=== PATIENT | female | born 1935 | race Caucasian/White ===

== ENCOUNTER 2016-11-02 23:24 | Emergency (ER) | payer MEDICARE, BC ==
[2016-11-02 23:52] VITALS: RESP 18
[2016-11-03] MEDS ORDERED: HYDROcodone/APAP 5-325MG 1 EACH TAB PO STA (00:16)
--- NOTE | 2016-11-03 00:18 | ED ---
Fall HPI - General Chief Complaint: Fall Stated Complaint: Fall Time Seen by Provider: 11/02/16 23:58 Source: patient, RN notes reviewed Mode of arrival: wheelchair - History of Present Illness Initial Comments: Patient is an 80-year-old female presents emergency room for evaluation of fall injury. Patient states arounf 4 PM she fell down 2 steps off her porch. Patient states she twisted her left ankle/foot and landed on her left knee. Patient is herself with her arms is having pain over her left hand and has an abrasion over her left elbow. Patient also complaining of left knee abrasion. Patient states she is mostly having left ankle and foot pain. Patient states pain is worse whenever she puts weight on her left leg. Patient denies any numbness or tingling in her toes. Patient denies head trauma or loss consciousness. Patient denies any other injuries during incident. Patient denies taking any blood thinners. - Related Data Home Medications Medication Instructions Recorded Confirmed ALPRAZolam [Xanax] 1 mg PO BID PRN 12/26/14 11/02/16 Methylphenidate HCl [Ritalin] 10 mg PO QAM 07/04/16 11/02/16 DULoxetine HCL [Duloxetine HCl] 60 mg PO DAILY 07/07/16 11/02/16 Hydrocodone/Acetaminophen 1 tab PO BID PRN 07/07/16 11/02/16 [Hydrocodon-Acetaminophn 10-325] Acetaminophen Tab [Tylenol] 325 - 650 mg PO Q6H PRN 10/14/16 11/02/16 Budesonide [Pulmicort] 0.5 mg INHALATION RT-BID PRN 10/14/16 11/02/16 Prochlorperazine [Compazine] 5 - 10 mg PO BID PRN 10/14/16 11/02/16 Zolpidem [Ambien] 10 mg PO HS PRN 10/14/16 11/02/16 oxyCODONE HCL 30 mg PO Q6HR PRN 10/14/16 11/02/16 valACYclovir [Valtrex] 500 mg PO DAILY 10/14/16 11/02/16 Previous Rx's Medication Instructions Recorded Folic Acid 1 mg PO DAILY@1200 #30 tab 10/19/16 Ipratropium-Albuterol Nebulize 3 ml INHALATION RT-QID #0 10/19/16 [Duoneb 0.5 mg-3 mg/3 ml Soln] Levofloxacin [Levaquin] 750 mg PO DAILY@1900 #5 tab 10/19/16 Multivitamins, Thera [Multivitamin 1 each PO DAILY@1200 #30 tab 10/19/16 (formulary)] Nicotine 14Mg/24Hr Patch [Habitrol] 1 patch TRANSDERM DAILY #30 patch 10/19/16 Thiamine [Vitamin B-1] 100 mg PO DAILY@1200 #30 tab 10/19/16 predniSONE 10 mg PO DIRECTED #30 tab 10/19/16 Allergies Allergy/AdvReac Type Severity Reaction Status Date / Time amoxicillin trihydrate Allergy Unknown Verified 11/02/16 23:46 [From Augmentin] cephalexin monohydrate Allergy Swelling Verified 11/02/16 23:46 [From Keflex] meperidine HCl [From Demerol] Allergy Unknown Verified 11/02/16 23:46 potassium clavulanate Allergy Unknown Verified 11/02/16 23:46 [From Augmentin] Sulfa (Sulfonamide Allergy Unknown Verified 11/02/16 23:46 Antibiotics) NSAIDS (Non-Steroidal AdvReac Severe Nausea & Verified 11/02/16 23:46 Anti-Inflamma Vomiting Review of Systems ROS Statement: Those systems with pertinent positive or pertinent negative responses have been documented in the HPI. ROS Other: All systems not noted in ROS Statement are negative. Past Medical History Past Medical History: COPD, Hypertension, Pneumonia Additional Past Medical History / Comment(s): arthritis, pancreatitis, chronic back and neck pain History of Any Multi-Drug Resistant Organisms: None Reported Past Surgical History: Hysterectomy Additional Past Surgical History / Comment(s): cataract Past Anesthesia/Blood Transfusion Reactions: No Reported Reaction Past Psychological History: Anxiety, Depression Smoking Status: Current every day smoker Past Alcohol Use History: None Reported Additional Past Alcohol Use History / Comment(s): Pt states "I smoke maybe three cigarettes a day" Past Drug Use History: None Reported - Past Family History Mother Family Medical History: Blood Disorder, Cancer, Thyroid Disorder General Exam - General Exam Comments Initial Comments: Sitting in exam room, no acute distress. Limitations: no limitations General appearance: alert, in no apparent distress Head exam: Present: atraumatic, normocephalic, normal inspection Eye exam: Present: normal appearance ENT exam: Present: normal exam Neck exam: Present: normal inspection Respiratory exam: Present: normal lung sounds bilaterally. Absent: respiratory distress Cardiovascular Exam: Present: regular rate, normal rhythm, normal heart sounds Left Elbow exam: Present: full ROM, abrasion (Abrasion over left elbow). Absent: tenderness Hand Wrist exam: Present: normal inspection, full ROM, tenderness (Dorsal hand) Neuro motor exam: Present: wrist extension intact, thumb opposition intact, thumb IP flexion intact, thumb adduction intact, fingers 2-5 abduction intact Vascular: Present: normal capillary refill (Capillary refill less than 2 seconds ), radial pulse (2+), ulnar pulse (2+) Left Knee exam: Present: full ROM, abrasion (Over anterior patella). Absent: tenderness Ankle exam: Present: full ROM, tenderness (Lateral malleolus), swelling ( Lateral malleolus) Foot/Toe exam: Present: tenderness (Tenderness on palpating over the heel) Neurovascular tendon exam: Present: no vascular compromise. Absent: pulse deficit (2+ dorsal pedal and posterior tibial pulses), abnormal cap refill ( Capillary refill less than 2 seconds) Back exam: Present: normal inspection Neurological exam: Present: alert, oriented X3, CN II-XII intact Psychiatric exam: Present: normal affect, normal mood Skin exam: Present: warm, dry, normal color. Absent: rash Course Vital Signs 11/02/16 11/03/16 23:46 01:56 Temperature 98.1 F 98.0 F Pulse Rate 105 H 95 Respiratory 18 18 Rate Blood Pressure 133/62 129/67 O2 Sat by Pulse 95 98 Oximetry Procedures - Orthopedic Splinting/Casting Injury #1 Side: left Lower Extremity Injury Location: foot Lower Extremity Immobilizer: posterior splint (Short leg OCL posterior splint placed. 3x12 inches. Neurovascular function assessed and intact.) Medical Decision Making - Medical Decision Making Patient is a 80-year-old female presents to the emergency room for fall injury. Left ankle x-ray significant for calcaneal fracture. Patient placed in a short leg posterior OCL splint and advised follow-up with adult health clinical nurse specialist. Patient lives with her daughter. Patient requests a prescription for [place]. Patient was written a prescription for [place] on 10/26/16 along with 105 tabs of Oxycodon on 10/26/16. Advised patient to continue taking her at home pain medications already prescribed to her as needed for pain. Patient states she understands everything that was discussed with her. Return parameters discussed. Case discussed with Dr. Mcbride. - Radiology Data Radiology results: report reviewed, image reviewed Disposition Clinical Impression: Fall, Left calcaneal fracture Disposition: HOME SELF-CARE Condition: Good Instructions: Fall Prevention for Older Adults (ED), Calcaneal Fracture (ED) Additional Instructions: Rest, elevate and ice on and off for 10-15 minutes for the next 24-48 hours. Do not get splint wet. Do not remove splint until follow-up with adult health clinical nurse specialist. Please follow-up with adult health clinical nurse specialist, Dr. Hood ) or any other physician in that facility in 24-48 hours. Continue taking at home pain medications as needed. If new symptoms develop or symptoms worsen , please return to the ER. Referrals: Brendan Rose DO [Primary Care Provider] - 1-2 days Gus Hood DO [Doctor of Osteopathic Medicine] - 1-2 days Time of Disposition: 01:33
--- NOTE | 2016-11-03 00:54 | XR ---
EXAM: XR Left Ankle Complete, 3 or More Views. CLINICAL HISTORY: Reason: Pain TECHNIQUE: Frontal, lateral and oblique views of the left ankle. COMPARISON: No relevant prior studies available. FINDINGS: Bones/joints: The bones are profoundly demineralized. This does limit sensitivity for detection of nondisplaced fracture. Allowing for this there appears to be both vertical and horizontal lucency within the posterior calcaneus, suggesting presence of acute fracture or fractures. The distal tibia and fibula are intact is the talus. No evidence of dislocation. Soft tissues: Mild generalized soft tissue swelling/edema about the ankle, more so laterally. IMPRESSION: Findings suggest the presence of calcaneal fracture or fractures. Correlate clinically with site of symptomatology. CT could be considered for further delineation as clinically indicated.
--- NOTE | 2016-11-03 00:58 | XR ---
EXAM: XR Left Hand Complete, 3 or More Views. CLINICAL HISTORY: Reason: Pain TECHNIQUE: Frontal, lateral and oblique views of the left hand. COMPARISON: No relevant prior studies available. FINDINGS: Bones/joints: The bones are diffusely demineralized. Multifocal arthritic changes including at the base of the thumb and medial midcarpal row, and notably involving the second and third MCP joints where there is mild volar subluxation without evidence of dislocation, the latter findings of which can be seen in the setting of CPPD arthropathy. There is no acute fracture seen. Soft tissues: There may be faint chondrocalcinosis of the TFC complex. No radiopaque foreign body. IMPRESSION: 1. No acute fracture or willy dislocation seen. 2. Chronic appearing arthritic changes with associated mild subluxation at the second and third MCP joints.
[2016-11-03 01:57] VITALS: BP 129/67; PULSE 95; TEMP 98
== END 2016-11-03 01:56 | disposition home or self-care (01) ==
LOC: EC 23:24
DX: S92.002A Unspecified fracture of left calcaneus, initial encounter for closed fracture (principal); S50.312A Abrasion of left elbow, initial encounter; S80.212A Abrasion, left knee, initial encounter; F41.9 Anxiety disorder, unspecified; F32.9 Major depressive disorder, single episode, unspecified; F17.210 Nicotine dependence, cigarettes, uncomplicated; Z79.899 Other long term (current) drug therapy; Z88.0 Allergy status to penicillin; Z88.1 Allergy status to other antibiotic agents; Z88.5 Allergy status to narcotic agent; Z88.2 Allergy status to sulfonamides; Z88.6 Allergy status to analgesic agent; Z87.01 Personal history of pneumonia (recurrent); W10.9XXA Fall (on) (from) unspecified stairs and steps, initial encounter; X50.1XXA Overexertion from prolonged static or awkward postures, initial encounter
CPT/HCPCS: 29515; 99283

== ENCOUNTER 2016-11-07 15:23 | Inpatient (IN) | payer MEDICARE, BC ==
--- NOTE | 2016-11-07 16:11 | ED ---
Altered Mental Status HPI - General Chief Complaint: Altered Mental Status Stated Complaint: alter mental status Time Seen by Provider: 11/07/16 15:51 Source: patient Mode of arrival: wheelchair Limitations: no limitations - History of Present Illness Initial Comments: This patient is an 80-year-old woman who presents to be evaluated for altered mental status. The patient is coming by her daughter. Daughter does give much of the history and states that the patient appears similar to the way she was when she had pneumonia. She has been weak, slow to respond, and her voice is somewhat weak as well. In addition she has been coughing for a couple of days. The weakness seemed to be worse this afternoon, being notable after 2:00. They deny any focal weakness. MD Complaint: altered mental status, confusion, weakness -: hour(s) Severity: moderate Context: history of similar presentation Associated Symptoms: cough - Related Data Home Medications Medication Instructions Recorded Confirmed ALPRAZolam [Xanax] 1 mg PO BID PRN 12/26/14 11/07/16 DULoxetine HCL [Duloxetine HCl] 60 mg PO DAILY 07/07/16 11/07/16 Acetaminophen Tab [Tylenol] 650 mg PO Q6H PRN 10/14/16 11/07/16 Zolpidem [Ambien] 10 mg PO HS PRN 10/14/16 11/07/16 oxyCODONE HCL 30 mg PO Q6HR PRN 10/14/16 11/07/16 valACYclovir [Valtrex] 500 mg PO DAILY 10/14/16 11/07/16 DULoxetine HCL [Cymbalta] 30 mg PO DAILY 11/07/16 11/07/16 Multivitamins, Thera [Multivitamin 1 tab PO DAILY@1200 11/07/16 11/07/16 (formulary)] Previous Rx's Medication Instructions Recorded Folic Acid 1 mg PO DAILY@1200 #30 tab 10/19/16 Thiamine [Vitamin B-1] 100 mg PO DAILY@1200 #30 tab 10/19/16 Allergies Allergy/AdvReac Type Severity Reaction Status Date / Time amoxicillin trihydrate Allergy Unknown Verified 11/07/16 17:04 [From Augmentin] cephalexin monohydrate Allergy Swelling Verified 11/07/16 17:04 [From Keflex] meperidine HCl [From Demerol] Allergy Unknown Verified 11/07/16 17:04 potassium clavulanate Allergy Unknown Verified 11/07/16 17:04 [From Augmentin] Sulfa (Sulfonamide Allergy Unknown Verified 11/07/16 17:04 Antibiotics) NSAIDS (Non-Steroidal AdvReac Severe Nausea & Verified 11/07/16 17:04 Anti-Inflamma Vomiting Review of Systems ROS Statement: Those systems with pertinent positive or pertinent negative responses have been documented in the HPI. ROS Other: All systems not noted in ROS Statement are negative. Constitutional: Reports: weakness (Generalized). Denies: fever, chills Eyes: Denies: vision change Respiratory: Reports: cough. Denies: dyspnea, wheezes Cardiovascular: Denies: chest pain, palpitations, edema, syncope Gastrointestinal: Denies: abdominal pain, vomiting, diarrhea Genitourinary: Denies: dysuria, hematuria Musculoskeletal: Reports: back pain (Chronic) Skin: Denies: rash Neurological: Reports: weakness, confusion. Denies: headache, numbness, paresthesias Past Medical History Past Medical History: COPD, Hypertension Additional Past Medical History / Comment(s): arthritis, pancreatitis, chronic back and neck pain History of Any Multi-Drug Resistant Organisms: None Reported Past Surgical History: Hysterectomy Additional Past Surgical History / Comment(s): cataract Past Anesthesia/Blood Transfusion Reactions: No Reported Reaction Past Psychological History: Anxiety, Depression Smoking Status: Current some day smoker Past Alcohol Use History: None Reported Additional Past Alcohol Use History / Comment(s): Pt states "I smoke maybe three cigarettes a day" Past Drug Use History: None Reported - Past Family History Mother Family Medical History: Blood Disorder, Cancer, Thyroid Disorder General Exam Limitations: no limitations General appearance: alert, in no apparent distress Head exam: Present: atraumatic, normocephalic Eye exam: Present: normal appearance. Absent: scleral icterus, conjunctival injection ENT exam: Present: mucous membranes dry Neck exam: Present: normal inspection, full ROM Respiratory exam: Present: normal lung sounds bilaterally, rales (Bilateral bases). Absent: respiratory distress, wheezes, rhonchi, stridor Cardiovascular Exam: Present: regular rate, normal rhythm, normal heart sounds. Absent: systolic murmur, diastolic murmur, rubs, gallop GI/Abdominal exam: Present: soft. Absent: distended, tenderness, guarding, rebound, mass Extremities exam: Present: normal inspection, normal capillary refill. Absent: pedal edema, calf tenderness Back exam: Present: normal inspection. Absent: CVA tenderness (R), CVA tenderness (L) Neurological exam: Present: alert, CN II-XII intact. Absent: oriented X3 ( Patient is alert and is oriented to person and place but could not state the exact date), motor sensory deficit Skin exam: Present: warm, dry, intact, normal color. Absent: rash Course Vital Signs 11/07/16 11/07/16 11/07/16 15:24 16:26 18:34 Temperature 96.8 F L 97.3 F L Pulse Rate 89 84 88 Respiratory 24 16 18 Rate Blood Pressure 115/59 107/56 135/61 O2 Sat by Pulse 86 L 96 97 Oximetry Medical Decision Making - Lab Data Result diagrams: 11/07/16 15:49 11/07/16 15:49 Lab Results 11/07/16 11/07/16 11/07/16 Range/Units 15:49 15:49 15:49 WBC 13.6 H (3.8-10.6) k/uL RBC 4.29 (3.80-5.40) m/uL Hgb 12.6 (11.4-16.0) gm/dL Hct 39.1 (34.0-46.0) % MCV 91.2 (80.0-100.0) fL MCH 29.3 (25.0-35.0) pg MCHC 32.1 (31.0-37.0) g/dL RDW 15.5 (11.5-15.5) % Plt Count 251 (150-450) k/uL Neutrophils % 74 % Lymphocytes % 15 % Monocytes % 5 % Eosinophils % 5 % Basophils % 1 % Neutrophils # 10.0 H (1.3-7.7) k/uL Lymphocytes # 2.0 (1.0-4.8) k/uL Monocytes # 0.7 (0-1.0) k/uL Eosinophils # 0.6 (0-0.7) k/uL Basophils # 0.1 (0-0.2) k/uL PT (9.0-12.0) sec INR (<1.1) APTT (22.0-30.0) sec Sodium 135 L (137-145) mmol/L Potassium 4.5 (3.5-5.1) mmol/L Chloride 96 L (98-107) mmol/L Carbon Dioxide 30 (22-30) mmol/L Anion Gap 9 mmol/L BUN 9 (7-17) mg/dL Creatinine 0.53 (0.52-1.04) mg/dL Est GFR (MDRD) Af Amer >60 (>60 ml/min/1.73 sqM) Est GFR (MDRD) Non-Af >60 (>60 ml/min/1.73 sqM) Glucose 100 H (74-99) mg/dL POC Glucose (mg/dL) (75-99) mg/dL POC Glu Student Assistance Counselor ID Calcium 9.1 (8.4-10.2) mg/dL Total Bilirubin 0.6 (0.2-1.3) mg/dL AST 22 (14-36) U/L ALT 27 (9-52) U/L Alkaline Phosphatase 77 (38-126) U/L Total Creatine Kinase 36 (30-135) U/L CK-MB (CK-2) 1.3 (0.0-2.4) ng/mL CK-MB (CK-2) Rel Index 3.6 Troponin I 0.014 (0.000-0.034) ng/mL Total Protein 6.5 (6.3-8.2) g/dL Albumin 3.5 (3.5-5.0) g/dL Urine Color Urine Appearance (Clear) Urine pH (5.0-8.0) Ur Specific [place] (1.001-1.035) Urine Protein (Negative) Urine Glucose (UA) (Negative) Urine Ketones (Negative) Urine Blood (Negative) Urine Nitrite (Negative) Urine Bilirubin (Negative) Urine Urobilinogen (<2.0) mg/dL Ur Leukocyte Esterase (Negative) Urine Opiates Screen (NotDetected) Ur Oxycodone Screen (NotDetected) Urine Methadone Screen (NotDetected) Ur Propoxyphene Screen (NotDetected) Ur Barbiturates Screen (NotDetected) U Tricyclic Antidepress (NotDetected) Ur Phencyclidine Scrn (NotDetected) Ur Amphetamines Screen (NotDetected) U Methamphetamines Scrn (NotDetected) U Benzodiazepines Scrn (NotDetected) Urine Cocaine Screen (NotDetected) U Marijuana (THC) Screen (NotDetected) 11/07/16 11/07/16 11/07/16 Range/Units 15:49 16:11 16:20 WBC (3.8-10.6) k/uL RBC (3.80-5.40) m/uL Hgb (11.4-16.0) gm/dL Hct (34.0-46.0) % MCV (80.0-100.0) fL MCH (25.0-35.0) pg MCHC (31.0-37.0) g/dL RDW (11.5-15.5) % Plt Count (150-450) k/uL Neutrophils % % Lymphocytes % % Monocytes % % Eosinophils % % Basophils % % Neutrophils # (1.3-7.7) k/uL Lymphocytes # (1.0-4.8) k/uL Monocytes # (0-1.0) k/uL Eosinophils # (0-0.7) k/uL Basophils # (0-0.2) k/uL PT 9.9 (9.0-12.0) sec INR 1.0 (<1.1) APTT 27.2 (22.0-30.0) sec Sodium (137-145) mmol/L Potassium (3.5-5.1) mmol/L Chloride (98-107) mmol/L Carbon Dioxide (22-30) mmol/L Anion Gap mmol/L BUN (7-17) mg/dL Creatinine (0.52-1.04) mg/dL Est GFR (MDRD) Af Amer (>60 ml/min/1.73 sqM) Est GFR (MDRD) Non-Af (>60 ml/min/1.73 sqM) Glucose (74-99) mg/dL POC Glucose (mg/dL) 95 (75-99) mg/dL POC Glu Student Assistance Counselor ID Calcium (8.4-10.2) mg/dL Total Bilirubin (0.2-1.3) mg/dL AST (14-36) U/L ALT (9-52) U/L Alkaline Phosphatase (38-126) U/L Total Creatine Kinase (30-135) U/L CK-MB (CK-2) (0.0-2.4) ng/mL CK-MB (CK-2) Rel Index Troponin I (0.000-0.034) ng/mL Total Protein (6.3-8.2) g/dL Albumin (3.5-5.0) g/dL Urine Color Yellow Urine Appearance Clear (Clear) Urine pH 5.5 (5.0-8.0) Ur Specific [place] 1.009 (1.001-1.035) Urine Protein Negative (Negative) Urine Glucose (UA) Negative (Negative) Urine Ketones Negative (Negative) Urine Blood Negative (Negative) Urine Nitrite Negative (Negative) Urine Bilirubin Negative (Negative) Urine Urobilinogen <2.0 (<2.0) mg/dL Ur Leukocyte Esterase Negative (Negative) Urine Opiates Screen Detected H (NotDetected) Ur Oxycodone Screen Detected H (NotDetected) Urine Methadone Screen Not Detected (NotDetected) Ur Propoxyphene Screen Not Detected (NotDetected) Ur Barbiturates Screen Not Detected (NotDetected) U Tricyclic Antidepress Detected H (NotDetected) Ur Phencyclidine Scrn Not Detected (NotDetected) Ur Amphetamines Screen Not Detected (NotDetected) U Methamphetamines Scrn Not Detected (NotDetected) U Benzodiazepines Scrn Detected H (NotDetected) Urine Cocaine Screen Not Detected (NotDetected) U Marijuana (THC) Screen Not Detected (NotDetected) Disposition Clinical Impression: Pneumonia, Altered mental status Disposition: ADMITTED IP TO THIS HOSP Condition: Fair
[2016-11-07 16:17] LABS: Basophils # (A) 0.1 k/uL (0-0.2); Basophils % (A) 1 %; CHCM 31.9; Eosinophils # (A) 0.6 k/uL (0-0.7); Eosinophils % (A) 5 %; HCT 39.1 % (34.0-46.0); HDW 2.51; HGB 12.6 gm/dL (11.4-16.0); Luc # (Auto) 0.19; Luc % (Auto) 1; Lymphocytes % (A) 15 %; MCH 29.3 pg (25.0-35.0); MCHC 32.1 g/dL (31.0-37.0); MCV 91.2 fL (80.0-100.0); Mean Platelet Volume 6.8; Monocytes # (A) 0.7 k/uL (0-1.0); Monocytes % (A) 5 %; Neutrophils % (A) 74 %; RBC 4.29 m/uL (3.80-5.40); RDW 15.5 % (11.5-15.5); WBC 13.6 k/uL (3.8-10.6); WBC (Perox) 13.91
[2016-11-07 16:21] LABS: Glucose,Whole Blood 95 mg/dL (75-99)
[2016-11-07 16:29] LABS: ALT 27 U/L (9-52); AST 22 U/L (14-36); Alkaline Phosphatase 77 U/L (38-126); Anion Gap 9 mmol/L; Blood Urea Nitrogen 9 mg/dL (7-17); Calcium 9.1 mg/dL (8.4-10.2); Carbon Dioxide 30 mmol/L (22-30); Chloride 96 mmol/L (98-107); Glucose 100 mg/dL (74-99); Non-African American GFR(MDRD) >60 (>60 ml/min/1.73 sqM); Potassium 4.5 mmol/L (3.5-5.1); Sodium 135 mmol/L (137-145); Total Bilirubin 0.6 mg/dL (0.2-1.3); Total Protein 6.5 g/dL (6.3-8.2)
[2016-11-07 16:31] LABS: Appearance,Urine Clear (Clear); Bilirubin,Urine Negative (Negative); Glucose,Urine (UA) Negative (Negative); Ketones,Urine Negative (Negative); Leukocyte Esterase,Urine Negative (Negative); Nitrite,Urine Negative (Negative); PH, Urine 5.5 (5.0-8.0); Protein,Urine Negative (Negative); Specific Gravity,Urine 1.009 (1.001-1.035); UA Billing (MACRO vs. MICRO) CHEM; Urobilinogen,Urine <2.0 mg/dL (<2.0)
[2016-11-07 16:45] LABS: Partial Thromboplastin Time 27.2 sec (22.0-30.0); Prothrombin Time 9.9 sec (9.0-12.0)
--- NOTE | 2016-11-07 16:45 | XR ---
EXAMINATION TYPE: XR chest 1V portable DATE OF EXAM: 11/07/2016 4:33 PM Comparison: 10/19/2016 Clinical History: 80-year-old female with confusion, altered mental status Findings: Heart is upper limits of normal in size. Mild elongation of the thoracic aorta. There is patchy media l right basilar opacity. No pleural effusion. Loss of the right subacromial space suggesting full-thi ckness rotator cuff tear. Impression: 1. Borderline heart size. 2. Patchy medial right basilar atelectasis or early infiltrate.
[2016-11-07 16:51] LABS: Creatine Kinase MB 1.3 ng/mL (0.0-2.4); Troponin I 0.014 ng/mL (0.000-0.034)
[2016-11-07] MEDS ORDERED: LEVOFLOXACIN 750MG-D5W PMX 750 MG in DEXTROSE/WATER 1 150ML.BAG IVPB STA (17:36)
[2016-11-07] MEDS ORDERED: SODIUM CHLORIDE 0.9% 1,000 ML IV STA (18:45)
[2016-11-07] MEDS ORDERED: PNEUMONIA PROTOCOL UTILIZED 1 EACH MISC PO PRN (18:48)
[2016-11-07] MEDS: SODIUM CHLORIDE 0.9% 1,000 ML IV SCH (22:48)
[2016-11-08 09:44] VITALS: BMI 18.5
[2016-11-08] MEDS: valACYclovir 500 MG TAB PO SCH (09:58)
[2016-11-08] MEDS: DULoxetine HCL 30 MG CAPSULE.DR PO SCH (09:58)
[2016-11-08] MEDS: DULoxetine HCL 60 MG CAPSULE.DR PO SCH (09:58)
[2016-11-08] MEDS: THIAMINE 100 MG TAB PO SCH (13:11)
[2016-11-08] MEDS: FOLIC ACID 1 MG TAB PO SCH (13:11)
[2016-11-08] MEDS: MULTIVITAMINS, THERA 1 EACH TAB PO SCH (13:11)
[2016-11-08] MEDS: ACETAMINOPHEN TAB 325 MG TAB PO PRN (14:37)
[2016-11-08] MEDS ORDERED: TEMAZEPAM 7.5 MG CAP PO PRN (17:34)
[2016-11-08] MEDS: NICOTINE 14MG/24HR PATCH TRANSDERM SCH (17:51)
[2016-11-08] MEDS: methylPREDNISolone SOD SUCCI 40 MG/ML 1 ML VIAL IV SCH (17:57)
[2016-11-08] MEDS: traMADol 50 MG TAB PO PRN (17:57)
[2016-11-08] MEDS: ENOXAPARIN 40 MG/0.4 ML SYRINGE SQ SCH (17:57)
[2016-11-08] MEDS: LEVOFLOXACIN 750 MG TAB PO SCH (18:11)
[2016-11-08] MEDS ORDERED: LEVOFLOXACIN 750MG-D5W PMX 750 MG in DEXTROSE/WATER 1 150ML.BAG IVPB SCH (19:00)
[2016-11-08] MEDS: SODIUM CHLORIDE 0.9% 1,000 ML IV SCH (19:53)
[2016-11-08] MEDS: BACITRACIN 500 UNIT/GM OINT 28.4 GM TUBE TOPICAL SCH (19:54)
[2016-11-08] MEDS: IPRATROPIUM-ALBUTEROL 3 ML NEB INHALATION SCH (20:26)
--- NOTE | 2016-11-08 23:40 | HP ---
DATE OF ADMISSION: 11/07/2016 PRESENTING COMPLAINT: Cough, phlegm, increasing confusion. HISTORY OF PRESENTING COMPLAINT: This is a pleasant 80-year-old patient of Dr. Rose with a rather extensive medical history. Patient's chronic stable medical conditions include osteoarthritis, anxiety, depression. Patient had been smoking until quite recently. Patient also has chronic pain, anxiety. Patient was brought in. Patient was having cough, some phlegm, shortness of breath, wheezing, decreased appetite. Patient recently took a fall with fracture to the left heel and was supposed to see Orthopedics actually today; could not remember the name. Also has a left superficial wound with some drainage on the left knee. Patient was somewhat confused in the ER, somewhat delirious, but doing better when I spoke to her, though is able to speak only slowly. REVIEW OF SYSTEMS: CONSTITUTIONAL: Tired. HEENT: None. RESPIRATORY: As above. CARDIOVASCULAR: No chest pain. GASTROINTESTINAL: None. GENITOURINARY: None. MUSCULOSKELETAL: Pain in many joints and as above. DERMATOLOGICAL: As above. LYMPHATICS: None. PSYCHIATRY: A bit forgetful. NEUROLOGICAL: None. PAST HISTORY: 1. COPD. 2. Arthritis. 3. Pancreatitis. 4. Chronic low back pain. 5. Neck pain. 6. Anxiety. 7. Depression. PAST SURGICAL HISTORY: Hysterectomy, cataract. SOCIAL HISTORY: Lives with her daughter. Smoking a few cigarettes a day. FAMILY HISTORY: Blood disorder, cancer, thyroid disorder. HOME MEDICATIONS: 1. Multivitamin 1 tablet p.o. daily at noon. 2. Valtrex 500 mg p.o. daily. 3. Oxycodone 30 mg p.o. q.6 p.r.n. 4. Ambien 10 mg p.o. at bedtime. 5. Thiamine 100 mg p.o. daily. 6. Folic acid 1 mg p.o. daily. 7. Cymbalta 60 mg p.o. daily. 8. Cymbalta 30 mg p.o. daily. 9. Xanax 1 mg p.o. b.i.d. p.r.n. 10. Tylenol 650 mg q.6 p.r.n. ALLERGIES: 1. AUGMENTIN. 2. KEFLEX. 3. POTASSIUM. 4. SULFA. 5. NSAIDS. PHYSICAL EXAMINATION: VITAL SIGNS ON PRESENTATION: Temperature 96.8, pulse 89, respiration 24, blood pressure 115/59, pulse ox 86% on room air. GENERAL APPEARANCE: Thin build. BMI 18.6. Sitting up, tired-appearing. EYES: Pupils equal. Conjunctivae pale. HEENT: Oral cavity normal. NECK: JVD not raised. Mass not palpable. RESPIRATORY: Effort increased. LUNGS: Decreased breath sounds. Some basal crackles on the right side. CARDIOVASCULAR: First and second sounds normal. No edema. ABDOMEN: Soft nontender. Liver and spleen not palpable. LYMPHATICS: No lymph node palpable in neck or axillae. PSYCHIATRY: Alert and oriented x3. Mood and affect normal. NEUROLOGICAL: Pupils equal. Cranial nerves grossly intact. Power and sensation grossly intact. LEFT LOWER EXTREMITY: Patient has a superficial wound on the left knee. Left knee is in a support. INVESTIGATIONS: White count 13.6, hemoglobin 12.6. Potassium 4.5. BUN and creatinine are normal. Chest x-ray reviewed; it shows possible right middle lobe infiltrate. Urine drug screen positive for opiates, oxycodone, tricyclic antidepressants, benzodiazepines. ASSESSMENT: 1. Acute right middle lobe pneumonia; suspect Gram-negative organism/community-acquired pneumonia, present at admission. 2. Acute chronic obstructive pulmonary disease exacerbation in a long-standing smoker. 3. Acute delirium on presentation from pneumonia, present on admission. 4. Patient is on significant pain medications for her age, and some of these need to be scaled back. 5. Chronic nicotine dependence. Patient is an active smoker. 6. Primary osteoarthritis in multiple joints, bilateral, including low back pain. 7. Anxiety and depression not otherwise specified. 8. Left heel fracture secondary to fall. PLAN: Patient will be put on nebulized bronchodilators, antibiotics, IV fluids and Solu-Medrol. Will discontinue patient's Xanax. Will also discontinue the hefty dose of oxycodone, Xanax. Use Ultram for pain control. Will give Lovenox for DVT prophylaxis. Overall prognosis is guarded. No family is at the bedside. Will add bacitracin to the left knee. Will get orthopedic opinion.
[2016-11-09] MEDS: methylPREDNISolone SOD SUCCI 40 MG/ML 1 ML VIAL IV SCH ×4 (00:16→23:24)
[2016-11-09] MEDS: traMADol 50 MG TAB PO PRN ×2 (00:34→06:19)
[2016-11-09] MEDS: IPRATROPIUM-ALBUTEROL 3 ML NEB INHALATION SCH ×4 (07:42→20:08)
[2016-11-09] MEDS: ENOXAPARIN 40 MG/0.4 ML SYRINGE SQ SCH (08:02)
[2016-11-09] MEDS: DULoxetine HCL 60 MG CAPSULE.DR PO SCH (08:02)
[2016-11-09] MEDS: DULoxetine HCL 30 MG CAPSULE.DR PO SCH (08:02)
[2016-11-09] MEDS: BACITRACIN 500 UNIT/GM OINT 28.4 GM TUBE TOPICAL SCH ×2 (08:02→21:03)
[2016-11-09] MEDS: valACYclovir 500 MG TAB PO SCH (08:24)
[2016-11-09] MEDS ORDERED: BACITRACIN 500 UNIT/GM OINT 28.4 GM TUBE TOPICAL SCH (09:00)
--- NOTE | 2016-11-09 11:32 | P.CNOR ---
History of Present Illness - HPI Consult date: 11/09/16 Consult reason: fracture (Left calcaneus fracture) History of present illness: This is a pleasant 80-year-old female with multiple medical problems. Patient is currently admitted with acute pneumonia. She has known recent calcaneus fracture for which she has seen Dr. Darby in the office. She sustained a fall on 11/02/2016.She was initially seen in the ER [facility]. She was later seen in our office on 11/11/2016. She was placed in a tibial ankle foot arthrosis. She was scheduled to follow up in our office on Monday for reevaluation. She seen and evaluated at bedside this morning. She has no new complaints in regards to her left foot. She is not had any new fall or injury. She is somewhat of a poor historian. She is admitted with pneumonia. She reports having a cough and some associated shortness of breath and wheezing. No chest pain. She did not report any fevers or chills. Review of Systems See HPI Past Medical History Past Medical History: COPD Additional Past Medical History / Comment(s): arthritis, pancreatitis, chronic back and neck pain History of Any Multi-Drug Resistant Organisms: None Reported Past Surgical History: Hysterectomy Additional Past Surgical History / Comment(s): cataract Past Anesthesia/Blood Transfusion Reactions: No Reported Reaction Past Psychological History: Anxiety, Depression Smoking Status: Former smoker Past Alcohol Use History: None Reported Additional Past Alcohol Use History / Comment(s): Pt states "I smoke maybe three cigarettes a day" Past Drug Use History: None Reported - Past Family History Father Family Medical History: No Reported History Mother Family Medical History: Blood Disorder, Cancer, Thyroid Disorder Medications and Allergies Home Medications Medication Instructions Recorded Confirmed Type ALPRAZolam [Xanax] 1 mg PO BID PRN 12/26/14 11/07/16 History DULoxetine HCL [Duloxetine HCl] 60 mg PO DAILY 07/07/16 11/07/16 History Acetaminophen Tab [Tylenol] 650 mg PO Q6H PRN 10/14/16 11/07/16 History Zolpidem [Ambien] 10 mg PO HS PRN 10/14/16 11/07/16 History oxyCODONE HCL 30 mg PO Q6HR PRN 10/14/16 11/07/16 History valACYclovir [Valtrex] 500 mg PO DAILY 10/14/16 11/07/16 History DULoxetine HCL [Cymbalta] 30 mg PO DAILY 11/07/16 11/07/16 History Multivitamins, Thera [Multivitamin 1 tab PO DAILY@1200 11/07/16 11/07/16 History (formulary)] Allergies Allergy/AdvReac Type Severity Reaction Status Date / Time amoxicillin trihydrate Allergy Unknown Verified 11/07/16 17:04 [From Augmentin] cephalexin monohydrate Allergy Swelling Verified 11/07/16 17:04 [From Keflex] meperidine HCl [From Demerol] Allergy Unknown Verified 11/07/16 17:04 potassium clavulanate Allergy Unknown Verified 11/07/16 17:04 [From Augmentin] Sulfa (Sulfonamide Allergy Unknown Verified 11/07/16 17:04 Antibiotics) NSAIDS (Non-Steroidal AdvReac Severe Nausea & Verified 11/07/16 17:04 Anti-Inflamma Vomiting Physical Examination On examination, the patient does not appear in acute distress. She is alert and answers questions appropriately. She is somewhat of a poor historian. Head normocephalic, atraumatic Neck is supple TAFO brace is intact. There is diffuse swelling and ecchymosis about the foot. She is tenderness about the calcaneus. There is no open wounds or fracture blisters noted. There is dressing intact over the superficial abrasion on her left knee. Dressing was not removed today. Foot is warm and well perfused with brisk capillary refill. Results Previous x-rays are reviewed showing minimally displaced calcaneal fracture, left. - Labs Result Diagrams: 11/07/16 15:49 11/07/16 15:49 Assessment and Plan (1) Fall Status: Acute (2) Left calcaneal fracture Status: Acute Plan: This is a 80-year-old female known to Dr. Darby with left calcaneal fracture. Patient sustained injury on 11/02/2016. She was seen in our office and closed treatment has been initiated in a TAFO brace. No surgical convention as planned. She is to continue with the brace at this time. She is nonweightbearing to the left lower extremity. She is to keep the brace on the majority of the time. It may be removed only for bathing. She may continue with rest, ice, and elevation. I did discuss the patient with Dr. Darby. We will obtain repeat x-rays for reevaluation. If her x-rays are unchanged, she may return to the office in 4 weeks. She is to continue with nonweightbearing and the brace.
[2016-11-09] MEDS: MULTIVITAMINS, THERA 1 EACH TAB PO SCH (12:09)
[2016-11-09] MEDS: THIAMINE 100 MG TAB PO SCH (12:09)
[2016-11-09] MEDS: FOLIC ACID 1 MG TAB PO SCH (12:09)
[2016-11-09] MEDS: ALPRAZolam 0.25 MG TAB PO PRN (13:55)
--- NOTE | 2016-11-09 14:21 | XR ---
EXAMINATION TYPE: XR calcaneus 2V LT DATE OF EXAM: 11/09/2016 1:31 PM COMPARISON: NONE HISTORY: Fall, pain TECHNIQUE: 2 view left calcaneus FINDINGS: There is a comminuted fracture of the calcaneus. There is flattening of Boehler's angle. Pl percy calcaneal heel spur and Achilles tendon calcaneal heel spur is present. Joint spaces appear pre served. IMPRESSION: 1. Comminuted fracture of the calcaneus with flattening of Boehler's angle.
[2016-11-09] MEDS: ACETAMINOPHEN TAB 325 MG TAB PO PRN ×2 (16:44→23:23)
[2016-11-09] MEDS: NICOTINE 14MG/24HR PATCH TRANSDERM SCH (16:47)
--- NOTE | 2016-11-09 20:52 | PN ---
DATE OF SERVICE: 11/09/2016 PRESENTING COMPLAINT: Cough, phlegm, increasing confusion. INTERVAL HISTORY: This is an 80-year-old patient who presented to the emergency department with cough with sputum production, shortness of breath, wheezing, decreased appetite. Patient also sustained a fall and fractured her left calcaneus, for which she has been fitted with a brace. Additionally, patient was confused on admission and delirious-appearing. Today patient is awake, alert, able to answer questions. Granddaughter at the bedside is assisting her with her breakfast. Review of systems done for constitutional, cardiovascular, gastrointestinal, pulmonary; relevant findings as above. CURRENT MEDICATIONS: 1. Bacitracin ointment. 2. Cymbalta. 3. Solu-Medrol. 4. Habitrol. 5. Xanax. 6. Oxycodone. 7. Ambien. PHYSICAL EXAMINATION: VITAL SIGNS: Temperature 97.8, pulse 113, respiratory rate 20, blood pressure 135/94, oxygen saturation 95% on 2 L nasal cannula. GENERAL APPEARANCE: Patient sitting up in bed looking more awake, alert, talking with granddaughter at the bedside. EYES: Pupils equal. Conjunctivae pale. NECK: JVD not raised. Mass not palpable. RESPIRATORY: Effort decreased. LUNGS: Decreased breath sounds. Some basal crackles on the right side. CARDIOVASCULAR: S1, S2 sounds normal. No edema. ABDOMEN: Soft, nontender. Liver and spleen not palpable. PSYCHIATRY: Alert and oriented x3. Mood and affect are normal. MUSCULOSKELETAL: Patient has a superficial wound on the left knee. Left lower extremity is currently suspended via a brace. Left heel sustained a fracture as a result of a fall. INVESTIGATIONS. No current labs to report. ASSESSMENT: 1. Right middle lobe pneumonia; suspect Gram-negative organism/community-acquired pneumonia, present at admission. 2. Acute chronic obstructive pulmonary disease exacerbation in a long-standing smoker. 3. Acute delirium on presentation from pneumonia, present on admission. 4. Patient is on significant pain medications for age, and some of these need to be scaled back. 5. Chronic nicotine dependence. Patient is an active smoker. 6. Primary osteoarthritis of multiple joints, bilateral, including low back pain. 7. Anxiety and depression not otherwise specified. 8. Left heel fracture secondary to a fall. PLAN: Will continue nebulized bronchodilators, antibiotics, Solu-Medrol. Patient's Xanax was ( ) continued at 0.25 mg twice daily. Ultram was unsuccessful in managing patient's pain; therefore OxyContin was resumed at the original home dose. Patient was on Restoril for sleep, which was discontinued and changed to Ambien 0.25 mg. Granddaughter was at the bedside and patient's care was discussed with the patient as well as her granddaughter extensively. History and physical was performed on the patient by me/nurse practitioner and attending/Dr. Mclean. The relevant points of the history/physical/diagnoses/plan were discussed and are as dictated above.
[2016-11-09] MEDS ORDERED: ZOLPIDEM 5 MG TAB PO SCH (21:00)
[2016-11-09] MEDS: LEVOFLOXACIN 750 MG TAB PO SCH (21:03)
[2016-11-09] MEDS: SODIUM CHLORIDE 0.9% 1,000 ML IV SCH (21:03)
[2016-11-10] MEDS: ALPRAZolam 0.25 MG TAB PO PRN ×2 (01:19→15:09)
[2016-11-10 07:40] VITALS: RESP 20
[2016-11-10] MEDS: DULoxetine HCL 60 MG CAPSULE.DR PO SCH (08:08)
[2016-11-10] MEDS: DULoxetine HCL 30 MG CAPSULE.DR PO SCH (08:08)
[2016-11-10] MEDS: ENOXAPARIN 40 MG/0.4 ML SYRINGE SQ SCH (08:08)
[2016-11-10] MEDS: BACITRACIN 500 UNIT/GM OINT 28.4 GM TUBE TOPICAL SCH (08:09)
[2016-11-10] MEDS: valACYclovir 500 MG TAB PO SCH (08:09)
[2016-11-10] MEDS: methylPREDNISolone SOD SUCCI 40 MG/ML 1 ML VIAL IV SCH ×2 (08:15→15:09)
[2016-11-10] MEDS: IPRATROPIUM-ALBUTEROL 3 ML NEB INHALATION SCH ×3 (08:30→15:40)
[2016-11-10 09:10] LABS: CHCM 32.5; HCT 33.5 % (34.0-46.0); HDW 2.73; HGB 10.6 gm/dL (11.4-16.0); MCH 28.3 pg (25.0-35.0); MCHC 31.7 g/dL (31.0-37.0); MCV 89.5 fL (80.0-100.0); Mean Platelet Volume 7.1; RBC 3.74 m/uL (3.80-5.40); RDW 15.2 % (11.5-15.5)
[2016-11-10 09:21] LABS: Anion Gap 11 mmol/L; Blood Urea Nitrogen 19 mg/dL (7-17); Calcium 9.2 mg/dL (8.4-10.2); Carbon Dioxide 25 mmol/L (22-30); Chloride 102 mmol/L (98-107); Glucose 180 mg/dL (74-99); Non-African American GFR(MDRD) >60 (>60 ml/min/1.73 sqM); Potassium 4.6 mmol/L (3.5-5.1); Sodium 138 mmol/L (137-145)
--- NOTE | 2016-11-10 11:07 | P.PN ---
Subjective Principal diagnosis: Left calcaneus fracture Patient is a pleasant 80-year-old female that orthopedics is following for a left calcaneus fracture. She's been seen by Dr. Darby in the office. New X- rays of the left foot and heel have been taken. She has no new complaints today. She has been in a TAFO brace and nonweightbearing. She denies new numbness, tingling, calf pain or other complaints. Objective - Vital Signs Vital signs: Vital Signs Temp 98.1 F 11/10/16 07:00 Pulse 90 11/10/16 07:00 Resp 20 11/10/16 07:00 BP 115/56 11/10/16 07:00 Pulse Ox 95 11/10/16 07:00 Intake & Output 11/09/16 11/10/16 11/10/16 18:59 06:59 18:59 Intake Total 120 240 Balance 120 240 Intake: Oral 120 240 Other: Voiding Method Bedside Commode Bedside Commode Bedside Commode Bedpan # Voids 1 1 # Bowel Movements 1 1 - Exam Left lower extremity, foot and heel exam unchanged. There are no open wounds. She is neurovascularly intact with motor, sensation and perfusion. Calf is soft and nontender. - Constitutional General appearance: Present: no acute distress - Psychiatric Psychiatric: Present: A&O x's 3, appropriate affect, intact judgment & insight - Labs CBC & Chem 7: 11/10/16 08:23 11/10/16 08:23 Labs: Abnormal Lab Results - Last 24 Hours (Table) 11/10/16 11/10/16 Range/Units 08:23 08:23 RBC 3.74 L (3.80-5.40) m/uL Hgb 10.6 L (11.4-16.0) gm/dL Hct 33.5 L (34.0-46.0) % BUN 19 H (7-17) mg/dL Creatinine 0.46 L (0.52-1.04) mg/dL Glucose 180 H (74-99) mg/dL Microbiology - Last 24 Hours (Table) 11/09/16 11:45 Gram Stain - Preliminary Sputum - Imaging and Cardiology X-rays of the left foot and heel show a comminuted fracture left calcaneus is unchanged in comparison to x-rays taken in the office recently. Fracture is stable. Assessment and Plan (1) Left calcaneal fracture Narrative/Plan: She'll continue with the AFO brace as well as nonweightbearing and elevation of the left lower extremity. She is to follow-up with Dr. Darby in office in 4 weeks. We'll sign off for now and she may be discharged from the orthopedic standpoint. Status: Acute Time with Patient: Less than 30
[2016-11-10] MEDS: MULTIVITAMINS, THERA 1 EACH TAB PO SCH (12:01)
[2016-11-10] MEDS: FOLIC ACID 1 MG TAB PO SCH (12:01)
[2016-11-10] MEDS: THIAMINE 100 MG TAB PO SCH (12:01)
[2016-11-10 15:26] VITALS: BP 152/79; TEMP 97.1
--- NOTE | 2016-11-10 15:37 | CDI ---
In responding to this query, please exercise your independent professional judgment. The [facility] Coding Staff and Clinical Documentation Specialists appreciate your assistance in clarifying documentation, maintaining compliance with coding guidelines, accurately documenting patients condition and capturing severity of illness. The fact that a question is asked does not imply that any particular answer is desired or expected. Communication forms are a method of clarifying documentation and are not made part of the Legal Health Record. Thank you in advance for your clarification. Last Revision, September 2015 Hortencia Quiñones [address] [place] [address] Documentation Clarification Form Date: 11/10/2016 3:17:00 PM From: Ping Maciel RN, CDS Admit Date: 11/07/2016 6:48:00 PM Patient Name: Edel Alex Visit Number: [id number] Dr. Mahendra Mclean Altered mental status was documented in the ED note Patient history/risk factors: 80 yo presents for confusion, altered mental status and weakness, Clinical Indicators: "confused on admission, Acute delirium from Pneumonia" per H&P and progress note 11/09 Labs: WBC 13.6, NA 135, Sputum + Many gram + Bacilli, Few gram + Cocci, Rare gram - Bacilli X Ray: CXR: patchy medial right basilar atelectasis or early infiltrate, Treatment: IV Levaquin, NS @ 20, Duoneb, IV Solu-Medrol, In your professional opinion, please clarify the etiology of the altered mental status, if known. Metabolic Encephalopathy due to Pneumonia Encephalopathy, Other (specify Type and Underlying Medical Illness) Other condition (please specify) Unable to determine Please document in your progress notes and discharge summary in order to capture severity of illness and risk of mortality. Include clinical findings that support your diagnosis. FYI: Press F11 to launch patient chart. Place X here if this finding has no clinical significance, is not applicable or if you are not able to provide any additional documentation. FRANKLIND
[2016-11-10 15:46] VITALS: PULSE 90
--- NOTE | 2016-11-10 16:16 | DS ---
DATE OF ADMISSION: 11/07/2016 DATE OF DISCHARGE: 11/10/2016 FINAL DIAGNOSES: 1. Acute right middle lobe pneumonia; suspect Gram-negative organism, community-acquired, present on admission. 2. Acute chronic obstructive pulmonary disease exacerbation in a long-standing smoker. 3. Acute delirium on presentation from pneumonia, present on admission. 4. Chronic nicotine dependence. Patient is an active smoker. 5. Primary osteoarthritis in multiple joints bilaterally, including low back pain. 6. Anxiety and depression not otherwise specified. 7. Acute metabolic encephalopathy from significant amount of pain medications. 8. Left calcaneal fracture; patient in a left heel brace. CONSULTATION: Dr. Darby from Orthopedics. HOSPITAL COURSE: This lady is a smoker. She presented with pneumonia. Patient's blood cultures were negative. Sputum cultures were nonspecific. Patient clinically improved a lot since admission. Also lungs are doing much better. Patient has a significant amount of pain medications. This was discussed with the patient's granddaughter Yoli, who is known to me; she works at the hospital; and also patient's daughter today. I did emphasize the importance of not mixing opioids with benzodiazepines and patient being on a hefty dose of Ambien. Dose of Xanax was cut back, and also dose of Ambien was reduced. Today the patient is doing much better, tolerating a diet, sitting up. On examination, lungs reveal improved air entry. CARDIOVASCULAR: First and second sounds normal. Daughter is at the bedside. Discharge planning more than 35 minutes. DISCHARGE MEDICATIONS: 1. Cymbalta 60 mg p.o. daily. 2. Tylenol 650 mg q.6 p.r.n. 3. Valtrex 500 mg p.o. daily. 4. Folic acid 1 mg p.o. daily. 5. Thiamine 100 mg p.o. daily. 6. Cymbalta 30 mg p.o. daily. 7. Multivitamin 1 tablet p.o. daily. 8. Xanax 0.25 p.o. b.i.d. p.r.n. for anxiety; new dose. 9. Bacitracin ointment topically b.i.d. 10. DuoNeb t.i.d. 11. Levaquin 750 mg p.o. daily for 3 tablets. 12. Nicotine 14 mg patch for 14 days. 13. Ambien 2.5 mg p.o. at bedtime; new dose. 14. Oxycodone 30 mg p.o.q.8. DISPOSITION: [facility]. Follow up with Dr. Darby on 12/08/16. Follow up with Dr. Brendan Rose after discharge from [facility]. Follow up with Dr. Tariq on 11/11/16. Additionally, patient was seen by Dr. Darby from Orthopedics. A left ankle brace has been ordered for the left calcaneal fracture. No surgical intervention. [id number]. More details in the consultations.
[2016-11-10] MEDS: ACETAMINOPHEN TAB 325 MG TAB PO PRN (16:32)
[2016-11-10] MEDS: NICOTINE 14MG/24HR PATCH TRANSDERM SCH (16:41)
--- NOTE | 2016-12-09 07:21 | PN ---
DATE OF SERVICE: 11/09/2016 ATTENDING NOTE: This patient was seen and examined by me on 11/09/2016. I reviewed the note of my nurse practitioner, Ms. Scott. Discussed and agreed. This patient was admitted with pneumonia, COPD exacerbation. Has got a left calcaneus brace. Patient is feeling better. Granddaughter is assisting with breakfast. On examination, blood pressure 135/94, pulse ox 95% on 2 L. The patient is sitting up, more comfortable. LUNGS: Decreased breath sounds. Some bibasilar crackles. CARDIOVASCULAR: First and second seconds normal. PSYCH: Awake, answering questions. ASSESSMENT: 1. Right middle lobe pneumonia, suspect gram-negative organism. 2. Acute chronic obstructive pulmonary disease exacerbation in a long-standing smoker. 3. Acute delirium from underlying pneumonia. PLAN: Continue current medication and treatment plan including bronchodilators, Solu-Medrol, Xanax, OxyContin, dose was resumed. Changing to a smaller dose of Ambien at night. Care was discussed with the granddaughter at the bedside.
== END 2016-11-10 17:06 | DRG 190 ==
LOC: EC 15:23 → 4MS4W 18:48
PROVIDERS: ADMIT Hospitalist; ATTEND Hospitalist
DX: J44.0 Chronic obstructive pulmonary disease with (acute) lower respiratory infection (principal); J15.6 Pneumonia due to other Gram-negative bacteria; G93.41 Metabolic encephalopathy; F05 Delirium due to known physiological condition; F41.9 Anxiety disorder, unspecified; J44.1 Chronic obstructive pulmonary disease with (acute) exacerbation; S92.002A Unspecified fracture of left calcaneus, initial encounter for closed fracture; S81.012A Laceration without foreign body, left knee, initial encounter; F32.9 Major depressive disorder, single episode, unspecified; G89.29 Other chronic pain; F17.210 Nicotine dependence, cigarettes, uncomplicated; R53.1 Weakness; M19.91 Primary osteoarthritis, unspecified site; M54.5 Low back pain; T40.2X5A Adverse effect of other opioids, initial encounter; M54.2 Cervicalgia; Z79.891 Long term (current) use of opiate analgesic; Z79.899 Other long term (current) drug therapy; Z71.3 Dietary counseling and surveillance; Z88.6 Allergy status to analgesic agent; Z88.1 Allergy status to other antibiotic agents; Z88.0 Allergy status to penicillin; Z88.2 Allergy status to sulfonamides; Z87.19 Personal history of other diseases of the digestive system; Z98.49 Cataract extraction status, unspecified eye; Z90.710 Acquired absence of both cervix and uterus; Z80.9 Family history of malignant neoplasm, unspecified; Z83.49 Family history of other endocrine, nutritional and metabolic diseases; Z83.2 Family history of diseases of the blood and blood-forming organs and certain disorders involving the immune mechanism; W19.XXXA Unspecified fall, initial encounter; Y92.009 Unspecified place in unspecified non-institutional (private) residence as the place of occurrence of the external cause
CPT/HCPCS: 36415; 71010; 80048; 80053; 80306; 81003; 82550; 82553; 84484; 85025; 85027; 85610; 85730; 87040; 87070; 87086; 87205; 93005; 94640; 94760; 96365; 99285

== ENCOUNTER 2016-12-31 11:28 | Emergency (ER) | payer MEDICARE, BC ==
[2016-12-31 11:36] VITALS: RESP 20
[2016-12-31] MEDS ORDERED: HYDROcodone/APAP 5-325MG 1 EACH TAB PO STA (11:49)
--- NOTE | 2016-12-31 11:54 | ED ---
General Adult HPI - General Chief complaint: Fall Stated complaint: Fall/rib pain Time Seen by Provider: 12/31/16 11:45 Source: patient, RN notes reviewed Mode of arrival: wheelchair Limitations: physical limitation - History of Present Illness Initial comments: Patient 81-year-old female who presents emergency room today with a chief complaint of a fall that occurred earlier today. She does admit that she has a fractured heel on the left and she wears a boot. She states that she got she had this time and she got out of bed and she stumbled hitting the wheelchair all lung on the left side of her back. She does admit some pain over the ribs. States is worse with certain movements or mistakes deep breath. States worse about possible broken rib. States tried Tylenol at home with no relief the symptoms. She denies any other complaints or associated symptoms at this time. Patient denies any recent fever, chills, shortness of breath, chest pain, back pain, abdominal pain, nausea or vomiting, numbness or tingling, dysuria or hematuria, constipation or diarrhea, headaches or visual changes, or any other complaints. - Related Data Home Medications Medication Instructions Recorded Confirmed DULoxetine HCL [Duloxetine HCl] 60 mg PO DAILY 07/07/16 11/07/16 Acetaminophen Tab [Tylenol] 650 mg PO Q6H PRN 10/14/16 11/07/16 valACYclovir [Valtrex] 500 mg PO DAILY 10/14/16 11/07/16 DULoxetine HCL [Cymbalta] 30 mg PO DAILY 11/07/16 11/07/16 Multivitamins, Thera [Multivitamin 1 tab PO DAILY@1200 11/07/16 11/07/16 (formulary)] Previous Rx's Medication Instructions Recorded Folic Acid 1 mg PO DAILY@1200 #30 tab 10/19/16 Thiamine [Vitamin B-1] 100 mg PO DAILY@1200 #30 tab 10/19/16 ALPRAZolam [Xanax] 0.25 mg PO BID PRN #10 tab 11/10/16 Bacitracin Oint 1 applic TOPICAL BID applic 11/10/16 Ipratropium-Albuterol Nebulize 3 ml INHALATION RT-TID #1 ampul.neb 11/10/16 [Duoneb 0.5 mg-3 mg/3 ml Soln] Levofloxacin [Levaquin] 750 mg PO DAILY@1900 #3 tab 11/10/16 Nicotine 14Mg/24Hr Patch [Habitrol] 1 patch TRANSDERM Q24H #14 patch 11/10/16 Zolpidem [Ambien] 2.5 mg PO HS #14 tab 11/10/16 oxyCODONE HCL 30 mg PO Q6HR PRN #20 tablet 11/10/16 oxyCODONE HCL [OxyIR] 30 mg PO Q8H #10 tab 11/10/16 predniSONE 30 mg PO DAILY 4 Days 11/10/16 Hydrocodone/Acetaminophen [[place] 1 each PO Q6HR PRN #20 tab 12/31/16 5-325] Allergies Allergy/AdvReac Type Severity Reaction Status Date / Time amoxicillin trihydrate Allergy Unknown Verified 12/31/16 13:11 [From Augmentin] cephalexin monohydrate Allergy Swelling Verified 12/31/16 13:11 [From Keflex] meperidine HCl [From Demerol] Allergy Unknown Verified 12/31/16 13:11 potassium clavulanate Allergy Unknown Verified 12/31/16 13:11 [From Augmentin] Sulfa (Sulfonamide Allergy Unknown Verified 12/31/16 13:11 Antibiotics) NSAIDS (Non-Steroidal AdvReac Severe Nausea & Verified 12/31/16 13:11 Anti-Inflamma Vomiting Review of Systems ROS Statement: Those systems with pertinent positive or pertinent negative responses have been documented in the HPI. ROS Other: All systems not noted in ROS Statement are negative. Past Medical History Past Medical History: COPD Additional Past Medical History / Comment(s): arthritis, pancreatitis, chronic back and neck pain History of Any Multi-Drug Resistant Organisms: None Reported Past Surgical History: Hysterectomy Additional Past Surgical History / Comment(s): cataract Past Anesthesia/Blood Transfusion Reactions: No Reported Reaction Past Psychological History: Anxiety, Depression Smoking Status: Former smoker Past Alcohol Use History: Rare Past Drug Use History: None Reported - Past Family History Father Family Medical History: No Reported History Mother Family Medical History: Blood Disorder, Cancer, Thyroid Disorder General Exam - General Exam Comments Initial Comments: General: The patient is awake and alert, in no distress, and does not appear acutely ill. Eye: Pupils are equal, round and reactive to light, extra-ocular movements are intact. No nystagmus. There is normal conjunctiva bilaterally. No signs of icterus. Ears, nose, mouth and throat: There are moist mucous membranes and no oral lesions. Neck: The neck is supple, there is no tenderness or JVD. Cardiovascular: There is a regular rate and rhythm. No murmur, rub or gallop is appreciated. Respiratory: Lungs are clear to auscultation, respirations are non-labored, breath sounds are equal. No wheezes, stridor, rales, or rhonchi. Gastrointestinal: Soft, non-distended, non-tender abdomen without masses or organomegaly noted. There is no rebound or guarding present. No CVA tenderness. Bowel sounds are unremarkable. Musculoskeletal: Normal ROM. Patient does have tenderness on palpation to the left lower lateral posterior ribs. No bruising or swelling no obvious deformity. Strength 5/5. Sensation intact. Pulses equal bilaterally 2+. Neurological: A&O x 3. CN II-XII intact, There are no obvious motor or sensory deficits. Coordination appears grossly intact. Speech is normal. Skin: Skin is warm and dry and no rashes or lesions are noted. Psychiatric: Cooperative, appropriate mood & affect, normal judgment. Limitations: physical limitation Course Vital Signs 12/31/16 11:34 Temperature 98.1 F Pulse Rate 102 H Respiratory 20 Rate Blood Pressure 159/75 O2 Sat by Pulse 98 Oximetry Medical Decision Making - Medical Decision Making Patient's x-ray reviewed does show fracture of the ninth rib. Results were discussed with patient. She is more comfortable after [place]. Patient will be discharged home with prescription of [place] for pain advised follow family doctor returning here to the emergency room if any symptoms increase or worsen. She states understanding and is in agreement. Disposition Clinical Impression: Rib fracture Disposition: HOME SELF-CARE Condition: Good Instructions: Rib Fracture (ED) Additional Instructions: Please use medication as discussed. Please follow-up with family doctor in the next 2 days of symptoms have not improved. Please return to emergency room if the symptoms increase or worsen or for any other concerns. Prescriptions: Hydrocodone/Acetaminophen [[place] 5-325] 1 each PO Q6HR PRN #20 tab PRN Reason: Pain Referrals: Elma Palmer MD [Primary Care Provider] - 1-2 days Time of Disposition: 13:13
--- NOTE | 2016-12-31 12:42 | XR ---
EXAMINATION TYPE: XR ribs LT w pa chest xray DATE OF EXAM: 12/31/2016 COMPARISON: Chest x-ray 01/04/2016 HISTORY: Seen post fall TECHNIQUE: Frontal view of the chest and 2 views of the left ribs are submitted. FINDINGS: Arthropathy of the shoulders and diffuse osteopenia noted. Atherosclerotic change aorta and scoliosis seen. There are deformities involving the left fourth and fifth ribs. These are chronic in noted on the previous exam. However there is a slight deformity of the left ninth rib posteriorly. L ower rib cage is not included on the exam. IMPRESSION: 1. Suspect a acute minimally displaced fracture posterior left ninth rib. 2. Chronic fractures involving the left fourth and fifth ribs. Correlate with point tenderness.
[2016-12-31 13:20] VITALS: BP 171/81; PULSE 101; TEMP 97.8
== END 2016-12-31 13:26 | disposition home or self-care (01) ==
LOC: EC 11:28
DX: S22.32XA Fracture of one rib, left side, initial encounter for closed fracture (principal); M19.90 Unspecified osteoarthritis, unspecified site; F41.9 Anxiety disorder, unspecified; F32.9 Major depressive disorder, single episode, unspecified; Z88.1 Allergy status to other antibiotic agents; Z88.2 Allergy status to sulfonamides; Z88.5 Allergy status to narcotic agent; Z88.6 Allergy status to analgesic agent; Z79.899 Other long term (current) drug therapy; Z87.891 Personal history of nicotine dependence; W06.XXXA Fall from bed, initial encounter; Y92.009 Unspecified place in unspecified non-institutional (private) residence as the place of occurrence of the external cause
CPT/HCPCS: 99283

== ENCOUNTER → 2017-08-01 | Outpatient (CLI) | payer MEDICARE, BC ==
[2017-08-01 15:49] LABS: Basophils # (A) 0.1 k/uL (0-0.2); Basophils % (A) 1 %; Eosinophils # (A) 0.4 k/uL (0-0.7); Eosinophils % (A) 5 %; HCT 42.9 % (34.0-46.0); HGB 13.6 gm/dL (11.4-16.0); Lymphocytes # (A) 2.7 k/uL (1.0-4.8); Lymphocytes % (A) 29 %; MCHC 31.7 g/dL (31.0-37.0); MCV 94.6 fL (80.0-100.0); Monocytes # (A) 0.6 k/uL (0-1.0); Monocytes % (A) 7 %; Neutrophils # (A) 5.3 k/uL (1.3-7.7); Neutrophils % (A) 57 %; Platelet Count 311 k/uL (150-450); RBC 4.54 m/uL (3.80-5.40); WBC 9.4 k/uL (3.8-10.6)
[2017-08-01 15:55] LABS: ALT 34 U/L (9-52); AST 32 U/L (14-36); Albumin 4.2 g/dL (3.5-5.0); Alkaline Phosphatase 96 U/L (38-126); Anion Gap 8 mmol/L; Blood Urea Nitrogen 15 mg/dL (7-17); Calcium 9.6 mg/dL (8.4-10.2); Carbon Dioxide 33 mmol/L (22-30); Chloride 98 mmol/L (98-107); Creatine Kinase 208 U/L (30-135); Glucose 85 mg/dL (74-99); Magnesium 2.1 mg/dL (1.6-2.3); Potassium 4.6 mmol/L (3.5-5.1); Sodium 139 mmol/L (137-145); Total Bilirubin 0.2 mg/dL (0.2-1.3); Total Protein 7.1 g/dL (6.3-8.2); Uric Acid 3.4 mg/dL (3.7-7.4)
[2017-08-01 16:11] LABS: T4, Free (Free Thyroxine) 0.74 ng/dL (0.78-2.19)
[2017-08-02 02:27] LABS: Hemoglobin A1C 5.9 % (4.0-6.0)
== END | disposition home or self-care (01) ==
LOC: LABWHC1 14:55
PROVIDERS: ATTEND Internal Medicine
DX: Z00.00 Encounter for general adult medical examination without abnormal findings (principal); I10 Essential (primary) hypertension; F41.9 Anxiety disorder, unspecified; M81.0 Age-related osteoporosis without current pathological fracture; F32.89 Other specified depressive episodes
CPT/HCPCS: 36415; 80053; 82306; 82550; 83036; 83735; 84439; 84443; 84550; 85025

== ENCOUNTER → 2017-08-02 | Outpatient (CLI) | payer MEDICARE, BC ==
[2017-08-02 12:47] LABS: Cholesterol 185 mg/dL (<200); HDL Cholesterol 64 mg/dL (40-60); LDL Cholesterol,Calculated 107 mg/dL (0-99); Triglycerides 71 mg/dL (<150)
[2017-08-02 12:51] LABS: Appearance,Urine Clear (Clear); Bilirubin,Urine Negative (Negative); Blood,Urine Negative (Negative); Color,Urine Yellow; Glucose,Urine (UA) Negative (Negative); Hyaline Casts,Urine 1 /lpf (0-2); Ketones,Urine Negative (Negative); Leukocyte Esterase,Urine Large (Negative); Mucus,Urine Rare /hpf; Nitrite,Urine Negative (Negative); Protein,Urine Negative (Negative); RBC,Urine 1 /hpf (0-5); Specific Gravity,Urine 1.008 (1.001-1.035); Squamous Epithelial Cell,Urine 1 /hpf (0-4); Urobilinogen,Urine <2.0 mg/dL (<2.0); WBC,Urine 34 /hpf (0-5)
== END | disposition home or self-care (01) ==
LOC: LABWHC1 11:44
PROVIDERS: ATTEND Internal Medicine
DX: Z00.00 Encounter for general adult medical examination without abnormal findings (principal); I10 Essential (primary) hypertension; M81.0 Age-related osteoporosis without current pathological fracture; F41.9 Anxiety disorder, unspecified; F32.89 Other specified depressive episodes
CPT/HCPCS: 36415; 80061; 81001

== ENCOUNTER 2017-11-30 04:08 | Emergency (ER) | payer MEDICARE, BC ==
[2017-11-30 04:35] LABS: Glucose,Whole Blood 97 mg/dL (75-99)
--- NOTE | 2017-11-30 04:52 | XR ---
EXAMINATION TYPE: XR chest 1V portable DATE OF EXAM: 11/30/2017 COMPARISON: 06/21/2017 HISTORY: Altered mental status TECHNIQUE: Single frontal view of the chest is obtained. FINDINGS: There is no heart failure nor confluent pneumonic infiltrate. Thoracic aorta is atheromato us. Bony thorax is intact. There are chest leads. IMPRESSION: No active cardiopulmonary disease. There is clearing of infiltrate in the right lower lo be compared to old exam.
[2017-11-30 05:03] VITALS: RESP 16
[2017-11-30 05:28] LABS: Basophils % (A) 0 %; Eosinophils # (A) 0.1 k/uL (0-0.7); Eosinophils % (A) 1 %; HCT 43.1 % (34.0-46.0); HGB 14.1 gm/dL (11.4-16.0); Lymphocytes # (A) 2.7 k/uL (1.0-4.8); Lymphocytes % (A) 26 %; MCHC 32.7 g/dL (31.0-37.0); MCV 88.7 fL (80.0-100.0); Mean Platelet Volume 6.8; Monocytes # (A) 0.8 k/uL (0-1.0); Monocytes % (A) 7 %; Neutrophils # (A) 6.8 k/uL (1.3-7.7); Neutrophils % (A) 64 %; Platelet Count 341 k/uL (150-450); RBC 4.86 m/uL (3.80-5.40); RDW 14.7 % (11.5-15.5); WBC 10.6 k/uL (3.8-10.6)
[2017-11-30 05:34] LABS: Appearance,Urine Clear (Clear); Bilirubin,Urine Negative (Negative); Blood,Urine Negative (Negative); Color,Urine Yellow; Glucose,Urine (UA) Negative (Negative); Ketones,Urine Negative (Negative); Leukocyte Esterase,Urine Negative (Negative); Nitrite,Urine Negative (Negative); PH, Urine 5.5 (5.0-8.0); Protein,Urine Trace (Negative); Specific Gravity,Urine 1.012 (1.001-1.035); Urobilinogen,Urine <2.0 mg/dL (<2.0)
[2017-11-30 05:50] LABS: Amphetamine Screen,Urine Not Detected (NotDetected); Barbiturate Screen,Urine Not Detected (NotDetected); Benzodiazepines Screen,Urine Detected (NotDetected); Cocaine Screen,Urine Not Detected (NotDetected); Methadone Screen, Urine Not Detected (NotDetected); Opiate Screen,Urine Not Detected (NotDetected); Oxycodone Screen, Urine Detected (NotDetected); Phencyclidine Screen,Urine Not Detected (NotDetected); Tricyclic Antidepressant,Urine Not Detected (NotDetected); Urn Cannabinoid Scrn Not Detected (NotDetected)
--- NOTE | 2017-11-30 05:50 | ED ---
Altered Mental Status HPI - General Stated Complaint: Hallucinations Time Seen by Provider: 11/30/17 04:12 Source: patient, EMS Mode of arrival: EMS Limitations: no limitations - History of Present Illness Initial Comments: This patient is an 82-year-old woman brought to be evaluated after she had wandered outside tonight, and reportedly had been carrying on conversations with her grandchildren who were not present. History is from the patient's daughters, as well as the patient herself who does realize that the gradual were not there, and believes she may have been hallucinating this. Patient denies any physical complaints, stating she is not having dyspnea nor pains anywhere. MD Complaint: altered mental status Onset/Timin -: hour(s) Severity: moderate Context: history of similar presentation - Related Data Home Medications Medication Instructions Recorded Confirmed DULoxetine HCL [Duloxetine HCl] 60 mg PO DAILY 07/07/16 11/30/17 Acetaminophen Tab [Tylenol] 650 mg PO Q6H PRN 10/14/16 11/30/17 valACYclovir [Valtrex] 500 mg PO DAILY 10/14/16 11/30/17 DULoxetine HCL [Cymbalta] 30 mg PO DAILY 11/07/16 11/30/17 Multivitamins, Thera [Multivitamin 1 tab PO DAILY@1200 11/07/16 11/30/17 (formulary)] ALPRAZolam [Xanax] 1 mg PO BID PRN 12/31/16 12/31/16 Mirtazapine [Remeron] 15 mg PO DAILY 12/31/16 11/30/17 Zolpidem [Ambien] 10 mg PO HS PRN 12/31/16 11/30/17 oxyCODONE HCL 30 mg PO TID 12/31/16 11/30/17 Azithromycin [Zithromax Z-pack] 0 mg PO DIRECTED 11/30/17 11/30/17 Moxifloxacin HCl 400 mg PO DAILY 11/30/17 11/30/17 Allergies Allergy/AdvReac Type Severity Reaction Status Date / Time amoxicillin trihydrate Allergy Unknown Verified 11/30/17 04:17 [From Augmentin] cephalexin monohydrate Allergy Swelling Verified 11/30/17 04:17 [From Keflex] meperidine HCl [From Demerol] Allergy Unknown Verified 11/30/17 04:17 potassium clavulanate Allergy Unknown Verified 11/30/17 04:17 [From Augmentin] Sulfa (Sulfonamide Allergy Unknown Verified 11/30/17 04:17 Antibiotics) NSAIDS (Non-Steroidal AdvReac Severe Nausea & Verified 11/30/17 04:17 Anti-Inflamma Vomiting Review of Systems ROS Statement: Those systems with pertinent positive or pertinent negative responses have been documented in the HPI. ROS Other: All systems not noted in ROS Statement are negative. Constitutional: Denies: fever, chills Respiratory: Denies: cough, dyspnea Cardiovascular: Denies: chest pain, palpitations, edema Gastrointestinal: Denies: abdominal pain, vomiting, diarrhea Genitourinary: Denies: dysuria, hematuria Musculoskeletal: Denies: back pain Skin: Denies: rash Neurological: Denies: headache, weakness, numbness Psychiatric: Reports: visual hallucinations. Denies: depression Past Medical History Past Medical History: COPD, Pneumonia Additional Past Medical History / Comment(s): arthritis, pancreatitis, chronic back and neck pain History of Any Multi-Drug Resistant Organisms: None Reported Past Surgical History: Hysterectomy Additional Past Surgical History / Comment(s): cataract Past Anesthesia/Blood Transfusion Reactions: No Reported Reaction Past Psychological History: Anxiety, Depression Smoking Status: Former smoker Past Alcohol Use History: Rare Past Drug Use History: None Reported - Past Family History Father Family Medical History: No Reported History Mother Family Medical History: Blood Disorder, Cancer, Thyroid Disorder General Exam Limitations: no limitations General appearance: alert, in no apparent distress Head exam: Present: atraumatic, normocephalic, normal inspection Eye exam: Present: normal appearance. Absent: scleral icterus, conjunctival injection ENT exam: Present: normal oropharynx Respiratory exam: Present: normal lung sounds bilaterally. Absent: respiratory distress, wheezes, rales, rhonchi, stridor Cardiovascular Exam: Present: regular rate, normal rhythm, normal heart sounds. Absent: systolic murmur, diastolic murmur, rubs, gallop GI/Abdominal exam: Present: soft. Absent: distended, tenderness, guarding, rebound, mass Extremities exam: Present: normal inspection, normal capillary refill. Absent: pedal edema, calf tenderness Back exam: Present: normal inspection. Absent: CVA tenderness (R), CVA tenderness (L) Neurological exam: Present: alert Skin exam: Present: warm, dry, intact, normal color. Absent: rash Course Vital Signs 11/30/17 11/30/17 11/30/17 04:10 05:02 06:10 Temperature 99.0 F 99.3 F 97.8 F Pulse Rate 101 H 100 90 Respiratory 17 16 16 Rate Blood Pressure 165/79 147/76 129/87 O2 Sat by Pulse 95 96 96 Oximetry Medical Decision Making - Lab Data Result diagrams: 11/30/17 05:00 11/30/17 06:00 Lab Results 11/30/17 11/30/17 11/30/17 Range/Units 04:20 05:00 05:00 WBC 10.6 (3.8-10.6) k/uL RBC 4.86 (3.80-5.40) m/uL Hgb 14.1 (11.4-16.0) gm/dL Hct 43.1 (34.0-46.0) % MCV 88.7 (80.0-100.0) fL MCH 29.0 (25.0-35.0) pg MCHC 32.7 (31.0-37.0) g/dL RDW 14.7 (11.5-15.5) % Plt Count 341 (150-450) k/uL Neutrophils % 64 % Lymphocytes % 26 % Monocytes % 7 % Eosinophils % 1 % Basophils % 0 % Neutrophils # 6.8 (1.3-7.7) k/uL Lymphocytes # 2.7 (1.0-4.8) k/uL Monocytes # 0.8 (0-1.0) k/uL Eosinophils # 0.1 (0-0.7) k/uL Basophils # 0.0 (0-0.2) k/uL PT (9.0-12.0) sec INR (<1.2) APTT (22.0-30.0) sec Sodium (137-145) mmol/L Potassium (3.5-5.1) mmol/L Chloride (98-107) mmol/L Carbon Dioxide (22-30) mmol/L Anion Gap mmol/L BUN (7-17) mg/dL Creatinine (0.52-1.04) mg/dL Est GFR (CKD-EPI)AfAm (>60 ml/min/1.73 sqM) Est GFR (CKD-EPI)NonAf (>60 ml/min/1.73 sqM) Glucose (74-99) mg/dL POC Glucose (mg/dL) 97 (75-99) mg/dL POC Glu Oil Speculator ID Jeremi Ramirez Calcium (8.4-10.2) mg/dL Total Bilirubin (0.2-1.3) mg/dL AST (14-36) U/L ALT (9-52) U/L Alkaline Phosphatase (38-126) U/L Troponin I (0.000-0.034) ng/mL Total Protein (6.3-8.2) g/dL Albumin (3.5-5.0) g/dL Urine Color Yellow Urine Appearance Clear (Clear) Urine pH 5.5 (5.0-8.0) Ur Specific Steger 1.012 (1.001-1.035) Urine Protein Trace H (Negative) Urine Glucose (UA) Negative (Negative) Urine Ketones Negative (Negative) Urine Blood Negative (Negative) Urine Nitrite Negative (Negative) Urine Bilirubin Negative (Negative) Urine Urobilinogen <2.0 (<2.0) mg/dL Ur Leukocyte Esterase Negative (Negative) Urine Opiates Screen Not Detected (NotDetected) Ur Oxycodone Screen Detected H (NotDetected) Urine Methadone Screen Not Detected (NotDetected) Ur Propoxyphene Screen Not Detected (NotDetected) Ur Barbiturates Screen Not Detected (NotDetected) U Tricyclic Antidepress Not Detected (NotDetected) Ur Phencyclidine Scrn Not Detected (NotDetected) Ur Amphetamines Screen Not Detected (NotDetected) U Methamphetamines Scrn Not Detected (NotDetected) U Benzodiazepines Scrn Detected H (NotDetected) Urine Cocaine Screen Not Detected (NotDetected) U Marijuana (THC) Screen Not Detected (NotDetected) 11/30/17 11/30/17 11/30/17 Range/Units 06:00 06:00 06:00 WBC (3.8-10.6) k/uL RBC (3.80-5.40) m/uL Hgb (11.4-16.0) gm/dL Hct (34.0-46.0) % MCV (80.0-100.0) fL MCH (25.0-35.0) pg MCHC (31.0-37.0) g/dL RDW (11.5-15.5) % Plt Count (150-450) k/uL Neutrophils % % Lymphocytes % % Monocytes % % Eosinophils % % Basophils % % Neutrophils # (1.3-7.7) k/uL Lymphocytes # (1.0-4.8) k/uL Monocytes # (0-1.0) k/uL Eosinophils # (0-0.7) k/uL Basophils # (0-0.2) k/uL PT 9.8 (9.0-12.0) sec INR 1.0 (<1.2) APTT 25.0 (22.0-30.0) sec Sodium 137 (137-145) mmol/L Potassium 3.8 (3.5-5.1) mmol/L Chloride 99 (98-107) mmol/L Carbon Dioxide 26 (22-30) mmol/L Anion Gap 12 mmol/L BUN 19 H (7-17) mg/dL Creatinine 0.51 L (0.52-1.04) mg/dL Est GFR (CKD-EPI)AfAm >90 (>60 ml/min/1.73 sqM) Est GFR (CKD-EPI)NonAf >90 (>60 ml/min/1.73 sqM) Glucose 105 H (74-99) mg/dL POC Glucose (mg/dL) (75-99) mg/dL POC Glu Oil Speculator ID Calcium 9.6 (8.4-10.2) mg/dL Total Bilirubin 0.4 (0.2-1.3) mg/dL AST 51 H (14-36) U/L ALT 46 (9-52) U/L Alkaline Phosphatase 113 (38-126) U/L Troponin I 0.015 (0.000-0.034) ng/mL Total Protein 7.0 (6.3-8.2) g/dL Albumin 4.3 (3.5-5.0) g/dL Urine Color Urine Appearance (Clear) Urine pH (5.0-8.0) Ur Specific Steger (1.001-1.035) Urine Protein (Negative) Urine Glucose (UA) (Negative) Urine Ketones (Negative) Urine Blood (Negative) Urine Nitrite (Negative) Urine Bilirubin (Negative) Urine Urobilinogen (<2.0) mg/dL Ur Leukocyte Esterase (Negative) Urine Opiates Screen (NotDetected) Ur Oxycodone Screen (NotDetected) Urine Methadone Screen (NotDetected) Ur Propoxyphene Screen (NotDetected) Ur Barbiturates Screen (NotDetected) U Tricyclic Antidepress (NotDetected) Ur Phencyclidine Scrn (NotDetected) Ur Amphetamines Screen (NotDetected) U Methamphetamines Scrn (NotDetected) U Benzodiazepines Scrn (NotDetected) Urine Cocaine Screen (NotDetected) U Marijuana (THC) Screen (NotDetected) - EKG Data -: EKG Interpreted by Me EKG shows normal: sinus rhythm, axis (Go), intervals, QRS complexes (Possible old inferior infarct), ST-T waves (Normal) Rate: normal (Rate 98 bpm) Disposition Clinical Impression: Dehydration, Altered mental status Disposition: HOME SELF-CARE Condition: Fair Instructions: Altered Mental Status (ED) Is patient prescribed a controlled substance at d/c from ED?: No Referrals: Elma Palmer MD [Primary Care Provider] - 1-2 days
[2017-11-30] MEDS ORDERED: ALPRAZolam 1 MG TAB PO STA (05:52)
[2017-11-30 06:32] LABS: ALT 46 U/L (9-52); AST 51 U/L (14-36); Albumin 4.3 g/dL (3.5-5.0); Alkaline Phosphatase 113 U/L (38-126); Anion Gap 12 mmol/L; Blood Urea Nitrogen 19 mg/dL (7-17); Calcium 9.6 mg/dL (8.4-10.2); Carbon Dioxide 26 mmol/L (22-30); Chloride 99 mmol/L (98-107); Glucose 105 mg/dL (74-99); Potassium 3.8 mmol/L (3.5-5.1); Sodium 137 mmol/L (137-145); Total Bilirubin 0.4 mg/dL (0.2-1.3)
[2017-11-30 06:33] LABS: Prothrombin Time 9.8 sec (9.0-12.0)
[2017-11-30] MEDS ORDERED: SODIUM CHLORIDE 0.9% 500 ML IV STA (07:11)
[2017-11-30 08:17] VITALS: BP 159/74
[2017-11-30 08:33] VITALS: PULSE 86; TEMP 97.9
== END 2017-11-30 08:45 | disposition home or self-care (01) ==
LOC: EC 04:08
DX: E86.0 Dehydration (principal); R41.82 Altered mental status, unspecified; R44.2 Other hallucinations; J44.9 Chronic obstructive pulmonary disease, unspecified; G89.29 Other chronic pain; F32.9 Major depressive disorder, single episode, unspecified; F41.9 Anxiety disorder, unspecified; Z87.891 Personal history of nicotine dependence; Z79.891 Long term (current) use of opiate analgesic; Z79.899 Other long term (current) drug therapy; Z88.0 Allergy status to penicillin; Z88.1 Allergy status to other antibiotic agents; Z88.2 Allergy status to sulfonamides; Z88.5 Allergy status to narcotic agent; Z88.6 Allergy status to analgesic agent; Z87.01 Personal history of pneumonia (recurrent)
CPT/HCPCS: 36415; 71045; 80053; 80306; 81003; 84484; 85025; 85610; 85730; 93005; 96360; 99285

== ENCOUNTER 2018-01-12 13:52 | Emergency (ER) | payer MEDICARE, BC ==
[2018-01-12 14:01] VITALS: RESP 18
[2018-01-12] MEDS ORDERED: SODIUM CHLORIDE 0.9% 1,000 ML IV STA ×2 (15:34)
--- NOTE | 2018-01-12 15:53 | ED ---
General Adult HPI - General Chief complaint: Recheck/Abnormal Lab/Rx Stated complaint: HTN sent by PCP Time Seen by Provider: 01/12/18 15:05 Source: patient, RN notes reviewed, old records reviewed Mode of arrival: ambulatory Limitations: no limitations - History of Present Illness Initial comments: Patient is an 82-year-old female sent him here for further evaluation by PCP due to elevated blood pressure. 220/90 and PCPs office. Patient reports she has no symptoms including chest pain shortness of breath. Denies headache. She reports she was quite anxious when seeing the doctor. Patient arrives emergency department blood pressure is been 160/80 in the emergency department. Patient states that she is not on any blood pressure medication currently. She has been out of her Xanax for the past few weeks. She wanted was getting refilled by her arms PCP. They sent her here before she would be further evaluated by them. She denies any other complaints at this time. - Related Data Home Medications Medication Instructions Recorded Confirmed DULoxetine HCL [Duloxetine HCl] 60 mg PO DAILY 07/07/16 01/12/18 Acetaminophen Tab [Tylenol] 650 mg PO Q6H PRN 10/14/16 01/12/18 valACYclovir [Valtrex] 500 mg PO DAILY 10/14/16 01/12/18 Multivitamins, Thera [Multivitamin 1 tab PO DAILY@1200 11/07/16 01/12/18 (formulary)] Mirtazapine [Remeron] 15 mg PO DAILY 12/31/16 01/12/18 oxyCODONE HCL 30 mg PO TID 12/31/16 01/12/18 Cholecalciferol [Vitamin D3] 1,000 unit PO DAILY 01/12/18 01/12/18 Potassium Chloride [Klor-Con 20 meq PO DAILY 01/12/18 01/12/18 Packets] Previous Rx's Medication Instructions Recorded ALPRAZolam [ALPRAZolam XR] 1 mg PO DAILY #6 tab 01/12/18 Allergies Allergy/AdvReac Type Severity Reaction Status Date / Time amoxicillin trihydrate Allergy Unknown Verified 01/12/18 15:32 [From Augmentin] cephalexin monohydrate Allergy Swelling Verified 01/12/18 15:32 [From Keflex] meperidine HCl [From Demerol] Allergy Unknown Verified 06/29/18 15:32 potassium clavulanate Allergy Unknown Verified 01/12/18 15:32 [From Augmentin] Sulfa (Sulfonamide Allergy Unknown Verified 01/12/18 15:32 Antibiotics) NSAIDS (Non-Steroidal AdvReac Severe Nausea & Verified 01/12/18 15:32 Anti-Inflamma Vomiting Review of Systems ROS Statement: Those systems with pertinent positive or pertinent negative responses have been documented in the HPI. ROS Other: All systems not noted in ROS Statement are negative. Past Medical History Past Medical History: COPD, Pneumonia Additional Past Medical History / Comment(s): arthritis, pancreatitis, chronic back and neck pain History of Any Multi-Drug Resistant Organisms: None Reported Past Surgical History: Hysterectomy Additional Past Surgical History / Comment(s): cataract Past Anesthesia/Blood Transfusion Reactions: No Reported Reaction Past Psychological History: Anxiety, Depression Smoking Status: Current every day smoker Past Alcohol Use History: Rare Past Drug Use History: None Reported - Past Family History Father Family Medical History: No Reported History Mother Family Medical History: Blood Disorder, Cancer, Thyroid Disorder General Exam - General Exam Comments Initial Comments: Alert and oriented 82-year-old female. No acute distress. General: Well appearing, well nourished, in no distress. Oriented x 3, normal mood and affect . Ambulating without difficulty. Skin: Good turgor, no rash, unusual bruising or prominent lesions Hair: Normal texture and distribution. HEENT: Head: Normocephalic, atraumatic, no visible or palpable masses, depressions, or scaring. Eyes: Visual acuity intact, conjunctiva clear, sclera non-icteric, EOM intact, PERRL. Ears: EACs clear, TMs translucent & cone of light visualized. hearing intact. Nose: No external lesions, mucosa non-inflamed, septum and turbinates normal Mouth: Mucous membranes moist, no mucosal lesions. Teeth/Gums: No obvious caries or periodontal disease. No gingival inflammation or significant resorption. Pharynx: Mucosa non-inflamed, no tonsillar hypertrophy or exudate Neck: Supple, without lesions, bruits, or adenopathy, thyroid non-enlarged and non-tender Heart: No cardiomegaly or thrills; regular rate and rhythm, no murmur or gallop Lungs: Clear to auscultation and percussion Abdomen: Bowel sounds normal, no tenderness, organomegaly, masses, or hernia Extremities: No amputations or deformities, cyanosis, edema or varicosities, peripheral pulses intact Musculoskeletal: Normal gait and station. No misalignment, asymmetry, crepitation, defects, tenderness, masses, effusions, decreased range of motion, instability, atrophy or abnormal strength or tone in the head, neck, spine, ribs , pelvis or extremities. Neurologic: CN 2-12 normal. Sensation to pain, touch, and proprioception normal. DTRs normal in upper and lower extremities. No pathologic reflexes. Psychiatric: Oriented X3, intact recent and remote memory, judgment and insight , normal mood and affect. Limitations: no limitations Course Vital Signs 01/12/18 01/12/18 01/12/18 13:58 17:12 19:30 Temperature 98.6 F 98 F Pulse Rate 99 95 90 Respiratory 18 18 18 Rate Blood Pressure 170/78 190/88 154/69 O2 Sat by Pulse 96 97 98 Oximetry Medical Decision Making - Medical Decision Making Patient is an 82-year-old female sent him here for further evaluation by PCP due to elevated blood pressure. 220/90 and PCPs office. Patient reports she has no symptoms including chest pain shortness of breath. Denies headache. She reports she was quite anxious when seeing the doctor. Patient arrives emergency department blood pressure is been 160/80 in the emergency department. Patient states that she is not on any blood pressure medication currently. She has been out of her Xanax for the past few weeks. Patient continues to state BP is elevated espinoza to anxiety. EKG and lab work obtained. No significant abnomalities noted. I did run a MAPS report and patient is due for her anxiety medication. Patient at this time will follow up with PCP, and I will write for 2 days of her anxiety medication until reelvaluation by PCP. Return parameters discussed. - Lab Data Result diagrams: 01/12/18 17:10 01/12/18 17:10 Lab Results 01/12/18 01/12/18 01/12/18 Range/Units 17:10 17:10 17:10 WBC 10.4 (3.8-10.6) k/uL RBC 4.82 (3.80-5.40) m/uL Hgb 14.5 (11.4-16.0) gm/dL Hct 42.7 (34.0-46.0) % MCV 88.5 (80.0-100.0) fL MCH 30.1 (25.0-35.0) pg MCHC 34.0 (31.0-37.0) g/dL RDW 14.1 (11.5-15.5) % Plt Count 278 (150-450) k/uL Neutrophils % 78 % Lymphocytes % 14 % Monocytes % 4 % Eosinophils % 2 % Basophils % 0 % Neutrophils # 8.1 H (1.3-7.7) k/uL Lymphocytes # 1.5 (1.0-4.8) k/uL Monocytes # 0.4 (0-1.0) k/uL Eosinophils # 0.2 (0-0.7) k/uL Basophils # 0.0 (0-0.2) k/uL PT (9.0-12.0) sec INR (<1.2) APTT (22.0-30.0) sec Sodium 133 L (137-145) mmol/L Potassium 4.5 (3.5-5.1) mmol/L Chloride 98 (98-107) mmol/L Carbon Dioxide 25 (22-30) mmol/L Anion Gap 10 mmol/L BUN 9 (7-17) mg/dL Creatinine 0.40 L (0.52-1.04) mg/dL Est GFR (CKD-EPI)AfAm >90 (>60 ml/min/1.73 sqM) Est GFR (CKD-EPI)NonAf >90 (>60 ml/min/1.73 sqM) Glucose 109 H (74-99) mg/dL Calcium 9.6 (8.4-10.2) mg/dL Magnesium 2.1 (1.6-2.3) mg/dL Total Bilirubin 0.3 (0.2-1.3) mg/dL AST 31 (14-36) U/L ALT 30 (9-52) U/L Alkaline Phosphatase 120 (38-126) U/L Total Creatine Kinase 142 H (30-135) U/L CK-MB (CK-2) 4.6 H* (0.0-2.4) ng/mL CK-MB (CK-2) Rel Index 3.2 Troponin I <0.012 (0.000-0.034) ng/mL Total Protein 7.3 (6.3-8.2) g/dL Albumin 4.6 (3.5-5.0) g/dL 01/12/18 Range/Units 17:10 WBC (3.8-10.6) k/uL RBC (3.80-5.40) m/uL Hgb (11.4-16.0) gm/dL Hct (34.0-46.0) % MCV (80.0-100.0) fL MCH (25.0-35.0) pg MCHC (31.0-37.0) g/dL RDW (11.5-15.5) % Plt Count (150-450) k/uL Neutrophils % % Lymphocytes % % Monocytes % % Eosinophils % % Basophils % % Neutrophils # (1.3-7.7) k/uL Lymphocytes # (1.0-4.8) k/uL Monocytes # (0-1.0) k/uL Eosinophils # (0-0.7) k/uL Basophils # (0-0.2) k/uL PT 9.7 (9.0-12.0) sec INR 1.0 (<1.2) APTT 27.0 (22.0-30.0) sec Sodium (137-145) mmol/L Potassium (3.5-5.1) mmol/L Chloride (98-107) mmol/L Carbon Dioxide (22-30) mmol/L Anion Gap mmol/L BUN (7-17) mg/dL Creatinine (0.52-1.04) mg/dL Est GFR (CKD-EPI)AfAm (>60 ml/min/1.73 sqM) Est GFR (CKD-EPI)NonAf (>60 ml/min/1.73 sqM) Glucose (74-99) mg/dL Calcium (8.4-10.2) mg/dL Magnesium (1.6-2.3) mg/dL Total Bilirubin (0.2-1.3) mg/dL AST (14-36) U/L ALT (9-52) U/L Alkaline Phosphatase (38-126) U/L Total Creatine Kinase (30-135) U/L CK-MB (CK-2) (0.0-2.4) ng/mL CK-MB (CK-2) Rel Index Troponin I (0.000-0.034) ng/mL Total Protein (6.3-8.2) g/dL Albumin (3.5-5.0) g/dL - Radiology Data Radiology results: report reviewed CXR is negative for any acute process. Disposition Clinical Impression: HTN (hypertension), Anxiety Disposition: HOME SELF-CARE Condition: Good Instructions: Hypertension (ED) Additional Instructions: Patient advised to follow-up with primary care provider. Check her blood pressure periodically throughout the day. Record this. Return to the emergency department if any alarming signs or symptoms occur. Prescriptions: ALPRAZolam [ALPRAZolam XR] 1 mg PO DAILY #6 tab Is patient prescribed a controlled substance at d/c from ED?: Yes When asked, does pt state using other controlled substances?: Yes If prescribed controlled substance>3 days was MAPS reviewed?: Prescribed <3 Days Referrals: Elma Palmer MD [Primary Care Provider] - 1-2 days Time of Disposition: 18:22
[2018-01-12 17:27] LABS: Basophils % (A) 0 %; Eosinophils # (A) 0.2 k/uL (0-0.7); Eosinophils % (A) 2 %; HCT 42.7 % (34.0-46.0); HGB 14.5 gm/dL (11.4-16.0); Lymphocytes # (A) 1.5 k/uL (1.0-4.8); Lymphocytes % (A) 14 %; MCH 30.1 pg (25.0-35.0); MCV 88.5 fL (80.0-100.0); Mean Platelet Volume 6.5; Monocytes # (A) 0.4 k/uL (0-1.0); Monocytes % (A) 4 %; Neutrophils # (A) 8.1 k/uL (1.3-7.7); Neutrophils % (A) 78 %; Platelet Count 278 k/uL (150-450); RBC 4.82 m/uL (3.80-5.40); RDW 14.1 % (11.5-15.5); WBC 10.4 k/uL (3.8-10.6)
[2018-01-12 17:35] LABS: ALT 30 U/L (9-52); AST 31 U/L (14-36); Albumin 4.6 g/dL (3.5-5.0); Alkaline Phosphatase 120 U/L (38-126); Anion Gap 10 mmol/L; Blood Urea Nitrogen 9 mg/dL (7-17); Calcium 9.6 mg/dL (8.4-10.2); Carbon Dioxide 25 mmol/L (22-30); Chloride 98 mmol/L (98-107); Glucose 109 mg/dL (74-99); Magnesium 2.1 mg/dL (1.6-2.3); Potassium 4.5 mmol/L (3.5-5.1); Sodium 133 mmol/L (137-145); Total Bilirubin 0.3 mg/dL (0.2-1.3); Total Protein 7.3 g/dL (6.3-8.2)
[2018-01-12 17:37] LABS: Prothrombin Time 9.7 sec (9.0-12.0)
[2018-01-12 17:47] LABS: Creatine Kinase 142 U/L (30-135)
--- NOTE | 2018-01-12 17:52 | XR ---
EXAMINATION TYPE: XR chest 2V DATE OF EXAM: 01/12/2018 COMPARISON: 11/30/2017 HISTORY: Chest pain TECHNIQUE: Frontal and lateral views of the chest are obtained. FINDINGS: There is no heart failure nor confluent pneumonic infiltrate. Thoracic aorta is atheromato us. There is no pleural effusion. There are chest leads. Costophrenic angles are clear. IMPRESSION: No active cardiopulmonary disease. There is improved inspiration compared to last exam.
[2018-01-12 18:01] LABS: Troponin I <0.012 ng/mL (0.000-0.034)
[2018-01-12 18:04] LABS: Creatine Kinase MB 4.6 ng/mL (0.0-2.4)
[2018-01-12] MEDS ORDERED: LABETALOL 5 MG/ML VIAL MDV IVP STA (18:20)
[2018-01-12] MEDS ORDERED: LORazepam 1 MG TAB PO STA (18:21)
[2018-01-12 19:31] VITALS: BP 154/69; PULSE 90; TEMP 98
== END 2018-01-12 19:31 | disposition home or self-care (01) ==
LOC: EC 13:52
DX: I10 Essential (primary) hypertension (principal); F41.9 Anxiety disorder, unspecified; M54.9 Dorsalgia, unspecified; M54.2 Cervicalgia; G89.29 Other chronic pain; F32.9 Major depressive disorder, single episode, unspecified; F17.200 Nicotine dependence, unspecified, uncomplicated; Z79.891 Long term (current) use of opiate analgesic; Z79.899 Other long term (current) drug therapy; Z88.0 Allergy status to penicillin; Z88.1 Allergy status to other antibiotic agents; Z88.2 Allergy status to sulfonamides; Z88.6 Allergy status to analgesic agent; Z88.5 Allergy status to narcotic agent
CPT/HCPCS: 36415; 71046; 80053; 82550; 82553; 83735; 84484; 85025; 85610; 85730; 93005; 96361; 96374; 99284

== ENCOUNTER → 2018-02-20 | Outpatient (CLI) | payer MEDICARE, BC ==
--- NOTE | 2018-02-20 22:55 | XR ---
EXAMINATION TYPE: XR abdomen 1V DATE OF EXAM: 02/20/2018 CLINICAL DATA: 82-year-old female abdominal pain, [facility] COMPARISON: 10/14/2016 FINDINGS: Lung bases are clear. No evidence for free intraperitoneal air. No dilated small bowel. Gassy, mildly dilated segments of colon is noted with air-fluid levels. No suspicious calcifications identified. IMPRESSION: Gassy, mildly dilated segments of colon with air-fluid levels, possible ileus. Clinically correlate. No evidence for bowel obstruction or free air.
== END | disposition home or self-care (01) ==
LOC: RADXRMAIN 16:15
PROVIDERS: ATTEND Internal Medicine
DX: K59.39 Other megacolon (principal); R10.9 Unspecified abdominal pain
CPT/HCPCS: 74018

== ENCOUNTER 2018-06-10 11:32 | Emergency (ER) | payer MEDICARE, BC ==
[2018-06-10] MEDS ORDERED: SODIUM CHLORIDE 0.9% 500 ML 500 ML IV STA (12:02)
[2018-06-10] MEDS ORDERED: IPRATROPIUM-ALBUTEROL 3 ML NEB INHALATION STA (12:05)
[2018-06-10] MEDS ORDERED: DEXAMETHASONE 4 MG TAB PO STA (12:05)
--- NOTE | 2018-06-10 12:05 | ED ---
General Adult HPI - General Chief complaint: Shortness of Breath Stated complaint: cough Source: patient Mode of arrival: wheelchair Limitations: no limitations - History of Present Illness Initial comments: Dictation was produced using [employer] dictation software. please excuse any grammatical, word or spelling errors. Chief Complaint: 82-year-old female past medical history hypertension presents with feelings of malaise and cough. History of Present Illness: 82-year-old female with past medical history of hypertension presents with 2-3 days of malaise and cough. Patient has a history of COPD per she is a former smoker. She states she's been coughing up yellowish sputum. Patient doesn't have a baseline cough. Patient does not use oxygen at home. Patient denies any sore throat. Denies any overt sick contacts. Patient feels short of breath however is worse with exertion. At rest she reports feeling okay. Denies any history of blood clots. No lower extremity symptoms. The ROS documented in this emergency department record has been reviewed and confirmed by me. Those systems with pertinent positive or negative responses have been documented in the HPI. All other systems are other negative and/or noncontributory. - Related Data Home Medications Medication Instructions Recorded Confirmed valACYclovir [Valtrex] 500 mg PO DAILY 10/14/16 06/10/18 Multivitamins, Thera [Multivitamin 1 tab PO DAILY@1200 11/07/16 06/10/18 (formulary)] Mirtazapine [Remeron] 15 mg PO HS 12/31/16 06/10/18 oxyCODONE HCL 30 mg PO TID 12/31/16 06/10/18 ALPRAZolam [Xanax] 0.5 mg PO BID PRN 06/10/18 06/10/18 Albuterol Nebulized [Ventolin 2.5 mg INHALATION RT-Q6H PRN 06/10/18 06/10/18 Nebulized] Albuterol Sulfate [Proair Hfa] 2 puff INHALATION RT-Q6H PRN 06/10/18 06/10/18 Losartan Potassium 100 mg PO HS 06/10/18 06/10/18 Previous Rx's Medication Instructions Recorded Albuterol Sulfate [Proair Hfa] 1 - 2 puff INHALATION Q6HR PRN #1 11/25/18 inhaler Levofloxacin [Levaquin] 750 mg PO DAILY 5 Days #5 tab 06/10/18 Allergies Allergy/AdvReac Type Severity Reaction Status Date / Time amoxicillin trihydrate Allergy Unknown Verified 06/10/18 12:12 [From Augmentin] cephalexin monohydrate Allergy Swelling Verified 06/10/18 12:12 [From Keflex] meperidine HCl [From Demerol] Allergy Unknown Verified 06/10/18 12:12 potassium clavulanate Allergy Unknown Verified 06/10/18 12:12 [From Augmentin] Sulfa (Sulfonamide Allergy Unknown Verified 06/10/18 12:12 Antibiotics) NSAIDS (Non-Steroidal AdvReac Severe Nausea & Verified 06/10/18 12:12 Anti-Inflamma Vomiting Review of Systems ROS Statement: Those systems with pertinent positive or pertinent negative responses have been documented in the HPI. ROS Other: All systems not noted in ROS Statement are negative. Past Medical History Past Medical History: COPD, Pneumonia Additional Past Medical History / Comment(s): arthritis, pancreatitis, chronic back and neck pain History of Any Multi-Drug Resistant Organisms: None Reported Past Surgical History: Hysterectomy Additional Past Surgical History / Comment(s): cataract Past Anesthesia/Blood Transfusion Reactions: No Reported Reaction Past Psychological History: Anxiety, Depression Smoking Status: Current every day smoker Past Alcohol Use History: Rare Past Drug Use History: None Reported - Past Family History Father Family Medical History: No Reported History Mother Family Medical History: Blood Disorder, Cancer, Thyroid Disorder General Exam - General Exam Comments Initial Comments: PHYSICAL EXAM: General Impression: Alert and oriented x3, not in acute distress HEENT: Normocephalic atraumatic, extra-ocular movements intact, pupils equal and reactive to light bilaterally, mucous membranes moist. Cardiovascular: Heart regular rate and rhythm, S1&S2 audible, no murmurs, rubs or gallops Chest: Diminished lung sounds bilaterally Abdomen: Bowel sounds present, abdomen soft, non-tender, non-distended, no organomegaly Musculoskeletal: Pulses present and equal in all extremities, no peripheral edema Motor: Power 5/5 bilaterally, no focal deficits noted Neurological: CN II-XII grossly intact, no focal motor or sensory deficits noted Skin: Intact with no visualized rashes Psych: Normal affect and mood Limitations: no limitations Course Vital Signs 06/10/18 06/10/18 06/10/18 11:33 11:58 12:13 Temperature 99.8 F H Pulse Rate 105 H 101 H Respiratory 18 Rate Blood Pressure 168/97 O2 Sat by Pulse 88 L 90 L Oximetry 06/10/18 06/10/18 12:20 12:33 Temperature Pulse Rate 96 100 Respiratory 18 Rate Blood Pressure 121/56 O2 Sat by Pulse 94 L Oximetry Medical Decision Making - Medical Decision Making ED course: 82-year-old female past medical history of COPD presents with cough and shortness of breath. Vital signs upon arrival shows temperature 99.8, oxygen saturation 88, heart rate of 105. Patient has diminished lung sounds bilaterally. Patient denies being hospitalized for COPD.Laboratory evaluation shows leukocytosis of 14.2, coag panel unremarkable. Metabolic panel shows hyperlucent of 120. Influenza is negative. Chest x-ray obtained showing findings consistent with pneumonia. Patient expressed desire to discharge. She does have an appointment with her primary care physician on Monday. Given that patient has good follow-up I believe it's supple. Patient be discharged. She is given strict return precautions to return to the emergency Department with any worsening symptoms. Patient understandable and agreeable to plan. Patient reevaluated after breathing treatment with some reported improvement of symptoms. Patient's clinical presentation consistent with COPD exacerbation secondary to pneumonia. In 1 dose of by mouth antibiotics here and Cortisporin steroids. EKG Interpretation: A 12 lead EKG was obtained. It was interpreted by myself and attending physician. There is a P wave before every QRS complex. Rate is 110. Rhythm is sinus tachycardia, KS interval 162, QRS 72, QTc 446. QT is not prolonged. No ST segment depression or elevation. Overall, this EKG is unremarkable - Lab Data Result diagrams: 06/10/18 11:56 06/10/18 11:56 Lab Results 06/10/18 06/10/18 06/10/18 Range/Units 11:56 11:56 11:56 WBC 14.2 H (3.8-10.6) k/uL RBC 4.30 (3.80-5.40) m/uL Hgb 12.7 (11.4-16.0) gm/dL Hct 40.3 (34.0-46.0) % MCV 93.7 (80.0-100.0) fL MCH 29.6 (25.0-35.0) pg MCHC 31.6 (31.0-37.0) g/dL RDW 14.4 (11.5-15.5) % Plt Count 270 (150-450) k/uL Neutrophils % 78 % Lymphocytes % 14 % Monocytes % 4 % Eosinophils % 2 % Basophils % 0 % Neutrophils # 11.0 H (1.3-7.7) k/uL Lymphocytes # 2.0 (1.0-4.8) k/uL Monocytes # 0.6 (0-1.0) k/uL Eosinophils # 0.3 (0-0.7) k/uL Basophils # 0.0 (0-0.2) k/uL PT 9.6 (9.0-12.0) sec INR 1.0 (<1.2) APTT 28.5 (22.0-30.0) sec Sodium 137 (137-145) mmol/L Potassium 4.6 (3.5-5.1) mmol/L Chloride 99 (98-107) mmol/L Carbon Dioxide 26 (22-30) mmol/L Anion Gap 12 mmol/L BUN 8 (7-17) mg/dL Creatinine 0.55 (0.52-1.04) mg/dL Est GFR (CKD-EPI)AfAm >90 (>60 ml/min/1.73 sqM) Est GFR (CKD-EPI)NonAf 88 (>60 ml/min/1.73 sqM) Glucose 128 H (74-99) mg/dL Calcium 9.4 (8.4-10.2) mg/dL Magnesium 2.1 (1.6-2.3) mg/dL Total Bilirubin 0.6 (0.2-1.3) mg/dL AST 34 (14-36) U/L ALT 24 (9-52) U/L Alkaline Phosphatase 109 (38-126) U/L Total Protein 7.1 (6.3-8.2) g/dL Albumin 4.2 (3.5-5.0) g/dL Influenza Type A RNA (Not Detectd) Influenza Type B (PCR) (Not Detectd) 06/10/18 Range/Units 12:29 WBC (3.8-10.6) k/uL RBC (3.80-5.40) m/uL Hgb (11.4-16.0) gm/dL Hct (34.0-46.0) % MCV (80.0-100.0) fL MCH (25.0-35.0) pg MCHC (31.0-37.0) g/dL RDW (11.5-15.5) % Plt Count (150-450) k/uL Neutrophils % % Lymphocytes % % Monocytes % % Eosinophils % % Basophils % % Neutrophils # (1.3-7.7) k/uL Lymphocytes # (1.0-4.8) k/uL Monocytes # (0-1.0) k/uL Eosinophils # (0-0.7) k/uL Basophils # (0-0.2) k/uL PT (9.0-12.0) sec INR (<1.2) APTT (22.0-30.0) sec Sodium (137-145) mmol/L Potassium (3.5-5.1) mmol/L Chloride (98-107) mmol/L Carbon Dioxide (22-30) mmol/L Anion Gap mmol/L BUN (7-17) mg/dL Creatinine (0.52-1.04) mg/dL Est GFR (CKD-EPI)AfAm (>60 ml/min/1.73 sqM) Est GFR (CKD-EPI)NonAf (>60 ml/min/1.73 sqM) Glucose (74-99) mg/dL Calcium (8.4-10.2) mg/dL Magnesium (1.6-2.3) mg/dL Total Bilirubin (0.2-1.3) mg/dL AST (14-36) U/L ALT (9-52) U/L Alkaline Phosphatase (38-126) U/L Total Protein (6.3-8.2) g/dL Albumin (3.5-5.0) g/dL Influenza Type A RNA Not Detected (Not Detectd) Influenza Type B (PCR) Not Detected (Not Detectd) Disposition Clinical Impression: Pneumonia Disposition: HOME SELF-CARE Condition: Good Instructions: Pneumonia (ED) Prescriptions: Albuterol Sulfate [Proair Hfa] 1 - 2 puff INHALATION Q6HR PRN #1 inhaler PRN Reason: Dyspnea Levofloxacin [Levaquin] 750 mg PO DAILY 5 Days #5 tab Is patient prescribed a controlled substance at d/c from ED?: No Referrals: Elma Palmer MD [Primary Care Provider] - 1-2 days Time of Disposition: 13:49
[2018-06-10 12:14] LABS: Basophils % (A) 0 %; Eosinophils # (A) 0.3 k/uL (0-0.7); Eosinophils % (A) 2 %; HCT 40.3 % (34.0-46.0); HGB 12.7 gm/dL (11.4-16.0); Lymphocytes % (A) 14 %; MCH 29.6 pg (25.0-35.0); MCHC 31.6 g/dL (31.0-37.0); MCV 93.7 fL (80.0-100.0); Mean Platelet Volume 6.6; Monocytes # (A) 0.6 k/uL (0-1.0); Monocytes % (A) 4 %; Neutrophils % (A) 78 %; Platelet Count 270 k/uL (150-450); RDW 14.4 % (11.5-15.5); WBC 14.2 k/uL (3.8-10.6)
--- NOTE | 2018-06-10 12:20 | XR ---
EXAMINATION TYPE: XR chest 2V DATE OF EXAM: 06/10/2018 COMPARISON: 01/12/2018 HISTORY: Shortness of breath TECHNIQUE: Frontal and lateral views of the chest are obtained. FINDINGS: Scattered senescent parenchymal changes noted. Hyperinflation compatible with COPD. Patchy basilar infiltrates may reflect developing pneumonia. Correlate clinically. Heart size is stable. Mediastinal structures are stable and grossly unremarkable. No evidence for hilar prominence. Degenerative changes dorsal spine. IMPRESSION: 1. Patchy basilar infiltrates may reflect developing pneumonia. Correlate clinically.
[2018-06-10 12:25] LABS: ALT 24 U/L (9-52); AST 34 U/L (14-36); Albumin 4.2 g/dL (3.5-5.0); Alkaline Phosphatase 109 U/L (38-126); Anion Gap 12 mmol/L; Blood Urea Nitrogen 8 mg/dL (7-17); Calcium 9.4 mg/dL (8.4-10.2); Carbon Dioxide 26 mmol/L (22-30); Chloride 99 mmol/L (98-107); Glucose 128 mg/dL (74-99); Magnesium 2.1 mg/dL (1.6-2.3); Potassium 4.6 mmol/L (3.5-5.1); Sodium 137 mmol/L (137-145); Total Bilirubin 0.6 mg/dL (0.2-1.3); Total Protein 7.1 g/dL (6.3-8.2)
[2018-06-10 12:34] LABS: Partial Thromboplastin Time 28.5 sec (22.0-30.0); Prothrombin Time 9.6 sec (9.0-12.0)
[2018-06-10] MEDS ORDERED: LEVOFLOXACIN 750 MG TAB PO STA (13:47)
[2018-06-10 14:46] VITALS: TEMP 99.9
[2018-06-10] MEDS ORDERED: SODIUM CHLORIDE 0.9% 1,000 ML IV ONE (14:52)
[2018-06-10 15:53] VITALS: BP 139/54; PULSE 102; RESP 18
== END 2018-06-10 15:55 | disposition home or self-care (01) ==
LOC: EC 11:32
DX: J18.9 Pneumonia, unspecified organism (principal); J44.0 Chronic obstructive pulmonary disease with (acute) lower respiratory infection; M19.90 Unspecified osteoarthritis, unspecified site; M54.9 Dorsalgia, unspecified; M54.2 Cervicalgia; G89.29 Other chronic pain; F32.9 Major depressive disorder, single episode, unspecified; F41.9 Anxiety disorder, unspecified; F17.200 Nicotine dependence, unspecified, uncomplicated; Z79.891 Long term (current) use of opiate analgesic; Z79.899 Other long term (current) drug therapy; Z88.1 Allergy status to other antibiotic agents; Z88.0 Allergy status to penicillin; Z88.2 Allergy status to sulfonamides; Z88.5 Allergy status to narcotic agent; Z88.6 Allergy status to analgesic agent
CPT/HCPCS: 36415; 94640; 93005; 80053; 83735; 85025; 85610; 85730; 87502; 71046; 99285; 96360; J8540

== ENCOUNTER 2019-01-13 20:09 | Inpatient (IN) | payer MEDICARE, BC ==
[2019-01-13] MEDS: SODIUM CHLORIDE 0.9% 500 ML 500 ML IV SCH (21:11)
[2019-01-13] MEDS ORDERED: RX INFO: IV CONTRAST WAS GIVEN 1 EACH MISC MISCELLANE PRN (21:22)
[2019-01-13] MEDS ORDERED: IPRATROPIUM-ALBUTEROL 3 ML NEB INHALATION PRN (21:37)
[2019-01-13 22:05] LABS: Basophils % (A) 0 %; Eosinophils # (A) 0.1 k/uL (0-0.7); Eosinophils % (A) 1 %; HCT 38.9 % (34.0-46.0); HGB 12.3 gm/dL (11.4-16.0); Lymphocytes # (A) 0.7 k/uL (1.0-4.8); Lymphocytes % (A) 5 %; MCH 28.9 pg (25.0-35.0); MCHC 31.7 g/dL (31.0-37.0); MCV 91.1 fL (80.0-100.0); Mean Platelet Volume 7.7; Monocytes # (A) 0.4 k/uL (0-1.0); Monocytes % (A) 3 %; Neutrophils # (A) 12.8 k/uL (1.3-7.7); Neutrophils % (A) 90 %; Platelet Count 384 k/uL (150-450); RBC 4.27 m/uL (3.80-5.40); RDW 14.4 % (11.5-15.5); WBC 14.2 k/uL (3.8-10.6)
[2019-01-13 22:11] LABS: INR 0.9 (<1.2); Partial Thromboplastin Time 31.2 sec (22.0-30.0); Prothrombin Time 9.6 sec (9.0-12.0)
[2019-01-13 22:16] LABS: ALT 22 U/L (9-52); AST 30 U/L (14-36); African American GFR (CKD) >90 (>60 ml/min/1.73 sqM); Albumin 3.8 g/dL (3.5-5.0); Alkaline Phosphatase 141 U/L (38-126); Anion Gap 13 mmol/L; Blood Urea Nitrogen 11 mg/dL (7-17); Calcium 9.1 mg/dL (8.4-10.2); Carbon Dioxide 22 mmol/L (22-30); Chloride 93 mmol/L (98-107); Glucose 173 mg/dL (74-99); Potassium 4.3 mmol/L (3.5-5.1); Sodium 128 mmol/L (137-145); Total Bilirubin 0.5 mg/dL (0.2-1.3); Total Protein 6.7 g/dL (6.3-8.2)
--- NOTE | 2019-01-13 22:24 | ED ---
General Adult HPI - General Chief complaint: Shortness of Breath Stated complaint: Poss pneumonia or cracked ribs-sent from [facility] Ex Time Seen by Provider: 01/13/19 20:51 Source: patient Mode of arrival: ambulatory Limitations: no limitations - History of Present Illness Initial comments: Edel is an 83-year-old female with history of COPD who presents to the emergency department today from [facility] for evaluation of left-sided pneumonia and possible left-sided rib fractures. Patient reports that she's been feeling unwell for approximately 4-5 days, she reports she's had a cough which is become per Dr. medrano over the past couple of days as well as subjective fever. Today she went to [facility] for chest x-ray to rule out any possibility of pneumonia and was found that she likely had a left-sided pneumonia as well as multiple left-sided rib fractures. Patient reports that she was experiencing significant pain in her left ribs and thought she may have cracked them from coughing so hard over the past 3 or 4 days but she's not had any falls or traumas or injuries. Patient does have a history of a fall approximately 10 years ago onto a coffee table on the left side and which she did fracture her ribs. Patient denies any chest pain, palpitations. She denies any shortness of breath which is worse than her baseline. She states that she has a pulse oximeter at home and that it's usually 92-94% today at 90-92. - Related Data Home Medications Medication Instructions Recorded Confirmed Multivitamins, Thera [Multivitamin 1 tab PO DAILY@1200 11/07/16 01/13/19 (formulary)] oxyCODONE HCL [oxyCODONE HCL (IR)] 30 mg PO TID 12/31/16 01/13/19 ALPRAZolam [Xanax] 0.5 mg PO BID PRN 06/10/18 01/13/19 Albuterol Nebulized [Ventolin 2.5 mg INHALATION RT-Q6H PRN 06/10/18 01/13/19 Nebulized] Losartan Potassium 100 mg PO HS 06/10/18 01/13/19 Mirtazapine [Remeron] 30 mg PO HS 01/13/19 01/13/19 Allergies Allergy/AdvReac Type Severity Reaction Status Date / Time amoxicillin trihydrate Allergy Unknown Verified 01/13/19 20:50 [From Augmentin] cephalexin monohydrate Allergy Swelling Verified 01/13/19 20:50 [From Keflex] meperidine HCl [From Demerol] Allergy Unknown Verified 01/13/19 20:50 potassium clavulanate Allergy Unknown Verified 01/13/19 20:50 [From Augmentin] Sulfa (Sulfonamide Allergy Unknown Verified 01/13/19 20:50 Antibiotics) NSAIDS (Non-Steroidal AdvReac Severe Nausea & Verified 01/13/19 20:50 Anti-Inflamma Vomiting Review of Systems ROS Statement: Those systems with pertinent positive or pertinent negative responses have been documented in the HPI. ROS Other: All systems not noted in ROS Statement are negative. Past Medical History Past Medical History: COPD, Pneumonia Additional Past Medical History / Comment(s): arthritis, pancreatitis, chronic back and neck pain History of Any Multi-Drug Resistant Organisms: None Reported Past Surgical History: Hysterectomy Additional Past Surgical History / Comment(s): cataract Past Anesthesia/Blood Transfusion Reactions: No Reported Reaction Past Psychological History: Anxiety, Depression Smoking Status: Current every day smoker Past Alcohol Use History: Rare Past Drug Use History: None Reported - Past Family History Father Family Medical History: No Reported History Mother Family Medical History: Blood Disorder, Cancer, Thyroid Disorder General Exam - General Exam Comments Initial Comments: Physical Exam GENERAL: Patient is well-developed and well-nourished. Patient is nontoxic and well- hydrated and is in no distress. HENT: Normocephalic, Atraumatic. EYES: PERRL, EOMI PULMONARY: Decreased air movement left side CARDIOVASCULAR: There is a regular rate and rhythm without any murmurs gallops or rubs. ABDOMEN: Soft and nontender with normal bowel sounds. SKIN: Skin is clear with no lesions or rashes and otherwise unremarkable. : Deferred NEUROLOGIC: Pleasantly confused about events of the week, but oriented to person, place and year MUSCULOSKELETAL: Normal extremities with adequate strength and full range of motion. No lower extremity swelling or edema. No calf tenderness. PSYCHIATRIC: Normal psychiatric evaluation Limitations: no limitations Course Vital Signs 01/13/19 01/13/19 01/13/19 20:35 21:18 23:24 Temperature 99.2 F 98.6 F Pulse Rate 117 H 99 94 Respiratory 20 20 20 Rate Blood Pressure 144/62 113/59 115/61 O2 Sat by Pulse 88 L 90 L 93 L Oximetry 01/14/19 01:28 Temperature 98.8 F Pulse Rate 105 H Respiratory 18 Rate Blood Pressure 141/74 O2 Sat by Pulse 91 L Oximetry EKG Findings - EKG Comments: EKG Findings:: EKG was obtained at 2129, rate is 96 rhythm is sinus there is leftward axis there are normal intervals, [place] 174, QRS 70, QTC is 487 there are no acute ST elevations or depressions there is no evidence of acute ischemia or infarction. Medical Decision Making - Medical Decision Making The patient was seen and evaluated, history was obtained from the patient, daughter bedside and review of medical records from medics breath Patient with x-ray consistent with pneumonia there is questionable rib fractures however she does have a remote history of rib fractures no recent trauma but she has been coughing hard and doesn't believe she could've injured reports coughing Labs and imaging were ordered Chest CT does confirm pneumonia but remote rib fractures Antibiotics ordered patient was admitted for pneumonia with pulmonology on consult. She care was discussed with admitting physician Dr. Barrow accepted the admission. - Lab Data Result diagrams: 01/13/19 21:16 01/13/19 21:16 Lab Results 01/13/19 01/13/19 01/13/19 Range/Units 21:16 21:16 21:16 WBC 14.2 H (3.8-10.6) k/uL RBC 4.27 (3.80-5.40) m/uL Hgb 12.3 (11.4-16.0) gm/dL Hct 38.9 (34.0-46.0) % MCV 91.1 (80.0-100.0) fL MCH 28.9 (25.0-35.0) pg MCHC 31.7 (31.0-37.0) g/dL RDW 14.4 (11.5-15.5) % Plt Count 384 (150-450) k/uL Neutrophils % 90 % Lymphocytes % 5 % Monocytes % 3 % Eosinophils % 1 % Basophils % 0 % Neutrophils # 12.8 H (1.3-7.7) k/uL Lymphocytes # 0.7 L (1.0-4.8) k/uL Monocytes # 0.4 (0-1.0) k/uL Eosinophils # 0.1 (0-0.7) k/uL Basophils # 0.0 (0-0.2) k/uL PT (9.0-12.0) sec INR (<1.2) APTT (22.0-30.0) sec Sodium 128 L (137-145) mmol/L Potassium 4.3 (3.5-5.1) mmol/L Chloride 93 L (98-107) mmol/L Carbon Dioxide 22 (22-30) mmol/L Anion Gap 13 mmol/L BUN 11 (7-17) mg/dL Creatinine 0.69 (0.52-1.04) mg/dL Est GFR (CKD-EPI)AfAm >90 (>60 ml/min/1.73 sqM) Est GFR (CKD-EPI)NonAf 81 (>60 ml/min/1.73 sqM) Glucose 173 H (74-99) mg/dL Plasma Lactic Acid Librado 2.2 H* (0.7-2.0) mmol/L Calcium 9.1 (8.4-10.2) mg/dL Total Bilirubin 0.5 (0.2-1.3) mg/dL AST 30 (14-36) U/L ALT 22 (9-52) U/L Alkaline Phosphatase 141 H (38-126) U/L Troponin I (0.000-0.034) ng/mL Total Protein 6.7 (6.3-8.2) g/dL Albumin 3.8 (3.5-5.0) g/dL 01/13/19 01/13/19 Range/Units 21:16 21:16 WBC (3.8-10.6) k/uL RBC (3.80-5.40) m/uL Hgb (11.4-16.0) gm/dL Hct (34.0-46.0) % MCV (80.0-100.0) fL MCH (25.0-35.0) pg MCHC (31.0-37.0) g/dL RDW (11.5-15.5) % Plt Count (150-450) k/uL Neutrophils % % Lymphocytes % % Monocytes % % Eosinophils % % Basophils % % Neutrophils # (1.3-7.7) k/uL Lymphocytes # (1.0-4.8) k/uL Monocytes # (0-1.0) k/uL Eosinophils # (0-0.7) k/uL Basophils # (0-0.2) k/uL PT 9.6 (9.0-12.0) sec INR 0.9 (<1.2) APTT 31.2 H (22.0-30.0) sec Sodium (137-145) mmol/L Potassium (3.5-5.1) mmol/L Chloride (98-107) mmol/L Carbon Dioxide (22-30) mmol/L Anion Gap mmol/L BUN (7-17) mg/dL Creatinine (0.52-1.04) mg/dL Est GFR (CKD-EPI)AfAm (>60 ml/min/1.73 sqM) Est GFR (CKD-EPI)NonAf (>60 ml/min/1.73 sqM) Glucose (74-99) mg/dL Plasma Lactic Acid Librado (0.7-2.0) mmol/L Calcium (8.4-10.2) mg/dL Total Bilirubin (0.2-1.3) mg/dL AST (14-36) U/L ALT (9-52) U/L Alkaline Phosphatase (38-126) U/L Troponin I 0.051 H* (0.000-0.034) ng/mL Total Protein (6.3-8.2) g/dL Albumin (3.5-5.0) g/dL Disposition Clinical Impression: Pneumonia Disposition: ADMITTED IP TO THIS [facility] Condition: Stable
[2019-01-13] MEDS ORDERED: LEVOFLOXACIN 500 MG TAB PO SCH (23:30)
--- NOTE | 2019-01-14 00:10 | CT ---
EXAM: CT Chest With Intravenous Contrast CLINICAL HISTORY: cough, rib fx on xr chronic TECHNIQUE: Axial computed tomography images of the chest with intravenous contrast. CTDI is 0.085, 0.085, 6.8 mGy and DLP is 259.5 mGy-cm. This CT exam was performed using one or more of the following dose reduction techniques: automated exposure control, adjustment of the mA and/or kV according to patient size, and/or use of iterative reconstruction technique. COMPARISON: CXR 01/13/2019, CT 10/15/2016 FINDINGS: Lungs: Patchy bilateral nodular densities and groundglass opacities. Mild bilateral peribronchial thickening, atelectasis, and emphysematous changes. Pleural space: No pneumothorax. No significant effusion. Heart: Coronary artery calcifications. No significant pericardial effusion. Bones/joints: No acute osseous abnormality. Remote left rib fractures. Similar severe degenerative changes in the lower cervical spine and thoracic kyphosis. No dislocation. Soft tissues: Unremarkable. Vasculature: Aortic atherosclerosis. No thoracic aortic aneurysm or dissection. Lymph nodes: Nonspecific mediastinal lymphadenopathy. IMPRESSION: Patchy bilateral nodular densities and groundglass opacities are nonspecific and may be infectious or inflammatory.
[2019-01-14] MEDS: predniSONE 20 MG TAB PO SCH ×2 (01:42→09:13)
[2019-01-14] MEDS ORDERED: MORPHINE SULFATE 4 MG/ML SYRINGE IVP PRN (02:12)
[2019-01-14] MEDS ORDERED: LIDOCAINE 5% PATCH TOPICAL ONE (02:30)
[2019-01-14] MEDS ORDERED: ALBUTEROL NEBULIZED 2.5 MG/3 ML INHALATION PRN (03:14)
[2019-01-14] MEDS: SODIUM CHLORIDE 0.9% 1,000 ML IV SCH (03:29)
[2019-01-14] MEDS: ALPRAZolam 0.5 MG TAB PO PRN ×2 (05:36→17:58)
--- NOTE | 2019-01-14 10:52 | P.CRDCN ---
History of Present Illness Consult date: 01/14/19 Reason for Consult (text): elevated troponins Chief complaint: elevated troponin//cough/SOB History of present illness: HISTORY OF PRESENT ILLNESS AND PLAN: This is a [83]-year-old [female] with history of osteoarthritis, anxiety depression, this smoking 50 years one pack per day, pancreatitis, low back pain, fall with fracture and COPD. Patient presents in the emergency department [facility] EX with compaints of [left sided chest pain/left-sided pneumonia. Patient has history of cracked ribs from a fall approximately 10 years ago. Recently patient has been having a cough lasting 4-5 days with fever. Pt went to MED EX was found to have left-sided pneumonia and left rib fractures. Patient currently lying in bed with no acute distress, relates her on the room with ease. She has no current complaints of chest pain, chest pressure, shortness of breath or palpitations. Patient does not follow cardiology. CT of chest shows emphysematous changes/lab left rib fracture/bilateral nodule densities/ground glass opacity. Mild troponin elevation at 0.051. No acute cardiac process with troponin elevation. Lactic acid elevation at 2.2. WBC of 14.2]. SIGNIFICANT PAST MEDICAL HISTORY: [osteoarthritis, anxiety depression, this smoking 50 years one pack per day, pancreatitis, low back pain, fall with fracture and COPD.] PAST SURGICAL HISTORY: See list. EKG shows [sinus rhythm], heart rate [90-112] bpm. Troponins positive x [1]. 0.051 SIGNIFICANT LABORATORY VALUES: [Mild troponin elevation at 0.051. Lactic acid elevation at 2.2. WBC of 14.2]. Chest x-ray [left pneumonia/liver fracture]. CT of chest [emphysematous changes/lab left rib fracture/bilateral nodule densities/ground glass opacity.]. REVIEW OF SYSTEMS: CONSTITUTIONAL: [Denies fever. Denies chills.] EYES: Denies blurred vision. [Denies blurred vision or vision changes. Denies eye pain.] EARS, NOSE, MOUTH & THROAT: [Denies headache. Denies sore throat. Denies ear pain Denies hemoptysis.] CARDIOVASCULAR: [Complains of chest pain. C/o shortness of breath. Denies orthopnea. Denies PND. Denies palpitations.] RESPIRATORY: [C/o cough. C/o shortness of breath. ] GASTROINTESTINAL: [Denies abdominal pain or distention. Denies diarrhea. Denies constipation. Denies nausea. Denies vomiting.] MUSCULOSKELETAL: [C/o myalgias. C/o rib pain on LEFT.] INTEGUMENTARY: [Denies pruitis. Denies rash.] ENDOCRINE: [C/o fatigue. Denies weight change. Denies polydipsia. Denies polyurina Denies heat/cold intolerance.] GENITOURINARY:[ Denies burning, hematuria or urgency with micturation.] HEMATOLOGIC: [Denies history of anemia. Denies bleeding.] NEUROLOGIC: [Denies numbness. Denies tingling. Denies weakness.] PSYCHIATRIC: [Denies anxiety. Denies depression.] PHYSICAL EXAM: VITAL SIGNS: GENERAL: Well developed, in no acute distress. HEENT: Head is atraumatic, normocephalic. Pupils are equal, round. Extra ocular movements intact. Mucous membranes moist. Neck supple. No JVD. No carotid bruit. No thyromegaly. LUNGS: Diminished with moderate wheezes. NO rales or rhonchi. POSITIVE chest wall tenderness on palpation or with deep breathing. HEART: Regular rate and rhythm, no rubs or gallops. S1 and S2 heard. No murmur. ABDOMEN: Abdominal exam, WNL. Bowel sounds x4 quads. Soft, non-tender, without masses, organomegaly, or abdominal aorta enlargement. EXTREMITIES/VASCULAR: Extremities have easily palpable radial, femoral, dorsalis pedis and posterior tibial pulses. No cyanosis, calf tenderness. No BLE edema. NEUROLOGIC: Patient is awake, alert and oriented x3. No focal neurologic abnormalities. FINAL IMPRESSION: 1. [COPD exacerbation]. 2. [LEFT rib fracture]. 3. [Tobacco abuse history]. 4. [Pneumonia]. 5. [Elevated troponins not related to acute cardiac event.]. PLAN: [Elevated troponins not related to acute cardiac event. COPD exacerbation. Start metoprolol tartrate 50 mg by mouth once, then 25 mg twice daily. EKG sinus rhythm old inferior OK/LVH. No acute process. Patient echocardiogram. Continue steroids/IV Levaquin. We'll continue to follow. Thank you kindly for this consult.] Nurse Practitioner note has been reviewed by the Physician. Signing provider agrees with the documented findings, assessment and plan of care. Past Medical History Past Medical History: COPD, Pneumonia Additional Past Medical History / Comment(s): arthritis, pancreatitis, chronic back and neck pain History of Any Multi-Drug Resistant Organisms: None Reported Past Surgical History: Hysterectomy Additional Past Surgical History / Comment(s): cataract Past Anesthesia/Blood Transfusion Reactions: No Reported Reaction Past Psychological History: Anxiety, Depression Smoking Status: Current every day smoker Past Alcohol Use History: Rare Past Drug Use History: None Reported - Past Family History Father Family Medical History: No Reported History Mother Family Medical History: Blood Disorder, Cancer, Thyroid Disorder Brother(s) Additional Family Medical History / Comment(s): The patient has one brother with coronary artery disease. Patient has 2 sisters and one with history of Alzheimer's dementia. One has history of closed head injury. Patient is a total of 6 children. One son from a myocardial infarction with history of seizure, one daughter from pancreatic cancer. Other 4 children have no major medical problems. Medications and Allergies Home Medications Medication Instructions Recorded Confirmed Type Multivitamins, Thera [Multivitamin 1 tab PO DAILY@1200 11/07/16 01/14/19 History (formulary)] oxyCODONE HCL [oxyCODONE HCL (IR)] 30 mg PO TID 12/31/16 01/14/19 History ALPRAZolam [Xanax] 0.5 mg PO BID PRN 06/10/18 01/14/19 History Albuterol Nebulized [Ventolin 2.5 mg INHALATION RT-Q6H PRN 06/10/18 01/14/19 History Nebulized] Losartan Potassium 100 mg PO HS 06/10/18 01/14/19 History Mirtazapine [Remeron] 30 mg PO HS 01/13/19 01/14/19 History ARIPiprazole [Abilify] 2 mg PO DAILY 01/14/19 01/14/19 History DULoxetine HCL [Cymbalta] 30 mg PO HS 01/14/19 01/14/19 History DULoxetine HCL [Cymbalta] 60 mg PO DAILY 01/14/19 01/14/19 History Melatonin 5 mg PO HS 01/14/19 01/14/19 History Metoprolol Tartrate 25 mg PO BID 01/14/19 01/14/19 History Allergies Allergy/AdvReac Type Severity Reaction Status Date / Time amoxicillin trihydrate Allergy Unknown Verified 01/13/19 20:50 [From Augmentin] cephalexin monohydrate Allergy Swelling Verified 01/13/19 20:50 [From Keflex] meperidine HCl [From Demerol] Allergy Unknown Verified 01/13/19 20:50 potassium clavulanate Allergy Unknown Verified 01/13/19 20:50 [From Augmentin] Sulfa (Sulfonamide Allergy Unknown Verified 01/13/19 20:50 Antibiotics) NSAIDS (Non-Steroidal AdvReac Severe Nausea & Verified 01/13/19 20:50 Anti-Inflamma Vomiting Physical Exam Vitals: Vital Signs Temp Pulse Pulse Resp BP BP Pulse Ox 01/14/19 08:00 98.5 F 112 H 18 124/63 92 L 01/14/19 04:00 98.0 F 114 H 18 129/74 93 L 01/14/19 02:27 98.7 F 105 H 18 144/80 96 01/14/19 02:15 105 H 18 01/14/19 01:28 98.8 F 105 H 18 141/74 91 L 01/13/19 23:24 98.6 F 94 20 115/61 93 L 01/13/19 21:18 99 20 113/59 90 L 01/13/19 20:35 99.2 F 117 H 20 144/62 88 L Intake and Output 01/13/19 01/14/19 01/14/19 22:59 06:59 14:59 Intake Total 200 118 Balance 200 118 Intake: Intake, IV Titration 200 Amount Sodium Chloride 0.9% 1, 200 000 ml @ 50 mls/hr IV . Q20H [facility] Rx#:[id number] Oral 118 Other: Voiding Method Toilet # Voids 1 Weight 54.431 kg 56 kg Results 01/13/19 21:16 01/13/19 21:16 Cardiac Enzymes 01/13/19 01/13/19 Range/Units 21:16 21:16 AST 30 (14-36) U/L Troponin I 0.051 H* (0.000-0.034) ng/mL Coagulation 01/13/19 Range/Units 21:16 PT 9.6 (9.0-12.0) sec APTT 31.2 H (22.0-30.0) sec CBC 01/13/19 Range/Units 21:16 WBC 14.2 H (3.8-10.6) k/uL RBC 4.27 (3.80-5.40) m/uL Hgb 12.3 (11.4-16.0) gm/dL Hct 38.9 (34.0-46.0) % Plt Count 384 (150-450) k/uL Comprehensive Metabolic Panel 01/13/19 Range/Units 21:16 Sodium 128 L (137-145) mmol/L Potassium 4.3 (3.5-5.1) mmol/L Chloride 93 L (98-107) mmol/L Carbon Dioxide 22 (22-30) mmol/L BUN 11 (7-17) mg/dL Creatinine 0.69 (0.52-1.04) mg/dL Glucose 173 H (74-99) mg/dL Calcium 9.1 (8.4-10.2) mg/dL AST 30 (14-36) U/L ALT 22 (9-52) U/L Alkaline Phosphatase 141 H (38-126) U/L Total Protein 6.7 (6.3-8.2) g/dL Albumin 3.8 (3.5-5.0) g/dL Current Medications Generic Name Dose Route Start Last Admin Trade Name Freq PRN Reason Stop Dose Admin Albuterol Sulfate 2.5 mg 01/14/19 03:14 Ventolin Nebulized INHALATION RT-Q6H PRN Shortness Of Breath Albuterol/Ipratropium 3 ml 01/13/19 21:37 Duoneb 0.5 Mg-3 Mg/3 Ml Soln INHALATION RT-Q4H PRN Shortness Of Breath Or Wheezing Alprazolam 0.5 mg 01/14/19 03:14 01/14/19 05:36 Xanax PO 0.5 mg BID PRN Administration Anxiety Sodium Chloride 1,000 mls @ 50 mls/hr 01/14/19 03:15 01/14/19 03:29 Saline 0.9% IV 50 mls/hr .Q20H JENN[facility]ER Administration Levofloxacin 500 mg 01/13/19 23:30 01/14/19 01:42 Levaquin PO 500 mg DAILY@2100 JENNIFER Administration Losartan Potassium 100 mg 01/14/19 21:00 Cozaar PO HS JENN[facility]ER Melatonin 6 mg 01/14/19 21:00 Melatonin PO HS JENN[facility] Mirtazapine 30 mg 01/14/19 21:00 Remeron PO HS [facility] Miscellaneous Information 1 each 01/13/19 21:22 Rx Info: Iv Contrast Was Given MISCELLANE 01/15/19 21:23 DAILY PRN Per Protocol Multivitamins 1 each 01/14/19 12:00 Theragran PO DAILY@1200 JENNIFER Oxycodone HCl 30 mg 01/14/19 04:00 01/14/19 09:13 Oxyir PO 30 mg TID JENNIFER Administration Prednisone 40 mg 01/13/19 23:30 01/14/19 09:13 PO 40 mg DAILY JENN[facility]ER Administration Intake and Output 01/13/19 01/14/19 01/14/19 22:59 06:59 14:59 Intake Total 200 118 Balance 200 118 Intake: Intake, IV Titration 200 Amount Sodium Chloride 0.9% 1, 200 000 ml @ 50 mls/hr IV . Q20H [facility] Rx#:[id number] Oral 118 Other: Voiding Method Toilet # Voids 1 Weight 54.431 kg 56 kg 01/13/19 21:16 01/13/19 21:16
[2019-01-14] MEDS: MULTIVITAMINS, THERA 1 EACH TAB PO SCH (11:43)
[2019-01-14] MEDS ORDERED: METOPROLOL TARTRATE 50 MG TAB PO STA (13:36)
--- NOTE | 2019-01-14 15:02 | P.HPIM ---
History of Present Illness H&P Date: 01/14/19 Chief Complaint: Shortness of breath This is an 83-year-old female patient of Dr. Cunningham with past medical history of COPD, hypertension, chronic pain syndrome, tobacco use and dependence generalized anxiety disorder. Patient states that she has had trouble for the past 4-5 days with cough and shortness of breath with sputum production of yellow and green. Patient states she has been choking on food. She follows a soft diet. No fever or chills. Patient has been using her nebulizer without improvement. Her last episode of pneumonia was over a year and a half ago. She went to [facility] and chest x-ray didn't was done with concern for pneumonia patient was sent into [facility] emergency center for evaluation. Heart rate was initially 117, she was afebrile, blood pressure 144/62 and pulse ox 88% on room air. Patient is not home O2 dependent. WBC 14.2, sodium 128, potassium 4.3, chloride 93, CO2 22, creatinine 0.69, blood sugar 173. Patient denies history of known diabetes. Lactic acid 2.2. Troponin 0.051. CT of the chest revealed patchy bilateral nodular densities and groundglass opacities are nonspecific and may be infectious or inflammatory. Patient was admitted to the cardiac 6 down unit and cardiology and pulmonary medicine consults were requested. Review of Systems All systems: negative Constitutional: Reports fatigue, Reports weakness, Denies chills, Denies fever Eyes: denies blurred vision, denies pain Ears, nose, mouth and throat: Denies headache, Denies sore throat Cardiovascular: Reports shortness of breath, Denies chest pain, Denies syncope Respiratory: Reports cough, Reports cough with sputum, Reports dyspnea, Denies excessive sputum, Denies hemoptysis, Denies home oxygen, Denies sleep apnea Gastrointestinal: Denies abdominal pain, Denies diarrhea, Denies nausea, Denies vomiting Genitourinary: Denies dysuria, Denies hematuria Musculoskeletal: Denies myalgias Integumentary: Denies pruritus, Denies rash Neurological: Denies numbness, Denies weakness Psychiatric: Denies anxiety, Denies depression Endocrine: Denies fatigue, Denies weight change Past Medical History Past Medical History: COPD, Pneumonia Additional Past Medical History / Comment(s): arthritis, pancreatitis, chronic back and neck pain History of Any Multi-Drug Resistant Organisms: None Reported Past Surgical History: Hysterectomy Additional Past Surgical History / Comment(s): cataract, to vocal cord cyst removed. Past Anesthesia/Blood Transfusion Reactions: No Reported Reaction Past Psychological History: Anxiety, Depression Smoking Status: Current every day smoker Past Alcohol Use History: Rare Additional Past Alcohol Use History / Comment(s): The patient was a smoker half a pack of cigarettes per day for 60 years ago quit 6 months ago. Patient does not have home O2. She does have a nebulizer. No CPAP. She is a walker for ambulation. Past Drug Use History: None Reported - Past Family History Father Family Medical History: No Reported History Additional Family Medical History / Comment(s): Father at age 57 from a motor vehicle accident. Mother Family Medical History: Blood Disorder, Cancer, Thyroid Disorder Additional Family Medical History / Comment(s): Mother at age 71 from leukemia. Brother(s) Additional Family Medical History / Comment(s): The patient has one brother with coronary artery disease. Patient has 2 sisters and one with history of Alzheimer's dementia. One has history of closed head injury. Patient is a total of 6 children. One son from a myocardial infarction with history of seizure, one daughter from pancreatic cancer. Other 4 children have no major medical problems. Medications and Allergies Home Medications Medication Instructions Recorded Confirmed Type Multivitamins, Thera [Multivitamin 1 tab PO DAILY@1200 11/07/16 01/14/19 History (formulary)] oxyCODONE HCL [oxyCODONE HCL (IR)] 30 mg PO TID 12/31/16 01/14/19 History ALPRAZolam [Xanax] 0.5 mg PO BID PRN 06/10/18 01/14/19 History Albuterol Nebulized [Ventolin 2.5 mg INHALATION RT-Q6H PRN 06/10/18 01/14/19 History Nebulized] Losartan Potassium 100 mg PO HS 06/10/18 01/14/19 History Mirtazapine [Remeron] 30 mg PO HS 01/13/19 01/14/19 History ARIPiprazole [Abilify] 2 mg PO DAILY 01/14/19 01/14/19 History DULoxetine HCL [Cymbalta] 30 mg PO HS 01/14/19 01/14/19 History DULoxetine HCL [Cymbalta] 60 mg PO DAILY 01/14/19 01/14/19 History Melatonin 5 mg PO HS 01/14/19 01/14/19 History Metoprolol Tartrate 25 mg PO BID 01/14/19 01/14/19 History Allergies Allergy/AdvReac Type Severity Reaction Status Date / Time amoxicillin trihydrate Allergy Unknown Verified 01/13/19 20:50 [From Augmentin] cephalexin monohydrate Allergy Swelling Verified 01/13/19 20:50 [From Keflex] meperidine HCl [From Demerol] Allergy Unknown Verified 01/13/19 20:50 potassium clavulanate Allergy Unknown Verified 01/13/19 20:50 [From Augmentin] Sulfa (Sulfonamide Allergy Unknown Verified 01/13/19 20:50 Antibiotics) NSAIDS (Non-Steroidal AdvReac Severe Nausea & Verified 01/13/19 20:50 Anti-Inflamma Vomiting Physical Exam Vitals: Vital Signs Temp Pulse Pulse Resp BP BP Pulse Ox 01/14/19 12:00 133 H 01/14/19 11:40 98.0 F 133 H 18 126/62 90 L 01/14/19 08:00 98.5 F 112 H 18 124/63 92 L 01/14/19 04:00 98.0 F 114 H 18 129/74 93 L 01/14/19 02:27 98.7 F 105 H 18 144/80 96 01/14/19 02:15 105 H 18 01/14/19 01:28 98.8 F 105 H 18 141/74 91 L 01/13/19 23:24 98.6 F 94 20 115/61 93 L 01/13/19 21:18 99 20 113/59 90 L 01/13/19 20:35 99.2 F 117 H 20 144/62 88 L Intake and Output 01/13/19 01/14/19 01/14/19 22:59 06:59 14:59 Intake Total 200 368 Balance 200 368 Intake: Intake, IV Titration 200 250 Amount Sodium Chloride 0.9% 1, 200 250 000 ml @ 50 mls/hr IV . Q20H [facility] Rx#:[id number] Oral 118 Other: Voiding Method Toilet # Voids 1 1 Weight 54.431 kg 56 kg Gen: This is an 83-year-old female. She is resting in the bed and appears to be comfortable. No acute distress is noted. HEENT: Head is atraumatic, normocephalic. Pupils equal, round. Sclerae is anicteric. NECK: Supple. No JVD. No lymphadenopathy. No thyromegaly. LUNGS: Breath sounds diminished with expiratory wheeze. No intercostal retractions. HEART: Regular rate and rhythm. No murmur. ABDOMEN: Soft. Bowel sounds are present. No masses. No tenderness. EXTREMITIES: No pedal edema. No calf tenderness. NEUROLOGICAL: Patient is awake, alert and oriented x3. Cranial nerves 2 through 12 are grossly intact. Results CBC & Chem 7: 01/15/19 08:28 01/15/19 08:28 Labs: Abnormal Lab Results - Last 24 Hours (Table) 01/13/19 01/13/19 01/13/19 Range/Units 21:16 21:16 21:16 WBC 14.2 H (3.8-10.6) k/uL Neutrophils # 12.8 H (1.3-7.7) k/uL Lymphocytes # 0.7 L (1.0-4.8) k/uL APTT (22.0-30.0) sec Sodium 128 L (137-145) mmol/L Chloride 93 L (98-107) mmol/L Glucose 173 H (74-99) mg/dL Plasma Lactic Acid Librado 2.2 H* (0.7-2.0) mmol/L Alkaline Phosphatase 141 H (38-126) U/L Troponin I (0.000-0.034) ng/mL 01/13/19 01/13/19 01/14/19 Range/Units 21:16 21:16 11:54 WBC (3.8-10.6) k/uL Neutrophils # (1.3-7.7) k/uL Lymphocytes # (1.0-4.8) k/uL APTT 31.2 H (22.0-30.0) sec Sodium (137-145) mmol/L Chloride (98-107) mmol/L Glucose (74-99) mg/dL Plasma Lactic Acid Librado (0.7-2.0) mmol/L Alkaline Phosphatase (38-126) U/L Troponin I 0.051 H* 0.042 H* (0.000-0.034) ng/mL Microbiology - Last 24 Hours (Table) 01/13/19 21:53 Urine Culture - Preliminary Urine,Voided Thrombosis Risk Factor Assmnt - DVT/VTE Prophylaxis DVT/VTE Prophylaxis: Pharmacologic Prophylaxis ordered - Choose All That Apply Any of the Below Risk Factors Present?: Yes Each Factor Represents 1 point: Abnormal pulmonary function (COPD) Other Risk Factors: Yes Each Risk Factor Represents 3 Points: Age 75 years or older Other congenital or acquired thrombophilia - If yes, enter type in comment: No Thrombosis Risk Factor Assessment Total Risk Factor Score: 4 Thrombosis Risk Factor Assessment Level: Moderate Risk Assessment and Plan Plan: 1. Left-sided pneumonia and possible left-sided rib fractures with concern for aspiration. Speech therapy evaluation.. Continue Levaquin 750 mg daily, DuoNeb treatments every 6 hours as needed, prednisone 40 mg daily. 2. COPD. 3. Elevated troponins. Cardiology consult. 4. Electrolyte abnormalities with hyponatremia, hypochloremia 5. Tobacco use and dependence. 6. Hyperglycemia without diagnosis of diabetes. Hemoglobin A1c. 7. Hypertension. Continue losartan 100 mg at bedtime, Lopressor 25 mg twice daily. 8. Recurrent depression and generalized anxiety disorder. Continue Xanax 0.5 mg twice daily as needed, Abilify 2 mg daily, Cymbalta 60 mg the morning and 31 g at bedtime. 9. GI prophylaxis. Pepcid. 10. DVT prophylaxis. Heparin. Patient will be admitted to the hospital for a minimum of 2 night stay. Discharge plan: Most likely return home. Impression and plan of care have been directed as dictated by the signing physician. Zora Ayala nurse practitioner acting as scribe for signing physician.
--- NOTE | 2019-01-14 18:01 | P.CNPUL ---
History of Present Illness Consult date: 01/14/19 Reason for consult: dyspnea, cough, hypoxemia, pneumonia Chief complaint: Cough shortness of breath for last 5-6 days History of present illness: This is a 83-year-old female who was seen eval reexamined on third floor this patient has chronic medical history significant for COPD hypertension hypertensive cardiovascular disease she has generalized anxiety disorder as well she was in fairly stable state of health until about 5 days ago progressively started getting short of breath and coughing spells up to a point that commonly into the hospital for further evaluation he was seen at urgent care center as well, his computed tomography scan of the chest revealed bilateral lower lobe pneumonia with some pleural thickening and groundglass attenuation and nonspecific lymph node enlargement Review of Systems All systems: negative Past Medical History Past Medical History: COPD, Pneumonia Additional Past Medical History / Comment(s): arthritis, pancreatitis, chronic back and neck pain History of Any Multi-Drug Resistant Organisms: None Reported Past Surgical History: Hysterectomy Additional Past Surgical History / Comment(s): cataract Past Anesthesia/Blood Transfusion Reactions: No Reported Reaction Past Psychological History: Anxiety, Depression Smoking Status: Current every day smoker Past Alcohol Use History: Rare Past Drug Use History: None Reported - Past Family History Father Family Medical History: No Reported History Additional Family Medical History / Comment(s): Father at age 57 from a motor vehicle accident. Brother(s) Additional Family Medical History / Comment(s): The patient has one brother with coronary artery disease. Patient has 2 sisters and one with history of Alzheimer's dementia. One has history of closed head injury. Patient is a total of 6 children. One son from a myocardial infarction with history of seizure, one daughter from pancreatic cancer. Other 4 children have no major medical problems. Mother Family Medical History: Blood Disorder, Cancer, Thyroid Disorder Additional Family Medical History / Comment(s): Mother at age 71 from leukemia. Medications and Allergies Home Medications Medication Instructions Recorded Confirmed Type Multivitamins, Thera [Multivitamin 1 tab PO DAILY@1200 11/07/16 01/14/19 History (formulary)] oxyCODONE HCL [oxyCODONE HCL (IR)] 30 mg PO TID 12/31/16 01/14/19 History ALPRAZolam [Xanax] 0.5 mg PO BID PRN 06/10/18 01/14/19 History Albuterol Nebulized [Ventolin 2.5 mg INHALATION RT-Q6H PRN 06/10/18 01/14/19 History Nebulized] Losartan Potassium 100 mg PO HS 06/10/18 01/14/19 History Mirtazapine [Remeron] 30 mg PO HS 01/13/19 01/14/19 History ARIPiprazole [Abilify] 2 mg PO DAILY 01/14/19 01/14/19 History DULoxetine HCL [Cymbalta] 30 mg PO HS 01/14/19 01/14/19 History DULoxetine HCL [Cymbalta] 60 mg PO DAILY 01/14/19 01/14/19 History Melatonin 5 mg PO HS 01/14/19 01/14/19 History Metoprolol Tartrate 25 mg PO BID 01/14/19 01/14/19 History Allergies Allergy/AdvReac Type Severity Reaction Status Date / Time amoxicillin trihydrate Allergy Unknown Verified 01/13/19 20:50 [From Augmentin] cephalexin monohydrate Allergy Swelling Verified 01/13/19 20:50 [From Keflex] meperidine HCl [From Demerol] Allergy Unknown Verified 01/13/19 20:50 potassium clavulanate Allergy Unknown Verified 01/13/19 20:50 [From Augmentin] Sulfa (Sulfonamide Allergy Unknown Verified 01/13/19 20:50 Antibiotics) NSAIDS (Non-Steroidal AdvReac Severe Nausea & Verified 01/13/19 20:50 Anti-Inflamma Vomiting Physical Exam Vitals: Vital Signs Temp Pulse Pulse Resp BP BP Pulse Ox 01/14/19 15:56 98 16 145/65 98 01/14/19 12:00 133 H 01/14/19 11:40 98.0 F 133 H 18 126/62 90 L 01/14/19 08:00 98.5 F 112 H 18 124/63 92 L 01/14/19 04:00 98.0 F 114 H 18 129/74 93 L 01/14/19 02:27 98.7 F 105 H 18 144/80 96 01/14/19 02:15 105 H 18 01/14/19 01:28 98.8 F 105 H 18 141/74 91 L 01/13/19 23:24 98.6 F 94 20 115/61 93 L 01/13/19 21:18 99 20 113/59 90 L 01/13/19 20:35 99.2 F 117 H 20 144/62 88 L Intake and Output 01/14/19 01/14/19 01/14/19 06:59 14:59 22:59 Intake Total 200 568 Balance 200 568 Intake: Intake, IV Titration 200 250 Amount Sodium Chloride 0.9% 1, 200 250 000 ml @ 50 mls/hr IV . Q20H [facility] Rx#:[id number] Oral 318 Other: Voiding Method Toilet # Voids 1 1 Weight 56 kg - Constitutional General appearance: average body habitus, disheveled - EENT Eyes: EOMI, PERRLA, dentition normal ENT: hard of hearing Ears: bilateral: normal - Neck Carotids: bilateral: upstroke normal - Respiratory Respiratory: bilateral: diminished, wheezing, negative: dullness, rales, rhonchi, prolonged expiration - Cardiovascular Rhythm: regular Heart sounds: normal: S1, S2 - Neurologic Neurologic: CNII-XII intact - Musculoskeletal Musculoskeletal: gait normal, generalized weakness, strength equal bilaterally - Psychiatric Psychiatric: A&O x's 3, appropriate affect, intact judgment & insight Results - Laboratory Findings CBC and BMP: 01/13/19 21:16 01/13/19 21:16 PT/INR, D-dimer PT 9.6 sec (9.0-12.0) 01/13/19 21:16 INR 0.9 (<1.2) 01/13/19 21:16 Abnormal lab findings: Abnormal Labs 01/13/19 01/13/19 01/13/19 21:16 21:16 21:16 WBC 14.2 H Neutrophils # 12.8 H Lymphocytes # 0.7 L APTT Sodium 128 L Chloride 93 L Glucose 173 H Plasma Lactic Acid Librado 2.2 H* Alkaline Phosphatase 141 H Troponin I 01/13/19 01/13/19 01/14/19 21:16 21:16 11:54 WBC Neutrophils # Lymphocytes # APTT 31.2 H Sodium Chloride Glucose Plasma Lactic Acid Librado Alkaline Phosphatase Troponin I 0.051 H* 0.042 H* - Diagnostic Findings CT scan - chest: report reviewed, image reviewed (Bilateral basal lower lobe pneumonia) Assessment and Plan Assessment: Bilateral lower lobe pneumonia Acute COPD exacerbation Acute hypoxic respiratory failure Elevated troponin Electrolyte imbalance with hyponatremia Active smoker Hypertension hypertensive cardiovascular disease Generalized anxiety disorder Plan: Continue breathing treatments Broad-spectrum antibiotics Supplemental oxygen Corticosteroid Continue pain medicine Gentle rehydration Repeat x-ray tomorrow Further recommendations pending plan of care as per clinical response of the patient Time with Patient: Greater than 30
[2019-01-14] MEDS ORDERED: METOPROLOL TARTRATE 25 MG TAB PO SCH (21:00)
[2019-01-14] MEDS ORDERED: MELATONIN 5 MG TABLET PO SCH (21:00)
[2019-01-14] MEDS ORDERED: MELATONIN 3 MG TABLET PO SCH (21:00)
[2019-01-14] MEDS: MIRTAZAPINE 15 MG TAB PO SCH (21:02)
[2019-01-14] MEDS: DULoxetine HCL 30 MG CAPSULE.DR PO SCH (21:03)
[2019-01-14] MEDS: HEPARIN SODIUM,PORCINE 5,000 UNIT/ML 1 ML VIAL SQ SCH (21:03)
[2019-01-14] MEDS: METOPROLOL TARTRATE 25 MG TAB PO SCH (21:03)
[2019-01-14] MEDS: LOSARTAN 50 MG TAB PO SCH (21:03)
[2019-01-15 00:58] LABS: Hemoglobin A1C 6.1 % (4.0-6.0)
[2019-01-15] MEDS: LEVOFLOXACIN 750MG-D5W PMX 750 MG in DEXTROSE/WATER 1 150ML.BAG IVPB SCH (03:06)
[2019-01-15] MEDS: SODIUM CHLORIDE 0.9% 1,000 ML IV SCH ×2 (03:07→21:07)
[2019-01-15] MEDS: ALPRAZolam 0.5 MG TAB PO PRN ×2 (06:20→18:26)
--- NOTE | 2019-01-15 08:12 | XR ---
EXAMINATION TYPE: XR chest 1V portable DATE OF EXAM: 01/15/2019 COMPARISON: 01/13/2019 HISTORY: Cough TECHNIQUE: Single frontal view of the chest is obtained. FINDINGS: Heart size is stable and there are multiple rib deformities. Arthropathy shoulders with di ffuse osteopenia. No pneumothorax. Subsegmental changes at both lung bases. Atherosclerotic change ao rta. IMPRESSION: Subsegmental basilar atelectasis or infiltrate appears stable.
[2019-01-15] MEDS: FAMOTIDINE 20 MG TAB PO SCH (08:29)
[2019-01-15] MEDS: ARIPiprazole 2 MG TAB PO SCH (08:29)
[2019-01-15] MEDS: DULoxetine HCL 60 MG CAPSULE.DR PO SCH (08:29)
[2019-01-15] MEDS: METOPROLOL TARTRATE 25 MG TAB PO SCH ×3 (08:29→21:08)
[2019-01-15] MEDS: HEPARIN SODIUM,PORCINE 5,000 UNIT/ML 1 ML VIAL SQ SCH ×2 (08:29→21:08)
[2019-01-15] MEDS: predniSONE 20 MG TAB PO SCH (08:29)
[2019-01-15 09:02] LABS: Basophils # (A) 0.1 k/uL (0-0.2); Basophils % (A) 1 %; Eosinophils % (A) 0 %; HCT 40.3 % (34.0-46.0); HGB 12.6 gm/dL (11.4-16.0); Lymphocytes # (A) 2.9 k/uL (1.0-4.8); Lymphocytes % (A) 19 %; MCHC 31.3 g/dL (31.0-37.0); MCV 92.7 fL (80.0-100.0); Mean Platelet Volume 6.7; Monocytes # (A) 0.9 k/uL (0-1.0); Monocytes % (A) 6 %; Neutrophils % (A) 71 %; Platelet Count 519 k/uL (150-450); RBC 4.35 m/uL (3.80-5.40); RDW 13.9 % (11.5-15.5); WBC 15.4 k/uL (3.8-10.6)
[2019-01-15 09:18] LABS: ALT 33 U/L (9-52); AST 50 U/L (14-36); African American GFR (CKD) >90 (>60 ml/min/1.73 sqM); Albumin 3.8 g/dL (3.5-5.0); Alkaline Phosphatase 122 U/L (38-126); Anion Gap 11 mmol/L; Blood Urea Nitrogen 12 mg/dL (7-17); Calcium 9.9 mg/dL (8.4-10.2); Carbon Dioxide 28 mmol/L (22-30); Chloride 100 mmol/L (98-107); Glucose 103 mg/dL (74-99); Potassium 4.4 mmol/L (3.5-5.1); Sodium 139 mmol/L (137-145); Total Bilirubin 0.3 mg/dL (0.2-1.3); Total Protein 6.8 g/dL (6.3-8.2)
[2019-01-15] MEDS: MULTIVITAMINS, THERA 1 EACH TAB PO SCH (12:07)
--- NOTE | 2019-01-15 12:17 | ECHOF ---
Referral Reason:LVF MEASUREMENTS -------- HEIGHT: 154.9 cm WEIGHT: 55.8 kg BP: 126/62 RVIDd: 2.5 cm (< 3.3) IVSd: 1.2 cm (0.6 - 1.1) LVIDd: 3.5 cm (3.9 - 5.3) LVPWd: 1.1 cm (0.6 - 1.1) IVSs: 1.4 cm LVIDs: 2.1 cm LVPWs: 1.4 cm LA Diam: 2.7 cm (2.7 - 3.8) LAESV Index (A-L): 23.93 ml/m Ao Diam: 3.2 cm (2.0 - 3.7) AV Cusp: 1.7 cm (1.5 - 2.6) MV EXCURSION: 15.510 mm (> 18.000) MV EF SLOPE: 56 mm/s (70 - 150) EPSS: 0.4 cm MV E Tommy: 0.91 m/s MV DecT: 266 ms MV A Tommy: 1.27 m/s MV E/A Ratio: 0.72 RAP: 5.00 mmHg RVSP: 30.62 mmHg FINDINGS -------- Sinus rhythm. This was a technically good study. The left ventricular size is normal. There is borderline concentric left ventricular hypertrophy. Overall left ventricular systolic function is normal with, an EF between 60 - 65 %. The right ventricle is normal in size. Normal LA size by volume 22+/-6 ml/m2. The right atrium is normal in size. Interatrial and interventricular septum intact. There is mild aortic valve sclerosis. Mild mitral regurgitation is present. [id number] tricuspid regurgitation present. Right ventricular systolic pressure is normal at < 35 mmHg. Trace/mild (physiologic) pulmonic regurgitation. The aortic root size is normal. Normal inferior vena cava with normal inspiratory collapse consistent with estimated right atrial pre ssure of 5 mmHg. There is no pericardial effusion. CONCLUSIONS -------- 1. Sinus rhythm. 2. This was a technically good study. 3. The left ventricular size is normal. 4. There is borderline concentric left ventricular hypertrophy. 5. Overall left ventricular systolic function is normal with, an EF between 60 - 65 %. 6. The right ventricle is normal in size. 7. Normal LA size by volume 22+/-6 ml/m2. 8. The right atrium is normal in size. 9. Interatrial and interventricular septum intact. 10. There is mild aortic valve sclerosis. 11. Mild mitral regurgitation is present. 12. [id number] tricuspid regurgitation present. 13. Right ventricular systolic pressure is normal at < 35 mmHg. 14. Trace/mild (physiologic) pulmonic regurgitation. 15. The aortic root size is normal. 16. Normal inferior vena cava with normal inspiratory collapse consistent with estimated right atrial pressure of 5 mmHg. 17. There is no pericardial effusion. SWEEPER DRIVER: Sanjuana Andersen RDCS
[2019-01-15 13:09] VITALS: BMI 23.6
--- NOTE | 2019-01-15 13:17 | FL ---
COMPARISON: NONE DATE OF EXAM: 01/15/2019 HISTORY: Dysphasia A number of thin and thick substances were ingested under the care of the department of speech pathol ogy. There is aspiration and penetration with thin barium. There is a deep penetration with honey an d nectar thick and transient penetration with puree. 1.4 minutes of fluoroscopy and no images submitted. IMPRESSION: 1. Aspiration and penetration as discussed above..
--- NOTE | 2019-01-15 14:03 | P.PN ---
Subjective Progress Note Date: 01/15/19 Principal diagnosis: Acute COPD exacerbation, tracheobronchitis, pneumonia, chronic acute hypoxic respiratory failure, electrolyte imbalance, active smoker, hypertension hypertensive cardiovascular disease 01/15/2019, patient seen eval reexamined during the rounds during better little bit, the sputum is now yellowish in color down from brown to dark denies any hemoptysis or shortness breath has been on breathing treatments antibiotics and steroids, the chest x-ray from today reviewed overall bilateral pneumonia is stable but soft. S2 have improved though This is a 83-year-old female who was seen eval reexamined on third floor this patient has chronic medical history significant for COPD hypertension hypertensive cardiovascular disease she has generalized anxiety disorder as well she was in fairly stable state of health until about 5 days ago progressively started getting short of breath and coughing spells up to a point that commonly into the hospital for further evaluation he was seen at urgent care center as well, his computed tomography scan of the chest revealed bilateral lower lobe pneumonia with some pleural thickening and groundglass attenuation and n onspecific lymph node enlargement Objective - Vital Signs Vital signs: Vital Signs Temp 98.4 F 01/15/19 07:53 Pulse 109 H 01/15/19 07:53 Resp 16 01/15/19 07:53 BP 178/79 01/15/19 07:53 Pulse Ox 95 01/15/19 07:53 Intake & Output 01/14/19 01/15/19 01/15/19 18:59 06:59 18:59 Intake Total 686 480 Output Total 500 Balance 686 -20 Weight 56.7 kg 56.7 kg Intake: Intake, IV Titration 250 Amount Sodium Chloride 0.9% 1, 250 000 ml @ 50 mls/hr IV . Q20H [facility] Rx#:[id number] Oral 436 480 Output: Urine 500 Other: Voiding Method Toilet # Voids 1 1 - Exam - Constitutional General appearance: average body habitus, disheveled - EENT Eyes: EOMI, PERRLA, dentition normal ENT: hard of hearing Ears: bilateral: normal - Neck Carotids: bilateral: upstroke normal - Respiratory Respiratory: bilateral: diminished, wheezing, negative: dullness, rales, rhonchi, prolonged expiration - Cardiovascular Rhythm: regular Heart sounds: normal: S1, S2 - Neurologic Neurologic: CNII-XII intact - Musculoskeletal Musculoskeletal: gait normal, generalized weakness, strength equal bilaterally - Psychiatric Psychiatric: A&O x's 3, appropriate affect, intact judgment & insight - Constitutional Constitutional Comment(s): - Constitutional General appearance: average body habitus, disheveled - EENT Eyes: EOMI, PERRLA, dentition normal ENT: hard of hearing Ears: bilateral: normal - Neck Carotids: bilateral: upstroke normal - Respiratory Respiratory: bilateral: diminished, wheezing, negative: dullness, rales, rhonchi, prolonged expiration - Cardiovascular Rhythm: regular Heart sounds: normal: S1, S2 - Neurologic Neurologic: CNII-XII intact - Musculoskeletal Musculoskeletal: gait normal, generalized weakness, strength equal bilaterally - Psychiatric Psychiatric: A&O x's 3, appropriate affect, intact judgment & insight - Labs CBC & Chem 7: 01/15/19 08:28 01/15/19 08:28 Labs: Abnormal Lab Results - Last 24 Hours (Table) 01/14/19 01/14/19 01/15/19 Range/Units 18:01 18:01 08:28 WBC 15.4 H (3.8-10.6) k/uL Plt Count 519 H (150-450) k/uL Neutrophils # 11.0 H (1.3-7.7) k/uL Glucose (74-99) mg/dL Hemoglobin A1c 6.1 H (4.0-6.0) % AST (14-36) U/L Troponin I 0.049 H* (0.000-0.034) ng/mL 01/15/19 Range/Units 08:28 WBC (3.8-10.6) k/uL Plt Count (150-450) k/uL Neutrophils # (1.3-7.7) k/uL Glucose 103 H (74-99) mg/dL Hemoglobin A1c (4.0-6.0) % AST 50 H (14-36) U/L Troponin I (0.000-0.034) ng/mL Microbiology - Last 24 Hours (Table) 01/13/19 21:53 Urine Culture - Final Urine,Voided 01/13/19 21:16 Blood Culture - Preliminary Blood No Growth after 24 hours 01/13/19 21:16 Blood Culture - Preliminary Blood No Growth after 24 hours Assessment and Plan Assessment: Bilateral lower lobe pneumonia Acute COPD exacerbation Acute hypoxic respiratory failure Elevated troponin Electrolyte imbalance with hyponatremia Active smoker Hypertension hypertensive cardiovascular disease Generalized anxiety disorder Plan: Continue breathing treatments Broad-spectrum antibiotics Supplemental oxygen Corticosteroid Continue pain medicine Gentle rehydration Repeat x-ray reviewed stable Further recommendations pending plan of care as per clinical response of the patient Time with Patient: Greater than 30
--- NOTE | 2019-01-15 14:51 | P.PN ---
Subjective Progress Note Date: 01/15/19 This is an 83-year-old female patient of Dr. Cunningham with past medical history of COPD, hypertension, chronic pain syndrome, tobacco use and dependence generalized anxiety disorder. Patient states that she has had trouble for the past 4-5 days with cough and shortness of breath with sputum production of yellow and green. Patient states she has been choking on food. She follows a soft diet. No fever or chills. Patient has been using her nebulizer without improvement. Her last episode of pneumonia was over a year and a half ago. She went to [facility] and chest x-ray didn't was done with concern for pneumonia patient was sent into [facility] emergency center for evaluat ion. Heart rate was initially 117, she was afebrile, blood pressure 144/62 and pulse ox 88% on room air. Patient is not home O2 dependent. WBC 14.2, sodium 128, potassium 4.3, chloride 93, CO2 22, creatinine 0.69, blood sugar 173. Patient denies history of known diabetes. Lactic acid 2.2. Troponin 0.051. CT of the chest revealed patchy bilateral nodular densities and groundglass opacities are nonspecific and may be infectious or inflammatory. Patient was admitted to the cardiac 6 down unit and cardiology and pulmonary medicine consults were requested. 01/15: Patient continues to have cough that is nonproductive. The patient is currently on oral prednisone at 40 mg daily which will be continued and we will add and Pulmicort 0.5 mg twice daily. Patient has been evaluated by Dr. Almaguer She is on IV fluids which will be changed over to saline lock. Patient is complaining of insomnia and we have increased melatonin to 9 mg at bedtime. Cardiology has started Lopressor 25 mg 3 times daily. Patient has been afebrile, heart rate mostly in the 70s and 80s but up to 109. Blood pressure 178/79, pulse ox 95% on 2 L nasal cannula. Plan as to increase activity today and possible discharge in the next 24-48 hrs. Patient will have home O2 assessment done prior to discharge. Objective - Vital Signs Vital signs: Vital Signs Temp 98.4 F 01/15/19 07:53 Pulse 109 H 01/15/19 07:53 Resp 16 01/15/19 07:53 BP 178/79 01/15/19 07:53 Pulse Ox 95 07/02/19 07:53 Intake & Output 01/14/19 01/15/19 01/15/19 18:59 06:59 18:59 Intake Total 686 240 Output Total 500 Balance 686 -260 Weight 56.7 kg Intake: Intake, IV Titration 250 Amount Sodium Chloride 0.9% 1, 250 000 ml @ 50 mls/hr IV . Q20H [facility] Rx#:[id number] Oral 436 240 Output: Urine 500 Other: Voiding Method Toilet # Voids 1 1 - Exam Review of Systems Constitutional: Reports fatigue, Reports weakness, Denies chills, Denies fever Eyes: denies blurred vision, denies pain Ears, nose, mouth and throat: Denies headache, Denies sore throat Cardiovascular: Reports shortness of breath, Denies chest pain, Denies syncope Respiratory: Reports cough, Reports cough without sputum, Reports dyspnea, Denies excessive sputum, Denies hemoptysis, Denies home oxygen, Denies sleep apnea Gastrointestinal: Denies abdominal pain, Denies diarrhea, Denies nausea, Denies vomiting Genitourinary: Denies dysuria, Denies hematuria Musculoskeletal: Denies myalgias Integumentary: Denies pruritus, Denies rash Neurological: Denies numbness, Denies weakness Psychiatric: Denies anxiety, Denies depression Endocrine: Denies fatigue, Denies weight change Physical exam: Gen: This is an 83-year-old female. She is resting in the bed and appears to be comfortable. No acute distress is noted. HEENT: Head is atraumatic, normocephalic. Pupils equal, round. Sclerae is anicteric. NECK: Supple. No JVD. No lymphadenopathy. No thyromegaly. LUNGS: Breath sounds diminished with expiratory wheeze. No intercostal retra ctions. HEART: Regular rate and rhythm. No murmur. ABDOMEN: Soft. Bowel sounds are present. No masses. No tenderness. EXTREMITIES: No pedal edema. No calf tenderness. NEUROLOGICAL: Patient is awake, alert and oriented x3. Cranial nerves 2 through 12 are grossly intact. - Labs CBC & Chem 7: 01/15/19 08:28 01/15/19 08:28 Labs: Abnormal Lab Results - Last 24 Hours (Table) 01/14/19 01/14/19 01/14/19 Range/Units 11:54 18:01 18:01 WBC (3.8-10.6) k/uL Plt Count (150-450) k/uL Neutrophils # (1.3-7.7) k/uL Glucose (74-99) mg/dL Hemoglobin A1c 6.1 H (4.0-6.0) % AST (14-36) U/L Troponin I 0.042 H* 0.049 H* (0.000-0.034) ng/mL 01/15/19 01/15/19 Range/Units 08:28 08:28 WBC 15.4 H (3.8-10.6) k/uL Plt Count 519 H (150-450) k/uL Neutrophils # 11.0 H (1.3-7.7) k/uL Glucose 103 H (74-99) mg/dL Hemoglobin A1c (4.0-6.0) % AST 50 H (14-36) U/L Troponin I (0.000-0.034) ng/mL Microbiology - Last 24 Hours (Table) 01/13/19 21:16 Blood Culture - Preliminary Blood No Growth after 24 hours 01/13/19 21:16 Blood Culture - Preliminary Blood No Growth after 24 hours 01/13/19 21:53 Urine Culture - Preliminary Urine,Voided Assessment and Plan Plan: 1. Left-sided pneumonia and possible left-sided rib fractures with concern for aspiration. Speech therapy evaluation. Continue Levaquin 750 mg daily, DuoNeb treatments every 6 hours as needed, prednisone 40 mg daily. 2. COPD with mild exacerbation. Continue oral prednisone, Pulmicort twice daily added. Consult with Dr. Rosina zamudio. 3. Elevated troponins. Cardiology consultappreciated. Acute coronary syndrome ruled out. Metoprolol started. 4. Electrolyte abnormalities with hyponatremia, hypochloremia 5. Tobacco use and dependence. 6. Hyperglycemia without diagnosis of diabetes. Hemoglobin A1c. 7. Hypertension. Continue losartan 100 mg at bedtime, Lopressor 25 mg twice daily. 8. Recurrent depression and generalized anxiety disorder. Continue Xanax 0.5 mg twice daily as needed, Abilify 2 mg daily, Cymbalta 60 mg the morning and 31 g at bedtime. 9. GI prophylaxis. Pepcid. 10. DVT prophylaxis. Heparin. Discharge plan: Most likely return home. Impression and plan of care have been directed as dictated by the signing physician. Zora Ayala nurse practitioner acting as scribe for signing physician.
--- NOTE | 2019-01-15 16:00 | PN ---
PROGRESS NOTE DATE OF SERVICE: This is an 83-year-old lady with a history of pneumonia who came into the hospital, had some tachycardia. She is resting comfortably at the time of my evaluation, breathing easier. Her heart rate has improved a lot. She is maintaining sinus rhythm. Vital signs are stable. Oxygenation has improved. There was a question of some troponin elevation; this troponin profile does not suggest myocardial injury, and her LV systolic function is well preserved. I am recommending that we continue her current medications but increase the Lopressor, and she can be discharged today. Vital signs are stable. S1, S2 heard normally. Short systolic murmur noted. Lungs revealed fair air entry with scattered rhonchi over the bases. Abdomen and lower extremity exam is unchanged. MMODL / IJN: [id number] /
[2019-01-15] MEDS: BUDESONIDE 0.5 MG/2 ML NEBU INHALATION SCH (19:32)
[2019-01-15] MEDS ORDERED: METOPROLOL TARTRATE 50 MG TAB PO SCH (21:00)
[2019-01-15] MEDS: MELATONIN 3 MG TABLET PO SCH (21:07)
[2019-01-15] MEDS: DULoxetine HCL 30 MG CAPSULE.DR PO SCH (21:08)
[2019-01-15] MEDS: MIRTAZAPINE 15 MG TAB PO SCH (21:08)
[2019-01-15] MEDS: LOSARTAN 50 MG TAB PO SCH (21:08)
[2019-01-16] MEDS: LEVOFLOXACIN 750MG-D5W PMX 750 MG in DEXTROSE/WATER 1 150ML.BAG IVPB SCH (02:24)
[2019-01-16] MEDS: FAMOTIDINE 20 MG TAB PO SCH (08:22)
[2019-01-16] MEDS: HEPARIN SODIUM,PORCINE 5,000 UNIT/ML 1 ML VIAL SQ SCH ×2 (08:22→21:10)
[2019-01-16] MEDS: MULTIVITAMINS, THERA 1 EACH TAB PO SCH (08:22)
[2019-01-16] MEDS: predniSONE 20 MG TAB PO SCH (08:22)
[2019-01-16] MEDS: DULoxetine HCL 60 MG CAPSULE.DR PO SCH (08:23)
[2019-01-16] MEDS: ARIPiprazole 2 MG TAB PO SCH (08:23)
[2019-01-16] MEDS: ALPRAZolam 0.5 MG TAB PO PRN ×2 (08:23→22:54)
[2019-01-16] MEDS: METOPROLOL TARTRATE 25 MG TAB PO SCH ×3 (08:23→21:11)
[2019-01-16] MEDS: BUDESONIDE 0.5 MG/2 ML NEBU INHALATION SCH ×2 (09:59→18:56)
--- NOTE | 2019-01-16 12:39 | P.PN ---
Subjective Progress Note Date: 01/16/19 Principal diagnosis: Acute COPD exacerbation, tracheobronchitis, pneumonia, chronic acute hypoxic respiratory failure, electrolyte imbalance, active smoker, hypertension hypertensive cardiovascular disease 01/16/2019, patient seen eval examined during the rounds doing well denies any chest pain breathing is stable, labs reviewed medications reviewed care plan discussed 01/15/2019, patient seen eval reexamined during the rounds during better little bit, the sputum is now yellowish in color down from brown to dark denies any hemoptysis or shortness breath has been on breathing treatments antibiotics and steroids, the chest x-ray from today reviewed overall bilateral pneumonia is stable but soft. S2 have improved though This is a 83-year-old female who was seen eval reexamined on third floor this patient has chronic medical history significant for COPD hypertension hypertensive cardiovascular disease she has generalized anxiety disorder as well she was in fairly stable state of health until about 5 days ago progressively started getting short of breath and coughing spells up to a point that commonly into the hospital for further evaluation he was seen at urgent care center as well, his computed tomography scan of the chest revealed bilateral lower lobe pneumonia with some pleural thickening and groundglass attenuation and nonspecific lymph node enlargement Objective - Vital Signs Vital signs: Vital Signs Temp 98.3 F 01/16/19 04:40 Pulse 68 01/16/19 04:40 Resp 16 01/16/19 04:40 BP 154/74 01/16/19 04:40 Pulse Ox 99 01/16/19 04:40 Intake & Output 01/15/19 01/16/19 01/16/19 18:59 06:59 18:59 Intake Total 830 Output Total 500 Balance 330 Weight 56.7 kg Intake: Intake, IV Titration 350 Amount Sodium Chloride 0.9% 1, 350 000 ml @ 50 mls/hr IV . Q20H [facility] Rx#:[id number] Oral 480 Output: Urine 500 Other: Voiding Method Toilet # Voids 1 3 - Exam - Constitutional General appearance: average body habitus, disheveled - EENT Eyes: EOMI, PERRLA, dentition normal ENT: hard of hearing Ears: bilateral: normal - Neck Carotids: bilateral: upstroke normal - Respiratory Respiratory: bilateral: diminished, wheezing, negative: dullness, rales, rhonchi, prolonged expiration - Cardiovascular Rhythm: regular Heart sounds: normal: S1, S2 - Neurologic Neurologic: CNII-XII intact - Musculoskeletal Musculoskeletal: gait normal, generalized weakness, strength equal bilaterally - Psychiatric Psychiatric: A&O x's 3, appropriate affect, intact judgment & insight - Labs CBC & Chem 7: 01/15/19 08:28 01/15/19 08:28 Labs: Microbiology - Last 24 Hours (Table) 01/13/19 21:16 Blood Culture - Preliminary Blood No Growth after 48 hours 01/13/19 21:16 Blood Culture - Preliminary Blood No Growth after 48 hours 01/13/19 21:53 Urine Culture - Final Urine,Voided Assessment and Plan Assessment: Bilateral lower lobe pneumonia Acute COPD exacerbation Acute hypoxic respiratory failure Elevated troponin Electrolyte imbalance with hyponatremia Active smoker Hypertension hypertensive cardiovascular disease Generalized anxiety disorder Plan: Continue breathing treatments Broad-spectrum antibiotics Supplemental oxygen Corticosteroid, continue to taper down gradually Continue pain medicine Gentle rehydration Repeat x-ray reviewed stable Further recommendations pending plan of care as per clinical response of the patient Time with Patient: Greater than 30
--- NOTE | 2019-01-16 14:42 | P.PN ---
Subjective Progress Note Date: 01/16/19 This is an 83-year-old female patient of Dr. Cunningham with past medical history of COPD, hypertension, chronic pain syndrome, tobacco use and dependence generalized anxiety disorder. Patient states that she has had trouble for the past 4-5 days with cough and shortness of breath with sputum production of yellow and green. Patient states she has been choking on food. She follows a soft diet. No fever or chills. Patient has been using her nebulizer without improvement. Her last episode of pneumonia was over a year and a half ago. She went to [facility] and chest x-ray didn't was done with concern for pneumonia patient was sent into [facility] emergency center for evaluat ion. Heart rate was initially 117, she was afebrile, blood pressure 144/62 and pulse ox 88% on room air. Patient is not home O2 dependent. WBC 14.2, sodium 128, potassium 4.3, chloride 93, CO2 22, creatinine 0.69, blood sugar 173. Patient denies history of known diabetes. Lactic acid 2.2. Troponin 0.051. CT of the chest revealed patchy bilateral nodular densities and groundglass opacities are nonspecific and may be infectious or inflammatory. Patient was admitted to the cardiac 6 down unit and cardiology and pulmonary medicine consults were requested. 01/15: Patient continues to have cough that is nonproductive. The patient is currently on oral prednisone at 40 mg daily which will be continued and we will add and Pulmicort 0.5 mg twice daily. Patient has been evaluated by Dr. Almaguer She is on IV fluids which will be changed over to saline lock. Patient is complaining of insomnia and we have increased melatonin to 9 mg at bedtime. Cardiology has started Lopressor 25 mg 3 times daily. Patient has been afebrile, heart rate mostly in the 70s and 80s but up to 109. Blood pressure 178/79, pulse ox 95% on 2 L nasal cannula. Plan as to increase activity today and possible discharge in the next 24-48 hrs. Patient will have home O2 assessment done prior to discharge. 01/16: Patient failed modified barium swallow with recommendations for chopped diet and honey thick liquids with aspiration precautions. Nursing advises that family is to bring patient's normal food from home and patient is refusing to take any honey thick liquids. Discussed with patient the need for the special diet to avoid further aspiration. Patient has been seen by cardiology and cleared for discharge. Beta kandi has been increased. Acute coronary syndrome ruled out. Echocardiogram reveals EF of 60-65%, mild aortic valve sclerosis, mild mitral regurgitation, mild to moderate tricuspid regurgitation. The patient is also followed by Dr. Almaguer from pulmonary medicine. Patient has been afebrile, heart rate 68, blood pressure 154/74, pulse ox 99% on 2 L nasal cannula. Patient ambulated without oxygen and pulse ox 92%. No need for home oxygen. Anticipate patient will be ready for discharge by tomorrow. Medications have been sent to her pharmacy in preparation. Patient no longer has IV access and Levaquin will be switched to oral. No IV to be resumed. Objective - Vital Signs Vital signs: Vital Signs Temp 98.3 F 01/16/19 04:40 Pulse 68 01/16/19 04:40 Resp 16 01/16/19 04:40 BP 154/74 01/16/19 04:40 Pulse Ox 99 01/16/19 04:40 Intake & Output 01/15/19 01/16/19 01/16/19 18:59 06:59 18:59 Intake Total 830 Output Total 500 Balance 330 Weight 56.7 kg Intake: Intake, IV Titration 350 Amount Sodium Chloride 0.9% 1, 350 000 ml @ 50 mls/hr IV . Q20H [facility] Rx#:[id number] Oral 480 Output: Urine 500 Other: Voiding Method Toilet # Voids 1 3 - Exam Review of Systems Constitutional: Reports fatigue, Reports weakness, Denies chills, Denies fever Eyes: denies blurred vision, denies pain Ears, nose, mouth and throat: Denies headache, Denies sore throat Cardiovascular: Reports shortness of breath-improved, Denies chest pain, Denies syncope Respiratory: Reports cough, Reports cough without sputum, Reports dyspnea, Denies excessive sputum, Denies hemoptysis, Denies home oxygen, Denies sleep apnea Gastrointestinal: Denies abdominal pain, Denies diarrhea, Denies nausea, Denies vomiting Genitourinary: Denies dysuria, Denies hematuria Musculoskeletal: Denies myalgias Integumentary: Denies pruritus, Denies rash Neurological: Denies numbness, Denies weakness Psychiatric: Denies anxiety, Denies depression Endocrine: Denies fatigue, Denies weight change Physical exam: Gen: This is an 83-year-old female. She is resting in the bed and appears to be comfortable. No acute distress is noted. Patient ambulated in the hallway and appears to be in no acute distress. HEENT: Head is atraumatic, normocephalic. Pupils equal, round. Sclerae is an icteric. NECK: Supple. No JVD. No lymphadenopathy. No thyromegaly. LUNGS: Breath sounds diminished with few expiratory wheeze. No intercostal retractions. HEART: Regular rate and rhythm. No murmur. ABDOMEN: Soft. Bowel sounds are present. No masses. No tenderness. EXTREMITIES: No pedal edema. No calf tenderness. NEUROLOGICAL: Patient is awake, alert and oriented x3. Cranial nerves 2 through 12 are grossly intact. - Labs CBC & Chem 7: 01/15/19 08:28 01/15/19 08:28 Labs: Microbiology - Last 24 Hours (Table) 01/13/19 21:16 Blood Culture - Preliminary Blood No Growth after 48 hours 01/13/19 21:16 Blood Culture - Preliminary Blood No Growth after 48 hours 01/13/19 21:53 Urine Culture - Final Urine,Voided Assessment and Plan Plan: 1. Left-sided pneumonia and possible left-sided rib fractures with concern for aspiration. Speech therapy evaluation. Continue Levaquin 750 mg daily, DuoNeb treatments every 6 hours as needed, prednisone 40 mg daily. 2. COPD with mild exacerbation. Continue oral prednisone, Pulmicort twice daily added. Consult with Dr. Rosina zamudio. 3. Elevated troponins. Cardiology consultappreciated. Acute coronary syndrome ruled out. Metoprolol started. 4. Electrolyte abnormalities with hyponatremia, hypochloremia 5. Tobacco use and dependence. 6. Hyperglycemia without diagnosis of diabetes. Hemoglobin A1c. 7. Hypertension. Continue losartan 100 mg at bedtime, Lopressor 25 mg twice daily. 8. Recurrent depression and generalized anxiety disorder. Continue Xanax 0.5 mg twice daily as needed, Abilify 2 mg daily, Cymbalta 60 mg the morning and 31 g at bedtime. 9. GI prophylaxis. Pepcid. 10. DVT prophylaxis. Heparin. Discharge plan: Home on . Impression and plan of care have been directed as dictated by the signing physician. Zora Ayala nurse practitioner acting as scribe for signing physician.
[2019-01-16] MEDS: ACETAMINOPHEN TAB 325 MG TAB PO PRN (14:48)
[2019-01-16] MEDS: LOSARTAN 50 MG TAB PO SCH (21:11)
[2019-01-16] MEDS: MIRTAZAPINE 15 MG TAB PO SCH (21:11)
[2019-01-16] MEDS: DULoxetine HCL 30 MG CAPSULE.DR PO SCH (21:11)
[2019-01-16] MEDS: MELATONIN 3 MG TABLET PO SCH (21:11)
[2019-01-17 06:17] VITALS: BP 197/92; RESP 18; TEMP 98
[2019-01-17] MEDS: BUDESONIDE 0.5 MG/2 ML NEBU INHALATION SCH (07:00)
[2019-01-17 07:20] VITALS: PULSE 82
[2019-01-17] MEDS: ALPRAZolam 0.5 MG TAB PO PRN (07:41)
[2019-01-17] MEDS: FAMOTIDINE 20 MG TAB PO SCH (07:41)
[2019-01-17] MEDS: MULTIVITAMINS, THERA 1 EACH TAB PO SCH (07:41)
[2019-01-17] MEDS: ARIPiprazole 2 MG TAB PO SCH (07:42)
[2019-01-17] MEDS: METOPROLOL TARTRATE 25 MG TAB PO SCH (07:42)
[2019-01-17] MEDS: predniSONE 20 MG TAB PO SCH (07:42)
[2019-01-17] MEDS: DULoxetine HCL 60 MG CAPSULE.DR PO SCH (07:43)
[2019-01-17] MEDS: HEPARIN SODIUM,PORCINE 5,000 UNIT/ML 1 ML VIAL SQ SCH (07:43)
[2019-01-17] MEDS ORDERED: LEVOFLOXACIN 500 MG TAB PO SCH (08:00)
[2019-01-17] MEDS: ACETAMINOPHEN TAB 325 MG TAB PO PRN (10:49)
[2019-01-17] MEDS ORDERED: KETOROLAC 30 MG/ML 1 ML VIAL IM STA (11:12)
--- NOTE | 2019-01-17 12:52 | P.DS ---
Providers Date of admission: 01/13/19 21:38 Expected date of discharge: 01/17/19 Attending physician: Edda Barrow Consults: 01/13/19 21:37 Consult Physician Routine Consulting Provider: Adelfo Almaguer Consult Reason/Comments: COPD, pneumonia Do you want consulting provider notified?: Yes, Notify in am 01/14/19 03:13 Consult Physician Routine Consulting Provider: Allyson Rojas Consult Reason/Comments: elevated trop Do you want consulting provider notified?: Yes, Notify in am [facility] Course: This is an 83-year-old female patient of Dr. Cunningham with past medical history of COPD, hypertension, chronic pain syndrome, tobacco use and dependence generalized anxiety disorder. Patient states that she has had trouble for the past 4-5 days with cough and shortness of breath with sputum production of yellow and green. Patient states she has been choking on food. She follows a soft diet. No fever or chills. Patient has been using her nebulizer without improvement. Her last episode of pneumonia was over a year and a half ago. She went to [facility] and chest x-ray didn't was done with concern for pneumonia patient was sent into [facility] emergency center for evaluation. Heart rate was initially 117, she was afebrile, blood pressure 144/62 and pulse ox 88% on room air. Patient is not home O2 dependent. WBC 14.2, sodium 128, potassium 4.3, chloride 93, CO2 22, creatinine 0.69, blood sugar 173. Patient denies history of known diabetes. Lactic acid 2.2. Troponin 0.051. CT of the chest revealed patchy bilateral nodular densities and groundglass opacities are nonspecific and may be infectious or inflammatory. Patient was admitted to the cardiac 6 down unit and cardiology and pulmonary medicine consults were requested. 01/15: Patient continues to have cough that is nonproductive. The patient is currently on oral prednisone at 40 mg daily which will be continued and we will add and Pulmicort 0.5 mg twice daily. Patient has been evaluated by Dr. Almaguer She is on IV fluids which will be changed over to saline lock. Patient is complaining of insomnia and we have increased melatonin to 9 mg at bedtime. Cardiology has started Lopressor 25 mg 3 times daily. Patient has been afebrile, heart rate mostly in the 70s and 80s but up to 109. Blood pressure 178/79, pulse ox 95% on 2 L nasal cannula. Plan as to increase activity today and possible discharge in the next 24-48 hrs. Patient will have home O2 assessment done prior to discharge. 01/16: Patient failed modified barium swallow with recommendations for chopped diet and honey thick liquids with aspiration precautions. Nursing advises that family is to bring patient's normal food from home and patient is refusing to take any honey thick liquids. Discussed with patient the need for the special diet to avoid further aspiration. Patient has been seen by cardiology and cleared for discharge. Beta kandi has been increased. Acute coronary syndrome ruled out. Echocardiogram reveals EF of 60-65%, mild aortic valve sclerosis, mild mitral regurgitation, mild to moderate tricuspid regurgitation. The patient is also followed by Dr. Almaguer from pulmonary medicine. Patient has been afebrile, heart rate 68, blood pressure 154/74, pulse ox 99% on 2 L nasal cannula. Patient ambulated without oxygen and pulse ox 92%. No need for home oxygen. Anticipate patient will be ready for discharge by tomorrow. Medications have been sent to her pharmacy in preparation. Patient no longer has IV access and Levaquin will be switched to oral. No IV to be resumed. 01/17 patient is ready for discharge today, patient feels really good with her diet, no nausea no vomiting, cough would slowly resolve as long as the patient would follow discharge Diet and honey thick liquids with aspiration precautions, patient understands these, patient will be discharged to home with Levaquin, and oral prednisone taper,patient has multiple drug ALLERGIES,follow-up x-rays as an outpatient with PCP and pulmonary final diagnosis 1. Left-sided pneumonia and possible left-sided rib fractures with concern for aspiration. Speech therapy evaluation. Continue Levaquin 750 mg daily, DuoNeb treatments every 6 hours as neededAnd budesonide, Rx sent to the pharmacy, prednisone 40 mg daily. 2. 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 COPD with mild exacerbation. Continue oral prednisone, Pulmicort twice daily added. Consult with Dr. Almaguer appreciated. 3. Elevated troponins. Cardiology consultappreciated. Acute coronary syndrome ruled out. Metoprolol started. 4. Electrolyte abnormalities with hyponatremia, hypochloremia 5. Tobacco use and dependence. 6. Hyperglycemia without diagnosis of diabetes. Hemoglobin A1c. 7. Hypertension. Continue losartan 100 mg at bedtime, Lopressor 25 mg twice daily. 8. Recurrent depression and generalized anxiety disorder. Continue Xanax 0.5 mg twice daily as needed, Abilify 2 mg daily, Cymbalta 60 mg the morning and 31 g at bedtime. 9. GI prophylaxis. Pepcid. 10. DVT prophylaxis. Heparin. Discharge Medication List Multivitamins, Thera [Multivitamin (formulary)] 1 tab PO DAILY@1200 11/07/16 [History] oxyCODONE HCL [oxyCODONE HCL (IR)] 30 mg PO TID 12/31/16 [History] ALPRAZolam [Xanax] 0.5 mg PO BID PRN 06/10/18 [History] Albuterol Nebulized [Ventolin Nebulized] 2.5 mg INHALATION RT-Q6H PRN 06/10/18 [History] Losartan Potassium 100 mg PO HS 06/10/18 [History] Mirtazapine [Remeron] 30 mg PO HS 01/13/19 [History] ARIPiprazole [Abilify] 2 mg PO DAILY 01/14/19 [History] DULoxetine HCL [Cymbalta] 30 mg PO HS 01/14/19 [History] DULoxetine HCL [Cymbalta] 60 mg PO DAILY 01/14/19 [History] Melatonin 5 mg PO HS 01/14/19 [History] Budesonide [Pulmicort] 0.5 mg INHALATION RT-BID #60 nebu 01/16/19 [Rx] Famotidine [Pepcid] 20 mg PO DAILY tab 01/16/19 [Rx] Levofloxacin [Levaquin] 500 mg PO Q24H #6 tab 01/16/19 [Rx] Metoprolol Tartrate [Lopressor] 25 mg PO TID #90 tab 01/16/19 [Rx] predniSONE 0 mg PO DIRECTED #18 tab 01/16/19 [Rx] Patient Condition at Discharge: Stable Plan - Discharge Summary Discharge Rx Participant: No New Discharge Prescriptions: New Levofloxacin [Levaquin] 500 mg PO Q24H #6 tab Metoprolol Tartrate [Lopressor] 25 mg PO TID #90 tab Famotidine [Pepcid] 20 mg PO DAILY tab predniSONE 0 mg PO DIRECTED #18 tab Budesonide [Pulmicort] 0.5 mg INHALATION RT-BID #60 nebu Continue Multivitamins, Thera [Multivitamin (formulary)] 1 tab PO DAILY@1200 oxyCODONE HCL [oxyCODONE HCL (IR)] 30 mg PO TID Albuterol Nebulized [Ventolin Nebulized] 2.5 mg INHALATION RT-Q6H PRN PRN Reason: Shortness Of Breath Losartan Potassium 100 mg PO HS ALPRAZolam [Xanax] 0.5 mg PO BID PRN PRN Reason: Anxiety Mirtazapine [Remeron] 30 mg PO HS DULoxetine HCL [Cymbalta] 30 mg PO HS DULoxetine HCL [Cymbalta] 60 mg PO DAILY ARIPiprazole [Abilify] 2 mg PO DAILY Melatonin 5 mg PO HS Discontinued Metoprolol Tartrate 25 mg PO BID Discharge Medication List Multivitamins, Thera [Multivitamin (formulary)] 1 tab PO DAILY@1200 11/07/16 [History] oxyCODONE HCL [oxyCODONE HCL (IR)] 30 mg PO TID 12/31/16 [History] ALPRAZolam [Xanax] 0.5 mg PO BID PRN 06/10/18 [History] Albuterol Nebulized [Ventolin Nebulized] 2.5 mg INHALATION RT-Q6H PRN 06/10/18 [History] Losartan Potassium 100 mg PO HS 06/10/18 [History] Mirtazapine [Remeron] 30 mg PO HS 01/13/19 [History] ARIPiprazole [Abilify] 2 mg PO DAILY 01/14/19 [History] DULoxetine HCL [Cymbalta] 30 mg PO HS 01/14/19 [History] DULoxetine HCL [Cymbalta] 60 mg PO DAILY 01/14/19 [History] Melatonin 5 mg PO HS 01/14/19 [History] Budesonide [Pulmicort] 0.5 mg INHALATION RT-BID #60 nebu 01/16/19 [Rx] Famotidine [Pepcid] 20 mg PO DAILY tab 01/16/19 [Rx] Levofloxacin [Levaquin] 500 mg PO Q24H #6 tab 01/16/19 [Rx] Metoprolol Tartrate [Lopressor] 25 mg PO TID #90 tab 01/16/19 [Rx] predniSONE 0 mg PO DIRECTED #18 tab 01/16/19 [Rx] Follow up Appointment(s)/Referral(s): [facility] [Provider Group] - 1 Week (office will call patient) Elma Palmer MD [Primary Care Provider] - 1 Week (office will call patient) Adelfo Almaguer MD [STAFF PHYSICIAN] - 1 Week (office closed) Patient Instructions/Handouts: COPD (Chronic Obstructive Pulmonary Disease) (DC), Pneumonia (DC)
--- NOTE | 2019-01-17 13:26 | P.PN ---
Subjective Progress Note Date: 01/17/19 Principal diagnosis: Acute COPD exacerbation, tracheobronchitis, pneumonia, chronic acute hypoxic respiratory failure, electrolyte imbalance, active smoker, hypertension hypertensive cardiovascular disease 01/17/2019, patient seen and evaluated examined during the rounds from res piratory standpoint fairly stable denies any cough or sputum production denies any chest pain patient is been ambulating in the room and agree with discharge 01/16/2019, patient seen eval examined during the rounds doing well denies any chest pain breathing is stable, labs reviewed medications reviewed care plan discussed 01/15/2019, patient seen eval reexamined during the rounds during better little bit, the sputum is now yellowish in color down from brown to dark denies any hemoptysis or shortness breath has been on breathing treatments antibiotics and steroids, the chest x-ray from today reviewed overall bilateral pneumonia is stable but soft. S2 have improved though This is a 83-year-old female who was seen eval reexamined on third floor this patient has chronic medical history significant for COPD hypertension hypertensive cardiovascular disease she has generalized anxiety disorder as well she was in fairly stable state of health until about 5 days ago progressively started getting short of breath and coughing spells up to a point that commonly into the hospital for further evaluation he was seen at urgent care center as well, his computed tomography scan of the chest revealed bilateral lower lobe pneumonia with some pleural thickening and groundglass attenuation and n onspecific lymph node enlargement Objective - Vital Signs Vital signs: Vital Signs Temp 98.0 F 01/17/19 05:08 Pulse 82 01/17/19 07:19 Resp 18 01/17/19 05:08 BP 152/87 01/17/19 05:53 Pulse Ox 100 01/17/19 07:02 Intake & Output 01/16/19 01/17/19 01/17/19 18:59 06:59 18:59 Intake Total 200 Balance 200 Intake: IV 200 Sodium Chloride 0.9% 1, 200 000 ml @ 50 mls/hr IV . Q20H [facility] Rx#:[id number] Other: Voiding Method Toilet # Voids 0 - Exam - Constitutional General appearance: average body habitus, disheveled - EENT Eyes: EOMI, PERRLA, dentition normal ENT: hard of hearing Ears: bilateral: normal - Neck Carotids: bilateral: upstroke normal - Respiratory Respiratory: bilateral: diminished, wheezing, negative: dullness, rales, rhonchi, prolonged expiration - Cardiovascular Rhythm: regular Heart sounds: normal: S1, S2 - Neurologic Neurologic: CNII-XII intact - Musculoskeletal Musculoskeletal: gait normal, generalized weakness, strength equal bilaterally - Psychiatric Psychiatric: A&O x's 3, appropriate affect, intact judgment & insight - Labs CBC & Chem 7: 01/15/19 08:28 01/15/19 08:28 Labs: Microbiology - Last 24 Hours (Table) 01/13/19 21:16 Blood Culture - Preliminary Blood No Growth after 72 hours 01/13/19 21:16 Blood Culture - Preliminary Blood No Growth after 72 hours Assessment and Plan Assessment: Bilateral lower lobe pneumonia Acute COPD exacerbation Acute hypoxic respiratory failure Elevated troponin Electrolyte imbalance with hyponatremia Active smoker Hypertension hypertensive cardiovascular disease Generalized anxiety disorder Plan: Continue breathing treatments Broad-spectrum antibiotics Supplemental oxygen Corticosteroid, continue to taper down gradually Continue pain medicine Gentle rehydration Repeat x-ray reviewed stable Further recommendations pending plan of care as per clinical response of the patient
== END 2019-01-17 13:30 | disposition home or self-care (01) | DRG 193 ==
LOC: EC 20:09 → 3SCARD 21:38 → 4MS4W 01-15 15:51
PROVIDERS: ADMIT Family Medicine; ATTEND Family Medicine
DX: J18.9 Pneumonia, unspecified organism (principal); J96.21 Acute and chronic respiratory failure with hypoxia; S22.42XA Multiple fractures of ribs, left side, initial encounter for closed fracture; J44.0 Chronic obstructive pulmonary disease with (acute) lower respiratory infection; J44.1 Chronic obstructive pulmonary disease with (acute) exacerbation; E87.1 Hypo-osmolality and hyponatremia; F33.9 Major depressive disorder, recurrent, unspecified; E87.8 Other disorders of electrolyte and fluid balance, not elsewhere classified; F17.200 Nicotine dependence, unspecified, uncomplicated; F41.1 Generalized anxiety disorder; G47.00 Insomnia, unspecified; G89.4 Chronic pain syndrome; I11.9 Hypertensive heart disease without heart failure; Z79.51 Long term (current) use of inhaled steroids; Z79.899 Other long term (current) drug therapy; Z80.6 Family history of leukemia; Z82.0 Family history of epilepsy and other diseases of the nervous system; Z82.49 Family history of ischemic heart disease and other diseases of the circulatory system; Z87.01 Personal history of pneumonia (recurrent); Z88.9 Allergy status to unspecified drugs, medicaments and biological substances; Z90.710 Acquired absence of both cervix and uterus; Z79.891 Long term (current) use of opiate analgesic; Z88.6 Allergy status to analgesic agent; Z88.1 Allergy status to other antibiotic agents; Z88.2 Allergy status to sulfonamides; Z88.8 Allergy status to other drugs, medicaments and biological substances; Z98.49 Cataract extraction status, unspecified eye; I08.3 Combined rheumatic disorders of mitral, aortic and tricuspid valves; R73.9 Hyperglycemia, unspecified
CPT/HCPCS: 36415; 71045; 71260; 74230; 80053; 83036; 83605; 84484; 85025; 85610; 85730; 87040; 87086; 93005; 93306; 94640; 94760; 96360; 96361; 99285

== ENCOUNTER → 2019-03-21 | Outpatient (CLI) | payer MEDICARE, BC ==
--- NOTE | 2019-03-21 14:00 | CT ---
EXAMINATION TYPE: CT facial bones wo con DATE OF EXAM: 03/21/2019 COMPARISON: None HISTORY: Fall 2 weeks ago. right sided facial bruising. CT DLP: 648.7 mGycm Automated exposure control for dose reduction was used. TECHNIQUE: CT scan of the sinuses is performed without contrast, axial images are obtained, coronal r eformatted images are also reviewed. FINDINGS: The paranasal sinuses including the frontal, ethmoid, sphenoid, and maxillary sinuses bila terally are well-aerated mild mucosal thickening involving the ethmoid air cells and maxillary sinus. . The ostiomeatal complex is patent on the left and occluded on the right secondary to localized muc osal thickening. Visualized portion of mastoid air cells show no abnormal opacification. The globes are intact bilate rally. There is a subtle deformity of the anterior wall the maxillary sinus and IMPRESSION: 1. Subtle deformity of the anterior wall of the right maxillary sinus suggests minimally displaced luz irline fracture. 2. Mild chronic sinusitis.
== END | disposition home or self-care (01) ==
LOC: RADCTMAIN 13:20
PROVIDERS: ATTEND Internal Medicine
DX: M95.8 Other specified acquired deformities of musculoskeletal system (principal); J32.9 Chronic sinusitis, unspecified; S02.92XS Unspecified fracture of facial bones, sequela
CPT/HCPCS: 70486

== ENCOUNTER → 2019-05-22 | Outpatient (CLI) | payer MEDICARE, BC ==
--- NOTE | 2019-05-22 15:12 | XR ---
EXAMINATION TYPE: XR knee complete LT DATE OF EXAM: 05/22/2019 CLINICAL HISTORY: Left knee pain TECHNIQUE: Three views of the left knee are obtained. COMPARISON: 04/23/2014 FINDINGS: Generalized mild osseous demineralization. There is no acute fracture/dislocation evident i n left knee. The tri-compartment joint spaces appear alignment with very small tricompartmental oste ophytes. The overlying soft tissue appears unremarkable. 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 Very small suprapatellar joint effusion suspected. IMPRESSION: 1. No acute fracture or dislocation in the left knee. 2. Mild tricompartmental arthropathy and suspected small joint effusion. 3. Diffuse osseous demineralization. 4. Stable benign intramedullary bone lesion of the distal femoral diaphysis in comparison to 2013, ei ther enchondroma or bone infarct.
== END | disposition home or self-care (01) ==
LOC: RADXRMAIN 14:34
PROVIDERS: ATTEND Internal Medicine
DX: M12.862 Other specific arthropathies, not elsewhere classified, left knee (principal); M89.8X6 Other specified disorders of bone, lower leg

== ENCOUNTER → 2019-08-06 | Outpatient (CLI) | payer MEDICARE, BC ==
--- NOTE | 2019-08-06 12:17 | CT ---
EXAMINATION TYPE: CT abdomen w con DATE OF EXAM: 08/06/2019 COMPARISON: None HISTORY: Other chronic pancreatitis CT DLP: 625 mGycm Automated exposure control for dose reduction was used. TECHNIQUE: Helical acquisition of images was performed from the lung bases through the top of iliac crest to include entire abdomen. CONTRAST: Performed with Oral Contrast and with IV Contrast, patient injected with 100 ml mL of Isovue 300. FINDINGS: LUNG BASES: Subsegmental consolidation at both lung bases most typical atelectasis. The heart appears to be enlarged and there is a small hiatal hernia. LIVER/GB: Hypodensity involving the dome of the liver too small to characterize but likely related to simple cyst. There does appear to be intrahepatic mild biliary dilation and the gallbladder is promi nent in size. Extrahepatic bile duct appears prominent to the level of the ampulla of Vater. PANCREAS: No definite pancreatic mass. The pancreatic duct does appear to be prominent as well as the distal CBD which terminates rather abruptly ampullary lesion in the differential diagnosis or distal CBD lesion in the differential diagnosis. SPLEEN: No significant abnormality is seen. ADRENALS: Mild thickening of the left adrenal gland nonspecific likely the basis of adrenal hyperplas ia. KIDNEYS: Parapelvic right renal simple cyst. No hydronephrosis. BOWEL: Bowel gas pattern is cystic. No definite evidence of fracture. There does appear to be eviden ce of colonic diverticulosis. LYMPH NODES: No significant abnormality is seen. OSSEOUS STRUCTURES: No significant abnormality is seen. OTHER: Atherosclerotic change aorta. Hypertrophic and degenerative change of the spine. Fat-containin g anterior abdominal wall hernia noted. IMPRESSION: 1. Intrahepatic delayed dilation and extrahepatic biliary dilation to the level of the ampullary remington on. Recommend ERCP or MRCP to exclude a distal CBD lesion or ampullary mass.
== END | disposition home or self-care (01) ==
LOC: RADCTMAIN 10:53
PROVIDERS: ATTEND Internal Medicine
DX: K86.1 Other chronic pancreatitis (principal); R93.2 Abnormal findings on diagnostic imaging of liver and biliary tract
CPT/HCPCS: 74160; 36415; Q9967

== ENCOUNTER → 2020-01-28 | Outpatient (CLI) | payer MEDICARE, BC ==
--- NOTE | 2020-01-28 22:57 | MR ---
EXAMINATION TYPE: MR MRCP DATE OF EXAM: 01/28/2020 COMPARISON: CT abdomen August 06, 2019. HISTORY: Abnormal CT, nausea Standard multiplanar, multisequence MRI departmental protocol Multiplanar, multisequence images of the abdomen were acquired. Thin and thick slice MRCP imaging per formed on a MRI scanner. FINDINGS: Motion artifact aggregation noted as patient unable to hold breath. Liver/gallbladder/pancreas/biliary system: Liver size stable and within normal limits. There is redem onstration of 9 -10 mm simple appearing thin-walled cyst axial image 22. Subcentimeter thin-walled cy st posterior segment right hepatic dome axial image 31 redemonstrated. Gallbladder has distended morteza ins without intraluminal gallstones. Some folding is present. Corresponding to CT extrahepatic biliary ducts measure up to 9 mm which is upper limits of normal for patient's age. No suspicious intrahepatic biliary dilatation. Suboptimal evaluation of pancreas due to lack of intra-abdominal fat. Pancreas not enlarged. Pancreatic duct seen without suspicious dilata tion. No concerning pancreatic solid or cystic mass. Other: Lung bases are clear. Persistent 2.0 cm central thin-walled cyst lower pole right kidney coron al image 18. Extrarenal pelvis bilaterally. No calyceal dilatation. Spleen and both adrenal glands tarik th remain within normal limits. No bowel dilatation. No abdominal ascites. Underlying scoliotic curva ture redemonstrated. IMPRESSION: Extrahepatic bile ducts measure upper limits of normal for patient's age without intralum inal mass or stricture. No significant change from CT.
== END | disposition home or self-care (01) ==
LOC: RADMRIMAIN 16:08
PROVIDERS: ATTEND Internal Medicine Gastroenterology
DX: R93.2 Abnormal findings on diagnostic imaging of liver and biliary tract (principal)
CPT/HCPCS: 74181

== ENCOUNTER → 2020-01-29 | Outpatient (CLI) | payer MEDICARE, BC ==
[2020-01-29 14:58] LABS: Basophils # (A) 0.1 k/uL (0-0.2); Basophils % (A) 1 %; Eosinophils # (A) 0.4 k/uL (0-0.7); Eosinophils % (A) 5 %; HCT 42.3 % (34.0-46.0); HGB 13.2 gm/dL (11.4-16.0); Hypochromasia Slight; Lymphocytes # (A) 2.3 k/uL (1.0-4.8); Lymphocytes % (A) 29 %; MCH 28.6 pg (25.0-35.0); MCHC 31.3 g/dL (31.0-37.0); MCV 91.6 fL (80.0-100.0); Mean Platelet Volume 6.9; Monocytes # (A) 0.4 k/uL (0-1.0); Monocytes % (A) 5 %; Neutrophils # (A) 4.5 k/uL (1.3-7.7); Neutrophils % (A) 57 %; Platelet Count 326 k/uL (150-450); RBC 4.61 m/uL (3.80-5.40); RDW 15.1 % (11.5-15.5); WBC 7.9 k/uL (3.8-10.6)
[2020-01-30 00:58] LABS: Albumin 4.3 g/dL (3.80-4.90); Albumin/Globulin Ratio 1.95 (1.60-3.17); BUN/Creat Ratio 23.33 Ratio (12.00-20.00); Calcium 9.2 mg/dL (8.7-10.3); Globulin 2.2 g/dL (1.6-3.3); Non-African American GFR(CKD) 83.7 (60.0-200.0); Potassium 5.1 mmol/L (3.5-5.5); Total Bilirubin 0.2 mg/dL (0.3-1.2); Total Protein 6.5 g/dL (6.2-8.2)
== END | disposition home or self-care (01) ==
LOC: LABWHC1 14:01
PROVIDERS: ATTEND Internal Medicine
DX: I10 Essential (primary) hypertension (principal); E78.2 Mixed hyperlipidemia; K52.9 Noninfective gastroenteritis and colitis, unspecified; R93.2 Abnormal findings on diagnostic imaging of liver and biliary tract
CPT/HCPCS: 36415; 80053; 83630; 84443; 85025; 87045; 87046; 87328; 87329

== ENCOUNTER 2020-03-11 23:54 | Inpatient (IN) | payer MEDICARE, BC ==
[2020-03-11] MEDS ORDERED: ALBUTEROL NEBULIZED 2.5 MG/3 ML INHALATION STA (23:55)
[2020-03-11] MEDS ORDERED: IPRATROPIUM 0.5 MG/2.5 ML NEBU INHALATION STA (23:55)
[2020-03-12] MEDS ORDERED: ENALAPRILAT 1.25 MG/ML 1 ML VIAL IVP STA (00:02)
[2020-03-12] MEDS ORDERED: MORPHINE SULFATE 2 MG/ML SYRINGE IVP STA (00:04)
[2020-03-12] MEDS ORDERED: ACETAMINOPHEN IV (For NPO) 1,000 MG in EMPTY BAG 1 BAG IVPB STA (00:12)
--- NOTE | 2020-03-12 00:15 | ED ---
SOB HPI - General Chief Complaint: Shortness of Breath Stated Complaint: respiratory distress Time Seen by Provider: 03/11/20 23:55 Source: patient, EMS, RN notes reviewed, old records reviewed Mode of arrival: EMS Limitations: physical limitation - History of Present Illness Initial Comments: This is an 84-year-old male DF for evaluation patient Dese for evaluation regards to not feeling well significantly short of breath brought in by EMS poor strain secondary significant work of breathing and low oxygen oxygen 80% on arrival of EMS at the house. EMS brings patient to ER after breathing treatment which is mildly improved her symptoms but she is still in significant shortness of breath work of breathing no chest pain MD Complaint: shortness of breath, anxiety -: hour(s) Severity: severe Severity scale (1-10): 10 Consistency: constant Improves With: nothing Worsens With: exertion, movement Known History Of: COPD Context: recent URI, recent illness Associated Symptoms: cough Treatments Prior to Arrival: none - Related Data Home Medications Medication Instructions Recorded Confirmed Multivitamins, Thera [Multivitamin 1 tab PO DAILY@1200 11/07/16 01/14/19 (formulary)] oxyCODONE HCL [oxyCODONE HCL (IR)] 30 mg PO TID 12/31/16 01/14/19 ALPRAZolam [Xanax] 0.5 mg PO BID PRN 06/10/18 01/14/19 Albuterol Nebulized [Ventolin 2.5 mg INHALATION RT-Q6H PRN 06/10/18 01/14/19 Nebulized] Losartan Potassium 100 mg PO HS 06/10/18 01/14/19 Mirtazapine [Remeron] 30 mg PO HS 01/13/19 01/14/19 ARIPiprazole [Abilify] 2 mg PO DAILY 01/14/19 01/14/19 DULoxetine HCL [Cymbalta] 30 mg PO HS 01/14/19 01/14/19 DULoxetine HCL [Cymbalta] 60 mg PO DAILY 01/14/19 01/14/19 Melatonin 5 mg PO HS 01/14/19 01/14/19 Previous Rx's Medication Instructions Recorded Budesonide [Pulmicort] 0.5 mg INHALATION RT-BID #60 nebu 01/16/19 Famotidine [Pepcid] 20 mg PO DAILY tab 01/16/19 Levofloxacin [Levaquin] 500 mg PO Q24H #6 tab 01/16/19 Metoprolol Tartrate [Lopressor] 25 mg PO TID #90 tab 01/16/19 predniSONE 0 mg PO DIRECTED #18 tab 01/16/19 Allergies Allergy/AdvReac Type Severity Reaction Status Date / Time amoxicillin trihydrate Allergy Unknown Verified 03/12/20 00:00 [From Augmentin] cephalexin monohydrate Allergy Swelling Verified 03/12/20 00:00 [From Keflex] meperidine HCl [From Demerol] Allergy Unknown Verified 03/12/20 00:00 potassium clavulanate Allergy Unknown Verified 03/12/20 00:00 [From Augmentin] Sulfa (Sulfonamide Allergy Unknown Verified 03/12/20 00:00 Antibiotics) NSAIDS (Non-Steroidal AdvReac Severe Nausea & Verified 03/12/20 00:00 Anti-Inflamma Vomiting Review of Systems ROS Statement: Those systems with pertinent positive or pertinent negative responses have been documented in the HPI. ROS Other: All systems not noted in ROS Statement are negative. Past Medical History Past Medical History: Heart Failure, COPD, Pneumonia Additional Past Medical History / Comment(s): arthritis, pancreatitis, chronic back and neck pain History of Any Multi-Drug Resistant Organisms: None Reported Past Surgical History: Hysterectomy Additional Past Surgical History / Comment(s): cataract, to vocal cord cyst removed. Past Anesthesia/Blood Transfusion Reactions: No Reported Reaction Past Psychological History: Anxiety, Depression Smoking Status: Former smoker Past Alcohol Use History: Rare Past Drug Use History: None Reported - Past Family History Father Family Medical History: No Reported History Additional Family Medical History / Comment(s): Father at age 57 from a motor vehicle accident. Brother(s) Additional Family Medical History / Comment(s): The patient has one brother with coronary artery disease. Patient has 2 sisters and one with history of Alzheimer's dementia. One has history of closed head injury. Patient is a total of 6 children. One son from a myocardial infarction with history of seizure, one daughter from pancreatic cancer. Other 4 children have no major medical problems. Mother Family Medical History: Blood Disorder, Cancer, Thyroid Disorder Additional Family Medical History / Comment(s): Mother at age 71 from leukemia. General Exam General appearance: alert, anxious, in distress Head exam: Present: atraumatic, normocephalic, normal inspection Eye exam: Present: normal appearance, PERRL, EOMI. Absent: scleral icterus, conjunctival injection, periorbital swelling ENT exam: Present: normal exam, mucous membranes moist Neck exam: Present: normal inspection. Absent: tenderness, meningismus, lymphadenopathy Respiratory exam: Present: respiratory distress, wheezes, rales, accessory muscle use, decreased breath sounds, prolonged expiratory. Absent: rhonchi, stridor Cardiovascular Exam: Present: normal rhythm, tachycardia, normal heart sounds. Absent: systolic murmur, diastolic murmur, rubs, gallop, clicks GI/Abdominal exam: Present: soft, normal bowel sounds. Absent: distended, tenderness, guarding, rebound, rigid Extremities exam: Present: normal inspection, full ROM, normal capillary refill. Absent: tenderness, pedal edema, joint swelling, calf tenderness Back exam: Present: normal inspection Neurological exam: Present: alert, oriented X3, CN II-XII intact Psychiatric exam: Present: normal affect, normal mood Skin exam: Present: warm, dry, intact, normal color. Absent: rash Course Vital Signs 03/11/20 03/12/20 03/12/20 23:55 00:27 00:44 Temperature 101 F H Pulse Rate 117 H 112 H 118 H Respiratory 28 H 40 H Rate Blood Pressure 193/90 O2 Sat by Pulse 90 L Oximetry - Reevaluation(s) Reevaluation #1: 03/12/20 00:14 Medical records reviewed Reevaluation #2: 03/12/20 00:14 Patient placed on BiPAP secondary severe distress work of breathing Reevaluation #3: 03/12/20 00:49 Mild improvement on BiPAP patient becoming severely anxious - Consultations Consultation #1: Spoke with Dr. Palmer who agrees to admit this patient Medical Decision Making - Medical Decision Making 84 female DF for evaluation patient with significant shortness of breath multifactorial respiratory failure and hypoxia CHF COPD rule out covert and pneumonia. Patient placed on IV antibiotics, placed on BiPAP Initial arrival to the emergency department and will be put on cardiopulmonary support - Lab Data Result diagrams: 03/12/20 00:12 Lab Results 03/12/20 03/12/20 03/12/20 Range/Units 00:12 00:12 00:12 WBC 23.3 H (3.8-10.6) k/uL RBC 4.79 (3.80-5.40) m/uL Hgb 14.2 (11.4-16.0) gm/dL Hct 42.8 (34.0-46.0) % MCV 89.2 (80.0-100.0) fL MCH 29.7 (25.0-35.0) pg MCHC 33.3 (31.0-37.0) g/dL RDW 14.8 (11.5-15.5) % Plt Count 430 (150-450) k/uL Neutrophils % 86 % Lymphocytes % 8 % Monocytes % 4 % Eosinophils % 0 % Basophils % 0 % Neutrophils # 20.1 H (1.3-7.7) k/uL Lymphocytes # 2.0 (1.0-4.8) k/uL Monocytes # 1.0 (0-1.0) k/uL Eosinophils # 0.1 (0-0.7) k/uL Basophils # 0.0 (0-0.2) k/uL PT 9.8 (9.0-12.0) sec INR 0.9 (<1.2) APTT 25.5 (22.0-30.0) sec NT-Pro-B Natriuret Pep 295 pg/mL - EKG Data -: EKG Interpreted by Me (EKG is sinus tachycardia 126 NH 176 QRS 78 QTc 422) - Radiology Data Radiology results: report reviewed (Chest x-ray shows worsening CHF and pneumonia), image reviewed Critical Care Time Critical Care Time: Yes Total Critical Care Time: 31 Disposition Clinical Impression: Fever, Hypoxia, Pneumonia, Altered mental status, COPD (chronic obstructive pulmonary disease), Acute exacerbation of chronic obstructive pulmonary disease, Community acquired pneumonia, Congestive heart failure Narrative: ro COVID Disposition: ADMITTED IP TO THIS [facility] Condition: Serious Is patient prescribed a controlled substance at d/c from ED?: No Referrals: Elma Palmer MD [Primary Care Provider] - 1-2 days
[2020-03-12] MEDS ORDERED: IPRATROPIUM-ALBUTEROL 3 ML NEB INHALATION STA (00:22)
[2020-03-12 00:26] LABS: Basophils % (A) 0 %; Eosinophils # (A) 0.1 k/uL (0-0.7); Eosinophils % (A) 0 %; HCT 42.8 % (34.0-46.0); HGB 14.2 gm/dL (11.4-16.0); Lymphocytes % (A) 8 %; MCH 29.7 pg (25.0-35.0); MCHC 33.3 g/dL (31.0-37.0); MCV 89.2 fL (80.0-100.0); Mean Platelet Volume 6.9; Monocytes % (A) 4 %; Neutrophils # (A) 20.1 k/uL (1.3-7.7); Neutrophils % (A) 86 %; Platelet Count 430 k/uL (150-450); RBC 4.79 m/uL (3.80-5.40); RDW 14.8 % (11.5-15.5); WBC 23.3 k/uL (3.8-10.6)
[2020-03-12 00:33] LABS: INR 0.9 (<1.2); Partial Thromboplastin Time 25.5 sec (22.0-30.0); Prothrombin Time 9.8 sec (9.0-12.0)
--- NOTE | 2020-03-12 00:33 | XR ---
EXAMINATION TYPE: XR chest 1V portable DATE OF EXAM: 03/12/2020 COMPARISON: NONE HISTORY: Short of breath TECHNIQUE: Single view FINDINGS: There is some interstitial infiltrates in the mid and lower lung dickey. Thoracic aorta is atheromatous. Bony thorax is intact. There is some arthritic change in the right shoulder joint with subacromial joint space narrowing. IMPRESSION: There are bilateral lower lobe pulmonary interstitial infiltrates that could relate to in terstitial pneumonia or mild acute heart failure. This is increased compared to old exam. Normal hear t size.
[2020-03-12 00:38] LABS: ALT 24 U/L (4-34); AST 58 U/L (14-36); African American GFR (CKD) >90 (>60 ml/min/1.73 sqM); Albumin 4.9 g/dL (3.5-5.0); Alkaline Phosphatase 128 U/L (38-126); Anion Gap 13 mmol/L; Blood Urea Nitrogen 12 mg/dL (7-17); C Reactive Protein <5.0 mg/L (<10.0); Calcium 9.6 mg/dL (8.4-10.2); Carbon Dioxide 22 mmol/L (22-30); Chloride 85 mmol/L (98-107); Creatine Kinase 494 U/L (30-135); Glucose 151 mg/dL (74-99); LDH 821 U/L (313-618); Magnesium 1.8 mg/dL (1.6-2.3); Non-African American GFR(CKD) >90 (>60 ml/min/1.73 sqM); Sodium 120 mmol/L (137-145); Total Bilirubin 0.8 mg/dL (0.2-1.3); Total Protein 7.7 g/dL (6.3-8.2)
[2020-03-12] MEDS ORDERED: PNEUMONIA PROTOCOL UTILIZED 1 EACH MISC PO PRN (00:42)
[2020-03-12] MEDS ORDERED: AZITHROMYCIN 500 MG in SODIUM CHLORIDE 0.9% 250 ML IVPB STA (00:42)
[2020-03-12] MEDS ORDERED: LORazepam 2 MG/ML INJ IV STA (00:52)
[2020-03-12] MEDS ORDERED: LEVOFLOXACIN 750MG-D5W PMX 750 MG in DEXTROSE/WATER 1 150ML.BAG IVPB STA (00:55)
[2020-03-12] MEDS ORDERED: LORazepam 2 MG/ML INJ IV PRN (00:56)
[2020-03-12 00:58] LABS: Potassium 4.5 mmol/L (3.5-5.1)
[2020-03-12] MEDS ORDERED: NALOXONE 0.4 MG/ML 1 ML VIAL IV PRN (01:22)
[2020-03-12 02:41] LABS: Glucose,Whole Blood 174 mg/dL (75-99)
[2020-03-12 03:51] LABS: Appearance,Urine Clear (Clear); Bilirubin,Urine Negative (Negative); Blood,Urine Trace (Negative); Color,Urine Light Yellow; Glucose,Urine (UA) Trace (Negative); Ketones,Urine Negative (Negative); Leukocyte Esterase,Urine Trace (Negative); Mucus,Urine Rare /hpf; Nitrite,Urine Negative (Negative); Protein,Urine 1+ (Negative); RBC,Urine 1 /hpf (0-5); Specific Gravity,Urine 1.014 (1.001-1.035); Squamous Epithelial Cell,Urine <1 /hpf (0-4); Urobilinogen,Urine <2.0 mg/dL (<2.0); WBC,Urine 1 /hpf (0-5)
[2020-03-12 04:16] LABS: African American GFR (CKD) >90 (>60 ml/min/1.73 sqM); Anion Gap 12 mmol/L; Blood Urea Nitrogen 11 mg/dL (7-17); Calcium 9.3 mg/dL (8.4-10.2); Carbon Dioxide 24 mmol/L (22-30); Chloride 83 mmol/L (98-107); Glucose 167 mg/dL (74-99); Non-African American GFR(CKD) >90 (>60 ml/min/1.73 sqM); Potassium 4.1 mmol/L (3.5-5.1)
[2020-03-12 04:27] LABS: Sodium 119 mmol/L (137-145)
[2020-03-12] MEDS: SODIUM CHLORIDE 0.9% 1,000 ML IV SCH ×2 (04:55→17:02)
[2020-03-12] MEDS: methylPREDNISolone SOD SUCCI 125 MG/2 ML VIAL IV SCH ×4 (06:10→23:39)
--- NOTE | 2020-03-12 07:21 | XR ---
EXAMINATION TYPE: XR chest 1V DATE OF EXAM: 03/12/2020 COMPARISON: 03/12/2020 HISTORY: 84 year-old female shortness of breath TECHNIQUE: Single frontal view of the chest is obtained. FINDINGS: Heart upper limits of normal in size. Levoconvex scoliosis centered along the mid to lower thoracic s pine. Hyperinflation with diffuse interstitial density is similar. Focal opacity opacity at the dome of the right hemidiaphragm with some possible underlying nodularity . Additional patchy density retrocardiac region. IMPRESSION: 1. COPD with chronic parenchymal changes. 2. Mild patchy atelectasis or early infiltrate at the right base and retrocardiac region difficult to exclude. 3. Possible right basilar pulmonary nodule. 4-6 week follow-up radiograph recommended to reassess.
[2020-03-12] MEDS: BUDESONIDE 1 MG/2 ML NEBU INHALATION SCH ×2 (07:22→20:16)
[2020-03-12] MEDS: ALBUTEROL NEBULIZED 2.5 MG/3 ML INHALATION SCH ×4 (07:22→20:16)
[2020-03-12] MEDS ORDERED: RX INFO: IV CONTRAST WAS GIVEN 1 EACH MISC MISCELLANE PRN (08:34)
--- NOTE | 2020-03-12 08:41 | P.HPIM ---
History of Present Illness H&P Date: 03/12/20 Chief Complaint: Shortness of breath. This is an 84-year-old female patient of mine with past medical history of COPD, hypertension, chronic pain syndrome, tobacco use and dependence generalized anxiety disorder, was evaluated recently by GI recently for dilated Common bile dust on MRCP possible pancreatic pathology , was brought into the ER at [facility] with increased shortness of breath via EMS that has been going on for few days, she was hypoxemic with O2 saturaion in the 80's and she was given nebulized treatment and transported to the hospital via EMS, she was placed on BIPAP and she had elevated WBCs 50843, lactic acid 2.3, her sodium initially was 120 and did drop to 119 today, her CXR showed bilateral lower lobe pneumonia, LDH 821, AST 58 and Alk.Phos 128, patient was started on IVF normal saline at 75 ml/h and she was placed on levaquin 500 mg IVPB daily along with duoneb 3 ml NEB QID along with solu-medrol 60 mg IVP Q 6 hours and Pulmicort 1 mg NEB BID, was admitted to the ICU and she was placed in droplet precautions for possible COVID-19, pulmonary consulation. Review of Systems Constitutional: Reports anorexia, Reports chronic pain, Reports fatigue, Reports lethargy, Reports weakness, Reports weight loss Eyes: denies blurred vision, denies bulging eye, denies decreased vision Ears: deny: decreased hearing Ears, nose, mouth and throat: Denies dysphagia, Denies neck lump, Denies sore throat Cardiovascular: Reports decreased exercise tolerance, Reports dyspnea on exertion, Reports shortness of breath, Denies chest pain, Denies leg edema, Denies lightheadedness, Denies rapid heart beat Respiratory: Reports respiratory infections, Reports wheezing, Denies congestion, Denies cough, Denies cough with sputum, Denies dyspnea, Denies home oxygen, Denies sleep apnea, Denies snoring Gastrointestinal: Reports abdominal pain, Reports bloating, Reports change in bowel habits, Reports early satiety, Reports indigestion, Reports loss of appetite, Reports nausea, Denies heartburn, Denies hematemesis, Denies hematochezia, Denies melena, Denies vomiting Genitourinary: Reports nocturia, Denies dysuria Menstruation: Reports postmenopausal Musculoskeletal: Reports atrophy, Reports gait dysfunction, Reports low back pain, Reports muscle weakness Musculoskeletal: absent: ankle pain, ankle stiffness, ankle swelling, elbow pain, elbow stiffness, elbow swelling, foot pain, foot stiffness, foot swelling, hand pain, hand stiffness, hand swelling, hip pain, hip stiffness, hip swelling, knee pain, knee stiffness, knee swelling, shoulder pain, shoulder stiffness, shoulder swelling, wrist pain, wrist stiffness, wrist swelling Integumentary: Denies pruritus, Denies rash Neurological: Reports gait dysfunction Psychiatric: Reports anxiety, Reports depression, Reports sleep disturbances, Denies sadness/tearfulness, Denies suicidal ideation Endocrine: Denies fatigue, Denies weight change Past Medical History Past Medical History: Heart Failure, COPD, GERD/Reflux, Hyperlipidemia, Hypertension, Osteoarthritis (OA), Pneumonia Additional Past Medical History / Comment(s): arthritis, pancreatitis, chronic back and neck pain, pins in right hip History of Any Multi-Drug Resistant Organisms: None Reported Past Surgical History: Hysterectomy Additional Past Surgical History / Comment(s): cataract, to vocal cord cyst removed. Past Anesthesia/Blood Transfusion Reactions: No Reported Reaction Past Psychological History: Anxiety, Depression Smoking Status: Former smoker Past Alcohol Use History: Rare Additional Past Alcohol Use History / Comment(s): The patient was a smoker half a pack of cigarettes per day for 60 years ago quit 6 months ago. Patient does not have home O2. She does have a nebulizer. No CPAP. She is a walker for ambulation. Past Drug Use History: None Reported - Past Family History Father Family Medical History: No Reported History Additional Family Medical History / Comment(s): Father at age 57 from a motor vehicle accident. Brother(s) Additional Family Medical History / Comment(s): The patient has one brother with coronary artery disease. Patient has 2 sisters and one with history of Alzheimer's dementia. One has history of closed head injury. Patient is a total of 6 children. One son from a myocardial infarction with history of seizure, one daughter from pancreatic cancer. Other 4 children have no major medical problems. Mother Family Medical History: Blood Disorder, Cancer, Thyroid Disorder Additional Family Medical History / Comment(s): Mother at age 71 from leukemia. Medications and Allergies Home Medications Medication Instructions Recorded Confirmed Type Multivitamins, Thera [Multivitamin 1 tab PO DAILY@1200 11/07/16 01/14/19 History (formulary)] oxyCODONE HCL [oxyCODONE HCL (IR)] 30 mg PO TID 12/31/16 01/14/19 History ALPRAZolam [Xanax] 0.5 mg PO BID PRN 06/10/18 01/14/19 History Albuterol Nebulized [Ventolin 2.5 mg INHALATION RT-Q6H PRN 06/10/18 01/14/19 History Nebulized] Losartan Potassium 100 mg PO HS 06/10/18 01/14/19 History Mirtazapine [Remeron] 30 mg PO HS 01/13/19 01/14/19 History ARIPiprazole [Abilify] 2 mg PO DAILY 01/14/19 01/14/19 History DULoxetine HCL [Cymbalta] 30 mg PO HS 01/14/19 01/14/19 History DULoxetine HCL [Cymbalta] 60 mg PO DAILY 01/14/19 01/14/19 History Melatonin 5 mg PO HS 01/14/19 01/14/19 History Budesonide [Pulmicort] 0.5 mg INHALATION RT-BID #60 nebu 01/16/19 Rx Famotidine [Pepcid] 20 mg PO DAILY tab 01/16/19 Rx Levofloxacin [Levaquin] 500 mg PO Q24H #6 tab 01/16/19 Rx Metoprolol Tartrate [Lopressor] 25 mg PO TID #90 tab 01/16/19 Rx predniSONE 0 mg PO DIRECTED #18 tab 01/16/19 Rx Allergies Allergy/AdvReac Type Severity Reaction Status Date / Time amoxicillin trihydrate Allergy Unknown Verified 03/12/20 00:00 [From Augmentin] cephalexin monohydrate Allergy Swelling Verified 03/12/20 00:00 [From Keflex] meperidine HCl [From Demerol] Allergy Unknown Verified 03/12/20 00:00 potassium clavulanate Allergy Unknown Verified 03/12/20 00:00 [From Augmentin] Sulfa (Sulfonamide Allergy Unknown Verified 03/12/20 00:00 Antibiotics) NSAIDS (Non-Steroidal AdvReac Severe Nausea & Verified 03/12/20 00:00 Anti-Inflamma Vomiting Physical Exam Vitals: Vital Signs Temp Pulse Resp BP Pulse Ox 03/12/20 04:30 109 H 24 142/84 94 L 03/12/20 04:00 98.1 F 113 H 25 H 167/84 96 03/12/20 03:30 112 H 23 154/105 95 03/12/20 03:00 120 H 26 H 143/86 95 03/12/20 02:30 99.1 F 122 H 27 H 142/70 96 03/12/20 01:30 100.9 F H 120 H 27 H 142/78 94 L 03/12/20 01:11 121 H 19 162/85 92 L 03/12/20 00:44 118 H 03/12/20 00:27 112 H 40 H 03/11/20 23:55 101 F H 117 H 28 H 193/90 90 L Intake and Output 03/11/20 03/11/20 03/12/20 14:59 22:59 06:59 Intake Total 150 Output Total 425 Balance -275 Intake: IV 150 Levofloxacin 750Mg-D5w 150 Pmx 750 mg In Dextrose/ Water 1 150ml.bag @ 100 mls/hr IVPB ONCE STA Rx#: [id number] Output: Urine 425 Other: Weight 49.895 kg Physical Examination: HEENT: head is atraumatic normocephalic pupils were equal round reactive to light and accommodations extra ocular muscle movements were intact. Neck: supple, no JVP. Chest: decrease breath sounds at the bases with few ronchi, minimal expiratory wheezes, there is egophony at the bases with minimal intercostal retraction. Heart: first heart sound is depressed , second heart sound is normal there is VITO 2/6 located at the laft sternal border. Abdomen: soft non tender non distended positive bowel sounds. Extremities: there is no edema no calf tenderness, DP +1 bilaterally. Neurologic examination: patient is awake , alert and oriented X3 CN II-XII are grossly intact, muscle power 3/5 in bilateral lower extremities and 4/5 in bilateral upper extremities, deep tendon reflexes are depressed. Results CBC & Chem 7: 03/12/20 00:12 03/12/20 03:51 Labs: Abnormal Lab Results - Last 24 Hours (Table) 03/12/20 03/12/20 03/12/20 Range/Units 00:12 00:12 00:12 WBC 23.3 H (3.8-10.6) k/uL Neutrophils # 20.1 H (1.3-7.7) k/uL Sodium 120 L (137-145) mmol/L Chloride 85 L (98-107) mmol/L Creatinine 0.46 L (0.52-1.04) mg/dL Glucose 151 H (74-99) mg/dL POC Glucose (mg/dL) (75-99) mg/dL Plasma Lactic Acid Librado 2.3 H* (0.7-2.0) mmol/L AST 58 H (14-36) U/L Alkaline Phosphatase 128 H (38-126) U/L Lactate Dehydrogenase 821 H (313-618) U/L Creatine Kinase 494 H (30-135) U/L Urine Protein (Negative) Urine Glucose (UA) (Negative) Urine Blood (Negative) Ur Leukocyte Esterase (Negative) Urine Mucus (None) /hpf 03/12/20 03/12/20 03/12/20 Range/Units 02:39 03:27 03:51 WBC (3.8-10.6) k/uL Neutrophils # (1.3-7.7) k/uL Sodium 119 L* (137-145) mmol/L Chloride 83 L (98-107) mmol/L Creatinine 0.47 L (0.52-1.04) mg/dL Glucose 167 H (74-99) mg/dL POC Glucose (mg/dL) 174 H (75-99) mg/dL Plasma Lactic Acid Librado (0.7-2.0) mmol/L AST (14-36) U/L Alkaline Phosphatase (38-126) U/L Lactate Dehydrogenase (313-618) U/L Creatine Kinase (30-135) U/L Urine Protein 1+ H (Negative) Urine Glucose (UA) Trace H (Negative) Urine Blood Trace H (Negative) Ur Leukocyte Esterase Trace H (Negative) Urine Mucus Rare H (None) /hpf Thrombosis Risk Factor Assmnt - DVT/VTE Prophylaxis DVT/VTE Prophylaxis: Pharmacologic Prophylaxis ordered, Mechanical Prophylaxis ordered - Choose All That Apply Each Factor Represents 1 point: Abnormal pulmonary function (COPD) Thrombosis Risk Factor Assessment Total Risk Factor Score: 1 Thrombosis Risk Factor Assessment Level: Low Risk Assessment and Plan Assessment: assessment and plan: 1. Acute hypoxemic respiratory failure due to bilateral pneumonia with COPD exacerbation. we will continue with Levaquin 500 mg IVPB daily, Duoneb NEB QID, Pulmicoer 1mg NEB BID, O2 support, we will continue with Solu-Medrol 60 mg IVP Q 6H, pulmonary consult . 2. Bilateral pneumonia. we will continue with IVF, Levaquin and O2 we will check sputum cultures and blood cultures, check Mycoplasma AB and urine legionella antigen. 3. COPD exacerbation. we will continue with O2, Duoneb, Pulmicort and Solu- Medrol. 4. Leukocytosis. likley related to pneumonia. we will continue with IV ABX and IVF and repeat CBC . 5. Mild lactic acidosis. resolved. 6. Sepsis related to bibasilar pneumonia. we will continue with IVF and IV ABX , check blood cultures. 7. Hyponatremia likely related to hypovolemia. we will increase IVF to 100 ml/h and we will check serum osmolality, urine osmolality and urine sodium, monitor sodium q 6 h. 8. Hypertension and hypertensive cardiovascular disease. we will continue with Metoprolol 25 mg orally tid, Losartan 100 mg orally daily. 9. Depression. we will continue with cymbalta 60 mg in Am and 30 mg in PM , we will continue with Remeron 30 mg orally at bedtime. 10. Anxiety. currently on Xanax. 11. Chronic pain syndrome due to sever back pain. we will continue with Oxycodone 30 mg orally tid, has been under pain management for quiet sometimes. 12. DVT prophylaxis. we will start Lovenox 40 mg SC daily. 13. GI prophylxis . we will continue with Protonix 40 mg IVP daily. 14. Admits to inpatient, estimated length of stay 2 midnights. 15. Full code.
[2020-03-12] MEDS ORDERED: FAMOTIDINE 20 MG TAB PO SCH (09:00)
[2020-03-12] MEDS ORDERED: PANTOPRAZOLE 40 MG/10 ML VIAL IV SCH (09:00)
[2020-03-12] MEDS ORDERED: ARIPiprazole 2 MG TAB PO SCH (09:15)
[2020-03-12] MEDS: DULoxetine HCL 60 MG CAPSULE.DR PO SCH (09:17)
[2020-03-12] MEDS: MULTIVITAMINS, THERA 1 EACH TAB PO SCH (09:17)
[2020-03-12] MEDS: ENOXAPARIN 40 MG/0.4 ML SYRINGE SQ SCH (09:17)
[2020-03-12] MEDS: METOPROLOL TARTRATE 25 MG TAB PO SCH ×3 (09:18→23:39)
[2020-03-12] MEDS: ALPRAZolam 0.5 MG TAB PO PRN (09:58)
[2020-03-12] MEDS: ONDANSETRON 4 MG/2 ML VIAL IVP PRN ×2 (09:59→17:47)
[2020-03-12] MEDS: MAGNESIUM SULFATE-D5W PMX 1 GM in DEXTROSE/WATER 1 100ML.BAG IVPB SCH ×2 (10:19→11:49)
[2020-03-12 11:36] LABS: Ferritin 125.6 ng/mL (10.0-291.0)
[2020-03-12 11:56] LABS: Glucose,Whole Blood 161 mg/dL (75-99)
[2020-03-12] MEDS: INSULIN ASPART (NovoLOG) 100 UNIT/ML VIAL SQ SCH ×3 (11:59→20:17)
--- NOTE | 2020-03-12 12:17 | P.CRDCN ---
History of Present Illness Consult date: 03/12/20 History of present illness: This is a 84-year-old female with history of COPD, hypertension, chronic pain syndrome wit history of smoking is admitted to the hospital is admitted to the hospital with complaints of cough and shortness of breath. Her chest x-ray showed bilateral infiltrates. White count is elevated. Patient was recently evaluated by MRCP for dilated bile duct. Apparently it was felt related to pancreatic issues. Her proBNP is within normal limits. Because of suspicion of coronary, patient was not physically examined it. Most of the information is gathered from chart and also nurses. There is some mild wheezing in the lungs. Heart is regular. Patient was on BiPAP last night and today she is on nasal cannula. At this point we'll continue the antibiotic therapy. An echocardiogram will be done to assess LV function. Further recommendations depend upon clinical course. No history of any previous myocardial infarctions. In fact, patient is getting IV fluids at this time Review of Systems As per the chart Past Medical History Past Medical History: Heart Failure, COPD, GERD/Reflux, Hyperlipidemia, Hypertension, Osteoarthritis (OA), Pneumonia Additional Past Medical History / Comment(s): arthritis, pancreatitis, chronic back and neck pain, pins in right hip History of Any Multi-Drug Resistant Organisms: None Reported Past Surgical History: Hysterectomy Additional Past Surgical History / Comment(s): cataract, to vocal cord cyst removed. Past Anesthesia/Blood Transfusion Reactions: No Reported Reaction Past Psychological History: Anxiety, Depression Smoking Status: Former smoker Past Alcohol Use History: Rare Additional Past Alcohol Use History / Comment(s): The patient was a smoker half a pack of cigarettes per day for 60 years ago quit 6 months ago. Patient does not have home O2. She does have a nebulizer. No CPAP. She is a walker for ambulation. Past Drug Use History: None Reported - Past Family History Father Family Medical History: No Reported History Additional Family Medical History / Comment(s): Father at age 57 from a motor vehicle accident. Brother(s) Additional Family Medical History / Comment(s): The patient has one brother with coronary artery disease. Patient has 2 sisters and one with history of Alzheimer's dementia. One has history of closed head injury. Patient is a total of 6 children. One son from a myocardial infarction with history of seizure, one daughter from pancreatic cancer. Other 4 children have no major medical problems. Mother Family Medical History: Blood Disorder, Cancer, Thyroid Disorder Additional Family Medical History / Comment(s): Mother at age 71 from leukemia. Medications and Allergies Home Medications Medication Instructions Recorded Confirmed Type Multivitamins, Thera [Multivitamin 1 tab PO DAILY@1200 11/07/16 03/12/20 History (formulary)] oxyCODONE HCL [oxyCODONE HCL (IR)] 30 mg PO Q8H 12/31/16 03/12/20 History ALPRAZolam [Xanax] 0.5 mg PO Q12H PRN 06/10/18 03/12/20 History Losartan Potassium 100 mg PO HS 06/10/18 03/12/20 History Mirtazapine [Remeron] 30 mg PO HS 01/13/19 03/12/20 History DULoxetine HCL [Cymbalta] 30 mg PO HS 01/14/19 03/12/20 History DULoxetine HCL [Cymbalta] 60 mg PO DAILY 01/14/19 03/12/20 History Melatonin 5 mg PO HS 01/14/19 03/12/20 History Albuterol Sulfate [Ventolin HFA] 1 - 2 puff INHALATION RT-Q6H PRN 03/12/20 03/12/20 History Diphenox-Atrop 2.5-0.025 mg 1 tab PO BID 03/12/20 03/12/20 History [Lomotil] Metoprolol Tartrate [Lopressor] 25 mg PO BID 03/12/20 03/12/20 History Naloxone HCl [Narcan] 4 mg NASAL ONCE PRN 03/12/20 03/12/20 History Ondansetron [Zofran] 4 mg PO TID 03/12/20 03/12/20 History Promethazine HCl 12.5 mg PO DAILY PRN 03/12/20 03/12/20 History Allergies Allergy/AdvReac Type Severity Reaction Status Date / Time amoxicillin trihydrate Allergy Unknown Verified 03/12/20 00:00 [From Augmentin] cephalexin monohydrate Allergy Swelling Verified 03/12/20 00:00 [From Keflex] meperidine HCl [From Demerol] Allergy Unknown Verified 03/12/20 00:00 potassium clavulanate Allergy Unknown Verified 03/12/20 00:00 [From Augmentin] Sulfa (Sulfonamide Allergy Unknown Verified 03/12/20 00:00 Antibiotics) NSAIDS (Non-Steroidal AdvReac Severe Nausea & Verified 03/12/20 00:00 Anti-Inflamma Vomiting Physical Exam Vitals: Vital Signs Temp Pulse Resp BP Pulse Ox 03/12/20 11:25 77 03/12/20 10:00 110 H 22 154/71 98 03/12/20 09:30 102 H 26 H 124/73 97 03/12/20 09:00 101 H 25 H 136/87 03/12/20 08:30 106 H 34 H 140/69 96 03/12/20 08:00 99.4 F 108 H 29 H 150/85 94 L 03/12/20 07:37 109 H 03/12/20 07:20 111 H 03/12/20 07:00 110 H 24 127/88 94 L 03/12/20 06:30 105 H 19 130/68 96 03/12/20 06:00 115 H 26 H 143/62 97 03/12/20 05:30 108 H 24 137/77 97 03/12/20 05:00 109 H 25 H 151/66 96 03/12/20 04:30 109 H 24 142/84 94 L 03/12/20 04:00 98.1 F 113 H 25 H 167/84 96 03/12/20 03:30 112 H 23 154/105 95 03/12/20 03:00 120 H 26 H 143/86 95 03/12/20 02:30 99.1 F 122 H 27 H 142/70 96 03/12/20 01:30 100.9 F H 120 H 27 H 142/78 94 L 03/12/20 01:11 121 H 19 162/85 92 L 03/12/20 00:44 118 H 03/12/20 00:27 112 H 40 H 03/11/20 23:55 101 F H 117 H 28 H 193/90 90 L Intake and Output 03/11/20 03/12/20 03/12/20 22:59 06:59 14:59 Intake Total 300 300 Output Total 530 240 Balance -230 60 Intake: IV 300 300 Levofloxacin 750Mg-D5w 150 Pmx 750 mg In Dextrose/ Water 1 150ml.bag @ 100 mls/hr IVPB ONCE STA Rx#: [id number] Sodium Chloride 0.9% 1, 150 300 000 ml @ 75 mls/hr IV . [id number] [facility] Rx#:[id number] Output: Urine 530 240 Other: Voiding Method Indwelling Catheter Indwelling Catheter Weight 49.895 kg GENERAL EXAM: Patient is alert and oriented and doesn't appear to be in any acute distress. Patient was not physically examined because of suspicious for coronary. According nurses. The lungs appeared to be showing mild wheezing. Heart is regular. No edema HE Results 03/12/20 00:12 03/12/20 03:51 Cardiac Enzymes 03/12/20 03/12/20 Range/Units 00:12 00:12 AST 58 H (14-36) U/L Lactate Dehydrogenase 821 H (313-618) U/L Troponin I <0.012 (0.000-0.034) ng/mL Coagulation 03/12/20 Range/Units 00:12 PT 9.8 (9.0-12.0) sec APTT 25.5 (22.0-30.0) sec CBC 03/12/20 Range/Units 00:12 WBC 23.3 H (3.8-10.6) k/uL RBC 4.79 (3.80-5.40) m/uL Hgb 14.2 (11.4-16.0) gm/dL Hct 42.8 (34.0-46.0) % Plt Count 430 (150-450) k/uL Comprehensive Metabolic Panel 03/12/20 03/12/20 Range/Units 00:12 03:51 Sodium 120 L 119 L* (137-145) mmol/L Potassium 4.5 4.1 (3.5-5.1) mmol/L Chloride 85 L 83 L (98-107) mmol/L Carbon Dioxide 22 24 (22-30) mmol/L BUN 12 11 (7-17) mg/dL Creatinine 0.46 L 0.47 L (0.52-1.04) mg/dL Glucose 151 H 167 H (74-99) mg/dL Calcium 9.6 9.3 (8.4-10.2) mg/dL AST 58 H (14-36) U/L ALT 24 (4-34) U/L Alkaline Phosphatase 128 H (38-126) U/L Total Protein 7.7 (6.3-8.2) g/dL Albumin 4.9 (3.5-5.0) g/dL Current Medications Generic Name Dose Route Start Last Admin Trade Name Freq PRN Reason Stop Dose Admin Albuterol Sulfate 2.5 mg 03/12/20 08:00 03/12/20 11:23 Ventolin Nebulized INHALATION 2.5 mg RT-QID JENNIFER Administration Albuterol/Ipratropium 3 ml 03/12/20 00:42 Duoneb 0.5 Mg-3 Mg/3 Ml Soln INHALATION RT-Q4H PRN shortness of breath Alprazolam 0.5 mg 03/12/20 08:57 03/12/20 09:58 Xanax PO 0.5 mg BID PRN Administration Agitation or Acute Anxiety Budesonide 1 mg 03/12/20 08:00 03/12/20 07:22 Pulmicort INHALATION 1 mg RT-BID JENNIFER Administration Duloxetine HCl 60 mg 03/12/20 09:00 03/12/20 09:17 Cymbalta PO 60 mg DAILY JENNIFER Administration Duloxetine HCl 30 mg 03/12/20 21:00 Cymbalta PO HS JENNIFER Enoxaparin Sodium 40 mg 03/12/20 09:00 03/12/20 09:17 Lovenox SQ 40 mg DAILY JENNIFER Administration Levofloxacin 750 mg/ IV 150 mls @ 100 mls/hr 03/13/20 01:00 Solution IVPB Q24H JENNIFER Sodium Chloride 1,000 mls @ 75 mls/hr 03/12/20 04:45 03/12/20 04:55 Saline 0.9% IV 75 mls/hr .[id number] JENNIFER Administration Magnesium Sulfate/Dextrose 1 100 mls @ 100 mls/hr 03/12/20 10:15 03/12/20 11:49 gm/ IV Solution IVPB 03/12/20 12:14 100 mls/hr Q1H JENNIFER Administration Insulin Aspart 0 unit 03/12/20 12:30 03/12/20 11:59 Novolog SQ 3 unit ACHS JENNIFER Administration Protocol Lorazepam 1 mg 03/12/20 00:56 Ativan IV Q4HR PRN Anxiety Losartan Potassium 100 mg 03/12/20 22:00 Cozaar PO Q24H JENNIFER Methylprednisolone Sodium Succinate 60 mg 03/12/20 06:00 03/12/20 11:59 Solu-Medrol IV 60 mg Q6HR JENNIFER Administration Metoprolol Tartrate 25 mg 03/12/20 09:00 03/12/20 09:18 Lopressor PO 25 mg Q8HR JENNIFER Administration Mirtazapine 30 mg 03/12/20 21:00 Remeron PO HS JENNIFER Miscellaneous Information 1 each 03/12/20 00:42 Pneumonia Protocol Utilized PO ONCE PRN Per Protocol Miscellaneous Information 1 each 03/12/20 08:34 Rx Info: Iv Contrast Was Given MISCELLANE 03/14/20 08:35 DAILY PRN Per Protocol Multivitamins 1 each 03/12/20 09:00 03/12/20 09:17 Theragran PO 1 each DAILY JENNIFER Administration Naloxone HCl 0.2 mg 03/12/20 01:22 Narcan IV Q2M PRN Opioid Reversal Ondansetron HCl 4 mg 03/12/20 09:35 03/12/20 09:59 Zofran IVP 4 mg Q6HR PRN Administration Nausea And Vomiting Oxycodone HCl 30 mg 03/12/20 09:00 03/12/20 09:18 Oxyir PO 30 mg Q8HR JENNIFER Administration Intake and Output 03/11/20 03/12/20 03/12/20 22:59 06:59 14:59 Intake Total 300 300 Output Total 530 240 Balance -230 60 Intake: IV 300 300 Levofloxacin 750Mg-D5w 150 Pmx 750 mg In Dextrose/ Water 1 150ml.bag @ 100 mls/hr IVPB ONCE STA Rx#: [id number] Sodium Chloride 0.9% 1, 150 300 000 ml @ 75 mls/hr IV . [id number] [facility] Rx#:[id number] Output: Urine 530 240 Other: Voiding Method Indwelling Catheter Indwelling Catheter Weight 49.895 kg 03/12/20 00:12 03/12/20 03:51 EKG Interpretations (text) Sinus rhythm and sinus tachycardia Assessment and Plan (1) Acute exacerbation of chronic obstructive pulmonary disease Current Visit: Yes Status: Acute Code(s): J44.1 - CHRONIC OBSTRUCTIVE PULM ONARY DISEASE W (ACUTE) EXACERBATION SNOMED Code(s): 466971536 (2) Community acquired pneumonia Current Visit: Yes Status: Acute Code(s): J18.9 - PNEUMONIA, UNSPECIFIED ORGANISM SNOMED Code(s): 942971652 (3) Fever Current Visit: Yes Status: Acute Code(s): R50.9 - FEVER, UNSPECIFIED SNOMED Code(s): 994204891 (4) Hypoxia Current Visit: Yes Status: Acute Code(s): R09.02 - HYPOXEMIA SNOMED Code(s): 885013354 Plan: No evidence of active CHF at this time. Appears somewhat and pneumonia. Continue current medical therapy. Waiting for a covid testing. May need a computed tomography scan of the chest to evaluate pulmonary nodule. We'll also get an echocardiogram
--- NOTE | 2020-03-12 12:19 | P.CNPUL ---
History of Present Illness Consult date: 03/12/20 Reason for consult: dyspnea, COPD, pneumonia History of present illness: 84-year-old female patient, known history of COPD w, came into the intensive because of worsening shortness of breath. The patient had increased dyspnea, chest tightness and wheeze. She came into the ED for worsening shortness of breath and she was also found to be desaturating and she was hypoxic. At the same time the patient was noted to have a low sodium level 120.. Chest x-ray showed possibility of a lower lobe pneumonia. The patient was started on antibiotics and the patient was given IV Levaquin. The patient was started on steroids and DuoNeb nebulized treatments around the clock. The patient overnight also required to go on a BiPAP at a pressure of 10/5 cm of water and currently some fleets of oxygen by nasal cannula. She is receiving IV fluids in the form of normal saline at rate of 75 mL an hour. She is using incentive spirometer and she is pulling approximately 500. No nausea. No vomiting. No abdominal pain. No chest pain. The sung virus 19 evaluation still pending for now. Note that the patient had other morbidities history of a dilated common bile duct. Nevertheless, the patient's liver functions of been all within normal limits. The MRCP showed extrahepatic bile duct at upper limits of normal without any intraluminal mass or stricture. Review of Systems Constitutional: Reports anorexia, Reports chronic pain, Reports fatigue, Reports lethargy, Reports weakness, Reports weight loss Eyes: denies blurred vision, denies bulging eye, denies decreased vision Ears: deny: decreased hearing Ears, nose, mouth and throat: Denies dysphagia, Denies neck lump, Denies sore throat Cardiovascular: Reports decreased exercise tolerance, Reports dyspnea on exertion, Reports shortness of breath, Denies chest pain, Denies leg edema, Denies lightheadedness, Denies rapid heart beat Respiratory: Reports respiratory infections, Reports wheezing, Denies congestion, Denies cough, Denies cough with sputum, Denies dyspnea, Denies home oxygen, Denies sleep apnea, Denies snoring Gastrointestinal: Reports abdominal pain, Reports bloating, Reports change in bowel habits, Reports early satiety, Reports indigestion, Reports loss of appetite, Reports nausea, Denies heartburn, Denies hematemesis, Denies hematochezia, Denies melena, Denies vomiting Genitourinary: Reports nocturia, Denies dysuria Menstruation: Reports postmenopausal Musculoskeletal: Reports atrophy, Reports gait dysfunction, Reports low back pain, Reports muscle weakness Musculoskeletal: absent: ankle pain, ankle stiffness, ankle swelling, elbow pain, elbow stiffness, elbow swelling, foot pain, foot stiffness, foot swelling, hand pain, hand stiffness, hand swelling, hip pain, hip stiffness, hip swelling, knee pain, knee stiffness, knee swelling, shoulder pain, shoulder stiffness, shoulder swelling, wrist pain, wrist stiffness, wrist swelling Integumentary: Denies pruritus, Denies rash Neurological: Reports gait dysfunction Psychiatric: Reports anxiety, Reports depression, Reports sleep disturbances, Denies sadness/tearfulness, Denies suicidal ideation Endocrine: Denies fatigue, Denies weight change Past Medical History Past Medical History: COPD, GERD/Reflux, Hyperlipidemia, Hypertension, Osteoarth ritis (OA), Pneumonia Additional Past Medical History / Comment(s): arthritis, history of pancreatitis, chronic back and neck pain, pins in right hip History of Any Multi-Drug Resistant Organisms: None Reported Past Surgical History: Hysterectomy Additional Past Surgical History / Comment(s): cataract, to vocal cord cyst removed. Past Anesthesia/Blood Transfusion Reactions: No Reported Reaction Past Psychological History: Anxiety, Depression Smoking Status: Former smoker Past Alcohol Use History: Rare Additional Past Alcohol Use History / Comment(s): The patient was a smoker half a pack of cigarettes per day for 60 years ago quit 6 months ago. Patient does not have home O2. She does have a nebulizer. No CPAP. She is a walker for ambulation. Past Drug Use History: None Reported - Past Family History Father Family Medical History: No Reported History Additional Family Medical History / Comment(s): Father at age 57 from a motor vehicle accident. Brother(s) Additional Family Medical History / Comment(s): The patient has one brother with coronary artery disease. Patient has 2 sisters and one with history of Alz heimer's dementia. One has history of closed head injury. Patient is a total of 6 children. One son from a myocardial infarction with history of seizure, one daughter from pancreatic cancer. Other 4 children have no major medical problems. Mother Family Medical History: Blood Disorder, Cancer, Thyroid Disorder Additional Family Medical History / Comment(s): Mother at age 71 from leukemia. Medications and Allergies Home Medications Medication Instructions Recorded Confirmed Type Multivitamins, Thera [Multivitamin 1 tab PO DAILY@1200 11/07/16 03/12/20 History (formulary)] oxyCODONE HCL [oxyCODONE HCL (IR)] 30 mg PO Q8H 12/31/16 03/12/20 History ALPRAZolam [Xanax] 0.5 mg PO Q12H PRN 06/10/18 03/12/20 History Losartan Potassium 100 mg PO HS 06/10/18 03/12/20 History Mirtazapine [Remeron] 30 mg PO HS 01/13/19 03/12/20 History DULoxetine HCL [Cymbalta] 30 mg PO HS 01/14/19 03/12/20 History DULoxetine HCL [Cymbalta] 60 mg PO DAILY 01/14/19 03/12/20 History Melatonin 5 mg PO HS 01/14/19 03/12/20 History Albuterol Sulfate [Ventolin HFA] 1 - 2 puff INHALATION RT-Q6H PRN 03/12/20 03/12/20 History Diphenox-Atrop 2.5-0.025 mg 1 tab PO BID 03/12/20 03/12/20 History [Lomotil] Metoprolol Tartrate [Lopressor] 25 mg PO BID 03/12/20 03/12/20 History Naloxone HCl [Narcan] 4 mg NASAL ONCE PRN 03/12/20 03/12/20 History Ondansetron [Zofran] 4 mg PO TID 03/12/20 03/12/20 History Promethazine HCl 12.5 mg PO DAILY PRN 03/12/20 03/12/20 History Allergies Allergy/AdvReac Type Severity Reaction Status Date / Time amoxicillin trihydrate Allergy Unknown Verified 03/12/20 00:00 [From Augmentin] cephalexin monohydrate Allergy Swelling Verified 03/12/20 00:00 [From Keflex] meperidine HCl [From Demerol] Allergy Unknown Verified 03/12/20 00:00 potassium clavulanate Allergy Unknown Verified 03/12/20 00:00 [From Augmentin] Sulfa (Sulfonamide Allergy Unknown Verified 03/12/20 00:00 Antibiotics) NSAIDS (Non-Steroidal AdvReac Severe Nausea & Verified 03/12/20 00:00 Anti-Inflamma Vomiting Physical Exam Vitals: Vital Signs Temp Pulse Resp BP Pulse Ox 03/12/20 11:25 77 03/12/20 10:00 110 H 22 154/71 98 03/12/20 09:30 102 H 26 H 124/73 97 03/12/20 09:00 101 H 25 H 136/87 03/12/20 08:30 106 H 34 H 140/69 96 03/12/20 08:00 99.4 F 108 H 29 H 150/85 94 L 03/12/20 07:37 109 H 03/12/20 07:20 111 H 03/12/20 07:00 110 H 24 127/88 94 L 03/12/20 06:30 105 H 19 130/68 96 03/12/20 06:00 115 H 26 H 143/62 97 03/12/20 05:30 108 H 24 137/77 97 03/12/20 05:00 109 H 25 H 151/66 96 03/12/20 04:30 109 H 24 142/84 94 L 03/12/20 04:00 98.1 F 113 H 25 H 167/84 96 03/12/20 03:30 112 H 23 154/105 95 03/12/20 03:00 120 H 26 H 143/86 95 03/12/20 02:30 99.1 F 122 H 27 H 142/70 96 03/12/20 01:30 100.9 F H 120 H 27 H 142/78 94 L 03/12/20 01:11 121 H 19 162/85 92 L 03/12/20 00:44 118 H 03/12/20 00:27 112 H 40 H 03/11/20 23:55 101 F H 117 H 28 H 193/90 90 L Intake and Output 03/11/20 03/12/20 03/12/20 22:59 06:59 14:59 Intake Total 300 300 Output Total 530 240 Balance -230 60 Intake: IV 300 300 Levofloxacin 750Mg-D5w 150 Pmx 750 mg In Dextrose/ Water 1 150ml.bag @ 100 mls/hr IVPB ONCE STA Rx#: [id number] Sodium Chloride 0.9% 1, 150 300 000 ml @ 75 mls/hr IV . [id number] [facility] Rx#:[id number] Output: Urine 530 240 Other: Voiding Method Indwelling Catheter Indwelling Catheter Weight 49.895 kg Gen. appearance, comfortable likely distress Head exam was generally normal. There was no scleral icterus or corneal arcus. Mucous membranes were moist. Neck was supple and without jugular venous distension, thyromegaly, or carotid bruits. Carotids were easily palpable bilaterally. There was no adenopathy. Lungs sounds are diminished and the patient scheduled extremity wheezes throughout the lung dickey bilaterally and there is also prolongation of the exhalation phase of breathing. Cardiac exam revealed the PMI to be normally situated and sized. The rhythm was regular and no extrasystoles were noted during several minutes of auscultation. The first and second heart sounds were normal and physiologic splitting of the second heart sound was noted. There were no murmurs, rubs, clicks, or gallops. Abdominal exam revealed normal bowel sounds. The abdomen was soft, non-tender, and without masses, organomegaly, or appreciable enlargement of the abdominal aorta. Examination of the extremities revealed easily palpable radial, femoral and pedal pulses. There was no cyanosis, clubbing or edema. Examination of the skin revealed no evidence of significant rashes, suspicious appearing nevi or other concerning lesions. Results - Laboratory Findings CBC and BMP: 03/12/20 00:12 03/12/20 03:51 PT/INR, D-dimer PT 9.8 sec (9.0-12.0) 03/12/20 00:12 INR 0.9 (<1.2) 03/12/20 00:12 Abnormal lab findings: Abnormal Labs 03/12/20 03/12/20 03/12/20 00:12 00:12 00:12 WBC 23.3 H Neutrophils # 20.1 H Sodium 120 L Chloride 85 L Creatinine 0.46 L Glucose 151 H POC Glucose (mg/dL) Osmolality Plasma Lactic Acid Librado 2.3 H* AST 58 H Alkaline Phosphatase 128 H Lactate Dehydrogenase 821 H Creatine Kinase 494 H Urine Protein Urine Glucose (UA) Urine Blood Ur Leukocyte Esterase Urine Mucus 03/12/20 03/12/20 03/12/20 02:39 03:27 03:51 WBC Neutrophils # Sodium 119 L* Chloride 83 L Creatinine 0.47 L Glucose 167 H POC Glucose (mg/dL) 174 H Osmolality Plasma Lactic Acid Librado AST Alkaline Phosphatase Lactate Dehydrogenase Creatine Kinase Urine Protein 1+ H Urine Glucose (UA) Trace H Urine Blood Trace H Ur Leukocyte Esterase Trace H Urine Mucus Rare H 03/12/20 03/12/20 03:51 11:54 WBC Neutrophils # Sodium Chloride Creatinine Glucose POC Glucose (mg/dL) 161 H Osmolality 249 L* Plasma Lactic Acid Librado AST Alkaline Phosphatase Lactate Dehydrogenase Creatine Kinase Urine Protein Urine Glucose (UA) Urine Blood Ur Leukocyte Esterase Urine Mucus - Diagnostic Findings Chest x-ray: image reviewed Assessment and Plan Plan: 1 acute COPD exacerbation with secondary shortness of breath. The patient was quite hypoxic and short of breath at time of admission and the patient was supported with a BiPAP currently on 3 L of oxygen by nasal cannula on the BiPAP has been discontinued. Current and accommodation bronchodilators steroids and antibiotics. 2 bilateral lower lobe pneumonia 3 acute hypoxic respiratory failure secondary to above 4 acute leukocytosis secondary to above 5 mild leukocytosis and lactic acidosis, improving 6 hyponatremia, possible acute, possibly to hypovolemia 7 hypertension 8 chronic anxiety/depression 9 chronic back pain and degenerative arthritis and the patient limited on oxyco done on outpatient basis for pain management Plan Monitor sodium level and repeat the levels every 4 hours Continue normal saline at the rate of 75 mL an hour IV Levaquin DuoNeb neb last treatment [id number] IV Solu Medrol 60 mg every 6 hours We will do a CAT scan of the chest as prior CAT scan that was done approximately year ago shown some abnormalities including some nonspecific pulmonary nodules and mediastinal lymph nodes. This will be done once the patient's sodium is corrected and the patient is less short of breath We'll keep the patient ICU and monitored for another 24 hours and will continue to follow.
[2020-03-12 16:50] LABS: Glucose,Whole Blood 160 mg/dL (75-99)
[2020-03-12 17:00] LABS: Potassium 4.7 mmol/L (3.5-5.1)
[2020-03-12] MEDS: SODIUM CHLORIDE 3%(HYPERTONIC) 500 ML IV SCH (18:29)
[2020-03-12] MEDS ORDERED: HALOPERIDOL LACTATE 5 MG/ML 1 ML VIAL IVP PRN (19:04)
[2020-03-12 20:08] LABS: Glucose,Whole Blood 92 mg/dL (75-99)
[2020-03-12] MEDS: DULoxetine HCL 30 MG CAPSULE.DR PO SCH (20:16)
[2020-03-12] MEDS: MIRTAZAPINE 15 MG TAB PO SCH (20:16)
[2020-03-12] MEDS: LOSARTAN 50 MG TAB PO SCH (21:11)
[2020-03-13] MEDS ORDERED: AZITHROMYCIN 500 MG TAB PO SCH (00:43)
[2020-03-13] MEDS: LEVOFLOXACIN 750MG-D5W PMX 750 MG in DEXTROSE/WATER 1 150ML.BAG IVPB SCH ×2 (00:53→23:55)
[2020-03-13] MEDS: ALPRAZolam 0.5 MG TAB PO PRN ×2 (02:21→13:34)
[2020-03-13 02:55] LABS: Basophils % (A) 0 %; Eosinophils # (A) 0.1 k/uL (0-0.7); Eosinophils % (A) 0 %; HCT 35.8 % (34.0-46.0); HGB 11.6 gm/dL (11.4-16.0); Lymphocytes # (A) 0.8 k/uL (1.0-4.8); Lymphocytes % (A) 5 %; MCH 29.3 pg (25.0-35.0); MCHC 32.4 g/dL (31.0-37.0); MCV 90.6 fL (80.0-100.0); Mean Platelet Volume 6.8; Monocytes # (A) 0.5 k/uL (0-1.0); Monocytes % (A) 3 %; Neutrophils # (A) 13.7 k/uL (1.3-7.7); Neutrophils % (A) 91 %; Platelet Count 350 k/uL (150-450); RBC 3.95 m/uL (3.80-5.40); RDW 14.9 % (11.5-15.5); WBC 15.1 k/uL (3.8-10.6)
[2020-03-13 03:05] LABS: African American GFR (CKD) >90 (>60 ml/min/1.73 sqM); Anion Gap 7 mmol/L; Blood Urea Nitrogen 17 mg/dL (7-17); Calcium 9.1 mg/dL (8.4-10.2); Carbon Dioxide 24 mmol/L (22-30); Chloride 93 mmol/L (98-107); Glucose 112 mg/dL (74-99); Magnesium 2.4 mg/dL (1.6-2.3); Non-African American GFR(CKD) 89 (>60 ml/min/1.73 sqM); Phosphorus 3.4 mg/dL (2.5-4.5); Potassium 4.6 mmol/L (3.5-5.1); Sodium 124 mmol/L (137-145)
[2020-03-13] MEDS: methylPREDNISolone SOD SUCCI 125 MG/2 ML VIAL IV SCH ×4 (05:44→23:51)
[2020-03-13 06:02] LABS: Mycoplasma IgG Antibody (EIA) 3.31 INDEX (<=0.90); Mycoplasma IgM Antibody 0.14 INDEX (<=0.90)
[2020-03-13 06:48] LABS: Glucose,Whole Blood 111 mg/dL (75-99)
[2020-03-13] MEDS: INSULIN ASPART (NovoLOG) 100 UNIT/ML VIAL SQ SCH ×4 (06:49→22:01)
[2020-03-13] MEDS: IPRATROPIUM-ALBUTEROL 3 ML NEB INHALATION PRN ×2 (06:57→18:44)
[2020-03-13] MEDS: ALBUTEROL NEBULIZED 2.5 MG/3 ML INHALATION SCH ×4 (06:57→18:48)
[2020-03-13] MEDS: BUDESONIDE 1 MG/2 ML NEBU INHALATION SCH ×2 (06:59→18:44)
--- NOTE | 2020-03-13 07:06 | XR ---
EXAMINATION TYPE: XR chest 1V DATE OF EXAM: 03/13/2020 HISTORY: Shortness of breath. COMPARISON: 03/12/2020 TECHNIQUE: Single view of the chest is submitted. FINDINGS: Demonstrated are scattered senescent parenchymal change. There is no evidence for focal infiltrate. The heart is stable. Hilar and mediastinal structures are within normal limits. Degenerative changes are seen of the dorsal spine. IMPRESSION: 1. Chronic changes without evidence for acute pulmonary disease.
[2020-03-13] MEDS: METOPROLOL TARTRATE 25 MG TAB PO SCH ×3 (08:46→23:51)
[2020-03-13] MEDS: MULTIVITAMINS, THERA 1 EACH TAB PO SCH (08:46)
[2020-03-13] MEDS: DULoxetine HCL 60 MG CAPSULE.DR PO SCH (08:47)
[2020-03-13] MEDS: ENOXAPARIN 40 MG/0.4 ML SYRINGE SQ SCH (08:47)
[2020-03-13] MEDS: SODIUM CHLORIDE 0.9% 1,000 ML IV SCH (08:48)
--- NOTE | 2020-03-13 10:36 | CT ---
EXAMINATION TYPE: CT brain wo con DATE OF EXAM: 03/13/2020 COMPARISON: 05/03/2013 INDICATION: Altered mental status DLP: 1100.4 mGycm, Automated exposure control for dose reduction was used. CONTRAST: None CT of the brain is performed utilizing 3 mm thick sections through the posterior fossa and 3 mm thick sections through the remaining calvarium. Study is performed within 24 hours of arrival to the hosp [facility]. No abnormal hyperdensity is present to suggest an acute intracranial hemorrhage. No mass lesion is evident. No acute infarcts are evident. Mild periventricular white matter ischemic type changes are present. Ventricles and sulci are appropriate for the patient age. Paranasal sinuses and mastoid air cells within the [id number] are clear. IMPRESSIONS: 1. Chronic appearing periventricular white matter ischemic changes.
[2020-03-13] MEDS: SODIUM CHLORIDE 3%(HYPERTONIC) 500 ML IV SCH (10:45)
--- NOTE | 2020-03-13 10:52 | CT ---
EXAMINATION TYPE: CT chest wo con DATE OF EXAM: 03/13/2020 COMPARISON: 01/13/2019 HISTORY: History of mass CT DLP: 253.7 mGycm, Automated exposure control for dose reduction was used. CONTRAST: Performed injected with 0 mL of Isovue 300. TECHNIQUE: Axial images were obtained at 5 mm thick sections. Reconstructed images are reviewed on [facility] computer in the coronal plane. FINDINGS: Portion of the thyroid visualized is normal. Appears to be some debris-filled esophagus in the left neck. Findings were present in 2019 without pr ogression. There is a 1.1 x 0.7 cm nodule posterior right apex. Image 6 This may be somewhat smaller than compar elena. There is an area adjacent to the major fissure which is an interval development. Example image 16. Tiny nodules are within the posterior lungs adjacent to the pleural margin. Image 22 these are new. M easures 0.5 on the left and 0.6 on the right. There is a 1.2 cm area of pneumonitis within the lateral right lung base. This is developing. Image 3 7 Streak opacity is in the posterior right lung base. This appears to been present previously. Debris or a mass densities within the right main bronchus, image 25. This is new. No enlarged mediastinal or hilar adenopathy is evident. There are small shotty lymph nodes within [facility] mediastinum. The ascending aorta diameter at the level of the main pulmonary artery is 3.4 cm. Th e main pulmonary artery diameter at the bifurcation is 2.[address] sections are obtained through the upper abdomen. Abdomen is essentially unremarkable. IMPRESSIONS: 1. Scattered developing density within the bilateral lung dickey discussed above. The largest is a po sterior nodule right apex measuring 1.1 x 0.7 cm and an area of pneumonitis about 1.2 cm in the later al right lung.
[2020-03-13 11:22] LABS: Glucose,Whole Blood 141 mg/dL (75-99)
--- NOTE | 2020-03-13 11:33 | P.PN ---
Subjective Progress Note Date: 03/13/20 This is a 84-year-old female was admitted to the hospital with cough and fever and diagnosed to have pneumonia. Patient is treated with antibiotics with improvement of her symptoms. Patient claims that she has problems swallowing and might have aspirated. Mycoplasma is positive. Could is negative. Patient had a computed tomography scan of the chest that showed some nodular lesions. Brain scan showed chronic ischemic changes. Overall patient seemed to be doing well. Findings are not consistent with CHF. We'll follow her as needed Objective - Vital Signs Vital signs: Vital Signs Temp 97.9 F 03/13/20 08:00 Pulse 85 03/13/20 11:00 Resp 11 L 03/13/20 11:00 BP 136/63 03/13/20 11:00 Pulse Ox 95 03/13/20 08:00 Intake & Output 03/12/20 03/13/20 03/13/20 18:59 06:59 18:59 Intake Total 900 480 100 Output Total 690 1039 84 Balance 210 -559 16 Weight 51.7 kg Intake: IV 900 300 Levofloxacin 750Mg-D5w 150 Pmx 750 mg In Dextrose/ Water 1 150ml.bag @ 100 mls/hr IVPB ONCE STA Rx#: [id number] Sodium Chloride 0.9% 1, 900 000 ml @ 75 mls/hr IV . [id number] [facility] Rx#:[id number] Sodium Chloride 3%( 150 Hypertonic) 500 ml @ 30 mls/hr IV .[id number] [facility] Rx #:[id number] Intake, IV Titration 30 100 Amount Sodium Chloride 0.9% 1, 100 000 ml @ 50 mls/hr IV . Q20H [facility] Rx#:[id number] Sodium Chloride 3%( 30 Hypertonic) 500 ml @ 30 mls/hr IV .[id number] [facility] Rx #:[id number] Oral 150 Output: Urine 690 1039 84 Other: Voiding Method Indwelling Catheter Indwelling Catheter Indwelling Catheter - Exam GENERAL EXAM: Patient is alert and oriented and doesn't appear to be in any acute distress HEENT: Normocephalic. Normal reaction of pupils, equal size, normal range of extraocular motion. No erythema or exudates in the throat. NECK: No masses, no nuchal rigidity. CHEST: No chest wall deformity. LUNGS: Diminished breath sounds at bases HEART: S1 and S2 normal with no audible mumurs or gallops. Regular rhythm, femorals equal on both sides.. ABDOMEN: No hepatosplenomegaly, normal bowel sounds, no guarding or rigidity. SKIN: No rashes CENTRAL NERVOUS SYSTEM: No focal deficits. EXTREMITIES: No cyanosis, clubbing or edema. - Labs CBC & Chem 7: 03/13/20 02:40 03/13/20 10:22 Labs: Abnormal Lab Results - Last 24 Hours (Table) 03/12/20 03/12/20 03/12/20 Range/Units 03:51 11:54 16:33 WBC (3.8-10.6) k/uL Neutrophils # (1.3-7.7) k/uL Lymphocytes # (1.0-4.8) k/uL Sodium 120 L (137-145) mmol/L Chloride 85 L (98-107) mmol/L Creatinine (0.52-1.04) mg/dL Glucose (74-99) mg/dL POC Glucose (mg/dL) 161 H (75-99) mg/dL Magnesium (1.6-2.3) mg/dL Mycoplasma pneumon IgG 3.31 H (<=0.90) INDEX 03/12/20 03/12/20 03/13/20 Range/Units 16:48 22:21 02:30 WBC (3.8-10.6) k/uL Neutrophils # (1.3-7.7) k/uL Lymphocytes # (1.0-4.8) k/uL Sodium 124 L 124 L (137-145) mmol/L Chloride 93 L (98-107) mmol/L Creatinine 0.51 L (0.52-1.04) mg/dL Glucose 112 H (74-99) mg/dL POC Glucose (mg/dL) 160 H (75-99) mg/dL Magnesium 2.4 H (1.6-2.3) mg/dL Mycoplasma pneumon IgG (<=0.90) INDEX 03/13/20 03/13/20 03/13/20 Range/Units 02:40 06:43 06:46 WBC 15.1 H (3.8-10.6) k/uL Neutrophils # 13.7 H (1.3-7.7) k/uL Lymphocytes # 0.8 L (1.0-4.8) k/uL Sodium 126 L (137-145) mmol/L Chloride (98-107) mmol/L Creatinine (0.52-1.04) mg/dL Glucose (74-99) mg/dL POC Glucose (mg/dL) 111 H (75-99) mg/dL Magnesium (1.6-2.3) mg/dL Mycoplasma pneumon IgG (<=0.90) INDEX 03/13/20 03/13/20 Range/Units 10:22 11:21 WBC (3.8-10.6) k/uL Neutrophils # (1.3-7.7) k/uL Lymphocytes # (1.0-4.8) k/uL Sodium 125 L (137-145) mmol/L Chloride (98-107) mmol/L Creatinine (0.52-1.04) mg/dL Glucose (74-99) mg/dL POC Glucose (mg/dL) 141 H (75-99) mg/dL Magnesium (1.6-2.3) mg/dL Mycoplasma pneumon IgG (<=0.90) INDEX Microbiology - Last 24 Hours (Table) 03/12/20 13:46 Gram Stain - Preliminary Sputum Sputum Culture - Preliminary 03/12/20 00:12 Blood Culture - Preliminary Blood No Growth after 24 hours Assessment and Plan (1) Acute exacerbation of chronic obstructive pulmonary disease Current Visit: Yes Status: Acute Code(s): J44.1 - CHRONIC OBSTRUCTIVE PULMONARY DISEASE W (ACUTE) EXACERBATION SNOMED Code(s): 045506334 (2) Community acquired pneumonia Current Visit: Yes Status: Acute Code(s): J18.9 - PNEUMONIA, UNSPECIFIED ORGANISM SNOMED Code(s): 949067110 (3) Fever Current Visit: Yes Status: Acute Code(s): R50.9 - FEVER, UNSPECIFIED SNOMED Code(s): 701385954 (4) Hypoxia Current Visit: Yes Status: Acute Code(s): R09.02 - HYPOXEMIA SNOMED Code(s): 095762811 Plan: Patient is being treated for pneumonia. Could be aspiration or Mycoplasma pneumonia. Computed tomography scan showed some nodules. This will be addressed by immunologist. We'll get an echocardiogram
--- NOTE | 2020-03-13 12:02 | P.PN ---
Subjective Progress Note Date: 03/13/20 84-year-old female patient, known history of COPD w, came into the intensive because of worsening shortness of breath. The patient had increased dyspnea, chest tightness and wheeze. She came into the ED for worsening shortness of breath and she was also found to be desaturating and she was hypoxic. At the same time the patient was noted to have a low sodium level 120.. Chest x-ray showed possibility of a lower lobe pneumonia. The patient was started on antibiotics and the patient was given IV Levaquin. The patient was started on steroids and DuoNeb nebulized treatments around the clock. The patient overnight also required to go on a BiPAP at a pressure of 10/5 cm of water and currently some fleets of oxygen by nasal cannula. She is receiving IV fluids in the form of normal saline at rate of 75 mL an hour. She is using incentive spirometer and she is pulling approximately 500. No nausea. No vomiting. No abdominal pain. No chest pain. The sung virus 19 evaluation still pending for now. Note that the patient had other morbidities history of a dilated common bile duct. Nevertheless, the patient's liver functions of been all within normal limits. The MRCP showed extrahepatic bile duct at upper limits of normal without any intraluminal mass or stricture. 03/13/2020, the patient is calm and comfortable. Overnight the patient became quite confused and restless and she was having episodes of hallucination. She was given Haldol. Subsequently, based on ongoing hyponatremia, she was started on 3% saline solution and sodium level gradually improved and is currently up to 126. I stopped his saline/hypertonic saline solution at around midnight. She is currently receiving normal state rate of 50 mL an hour. The nurses were quite concerned about aspiration. Her swallow did not seem to be right. The patient has had previous swallow evaluation back in 2019 and she had evidence of aspiration penetration. As such aspiration pneumonia suspected. Meanwhile, the repeat chest x-ray from today shows adequate expansion of both lungs without any evidence of pulmonary infiltration. The patient is alert and oriented 2 at this point in time. Sodium level is up to 126. Pro-calcitonin level was low at 0.06. She remains on broad-spectrum antibiotics. No agitation. No other significant events overnight. Objective - Vital Signs Vital signs: Vital Signs Temp 97.9 F 03/13/20 08:00 Pulse 85 03/13/20 11:00 Resp 11 L 03/13/20 11:00 BP 136/63 03/13/20 11:00 Pulse Ox 95 03/13/20 08:00 Intake & Output 03/12/20 03/13/20 03/13/20 18:59 06:59 18:59 Intake Total 900 480 100 Output Total 690 1039 84 Balance 210 -559 16 Weight 51.7 kg Intake: IV 900 300 Levofloxacin 750Mg-D5w 150 Pmx 750 mg In Dextrose/ Water 1 150ml.bag @ 100 mls/hr IVPB ONCE STA Rx#: [id number] Sodium Chloride 0.9% 1, 900 000 ml @ 75 mls/hr IV . [id number] [facility] Rx#:[id number] Sodium Chloride 3%( 150 Hypertonic) 500 ml @ 30 mls/hr IV .[id number] [facility] Rx #:[id number] Intake, IV Titration 30 100 Amount Sodium Chloride 0.9% 1, 100 000 ml @ 50 mls/hr IV . Q20H [facility] Rx#:[id number] Sodium Chloride 3%( 30 Hypertonic) 500 ml @ 30 mls/hr IV .[id number] [facility] Rx #:[id number] Oral 150 Output: Urine 690 1039 84 Other: Voiding Method Indwelling Catheter Indwelling Catheter Indwelling Catheter - Exam Gen. appearance, comfortable likely distress Head exam was generally normal. There was no scleral icterus or corneal arcus. Mucous membranes were moist. Neck was supple and without jugular venous distension, thyromegaly, or carotid bruits. Carotids were easily palpable bilaterally. There was no adenopathy. Lungs sounds are diminished and the patient scheduled extremity wheezes th roughout the lung dickey bilaterally and there is also prolongation of the exhalation phase of breathing. Cardiac exam revealed the PMI to be normally situated and sized. The rhythm was regular and no extrasystoles were noted during several minutes of auscultation. The first and second heart sounds were normal and physiologic splitting of the second heart sound was noted. There were no murmurs, rubs, clicks, or gallops. Abdominal exam revealed normal bowel sounds. The abdomen was soft, non-tender, and without masses, organomegaly, or appreciable enlargement of the abdominal aorta. Examination of the extremities revealed easily palpable radial, femoral and pedal pulses. There was no cyanosis, clubbing or edema. Examination of the skin revealed no evidence of significant rashes, suspicious a ppearing nevi or other concerning lesions. - Labs CBC & Chem 7: 03/13/20 02:40 03/13/20 10:22 Labs: Abnormal Lab Results - Last 24 Hours (Table) 03/12/20 03/12/20 03/12/20 Range/Units 03:51 11:54 16:33 WBC (3.8-10.6) k/uL Neutrophils # (1.3-7.7) k/uL Lymphocytes # (1.0-4.8) k/uL Sodium 120 L (137-145) mmol/L Chloride 85 L (98-107) mmol/L Creatinine (0.52-1.04) mg/dL Glucose (74-99) mg/dL POC Glucose (mg/dL) 161 H (75-99) mg/dL Magnesium (1.6-2.3) mg/dL Mycoplasma pneumon IgG 3.31 H (<=0.90) INDEX 03/12/20 03/12/20 03/13/20 Range/Units 16:48 22:21 02:30 WBC (3.8-10.6) k/uL Neutrophils # (1.3-7.7) k/uL Lymphocytes # (1.0-4.8) k/uL Sodium 124 L 124 L (137-145) mmol/L Chloride 93 L (98-107) mmol/L Creatinine 0.51 L (0.52-1.04) mg/dL Glucose 112 H (74-99) mg/dL POC Glucose (mg/dL) 160 H (75-99) mg/dL Magnesium 2.4 H (1.6-2.3) mg/dL Mycoplasma pneumon IgG (<=0.90) INDEX 03/13/20 03/13/20 03/13/20 Range/Units 02:40 06:43 06:46 WBC 15.1 H (3.8-10.6) k/uL Neutrophils # 13.7 H (1.3-7.7) k/uL Lymphocytes # 0.8 L (1.0-4.8) k/uL Sodium 126 L (137-145) mmol/L Chloride (98-107) mmol/L Creatinine (0.52-1.04) mg/dL Glucose (74-99) mg/dL POC Glucose (mg/dL) 111 H (75-99) mg/dL Magnesium (1.6-2.3) mg/dL Mycoplasma pneumon IgG (<=0.90) INDEX 03/13/20 03/13/20 Range/Units 10:22 11:21 WBC (3.8-10.6) k/uL Neutrophils # (1.3-7.7) k/uL Lymphocytes # (1.0-4.8) k/uL Sodium 125 L (137-145) mmol/L Chloride (98-107) mmol/L Creatinine (0.52-1.04) mg/dL Glucose (74-99) mg/dL POC Glucose (mg/dL) 141 H (75-99) mg/dL Magnesium (1.6-2.3) mg/dL Mycoplasma pneumon IgG (<=0.90) INDEX Microbiology - Last 24 Hours (Table) 03/12/20 13:46 Gram Stain - Preliminary Sputum Sputum Culture - Preliminary 03/12/20 00:12 Blood Culture - Preliminary Blood No Growth after 24 hours Assessment and Plan Plan: 1 acute COPD exacerbation with secondary shortness of breath. The chest x-ray today shows clearing of the right lower lobe pulmonary infiltrate. The patient still bronchospastic and wheezy and she is still being treated for an acute COPD exacerbation. CAT scan of the chest to follow. The coronavirus Covid 19 evaluation came back negative. 2 bilateral lower lobe pneumonia, recovered, consider aspiration and a swallow evaluation is to follow 3 acute hypoxic respiratory failure secondary to above 4 acute leukocytosis secondary to above, improving 5 mild leukocytosis and lactic acidosis, improving 6 hyponatremia, possible acute, possibly to hypovolemia, improving and the sodium level is up to 126 7 hypertension 8 chronic anxiety/depression 9 chronic back pain and degenerative arthritis and the patient limited on oxycodone on outpatient basis for pain management 10 altered mentation/delirium. Consider secondary to electric imbalance and the patient was briefly given hypertonic sitting solution yesterday. Sodium level is up 126. Consider the possibility of alcohol withdrawal. Plan Monitor sodium level and repeat the levels every 4 hours Continue normal saline at the rate of 50mL an hour Swallow evaluation IV Levaquin DuoNeb neb last treatment [id number] IV Solu Medrol 60 mg every 6 hours We will do a CAT scan of the chest as prior CAT scan that was done approximately year ago shown some abnormalities including some nonspecific pulmonary nodules and mediastinal lymph nodes. We will also had a CAT scan of the brain based on her episodic confusion and altered mentation. Swallow evaluation We'll keep the patient ICU and monitored for another 24 hours and will continue to follow.
[2020-03-13] MEDS: ONDANSETRON 4 MG/2 ML VIAL IVP PRN (13:34)
[2020-03-13] MEDS: PANTOPRAZOLE 40 MG/10 ML VIAL IVP SCH ×2 (13:34→22:01)
--- NOTE | 2020-03-13 13:34 | FL ---
EXAMINATION TYPE: FL barium swallow w video DATE OF EXAM: 03/13/2020 COMPARISON: NONE HISTORY: Aspiration pneumonia TECHNIQUE: Fluoroscopy. FINDINGS: Fluoroscopic guidance was provided for the procedure performed in conjunction with the [facility] pathology department. Please see complete report forthcoming from the Speech Pathology departmen t. Various consistencies from thin liquid to solids were administered. Fluoroscopy time 2 minutes 26 seconds. Number of images: 0. There is deep penetration with thin liquids. Tiny volumes head better transit with lesser aspiration. Mild penetration was evident with thick liquids. Minimal penetration was with honey thick liquids. N o aspiration or penetration with solid and pudding thick consistencies. There is some pooling within the vallecula. Reflux was noted to hypopharynx on several occasions during the exam. IMPRESSION: 1. Thin liquid aspiration. 2. Thick consistency and honey thick consistency penetration. 3. Pooling within the vallecula. 4. Reflux into the hypopharynx
[2020-03-13 21:58] LABS: Glucose,Whole Blood 146 mg/dL (75-99)
[2020-03-13] MEDS: MIRTAZAPINE 15 MG TAB PO SCH (22:00)
[2020-03-13] MEDS: LOSARTAN 50 MG TAB PO SCH (22:00)
[2020-03-13] MEDS: DULoxetine HCL 30 MG CAPSULE.DR PO SCH (22:01)
[2020-03-14] MEDS: SODIUM CHLORIDE 0.9% 1,000 ML IV SCH ×2 (02:05→22:55)
[2020-03-14 02:24] LABS: Basophils % (A) 0 %; Eosinophils % (A) 0 %; HCT 34.7 % (34.0-46.0); HGB 11.6 gm/dL (11.4-16.0); Lymphocytes # (A) 0.5 k/uL (1.0-4.8); Lymphocytes % (A) 6 %; MCH 30.2 pg (25.0-35.0); MCHC 33.6 g/dL (31.0-37.0); MCV 90.1 fL (80.0-100.0); Monocytes # (A) 0.3 k/uL (0-1.0); Monocytes % (A) 3 %; Neutrophils # (A) 7.4 k/uL (1.3-7.7); Neutrophils % (A) 90 %; Platelet Count 317 k/uL (150-450); RBC 3.85 m/uL (3.80-5.40); RDW 15.4 % (11.5-15.5); WBC 8.2 k/uL (3.8-10.6)
[2020-03-14 02:49] LABS: African American GFR (CKD) >90 (>60 ml/min/1.73 sqM); Anion Gap 4 mmol/L; Blood Urea Nitrogen 15 mg/dL (7-17); Calcium 8.7 mg/dL (8.4-10.2); Carbon Dioxide 25 mmol/L (22-30); Chloride 98 mmol/L (98-107); Glucose 154 mg/dL (74-99); Non-African American GFR(CKD) >90 (>60 ml/min/1.73 sqM); Potassium 4.4 mmol/L (3.5-5.1); Sodium 127 mmol/L (137-145)
[2020-03-14 06:06] LABS: Glucose,Whole Blood 128 mg/dL (75-99)
[2020-03-14] MEDS: INSULIN ASPART (NovoLOG) 100 UNIT/ML VIAL SQ SCH ×4 (06:17→19:58)
[2020-03-14] MEDS: methylPREDNISolone SOD SUCCI 125 MG/2 ML VIAL IV SCH (06:21)
[2020-03-14] MEDS: ONDANSETRON 4 MG/2 ML VIAL IVP PRN ×3 (07:49→20:03)
[2020-03-14] MEDS: ENOXAPARIN 40 MG/0.4 ML SYRINGE SQ SCH (07:49)
[2020-03-14] MEDS: MULTIVITAMINS, THERA 1 EACH TAB PO SCH (07:49)
[2020-03-14] MEDS: DULoxetine HCL 60 MG CAPSULE.DR PO SCH (07:49)
[2020-03-14] MEDS: METOPROLOL TARTRATE 25 MG TAB PO SCH ×3 (07:49→22:53)
[2020-03-14] MEDS: PANTOPRAZOLE 40 MG/10 ML VIAL IVP SCH (07:49)
[2020-03-14] MEDS: ALPRAZolam 0.5 MG TAB PO PRN ×2 (08:57→17:43)
[2020-03-14] MEDS: BUDESONIDE 1 MG/2 ML NEBU INHALATION SCH ×2 (09:05→18:32)
[2020-03-14] MEDS: ALBUTEROL NEBULIZED 2.5 MG/3 ML INHALATION SCH ×4 (09:05→18:32)
--- NOTE | 2020-03-14 10:32 | P.PN ---
Subjective Progress Note Date: 03/13/20 This is an 84-year-old female patient of mine with past medical history of COPD, hypertension, chronic pain syndrome, tobacco use and dependence generalized anxiety disorder, was evaluated recently by GI recently for dilated Common bile dust on MRCP possible pancreatic pathology , was brought into the ER at [facility] with increased shortness of breath via EMS that has been going on for few days, she was hypoxemic with O2 saturaion in the 's and she was given nebulized treatment and transported to the hospital via EMS, she was placed on BIPAP and she had elevated WBCs 55232, lactic acid 2.3, her sodium initially was 120 and did drop to 119 today, her CXR showed bilateral lower lobe pneumonia, LDH 821, AST 58 and Alk.Phos 128, patient was started on IVF normal saline at 75 ml/h and she was placed on levaquin 500 mg IVPB daily along with duoneb 3 ml NEB QID along with solu-medrol 60 mg IVP Q 6 hours and Pulmicort 1 mg NEB BID, was admitted to the ICU and she was placed in droplet precautions for possible COVID-19, pulmonary consulation. 03/13: Patient is laying down in bed, she appears to be drowsy and confused today, she underwent swallow evaluation that showed an aspiration and patient was placed on a thickened liquid, she underwent a computed tomography scan of the brain that did not show any evidence of acute infarct or bleed, her sodium is 126 today, she did receive 3% of sodium yesterday, she will be kept in the intensive care unit we'll continue to monitor the patient very closely. Objective - Vital Signs Vital signs: Vital Signs Temp 98.0 F 03/13/20 04:00 Pulse 88 03/13/20 07:11 Resp 19 03/13/20 07:00 BP 134/72 03/13/20 07:00 Pulse Ox 98 03/13/20 07:00 Intake & Output 03/12/20 03/13/20 03/13/20 18:59 06:59 18:59 Intake Total 900 480 Output Total 690 1039 17 Balance 210 -559 -17 Weight 51.7 kg Intake: IV 900 300 Levofloxacin 750Mg-D5w 150 Pmx 750 mg In Dextrose/ Water 1 150ml.bag @ 100 mls/hr IVPB [facility] Rx#: [id number] Sodium Chloride 0.9% 1, 900 000 ml @ 75 mls/hr IV . [id number] REPLACED BY [facility] Rx#:[id number] Sodium Chloride 3%( 150 Hypertonic) 500 ml @ 30 mls/hr IV .[id number] REPLACED BY [facility] Rx #:[id number] Intake, IV Titration 30 Amount Sodium Chloride 3%( 30 Hypertonic) 500 ml @ 30 mls/hr IV .[id number] REPLACED BY [facility] Rx #:[id number] Oral 150 Output: Urine 690 1039 17 Other: Voiding Method Indwelling Catheter Indwelling Catheter - Exam Review of Systems Constitutional: Reports anorexia, Reports chronic pain, Reports fatigue, Reports lethargy, Reports weakness, Reports weight loss Eyes: denies blurred vision, denies bulging eye, denies decreased vision Ears: deny: decreased hearing Ears, nose, mouth and throat: Denies dysphagia, Denies neck lump, Denies sore throat Cardiovascular: Reports decreased exercise tolerance, Reports dyspnea on exertion, Reports shortness of breath, Denies chest pain, Denies leg edema, Denies lightheadedness, Denies rapid heart beat Respiratory: Reports respiratory infections, Reports wheezing, Denies congestion, Denies cough, Denies cough with sputum, Denies dyspnea, Denies home oxygen, Denies sleep apnea, Denies snoring Gastrointestinal: Reports abdominal pain, Reports bloating, Reports change in bowel habits, Reports early satiety, Reports indigestion, Reports loss of appetite, Reports nausea, Denies heartburn, Denies hematemesis, Denies hematochezia, Denies melena, Denies vomiting Genitourinary: Reports nocturia, Denies dysuria Menstruation: Reports postmenopausal Musculoskeletal: Reports atrophy, Reports gait dysfunction, Reports low back pa in, Reports muscle weakness Musculoskeletal: absent: ankle pain, ankle stiffness, ankle swelling, elbow pain, elbow stiffness, elbow swelling, foot pain, foot stiffness, foot swelling, hand pain, hand stiffness, hand swelling, hip pain, hip stiffness, hip swelling, knee pain, knee stiffness, knee swelling, shoulder pain, shoulder stiffness, shoulder swelling, wrist pain, wrist stiffness, wrist swelling Integumentary: Denies pruritus, Denies rash Neurological: Reports gait dysfunction Psychiatric: Reports anxiety, Reports depression, Reports sleep disturbances, Denies sadness/tearfulness, Denies suicidal ideation Endocrine: Denies fatigue, Denies weight change Physical Examination: HEENT: head is atraumatic normocephalic pupils were equal round reactive to light and accommodations extra ocular muscle movements were intact. Neck: supple, no JVP. Chest: decrease breath sounds at the bases with few ronchi, minimal expiratory wheezes, there is egophony at the bases with minimal intercostal retraction. Heart: first heart sound is depressed , second heart sound is normal there is VITO 2/6 located at the laft sternal border. Abdomen: soft non tender non distended positive bowel sounds. Extremities: there is no edema no calf tenderness, DP +1 bilaterally. Neurologic examination: patient is awake , alert and oriented X3 CN II-XII are grossly intact, muscle power 3/5 in bilateral lower extremities and 4/5 in bilateral upper extremities, deep tendon reflexes are depressed. - Labs CBC & Chem 7: 03/14/20 02:14 03/14/20 06:18 Labs: Abnormal Lab Results - Last 24 Hours (Table) 03/12/20 03/12/20 03/12/20 Range/Units 03:51 11:54 16:33 WBC (3.8-10.6) k/uL Neutrophils # (1.3-7.7) k/uL Lymphocytes # (1.0-4.8) k/uL Sodium 120 L (137-145) mmol/L Chloride 85 L (98-107) mmol/L Creatinine (0.52-1.04) mg/dL Glucose (74-99) mg/dL POC Glucose (mg/dL) 161 H (75-99) mg/dL Magnesium (1.6-2.3) mg/dL Mycoplasma pneumon IgG 3.31 H (<=0.90) INDEX 03/12/20 03/12/20 03/13/20 Range/Units 16:48 22:21 02:30 WBC (3.8-10.6) k/uL Neutrophils # (1.3-7.7) k/uL Lymphocytes # (1.0-4.8) k/uL Sodium 124 L 124 L (137-145) mmol/L Chloride 93 L (98-107) mmol/L Creatinine 0.51 L (0.52-1.04) mg/dL Glucose 112 H (74-99) mg/dL POC Glucose (mg/dL) 160 H (75-99) mg/dL Magnesium 2.4 H (1.6-2.3) mg/dL Mycoplasma pneumon IgG (<=0.90) INDEX 03/13/20 03/13/20 03/13/20 Range/Units 02:40 06:43 06:46 WBC 15.1 H (3.8-10.6) k/uL Neutrophils # 13.7 H (1.3-7.7) k/uL Lymphocytes # 0.8 L (1.0-4.8) k/uL Sodium 126 L (137-145) mmol/L Chloride (98-107) mmol/L Creatinine (0.52-1.04) mg/dL Glucose (74-99) mg/dL POC Glucose (mg/dL) 111 H (75-99) mg/dL Magnesium (1.6-2.3) mg/dL Mycoplasma pneumon IgG (<=0.90) INDEX Microbiology - Last 24 Hours (Table) 03/12/20 13:46 Gram Stain - Preliminary Sputum Sputum Culture - Preliminary 03/12/20 00:12 Blood Culture - Preliminary Blood No Growth after 24 hours Assessment and Plan Assessment: assessment and plan: 1. Acute hypoxemic respiratory failure due to bilateral pneumonia with COPD exacerbation. we will continue with Levaquin 750 mg orally once every day, continue prednisone 40 mg orally once every day, continue nebulized treatment in the form of DuoNeb and Pulmicort, pulmonary's following. 2. Bilateral pneumonia. we will continue with IVF, Levaquin and O2 we will check sputum cultures and blood cultures. 3. COPD exacerbation. we will continue with O2, Duoneb, Pulmicort and patient will be switched to oral prednisone 40 mg orally once every day. 4. Leukocytosis. likley related to pneumonia. we will continue with IV ABX and IVF and repeat CBC . 5. Acute delirium and possible ICU psychosis. Due to combination of hyponatremia as well as steroid use, as well as ICU vitamin K. Patient was started on Haldol 2 mg as needed. 6. Sepsis related to bibasilar pneumonia. we will continue with IVF and IV ABX , check blood cultures. 7. Hyponatremia likely related to hypovolemia. Patient did receive 3% saline, her sodium today is 126, we'll continue to monitor the sodium every 6 hours. 8. Hypertension and hypertensive cardiovascular disease. we will continue with Metoprolol 25 mg orally tid, Losartan 100 mg orally daily. 9. Depression. we will continue with cymbalta 60 mg in Am and 30 mg in PM , we will continue with Remeron 30 mg orally at bedtime. 10. Anxiety. currently on Xanax. 11. Chronic pain syndrome due to sever back pain. we will continue with Oxycodone 30 mg orally tid, has been under pain management for quiet sometimes. 12. DVT prophylaxis. we will start Lovenox 40 mg SC daily. 13. GI prophylxis . we will continue with Protonix 40 mg IVP daily. 14. Patient is no code.
[2020-03-14] MEDS: IPRATROPIUM-ALBUTEROL 3 ML NEB INHALATION PRN (10:35)
--- NOTE | 2020-03-14 11:08 | P.PN ---
Subjective Progress Note Date: 03/14/20 This is an 84-year-old female patient of mine with past medical history of COPD, hypertension, chronic pain syndrome, tobacco use and dependence generalized anxiety disorder, was evaluated recently by GI recently for dilated Common bile dust on MRCP possible pancreatic pathology , was brought into the ER at [facility] with increased shortness of breath via EMS that has been going on for few days, she was hypoxemic with O2 saturaion in the 's and she was given nebulized treatment and transported to the hospital via EMS, she was placed on BIPAP and she had elevated WBCs 36479, lactic acid 2.3, her sodium initially was 120 and did drop to 119 today, her CXR showed bilateral lower lobe pneumonia, LDH 821, AST 58 and Alk.Phos 128, patient was started on IVF normal saline at 75 ml/h and she was placed on levaquin 500 mg IVPB daily along with duoneb 3 ml NEB QID along with solu-medrol 60 mg IVP Q 6 hours and Pulmicort 1 mg NEB BID, was admitted to the ICU and she was placed in droplet precautions for possible COVID-19, pulmonary consulation. 03/13: Patient is laying down in bed, she appears to be drowsy and confused today, she underwent swallow evaluation that showed an aspiration and patient was placed on a thickened liquid, she underwent a computed tomography scan of the brain that did not show any evidence of acute infarct or bleed, her sodium is 126 today, she did receive 3% of sodium yesterday, she will be kept in the intensive care unit we'll continue to monitor the patient very closely. 03/14: Patient is sitting up in bed in no acute distress she is much better than yesterday, she continues to have some issues with aspiration she is getting thickened liquids at this time, her sodium level is is much better today 130, we will continue with the prednisone as well as antibiotic, we will try to minimize the use of alcohol, we will monitor the patient very closely, physical therapy evaluation, hopefully the patient would be able to go home in 1-2 days Objective - Vital Signs Vital signs: Vital Signs Temp 98.9 F 03/14/20 07:56 Pulse 76 03/14/20 08:00 Resp 18 03/14/20 08:00 BP 154/63 03/14/20 07:56 Pulse Ox 96 08/29/20 07:56 Intake & Output 03/13/20 03/14/20 03/14/20 18:59 06:59 18:59 Intake Total 500 400 120 Output Total 382 1125 Balance 118 -725 120 Weight 43 kg Intake: Intake, IV Titration 500 400 Amount Levofloxacin 750Mg-D5w 150 Pmx 750 mg In Dextrose/ Water 1 150ml.bag @ 100 mls/hr IVPB Q24H [facility] Rx#: [id number] Sodium Chloride 0.9% 1, 500 250 000 ml @ 50 mls/hr IV . Q20H [facility] Rx#:[id number] Oral 120 Output: Urine 382 1125 Other: Voiding Method Indwelling Catheter Indwelling Catheter Indwelling Catheter - Exam Review of Systems Constitutional: Reports anorexia, Reports chronic pain, Reports fatigue, Reports lethargy, Reports weakness, Reports weight loss Eyes: denies blurred vision, denies bulging eye, denies decreased vision Ears: deny: decreased hearing Ears, nose, mouth and throat: Denies dysphagia, Denies neck lump, Denies sore throat Cardiovascular: Reports decreased exercise tolerance, Reports dyspnea on exertion, Reports shortness of breath, Denies chest pain, Denies leg edema, Denies lightheadedness, Denies rapid heart beat Respiratory: Reports respiratory infections, Reports wheezing, Denies congestion, Denies cough, Denies cough with sputum, Denies dyspnea, Denies home oxygen, Denies sleep apnea, Denies snoring Gastrointestinal: Reports abdominal pain, Reports bloating, Reports change in bowel habits, Reports early satiety, Reports indigestion, Reports loss of appetite, Reports nausea, Denies heartburn, Denies hematemesis, Denies hematochezia, Denies melena, Denies vomiting Genitourinary: Reports nocturia, Denies dysuria Menstruation: Reports postmenopausal Musculoskeletal: Reports atrophy, Reports gait dysfunction, Reports low back pain, Reports muscle weakness Musculoskeletal: absent: ankle pain, ankle stiffness, ankle swelling, elbow pain, elbow stiffness, elbow swelling, foot pain, foot stiffness, foot swelling, hand pain, hand stiffness, hand swelling, hip pain, hip stiffness, hip swelling, knee pain, knee stiffness, knee swelling, shoulder pain, shoulder stiffness, shoulder swelling, wrist pain, wrist stiffness, wrist swelling Integumentary: Denies pruritus, Denies rash Neurological: Reports gait dysfunction Psychiatric: Reports anxiety, Reports depression, Reports sleep disturbances, Denies sadness/tearfulness, Denies suicidal ideation Endocrine: Denies fatigue, Denies weight change Physical Examination: HEENT: head is atraumatic normocephalic pupils were equal round reactive to light and accommodations extra ocular muscle movements were intact. Neck: supple, no JVP. Chest: decrease breath sounds at the bases with few ronchi, minimal expiratory wheezes, no chest wall tenderness or intercostal retractions. Heart: first heart sound is depressed , second heart sound is normal there is VITO 2/6 located at the laft sternal border. Abdomen: soft non tender non distended positive bowel sounds. Extremities: there is no edema no calf tenderness, DP +1 bilaterally. Neurologic examination: patient is awake , alert and oriented X3 CN II-XII are grossly intact, muscle power 3/5 in bilateral lower extremities and 4/5 in bilateral upper extremities, deep tendon reflexes are depressed. - Labs CBC & Chem 7: 03/14/20 02:14 03/14/20 06:18 Labs: Abnormal Lab Results - Last 24 Hours (Table) 03/13/20 03/13/20 03/13/20 Range/Units 10:22 11:21 21:56 Lymphocytes # (1.0-4.8) k/uL Sodium 125 L (137-145) mmol/L Creatinine (0.52-1.04) mg/dL Glucose (74-99) mg/dL POC Glucose (mg/dL) 141 H 146 H (75-99) mg/dL 03/14/20 03/14/20 03/14/20 Range/Units 02:14 02:14 06:05 Lymphocytes # 0.5 L (1.0-4.8) k/uL Sodium 127 L (137-145) mmol/L Creatinine 0.48 L (0.52-1.04) mg/dL Glucose 154 H (74-99) mg/dL POC Glucose (mg/dL) 128 H (75-99) mg/dL 03/14/20 Range/Units 06:18 Lymphocytes # (1.0-4.8) k/uL Sodium 130 L (137-145) mmol/L Creatinine (0.52-1.04) mg/dL Glucose (74-99) mg/dL POC Glucose (mg/dL) (75-99) mg/dL Microbiology - Last 24 Hours (Table) 03/12/20 13:46 Gram Stain - Final Sputum Sputum Culture - Final 03/12/20 00:12 Blood Culture - Preliminary Blood No Growth after 48 hours Assessment and Plan Assessment: assessment and plan: 1. Acute hypoxemic respiratory failure due to bilateral pneumonia with COPD exacerbation. we will continue with Levaquin 750 mg orally once every day, continue prednisone 40 mg orally once every day, continue nebulized treatment in the form of DuoNeb and Pulmicort, pulmonary's following. 2. Bilateral pneumonia. we will continue with IVF, Levaquin and O2 we will check sputum cultures and blood cultures. 3. COPD exacerbation. we will continue with O2, Duoneb, Pulmicort and patient will be switched to oral prednisone 40 mg orally once every day. 4. Leukocytosis. likley related to pneumonia. we will continue with IV ABX and IVF and repeat CBC . 5. Acute delirium and possible ICU psychosis. Due to combination of hyponatremia as well as steroid use, as well as ICU vitamin K. Patient was started on Haldol 2 mg as needed. 6. Sepsis related to bibasilar pneumonia. we will continue with IVF and IV ABX , check blood cultures. 7. Hyponatremia likely related to hypovolemia. Patient did receive 3% saline, her sodium today is 126, we'll continue to monitor the sodium every 6 hours. 8. Hypertension and hypertensive cardiovascular disease. we will continue with Metoprolol 25 mg orally tid, Losartan 100 mg orally daily. 9. Depression. we will continue with cymbalta 60 mg in Am and 30 mg in PM , we will continue with Remeron 30 mg orally at bedtime. 10. Anxiety. currently on Xanax. 11. Chronic pain syndrome due to sever back pain. we will continue with Oxycodone 30 mg orally tid, has been under pain management for quiet sometimes. 12. DVT prophylaxis. we will start Lovenox 40 mg SC daily. 13. GI prophylxis . we will continue with Protonix 40 mg IVP daily. 14. Patient is no code. 15. Home in 1-2 days we will continue with physical therapy.
[2020-03-14] MEDS: predniSONE 20 MG TAB PO SCH (11:30)
[2020-03-14 11:31] VITALS: BMI 18.5
--- NOTE | 2020-03-14 11:52 | P.PN ---
Subjective Progress Note Date: 03/14/20 Principal diagnosis: Acute exacerbation of chronic obstructive pulmonary disease, complicated by bilateral pneumonia 84-year-old female patient, known history of COPD w, came into the intensive because of worsening shortness of breath. The patient had increased dyspnea, chest tightness and wheeze. She came into the ED for worsening shortness of breath and she was also found to be desaturating and she was hypoxic. At the same time the patient was noted to have a low sodium level 120.. Chest x-ray showed possibility of a lower lobe pneumonia. The patient was started on antibiotics and the patient was given IV Levaquin. The patient was started on steroids and DuoNeb nebulized treatments around the clock. The patient overnight also required to go on a BiPAP at a pressure of 10/5 cm of water and currently some fleets of oxygen by nasal cannula. She is receiving IV fluids in the form of normal saline at rate of 75 mL an hour. She is using incentive spirometer and she is pulling approximately 500. No nausea. No vomiting. No abdominal pain. No chest pain. The sung virus 19 evaluation still pending for now. Note that the patient had other morbidities history of a dilated common bile duct. Nevertheless, the patient's liver functions of been all within normal limits. The MRCP showed extrahepatic bile duct at upper limits of normal without any intraluminal mass or stricture. 03/13/2020, the patient is calm and comfortable. Overnight the patient became quite confused and restless and she was having episodes of hallucination. She was given Haldol. Subsequently, based on ongoing hyponatremia, she was started on 3% saline solution and sodium level gradually improved and is currently up to 126. I stopped his saline/hypertonic saline solution at around midnight. She is currently receiving normal state rate of 50 mL an hour. The nurses were quite concerned about aspiration. Her swallow did not seem to be right. The patient has had previous swallow evaluation back in 2019 and she had evidence of aspiration penetration. As such aspiration pneumonia suspected. Meanwhile, the repeat chest x-ray from today shows adequate expansion of both lungs without any evidence of pulmonary infiltration. The patient is alert and oriented 2 at t his point in time. Sodium level is up to 126. Pro-calcitonin level was low at 0.06. She remains on broad-spectrum antibiotics. No agitation. No other significant events overnight. The patient is seen today 03/14/2020 in follow-up on the selective care unit. She is awake and alert in no acute distress. Resting quite comfortably in bed. Oriented 3. Currently maintaining good O2 saturation in the 90s on room air. She's afebrile. Blood culture reveals no growth to date. Sputum culture reveals no growth. White count 8.2. Hemoglobin 11.6. Sodium 127 with follow- up at 1:30. Potassium 4.4. Creatinine 0.48. She remains on bronchodilators and oral prednisone. Barium swallow did reveal some thin liquid aspiration. Thick consistency and honey thick consistency penetration. Pulling within the vallecula. Reflux into the hypopharynx. Objective - Vital Signs Vital signs: Vital Signs Temp 98.5 F 03/14/20 11:31 Pulse 73 03/14/20 11:31 Resp 18 03/14/20 11:31 BP 156/67 03/14/20 11:31 Pulse Ox 93 L 03/14/20 11:31 Intake & Output 03/13/20 03/14/20 03/14/20 18:59 06:59 18:59 Intake Total 500 400 120 Output Total 382 1125 Balance 118 -725 120 Weight 43 kg 43 kg Intake: Intake, IV Titration 500 400 Amount Levofloxacin 750Mg-D5w 150 Pmx 750 mg In Dextrose/ Water 1 150ml.bag @ 100 mls/hr IVPB Q24H [facility] Rx#: [id number] Sodium Chloride 0.9% 1, 500 250 000 ml @ 50 mls/hr IV . Q20H [facility] Rx#:[id number] Oral 120 Output: Urine 382 1125 Other: Voiding Method Indwelling Catheter Indwelling Catheter Indwelling Catheter - Exam Gen. appearance, very pleasant 84-year-old female patient, on room air, comfortable in no acute distress Head exam was generally normal. There was no scleral icterus or corneal arcus. Mucous membranes were moist. Neck was supple and without jugular venous distension, thyromegaly, or carotid bruits. Carotids were easily palpable bilaterally. There was no adenopathy. Lungs sounds are diminished and faint wheezes throughout the lung dickey bilaterally and there is also prolongation of the exhalation phase of breathing. Cardiac exam revealed the PMI to be normally situated and sized. The rhythm was regular and no extrasystoles were noted during several minutes of auscultation. The first and second heart sounds were normal and physiologic splitting of the second heart sound was noted. There were no murmurs, rubs, clicks, or gallops. Abdominal exam revealed normal bowel sounds. The abdomen was soft, non-tender, and without masses, organomegaly, or appreciable enlargement of the abdominal aorta. Examination of the extremities revealed easily palpable radial, femoral and pedal pulses. There was no cyanosis, clubbing or edema. Examination of the skin revealed no evidence of significant rashes, suspicious appearing nevi or other concerning lesions. - Labs CBC & Chem 7: 03/14/20 02:14 03/14/20 06:18 Labs: Abnormal Lab Results - Last 24 Hours (Table) 03/13/20 03/14/20 03/14/20 Range/Units 21:56 02:14 02:14 Lymphocytes # 0.5 L (1.0-4.8) k/uL Sodium 127 L (137-145) mmol/L Creatinine 0.48 L (0.52-1.04) mg/dL Glucose 154 H (74-99) mg/dL POC Glucose (mg/dL) 146 H (75-99) mg/dL 03/14/20 03/14/20 Range/Units 06:05 06:18 Lymphocytes # (1.0-4.8) k/uL Sodium 130 L (137-145) mmol/L Creatinine (0.52-1.04) mg/dL Glucose (74-99) mg/dL POC Glucose (mg/dL) 128 H (75-99) mg/dL Microbiology - Last 24 Hours (Table) 03/12/20 13:46 Gram Stain - Final Sputum Sputum Culture - Final 03/12/20 00:12 Blood Culture - Preliminary Blood No Growth after 48 hours Assessment and Plan Assessment: 1 acute COPD exacerbation with secondary shortness of breath. The chest x-ray today shows clearing of the right lower lobe pulmonary infiltrate. The patient still bronchospastic and wheezy and she is still being treated for an acute COPD exacerbation. CAT scan of the chest to follow. The coronavirus Covid 19 evaluation came back negative. 2 bilateral lower lobe pneumonia, recovered, consider aspiration and a swallow evaluation is to follow. Barium swallow results reviewed 3 acute hypoxic respiratory failure secondary to above 4 acute leukocytosis secondary to above, improving 5 mild leukocytosis and lactic acidosis, improving 6 hyponatremia, possible acute, possibly to hypovolemia, improving and the sodium level is up to 130 7 hypertension 8 chronic anxiety/depression 9 chronic back pain and degenerative arthritis and the patient limited on oxycodone on outpatient basis for pain management 10 altered mentation/delirium. Consider secondary to electric imbalance and the patient was briefly given hypertonic saline solution yesterday. Sodium level is up 130. Consider the possibility of alcohol withdrawal. Plan The patient was seen and evaluated by Dr. Thomas She is improved from the pulmonary standpoint Continue the current treatment plan Barium swallow results reviewed We will continue to follow I, the cosigning physician, performed a history & physical examination of the patient. Lungs sounds with faint bilateral end expiratory wheeze, diminished. Maintaining good O2 saturations in the 90s on room air. I discussed the assessment and plan of care with my nurse practitioner, Ping Belle. I attest to the above note as dictated by her.
[2020-03-14 12:10] LABS: Glucose,Whole Blood 136 mg/dL (75-99)
--- NOTE | 2020-03-14 12:15 | P.PN ---
Subjective Patient is seen and examined sitting up in bed in no acute distress. She continues to complain of a cough. Swallow study performed yesterday revealed thin liquid aspiration. She denies symptoms of chest pain, shortness of breath, dizziness or palpitations. Blood pressure 56/67 heart rate 73 afebrile maintaining oxygen saturation on room air. Laboratory data reviewed, CBC unremarkable, sodium 1:30, potassium 4.4, creatinine 0.48. Currently maintained on metoprolol 25 mg 3 times a day and losartan 100 mg daily. GENERAL: Well-appearing, well-nourished and in no acute distress. NECK: Supple without JVD or thyromegaly. LUNGS: Breath sounds clear to auscultation bilaterally. Respiration equal and unlabored. No wheezes, rales or rhonchi. HEART: Regular rate and rhythm without murmurs, rubs or gallops. S1 and S2 heard. EXTREMITIES: Normal range of motion, no edema. No clubbing or cyanosis. Peripheral pulses intact. ASSESSMENT Acute exacerbation of COPD Pneumonia Hyponatremia Fever Hypoxia Hypertension PLAN Stable from a cardiac perspective on current medical regimen. We will continue to follow as needed. Nurse Practitioner note has been reviewed, I agree with a documented findings and plan of care. Patient was seen and examined. Objective - Vital Signs Vital signs: Vital Signs Temp 98.5 F 03/14/20 11:31 Pulse 73 03/14/20 11:31 Resp 18 03/14/20 11:31 BP 156/67 03/14/20 11:31 Pulse Ox 93 L 03/14/20 11:31 Intake & Output 03/13/20 03/14/20 03/14/20 18:59 06:59 18:59 Intake Total 500 400 120 Output Total 382 1125 Balance 118 -725 120 Weight 43 kg 43 kg Intake: Intake, IV Titration 500 400 Amount Levofloxacin 750Mg-D5w 150 Pmx 750 mg In Dextrose/ Water 1 150ml.bag @ 100 mls/hr IVPB Q24H [facility] Rx#: [id number] Sodium Chloride 0.9% 1, 500 250 000 ml @ 50 mls/hr IV . Q20H [facility] Rx#:[id number] Oral 120 Output: Urine 382 1125 Other: Voiding Method Indwelling Catheter Indwelling Catheter Indwelling Catheter - Labs CBC & Chem 7: 03/14/20 02:14 03/14/20 06:18 Labs: Abnormal Lab Results - Last 24 Hours (Table) 03/13/20 03/14/20 03/14/20 Range/Units 21:56 02:14 02:14 Lymphocytes # 0.5 L (1.0-4.8) k/uL Sodium 127 L (137-145) mmol/L Creatinine 0.48 L (0.52-1.04) mg/dL Glucose 154 H (74-99) mg/dL POC Glucose (mg/dL) 146 H (75-99) mg/dL 03/14/20 03/14/20 03/14/20 Range/Units 06:05 06:18 11:46 Lymphocytes # (1.0-4.8) k/uL Sodium 130 L (137-145) mmol/L Creatinine (0.52-1.04) mg/dL Glucose (74-99) mg/dL POC Glucose (mg/dL) 128 H 136 H (75-99) mg/dL Microbiology - Last 24 Hours (Table) 03/12/20 13:46 Gram Stain - Final Sputum Sputum Culture - Final 03/12/20 00:12 Blood Culture - Preliminary Blood No Growth after 48 hours
[2020-03-14 17:01] LABS: Glucose,Whole Blood 154 mg/dL (75-99)
[2020-03-14 20:01] LABS: Glucose,Whole Blood 122 mg/dL (75-99)
[2020-03-14] MEDS: DULoxetine HCL 30 MG CAPSULE.DR PO SCH (20:02)
[2020-03-14] MEDS: ACETAMINOPHEN TAB 325 MG TAB PO PRN (20:02)
[2020-03-14] MEDS: MIRTAZAPINE 15 MG TAB PO SCH (20:03)
[2020-03-14] MEDS: LEVOFLOXACIN 750 MG TAB PO SCH (20:03)
[2020-03-14] MEDS: LOSARTAN 50 MG TAB PO SCH (22:21)
[2020-03-15] MEDS: ONDANSETRON 4 MG/2 ML VIAL IVP PRN ×3 (04:00→18:12)
[2020-03-15 05:58] LABS: Glucose,Whole Blood 99 mg/dL (75-99)
[2020-03-15] MEDS: INSULIN ASPART (NovoLOG) 100 UNIT/ML VIAL SQ SCH ×4 (06:00→20:16)
[2020-03-15] MEDS: PANTOPRAZOLE 40 MG TABLET PO SCH (06:46)
[2020-03-15] MEDS: ALPRAZolam 0.5 MG TAB PO PRN ×2 (06:46→18:12)
[2020-03-15 07:32] LABS: Basophils % (A) 0 %; Eosinophils % (A) 0 %; HCT 37.3 % (34.0-46.0); HGB 11.9 gm/dL (11.4-16.0); Lymphocytes # (A) 2.1 k/uL (1.0-4.8); Lymphocytes % (A) 15 %; MCH 29.5 pg (25.0-35.0); MCHC 31.8 g/dL (31.0-37.0); MCV 92.8 fL (80.0-100.0); Mean Platelet Volume 7.6; Monocytes # (A) 0.7 k/uL (0-1.0); Monocytes % (A) 5 %; Neutrophils # (A) 11.4 k/uL (1.3-7.7); Neutrophils % (A) 79 %; Platelet Count 355 k/uL (150-450); RBC 4.02 m/uL (3.80-5.40); RDW 15.5 % (11.5-15.5); WBC 14.4 k/uL (3.8-10.6)
[2020-03-15 07:49] LABS: ALT 26 U/L (4-34); AST 31 U/L (14-36); African American GFR (CKD) >90 (>60 ml/min/1.73 sqM); Albumin 3.2 g/dL (3.5-5.0); Alkaline Phosphatase 80 U/L (38-126); Anion Gap 5 mmol/L; Blood Urea Nitrogen 19 mg/dL (7-17); Calcium 8.6 mg/dL (8.4-10.2); Carbon Dioxide 25 mmol/L (22-30); Chloride 101 mmol/L (98-107); Glucose 81 mg/dL (74-99); Non-African American GFR(CKD) 88 (>60 ml/min/1.73 sqM); Potassium 4.3 mmol/L (3.5-5.1); Sodium 131 mmol/L (137-145); Total Bilirubin 0.4 mg/dL (0.2-1.3); Total Protein 5.4 g/dL (6.3-8.2)
[2020-03-15] MEDS: METOPROLOL TARTRATE 25 MG TAB PO SCH ×3 (08:32→23:52)
[2020-03-15] MEDS: ACETAMINOPHEN TAB 325 MG TAB PO PRN (08:32)
[2020-03-15] MEDS: MULTIVITAMINS, THERA 1 EACH TAB PO SCH (08:32)
[2020-03-15] MEDS: DULoxetine HCL 60 MG CAPSULE.DR PO SCH (08:33)
[2020-03-15] MEDS: ENOXAPARIN 40 MG/0.4 ML SYRINGE SQ SCH (08:33)
[2020-03-15] MEDS: predniSONE 20 MG TAB PO SCH (08:33)
[2020-03-15] MEDS: ALBUTEROL NEBULIZED 2.5 MG/3 ML INHALATION SCH ×4 (09:50→19:58)
[2020-03-15] MEDS: BUDESONIDE 1 MG/2 ML NEBU INHALATION SCH ×2 (09:50→19:58)
--- NOTE | 2020-03-15 10:41 | P.PN ---
Subjective Progress Note Date: 03/15/20 This is an 84-year-old female patient of mine with past medical history of COPD, hypertension, chronic pain syndrome, tobacco use and dependence generalized anxiety disorder, was evaluated recently by GI recently for dilated Common bile dust on MRCP possible pancreatic pathology , was brought into the ER at [facility] with increased shortness of breath via EMS that has been going on for few days, she was hypoxemic with O2 saturaion in the s and she was given nebulized treatment and transported to the hospital via EMS, she was placed on BIPAP and she had elevated WBCs 93043, lactic acid 2.3, her sodium initially was 120 and did drop to 119 today, her CXR showed bilateral lower lobe pneumonia, LDH 821, AST 58 and Alk.Phos 128, patient was started on IVF normal saline at 75 ml/h and she was placed on levaquin 500 mg IVPB daily along with duoneb 3 ml NEB QID along with solu-medrol 60 mg IVP Q 6 hours and Pulmicort 1 mg NEB BID, was admitted to the ICU and she was placed in droplet precautions for possible COVID-19, pulmonary consulation. 03/13: Patient is laying down in bed, she appears to be drowsy and confused today, she underwent swallow evaluation that showed an aspiration and patient was placed on a thickened liquid, she underwent a computed tomography scan of the brain that did not show any evidence of acute infarct or bleed, her sodium is 126 today, she did receive 3% of sodium yesterday, she will be kept in the intensive care unit we'll continue to monitor the patient very closely. 03/14: Patient is sitting up in bed in no acute distress she is much better than yesterday, she continues to have some issues with aspiration she is getting thickened liquids at this time, her sodium level is is much better today 130, we will continue with the prednisone as well as antibiotic, we will try to minimize the use of alcohol, we will monitor the patient very closely, physical therapy evaluation, hopefully the patient would be able to go home in 1-2 days 03/15: Patient is sitting up in bed today she is a bit weaker than yesterday she continues to have some cough minimal brown phlegm production, she has no fever or chills last night, she did not sleep well she suddenly developed, she was seen by physical therapy and was recommended for the patient to go to [facility] for physical therapy rehabilitation's will be done tomorrow morning Objective - Vital Signs Vital signs: Vital Signs Temp 99.7 F H 03/15/20 08:00 Pulse 88 03/15/20 10:05 Resp 18 03/15/20 08:00 BP 141/65 03/15/20 08:00 Pulse Ox 96 03/15/20 08:00 Intake & Output 03/14/20 03/15/20 03/15/20 18:59 06:59 18:59 Intake Total 240 400 120 Output Total 600 200 Balance -360 200 120 Weight 43 kg 40.5 kg Intake: Intake, IV Titration 400 Amount Sodium Chloride 0.9% 1, 400 000 ml @ 50 mls/hr IV . Q20H [facility] Rx#:[id number] Oral 240 120 Output: Urine 600 200 Other: Voiding Method Indwelling Catheter Indwelling Catheter Indwelling Catheter - Exam Review of Systems Constitutional: Reports anorexia, Reports chronic pain, Reports fatigue, Reports lethargy, Reports weakness, Reports weight loss Eyes: denies blurred vision, denies bulging eye, denies decreased vision Ears: deny: decreased hearing Ears, nose, mouth and throat: Denies dysphagia, Denies neck lump, Denies sore throat Cardiovascular: Reports decreased exercise tolerance, Reports dyspnea on exertion, Reports shortness of breath, Denies chest pain, Denies leg edema, Denies lightheadedness, Denies rapid heart beat Respiratory: Reports respiratory infections, Reports wheezing, Denies congestion, Denies cough, Denies cough with sputum, Denies dyspnea, Denies home oxygen, Denies sleep apnea, Denies snoring Gastrointestinal: Reports abdominal pain, Reports bloating, Reports change in bowel habits, Reports early satiety, Reports indigestion, Reports loss of appetite, Reports nausea, Denies heartburn, Denies hematemesis, Denies hematochezia, Denies melena, Denies vomiting Genitourinary: Reports nocturia, Denies dysuria Menstruation: Reports postmenopausal Musculoskeletal: Reports atrophy, Reports gait dysfunction, Reports low back pain, Reports muscle weakness Musculoskeletal: absent: ankle pain, ankle stiffness, ankle swelling, elbow pain, elbow stiffness, elbow swelling, foot pain, foot stiffness, foot swelling, hand pain, hand stiffness, hand swelling, hip pain, hip stiffness, hip swelling, knee pain, knee stiffness, knee swelling, shoulder pain, shoulder stiffness, shoulder swelling, wrist pain, wrist stiffness, wrist swelling Integumentary: Denies pruritus, Denies rash Neurological: Reports gait dysfunction Psychiatric: Reports anxiety, Reports depression, Reports sleep disturbances, Denies sadness/tearfulness, Denies suicidal ideation Endocrine: Denies fatigue, Denies weight change Physical Examination: HEENT: head is atraumatic normocephalic pupils were equal round reactive to light and accommodations extra ocular muscle movements were intact. Neck: supple, no JVP. Chest: decrease breath sounds at the bases with few ronchi, minimal expiratory wheezes, no chest wall tenderness or intercostal retractions. Heart: first heart sound is depressed , second heart sound is normal there is VITO 2/6 located at the laft sternal border. Abdomen: soft non tender non distended positive bowel sounds. Extremities: there is no edema no calf tenderness, DP +1 bilaterally. Neurologic examination: patient is awake , alert and oriented X3 CN II-XII are grossly intact, muscle power 3/5 in bilateral lower extremities and 4/5 in bilateral upper extremities, deep tendon reflexes are depressed. - Labs CBC & Chem 7: 03/15/20 06:06 03/15/20 06:06 Labs: Abnormal Lab Results - Last 24 Hours (Table) 03/14/20 03/14/20 03/14/20 Range/Units 11:46 16:49 19:57 WBC (3.8-10.6) k/uL Neutrophils # (1.3-7.7) k/uL Sodium (137-145) mmol/L BUN (7-17) mg/dL POC Glucose (mg/dL) 136 H 154 H 122 H (75-99) mg/dL Total Protein (6.3-8.2) g/dL Albumin (3.5-5.0) g/dL 03/15/20 03/15/20 Range/Units 06:06 06:06 WBC 14.4 H (3.8-10.6) k/uL Neutrophils # 11.4 H (1.3-7.7) k/uL Sodium 131 L (137-145) mmol/L BUN 19 H (7-17) mg/dL POC Glucose (mg/dL) (75-99) mg/dL Total Protein 5.4 L (6.3-8.2) g/dL Albumin 3.2 L (3.5-5.0) g/dL Microbiology - Last 24 Hours (Table) 03/12/20 00:12 Blood Culture - Preliminary Blood No Growth after 72 hours 03/12/20 13:46 Gram Stain - Final Sputum Sputum Culture - Final Assessment and Plan Assessment: assessment and plan: 1. Acute hypoxemic respiratory failure due to bilateral pneumonia with COPD exacerbation. we will continue with Levaquin 750 mg orally once every day, continue prednisone 40 mg orally once every day, continue nebulized treatment in the form of DuoNeb and Pulmicort, pulmonary's following. 2. Bilateral pneumonia. we will continue with IVF, Levaquin and O2 we will check sputum cultures and blood cultures. 3. COPD exacerbation. we will continue with O2, Duoneb, Pulmicort and patient will be switched to oral prednisone 40 mg orally once every day. 4. Leukocytosis. likley related to pneumonia. we will continue with IV ABX and IVF and repeat CBC . 5. Acute delirium and possible ICU psychosis. Due to combination of hyponatremia as well as steroid use, as well as ICU vitamin K. Patient was sta rted on Haldol 2 mg as needed. 6. Sepsis related to bibasilar pneumonia. we will continue with IVF and IV ABX , check blood cultures. 7. Hyponatremia likely related to hypovolemia. Patient did receive 3% saline, her sodium today is 126, we'll continue to monitor the sodium every 6 hours. 8. Hypertension and hypertensive cardiovascular disease. we will continue with Metoprolol 25 mg orally tid, Losartan 100 mg orally daily. 9. Depression. we will continue with cymbalta 60 mg in Am and 30 mg in PM , we will continue with Remeron 30 mg orally at bedtime. 10. Anxiety. currently on Xanax. 11. Chronic pain syndrome due to sever back pain. we will continue with Oxycodone 30 mg orally tid, has been under pain management for quiet sometimes. 12. DVT prophylaxis. we will start Lovenox 40 mg SC daily. 13. GI prophylxis . we will continue with Protonix 40 mg IVP daily. 14. Patient is no code. 15. Discharge plan is for [facility] [place] tomorrow morning
--- NOTE | 2020-03-15 11:19 | P.PN ---
Subjective Progress Note Date: 03/15/20 Principal diagnosis: Acute exacerbation of chronic obstructive pulmonary disease, complicated by bilateral pneumonia 84-year-old female patient, known history of COPD w, came into the intensive because of worsening shortness of breath. The patient had increased dyspnea, chest tightness and wheeze. She came into the ED for worsening shortness of breath and she was also found to be desaturating and she was hypoxic. At the same time the patient was noted to have a low sodium level 120.. Chest x-ray showed possibility of a lower lobe pneumonia. The patient was started on antibiotics and the patient was given IV Levaquin. The patient was started on steroids and DuoNeb nebulized treatments around the clock. The patient overnight also required to go on a BiPAP at a pressure of 10/5 cm of water and currently some fleets of oxygen by nasal cannula. She is receiving IV fluids in the form of normal saline at rate of 75 mL an hour. She is using incentive spirometer and she is pulling approximately 500. No nausea. No vomiting. No abdominal pain. No chest pain. The sung virus 19 evaluation still pending for now. Note that the patient had other morbidities history of a dilated common bile duct. Nevertheless, the patient's liver functions of been all within normal limits. The MRCP showed extrahepatic bile duct at upper limits of normal without any intraluminal mass or stricture. 03/13/2020, the patient is calm and comfortable. Overnight the patient became quite confused and restless and she was having episodes of hallucination. She was given Haldol. Subsequently, based on ongoing hyponatremia, she was started on 3% saline solution and sodium level gradually improved and is currently up to 126. I stopped his saline/hypertonic saline solution at around midnight. She is currently receiving normal state rate of 50 mL an hour. The nurses were quite concerned about aspiration. Her swallow did not seem to be right. The patient has had previous swallow evaluation back in 2019 and she had evidence of aspiration penetration. As such aspiration pneumonia suspected. Meanwhile, the repeat chest x-ray from today shows adequate expansion of both lungs without any evidence of pulmonary infiltration. The patient is alert and oriented 2 at t his point in time. Sodium level is up to 126. Pro-calcitonin level was low at 0.06. She remains on broad-spectrum antibiotics. No agitation. No other significant events overnight. The patient is seen today 03/14/2020 in follow-up on the selective care unit. She is awake and alert in no acute distress. Resting quite comfortably in bed. Oriented 3. Currently maintaining good O2 saturation in the 90s on room air. She's afebrile. Blood culture reveals no growth to date. Sputum culture reveals no growth. White count 8.2. Hemoglobin 11.6. Sodium 127 with follow- up at 1:30. Potassium 4.4. Creatinine 0.48. She remains on bronchodilators and oral prednisone. Barium swallow did reveal some thin liquid aspiration. Thick consistency and honey thick consistency penetration. Pulling within the vallecula. Reflux into the hypopharynx. The patient is seen today 03/15/2020 in follow-up on the selective care unit. She is resting in bed. Awake and alert in no acute distress. Denies any shortness of breath, cough or congestion. Denies any chest pain. Blood culture reveals no growth. Sputum culture reveals no growth. White count 14.4. Hemoglobin 11.9. Sodium 131. Creatinine 0.53. She remains on DuoNeb inhalations, Pulmicort inhalations, prednisone. Objective - Vital Signs Vital signs: Vital Signs Temp 99.7 F H 03/15/20 08:00 Pulse 88 03/15/20 10:05 Resp 18 03/15/20 08:00 BP 141/65 03/15/20 08:00 Pulse Ox 96 03/15/20 08:00 Intake & Output 03/14/20 03/15/20 03/15/20 18:59 06:59 18:59 Intake Total 240 400 120 Output Total 600 200 Balance -360 200 120 Weight 43 kg 40.5 kg Intake: Intake, IV Titration 400 Amount Sodium Chloride 0.9% 1, 400 000 ml @ 50 mls/hr IV . Q20H [facility] Rx#:[id number] Oral 240 120 Output: Urine 600 200 Other: Voiding Method Indwelling Catheter Indwelling Catheter Indwelling Catheter - Exam Gen. appearance, very pleasant 84-year-old female patient, on 2 L/m per nasal cannula with O2 saturation of 96%., comfortable in no acute distress Head exam was generally normal. There was no scleral icterus or corneal arcus. Mucous membranes were moist. Neck was supple and without jugular venous distension, thyromegaly, or carotid bruits. Carotids were easily palpable bilaterally. There was no adenopathy. Lungs sounds are diminished and faint wheezes throughout the lung dickey bilaterally and there is also prolongation of the exhalation phase of breathing. Cardiac exam revealed the PMI to be normally situated and sized. The rhythm was regular and no extrasystoles were noted during several minutes of auscultation. The first and second heart sounds were normal and physiologic splitting of the second heart sound was noted. There were no murmurs, rubs, clicks, or gallops. Abdominal exam revealed normal bowel sounds. The abdomen was soft, non-tender, and without masses, organomegaly, or appreciable enlargement of the abdominal aorta. Examination of the extremities revealed easily palpable radial, femoral and pedal pulses. There was no cyanosis, clubbing or edema. Examination of the skin revealed no evidence of significant rashes, suspicious appearing nevi or other concerning lesions. - Labs CBC & Chem 7: 03/15/20 06:06 03/15/20 06:06 Labs: Abnormal Lab Results - Last 24 Hours (Table) 03/14/20 03/14/20 03/14/20 Range/Units 11:46 16:49 19:57 WBC (3.8-10.6) k/uL Neutrophils # (1.3-7.7) k/uL Sodium (137-145) mmol/L BUN (7-17) mg/dL POC Glucose (mg/dL) 136 H 154 H 122 H (75-99) mg/dL Total Protein (6.3-8.2) g/dL Albumin (3.5-5.0) g/dL 03/15/20 03/15/20 Range/Units 06:06 06:06 WBC 14.4 H (3.8-10.6) k/uL Neutrophils # 11.4 H (1.3-7.7) k/uL Sodium 131 L (137-145) mmol/L BUN 19 H (7-17) mg/dL POC Glucose (mg/dL) (75-99) mg/dL Total Protein 5.4 L (6.3-8.2) g/dL Albumin 3.2 L (3.5-5.0) g/dL Microbiology - Last 24 Hours (Table) 03/12/20 00:12 Blood Culture - Preliminary Blood No Growth after 72 hours 03/12/20 13:46 Gram Stain - Final Sputum Sputum Culture - Final Assessment and Plan Assessment: 1 acute COPD exacerbation with secondary shortness of breath. The chest x-ray today shows clearing of the right lower lobe pulmonary infiltrate. The patient still bronchospastic and wheezy and she is still being treated for an acute COPD exacerbation. CAT scan of the chest to follow. The coronavirus Covid 19 evaluation came back negative. 2 bilateral lower lobe pneumonia, recovered, consider aspiration and a swallow evaluation is to follow. Barium swallow results reviewed 3 acute hypoxic respiratory failure secondary to above 4 acute leukocytosis secondary to above, improving 5 mild leukocytosis and lactic acidosis, improving 6 hyponatremia, possible acute, possibly to hypovolemia, improving and the sodium level is up to 130 7 hypertension 8 chronic anxiety/depression 9 chronic back pain and degenerative arthritis and the patient limited on oxycodone on outpatient basis for pain management 10 altered mentation/delirium. Consider secondary to electric imbalance and the patient was briefly given hypertonic saline solution yesterday. Sodium level is up 130. Consider the possibility of alcohol withdrawal. Plan The patient was seen and evaluated by Dr. Thomas She is improved from the pulmonary standpoint Continue the current treatment plan Probable discharge to [facility] in a.m. We will continue to follow I, the cosigning physician, performed a history & physical examination of the patient. Lungs sounds with faint bilateral end expiratory wheeze, diminished. Maintaining good O2 saturations in the 90s on 2 L/m per nasal cannula. I discussed the assessment and plan of care with my nurse practitioner, Ping Belle. I attest to the above note as dictated by her.
[2020-03-15 11:51] LABS: Glucose,Whole Blood 108 mg/dL (75-99)
[2020-03-15] MEDS: IPRATROPIUM-ALBUTEROL 3 ML NEB INHALATION PRN (13:20)
[2020-03-15 17:06] LABS: Glucose,Whole Blood 126 mg/dL (75-99)
[2020-03-15 20:13] LABS: Glucose,Whole Blood 158 mg/dL (75-99)
[2020-03-15] MEDS: DULoxetine HCL 30 MG CAPSULE.DR PO SCH (20:16)
[2020-03-15] MEDS: LEVOFLOXACIN 750 MG TAB PO SCH (20:16)
[2020-03-15] MEDS: LOSARTAN 50 MG TAB PO SCH (20:16)
[2020-03-15] MEDS: MIRTAZAPINE 15 MG TAB PO SCH (20:16)
[2020-03-15] MEDS: SODIUM CHLORIDE 0.9% 1,000 ML IV SCH (20:19)
[2020-03-16 04:16] VITALS: TEMP 98.8
[2020-03-16] MEDS: PANTOPRAZOLE 40 MG TABLET PO SCH (05:51)
[2020-03-16] MEDS: ALPRAZolam 0.5 MG TAB PO PRN ×2 (06:17→13:44)
[2020-03-16] MEDS: INSULIN ASPART (NovoLOG) 100 UNIT/ML VIAL SQ SCH ×2 (06:24→11:54)
[2020-03-16 06:25] LABS: Glucose,Whole Blood 89 mg/dL (75-99)
--- NOTE | 2020-03-16 08:02 | P.DS ---
Providers Date of admission: 03/12/20 00:44 Expected date of discharge: 03/16/20 Attending physician: Elma Palmer Consults: 03/12/20 00:42 Consult Physician Routine Consulting Provider: Demarco Thomas Consult Reason/Comments: hypoxia Do you want consulting provider notified?: Yes 03/12/20 00:43 Consult Physician Routine Consulting Provider: Jon Hughes Consult Reason/Comments: chf Do you want consulting provider notified?: Yes Primary care physician: Elma Palmer Hospital Course: This is an 84-year-old female patient of [employer] with past medical history of COPD, hypertension, chronic pain syndrome, tobacco use and dependence generalized anxiety disorder, was evaluated recently by GI recently for dilated Common bile dust on MRCP possible pancreatic pathology , was brought into the ER at [facility] with increased shortness of breath via EMS that has been going on for few days, she was hypoxemic with O2 saturaion in the 's and she was given nebulized treatment and transported to the hospital via EMS, she was placed on BIPAP and she had elevated WBCs 66234, lactic acid 2.3, her sodium initially was 120 and did drop to 119 today, her CXR showed bilateral lower lobe pneumonia, LDH 821, AST 58 and Alk.Phos 128, patient was started on IVF normal saline at 75 ml/h and she was placed on levaquin 500 mg IVPB daily along with duoneb 3 ml NEB QID along with solu-medrol 60 mg IVP Q 6 hours and Pulmicort 1 mg NEB BID, was admitted to the ICU and she was placed in droplet precautions for possible COVID-19, pulmonary consulation. 03/13: Patient is laying down in bed, she appears to be drowsy and confused today, she underwent swallow evaluation that showed an aspiration and patient was placed on a thickened liquid, she underwent a computed tomography scan of the brain that did not show any evidence of acute infarct or bleed, her sodium is 126 today, she did receive 3% of sodium yesterday, she will be kept in the intensive care unit we'll continue to monitor the patient very closely. 03/14: Patient is sitting up in bed in no acute distress she is much better than yesterday, she continues to have some issues with aspiration she is getting thickened liquids at this time, her sodium level is is much better today 130, we will continue with the prednisone as well as antibiotic, we will try to minimize the use of alcohol, we will monitor the patient very closely, physical therapy evaluation, hopefully the patient would be able to go home in 1-2 days 03/15: Patient is sitting up in bed today she is a bit weaker than yesterday she continues to have some cough minimal brown phlegm production, she has no fever or chills last night, she did not sleep well she suddenly developed, she was seen by physical therapy and was recommended for the patient to go to [facility] care facility for physical therapy rehabilitation's will be done tomorrow morning 03/16: Patient has been afebrile, heart rate 82, blood pressure 115/70, pulse ox 96% on 2 L nasal cannula. Capillary blood glucose running between 89 and 158. Sputum culture reveals normal dilip. Blood culture no growth at 96 hours. Patient has been seen and followed by pulmonary medicine and cardiology. Echocardiogram report is pending at the time of this evaluation. Patient is complaining of pain in her back legs and generalized all over. She is due for a pain pill this morning. She is off oxygen currently. She continues to have cough with a small amount of brown sputum production. Patient will be discharged today to [facility] today in stable condition. Discharge diagnoses: 1. Acute hypoxemic respiratory failure due to bilateral pneumonia, possible gram negative pneumonia, with COPD exacerbation. 2. Bilateral pneumonia. 3. COPD exacerbation. 4. Leukocytosis likley related to pneumonia. 5. Acute delirium and possible ICU psychosis. Due to combination of hyponatremia as well as steroid use, as well as ICU care. 6. Sepsis related to bibasilar pneumonia. 7. Hyponatremia likely related to hypovolemia. 8. Hypertension and hypertensive cardiovascular disease. 9. Recurrent depression 10. Generalized anxiety disorder. 11. Chronic pain syndrome due to sever back pain. Discharge plan is for [facility] under the care of Dr. Palmer. Impression and plan of care have been directed as dictated by the signing physician. Zora Ayala nurse practitioner acting as scribe for signing physician. Patient Condition at Discharge: Good Plan - Discharge Summary New Discharge Prescriptions: New Levofloxacin [Levaquin] 750 mg PO HS #6 tab Metoprolol Tartrate [Lopressor] 25 mg PO Q8HR tab INSULIN ASPART (NovoLOG) [NovoLOG (formulary)] 0 unit SQ ACHS vial predniSONE 0 mg PO DIRECTED #30 tab Pantoprazole [Protonix] 40 mg PO AC-BRKFST tablet. Budesonide [Pulmicort] 1 mg INHALATION RT-BID ml Acetaminophen Tab [Tylenol] 650 mg PO Q6HR PRN tab PRN Reason: Fever And/ Or Pain Albuterol Nebulized [Ventolin Nebulized] 2.5 mg INHALATION RT-QID ml Continue Multivitamins, Thera [Multivitamin (formulary)] 1 tab PO DAILY@1200 Losartan Potassium 100 mg PO HS Mirtazapine [Remeron] 30 mg PO HS DULoxetine HCL [Cymbalta] 30 mg PO HS DULoxetine HCL [Cymbalta] 60 mg PO DAILY Melatonin 5 mg PO HS Ondansetron [Zofran] 4 mg PO TID Albuterol Sulfate [Ventolin HFA] 1 - 2 puff INHALATION RT-Q6H PRN PRN Reason: Shortness Of Breath Promethazine HCl 12.5 mg PO DAILY PRN PRN Reason: Nausea oxyCODONE HCL [oxyCODONE HCL (IR)] 30 mg PO Q8H #9 tab ALPRAZolam [Xanax] 0.5 mg PO Q12H PRN #6 tab PRN Reason: Anxiety Discontinued Naloxone HCl [Narcan] 4 mg NASAL ONCE PRN PRN Reason: OVERDOSE Metoprolol Tartrate [Lopressor] 25 mg PO BID Diphenox-Atrop 2.5-0.025 mg [Lomotil] 1 tab PO BID Discharge Medication List Multivitamins, Thera [Multivitamin (formulary)] 1 tab PO DAILY@1200 11/07/16 [History] Losartan Potassium 100 mg PO HS 06/10/18 [History] Mirtazapine [Remeron] 30 mg PO HS 01/13/19 [History] DULoxetine HCL [Cymbalta] 30 mg PO HS 01/14/19 [History] DULoxetine HCL [Cymbalta] 60 mg PO DAILY 01/14/19 [History] Melatonin 5 mg PO HS 01/14/19 [History] Albuterol Sulfate [Ventolin HFA] 1 - 2 puff INHALATION RT-Q6H PRN 03/12/20 [History] Ondansetron [Zofran] 4 mg PO TID 03/12/20 [History] Promethazine HCl 12.5 mg PO DAILY PRN 03/12/20 [History] ALPRAZolam [Xanax] 0.5 mg PO Q12H PRN #6 tab 03/16/20 [Rx] Acetaminophen Tab [Tylenol] 650 mg PO Q6HR PRN tab 03/16/20 [Rx] Albuterol Nebulized [Ventolin Nebulized] 2.5 mg INHALATION RT-QID ml 03/16/20 [Rx] Budesonide [Pulmicort] 1 mg INHALATION RT-BID ml 03/16/20 [Rx] INSULIN ASPART (NovoLOG) [NovoLOG (formulary)] 0 unit SQ ACHS vial 03/16/20 [Rx] Levofloxacin [Levaquin] 750 mg PO HS #6 tab 03/16/20 [Rx] Metoprolol Tartrate [Lopressor] 25 mg PO Q8HR tab 03/16/20 [Rx] Pantoprazole [Protonix] 40 mg PO AC-BRKFST tablet. 03/16/20 [Rx] oxyCODONE HCL [oxyCODONE HCL (IR)] 30 mg PO Q8H #9 tab 03/16/20 [Rx] predniSONE 0 mg PO DIRECTED #30 tab 03/16/20 [Rx] Follow up Appointment(s)/Referral(s): [facility] Visiting Nurse, [NON-STAFF] - 1-2 Days Elma Palmer MD [Primary Care Provider] - 1 Week (at [facility]) Discharge Disposition: TRANSFER TO SNF/ECF
[2020-03-16] MEDS: BUDESONIDE 1 MG/2 ML NEBU INHALATION SCH (08:27)
[2020-03-16] MEDS: ALBUTEROL NEBULIZED 2.5 MG/3 ML INHALATION SCH ×2 (08:27→12:41)
[2020-03-16 08:32] LABS: Basophils % (A) 0 %; Eosinophils # (A) 0.1 k/uL (0-0.7); Eosinophils % (A) 1 %; Lymphocytes # (A) 2.9 k/uL (1.0-4.8); Lymphocytes % (A) 29 %; MCH 29.2 pg (25.0-35.0); MCHC 31.4 g/dL (31.0-37.0); MCV 92.9 fL (80.0-100.0); Mean Platelet Volume 7.7; Monocytes # (A) 0.7 k/uL (0-1.0); Monocytes % (A) 7 %; Neutrophils # (A) 6.1 k/uL (1.3-7.7); Neutrophils % (A) 62 %; Platelet Count 340 k/uL (150-450); RBC 4.09 m/uL (3.80-5.40); RDW 15.5 % (11.5-15.5); WBC 9.9 k/uL (3.8-10.6)
[2020-03-16] MEDS: MULTIVITAMINS, THERA 1 EACH TAB PO SCH (08:40)
[2020-03-16] MEDS: ENOXAPARIN 40 MG/0.4 ML SYRINGE SQ SCH (08:40)
[2020-03-16] MEDS: DULoxetine HCL 60 MG CAPSULE.DR PO SCH (08:40)
[2020-03-16] MEDS: ONDANSETRON 4 MG/2 ML VIAL IVP PRN ×2 (08:40→13:44)
[2020-03-16] MEDS: predniSONE 20 MG TAB PO SCH (08:41)
[2020-03-16] MEDS: METOPROLOL TARTRATE 25 MG TAB PO SCH (08:41)
--- NOTE | 2020-03-16 09:50 | CDI ---
Documentation Clarification Form Date: 03/16/2020 09:20:30 AM From: Sammie Lopez RN CCDS Admit Date: 03/12/2020 12:44:00 AM Patient Name: Edel Alex Visit Number: [id number] Discharge Date: ATTENTION: The Clinical Documentation Specialists (CDI) and [facility] Coding Staff appreciate your assistance in clarifying documentation. Please respond to the clarification below the line at the bottom and electronically sign. The CDI & [facility] Coding staff will review the response and follow-up if needed. Please note: Queries are made part of the Legal Health Record. If you have any questions, please contact the author of this message via ITS. Dr. Demarco Thomas Altered Mentation/ delirium was documented in your progress note 03/13, 03/14 and 03/15 History/Risk Factors: 84-year-old female presents to the ED via EMS with shortness of breath saturations in the 80s. Medical History: Heart Failure, COPD and HTN Clinical Indicators: 03/12 Labs: Wbc 23.3; NA 119; Chl 83; Cr 0.47; Osmolality 249; 03/12 CXR: There are bilateral lower lobe pulmonary interstitial infiltrates 03/[address]: Chronic appearing periventricular white matter ischemic changes. 03/13 Pulmonology Progress note: Altered mentation / delirium. Consider secondary to electric imbalance Treatment: 03/12 0.9ns 75cchr; 03/12 Sodium Chloride Saline 3% 500mls @ 30mls/hr d/c 03/13 In your professional opinion, please clarify the etiology of the Altered Mental Status, if known. Metabolic Encephalopathy secondary to electrolyte imbalance. Other condition (please specify) Unable to determine (Last Revision: October 2017) Metabolic Encephalopathy secondary to electrolyte imbalance. MTDD
[2020-03-16 11:02] VITALS: BP 144/65; RESP 18
[2020-03-16 11:51] LABS: Glucose,Whole Blood 122 mg/dL (75-99)
[2020-03-16] MEDS ORDERED: NA PHOS,M-B/NA PHOS,DI-BA 133 ML ENEMA RECTAL STA (13:25)
[2020-03-16 14:52] VITALS: PULSE 68
--- NOTE | 2020-03-17 13:00 | ECHOF ---
Referral Reason:Chest pain and cardiomyopathy MEASUREMENTS -------- HEIGHT: 152.4 cm WEIGHT: 51.3 kg BP: IVSd: 1.0 cm (0.6 - 1.1) LVIDd: 3.6 cm (3.9 - 5.3) LVPWd: 1.2 cm (0.6 - 1.1) IVSs: 1.5 cm LVIDs: 1.6 cm LVPWs: 1.8 cm LAESV Index (A-L): 26.49 ml/m Ao Diam: 3.1 cm (2.0 - 3.7) AV Cusp: 1.6 cm (1.5 - 2.6) LA Diam: 3.3 cm (2.7 - 3.8) MV EXCURSION: 21.171 mm (> 18.000) MV EF SLOPE: 123 mm/s (70 - 150) EPSS: 1.4 cm MV E Tommy: 0.97 m/s MV DecT: 229 ms MV A Tommy: 1.09 m/s MV E/A Ratio: 0.89 RAP: 5.00 mmHg RVSP: 30.95 mmHg FINDINGS -------- Sinus rhythm. This was a technically adequate study. The left ventricular size is normal. There is mild concentric left ventricular hypertrophy. Overa ll left ventricular systolic function is normal with, an EF between 55 - 60 %. Normal LAP Grade 1 D iastolic Dysfunction. The right ventricle is normal in size. Normal LA size by volume 22+/-6 ml/m2. The right atrial size is normal. There is mild aortic valve sclerosis. The mitral valve leaflets are mildly thickened. Mild mitral regurgitation is present. The tricuspid valve appears structurally normal. [id number] tricuspid regurgitation present. Right ventricular systolic pressure is normal at < 35 mmHg. There is no pulmonic regurgitation present. The aortic root size is normal. Normal inferior vena cava with normal inspiratory collapse consistent with estimated right atrial pre ssure of 5 mmHg. There is a small, generalized pericardial effusion present. CONCLUSIONS -------- 1. There is mild concentric left ventricular hypertrophy. 2. Overall left ventricular systolic function is normal with, an EF between 55 - 60 %. 3. Normal LAP Grade 1 Diastolic Dysfunction. 4. Normal LA size by volume 22+/-6 ml/m2. 5. There is mild aortic valve sclerosis. 6. The mitral valve leaflets are mildly thickened. 7. Mild mitral regurgitation is present. 8. [id number]-bg-[id number] tricuspid regurgitation present. 9. There is a small, generalized pericardial effusion present. [employer]: Remedios Morris RDCS
== END 2020-03-16 15:45 | DRG 871 ==
LOC: EC 23:54 → 3SCARD 03-12 00:44 → 2SICU 03-12 01:26 → 3SCARD 03-13 23:31
PROVIDERS: ADMIT Internal Medicine; ATTEND Internal Medicine
PROC: 5A09457 Assistance with Respiratory Ventilation, 24-96 Consecutive Hours, Continuous Positive Airway Pressure (ICD-10-PCS; principal; 2020-03-12)
DX: A41.50 Gram-negative sepsis, unspecified (principal); J18.9 Pneumonia, unspecified organism; J96.01 Acute respiratory failure with hypoxia; G93.41 Metabolic encephalopathy; J44.1 Chronic obstructive pulmonary disease with (acute) exacerbation; J44.0 Chronic obstructive pulmonary disease with (acute) lower respiratory infection; E87.2 Acidosis; E87.1 Hypo-osmolality and hyponatremia; F05 Delirium due to known physiological condition; F33.9 Major depressive disorder, recurrent, unspecified; G89.4 Chronic pain syndrome; F41.1 Generalized anxiety disorder; K21.9 Gastro-esophageal reflux disease without esophagitis; R40.2362 Coma scale, best motor response, obeys commands, at arrival to emergency department; Z20.828 Contact with and (suspected) exposure to other viral communicable diseases; R40.2142 Coma scale, eyes open, spontaneous, at arrival to emergency department; R40.2242 Coma scale, best verbal response, confused conversation, at arrival to emergency department; I11.0 Hypertensive heart disease with heart failure; I50.9 Heart failure, unspecified; E86.1 Hypovolemia; M19.90 Unspecified osteoarthritis, unspecified site; E78.5 Hyperlipidemia, unspecified; M54.9 Dorsalgia, unspecified; K83.8 Other specified diseases of biliary tract; Z79.899 Other long term (current) drug therapy; Z79.52 Long term (current) use of systemic steroids; Z88.0 Allergy status to penicillin; Z88.1 Allergy status to other antibiotic agents; Z88.8 Allergy status to other drugs, medicaments and biological substances; Z88.6 Allergy status to analgesic agent; Z87.01 Personal history of pneumonia (recurrent); Z88.2 Allergy status to sulfonamides; Z90.710 Acquired absence of both cervix and uterus; Z98.49 Cataract extraction status, unspecified eye; Z87.891 Personal history of nicotine dependence; Z98.890 Other specified postprocedural states; Z82.0 Family history of epilepsy and other diseases of the nervous system; Z82.49 Family history of ischemic heart disease and other diseases of the circulatory system; Z80.6 Family history of leukemia; Z80.0 Family history of malignant neoplasm of digestive organs
CPT/HCPCS: 36415; 70450; 71045; 71250; 74230; 80048; 80051; 80053; 81001; 82550; 82728; 83605; 83615; 83735; 83880; 83930; 83935; 84100; 84145; 84295; 84300; 84484; 85025; 85610; 85730; 86140; 86738; 87040; 87070; 87205; 87449; 93005; 93306; 94640; 94660; 96365; 96366; 96368; 96375; 99291

== ENCOUNTER → 2020-08-03 | Outpatient (CLI) | payer MEDICARE, BC ==
--- NOTE | 2020-08-03 15:05 | XR ---
EXAMINATION TYPE: XR chest 2V DATE OF EXAM: 08/03/2020 COMPARISON: 03/13/2020 HISTORY: 84-year-old female right upper lobe consolidation, J18.1 TECHNIQUE: Frontal and lateral views FINDINGS: Leftward scoliosis. Heart normal size. Mild hyperinflation. Some patchy medial right basilar opacity is noted. No other consolidation or pleural effusion seen. Full-thickness rotator cuff tears on both sides given loss of the subacromial space. IMPRESSION: COPD, left-sided scoliosis. Some patchy medial right basilar atelectasis versus early infiltrate.
== END | disposition home or self-care (01) ==
LOC: RADXRMAIN 12:53
PROVIDERS: ATTEND Internal Medicine
DX: J44.9 Chronic obstructive pulmonary disease, unspecified (principal); M41.9 Scoliosis, unspecified
CPT/HCPCS: 71046

== ENCOUNTER 2021-01-26 18:20 | Inpatient (IN) | payer MEDICARE, BC ==
[2021-01-26] MEDS ORDERED: NITROGLYCERIN-D5W PMX 50 MG in DEXTROSE/WATER 1 250ML.BAG IV ONE (18:29)
[2021-01-26] MEDS ORDERED: NITROGLYCERIN SL TABS 0.4 MG TAB SUBLINGUAL STA (18:29)
--- NOTE | 2021-01-26 18:39 | ED ---
SOB HPI - General Chief Complaint: Shortness of Breath Stated Complaint: DONTE Time Seen by Provider: 01/26/21 18:27 Source: patient, EMS Mode of arrival: EMS Limitations: no limitations - History of Present Illness Initial Comments: This is an 85-year-old female who has a history of COPD, CHF on chronic O2 use who presents emergency department for respiratory distress. Fairly this started earlier today and was gradual in onset. They're trying breathing treatments at home without any relief. EMS arrived and they gave her one updraft and brought emergency department. She was reportedly 80s on her home O2. She was satting mid 90s when she got here on a nonrebreather. The patient denies any chest pain. Denies any fevers or chills. Denies any cough. Denies any pain anywhere no nausea or vomiting. States that she just feels very short of breath. The patient was quite tachypneic on arrival and thus was started on BiPAP. Blood pressure is noted to be severely elevated and the patient was given a sublingual nitroglycerin and started on nitro drip - Related Data Home Medications Medication Instructions Recorded Confirmed Losartan Potassium 100 mg PO DAILY 06/10/18 01/26/21 Mirtazapine [Remeron] 30 mg PO HS 01/13/19 01/26/21 DULoxetine HCL [Cymbalta] 30 mg PO DAILY 01/14/19 01/26/21 DULoxetine HCL [Cymbalta] 60 mg PO DAILY 01/14/19 01/26/21 ALPRAZolam [Xanax] 0.25 mg PO TID 01/26/21 01/26/21 Melatonin 10 mg PO HS 01/26/21 01/26/21 Metoprolol Tartrate [Lopressor] 25 mg PO TID 01/26/21 01/26/21 Ondansetron Odt [Zofran Odt] 4 mg PO TID 01/26/21 01/26/21 Pantoprazole [Protonix] 40 mg PO DAILY 01/26/21 01/26/21 Previous Rx's Medication Instructions Recorded oxyCODONE HCL [oxyCODONE HCL (IR)] 30 mg PO Q8H #9 tab 03/16/20 Allergies Allergy/AdvReac Type Severity Reaction Status Date / Time amoxicillin trihydrate Allergy Unknown Verified 07/13/21 18:28 [From Augmentin] cephalexin monohydrate Allergy Swelling Verified 01/26/21 18:28 [From Keflex] meperidine HCl [From Demerol] Allergy Unknown Verified 01/26/21 18:28 potassium clavulanate Allergy Unknown Verified 01/26/21 18:28 [From Augmentin] Sulfa (Sulfonamide Allergy Unknown Verified 01/26/21 18:28 Antibiotics) NSAIDS (Non-Steroidal AdvReac Severe Nausea & Verified 01/26/21 18:28 Anti-Inflamma Vomiting Review of Systems ROS Statement: Those systems with pertinent positive or pertinent negative responses have been documented in the HPI. ROS Other: All systems not noted in ROS Statement are negative. Past Medical History Past Medical History: COPD, GERD/Reflux, Hyperlipidemia, Hypertension, Os teoarthritis (OA), Pneumonia Additional Past Medical History / Comment(s): arthritis, history of pancreatitis, chronic back and neck pain, pins in right hip History of Any Multi-Drug Resistant Organisms: None Reported Past Surgical History: Hysterectomy Additional Past Surgical History / Comment(s): cataract, to vocal cord cyst removed. Past Anesthesia/Blood Transfusion Reactions: No Reported Reaction Past Psychological History: Anxiety, Depression Smoking Status: Former smoker Past Alcohol Use History: Rare Past Drug Use History: None Reported - Past Family History Father Family Medical History: No Reported History Additional Family Medical History / Comment(s): Father at age 57 from a motor vehicle accident. Brother(s) Additional Family Medical History / Comment(s): The patient has one brother with coronary artery disease. Patient has 2 sisters and one with history of Alzheimer's dementia. One has history of closed head injury. Patient is a total of 6 children. One son from a myocardial infarction with history of seizure, one daughter from pancreatic cancer. Other 4 children have no major medical problems. Mother Family Medical History: Blood Disorder, Cancer, Thyroid Disorder Additional Family Medical History / Comment(s): Mother at age 71 from leukemia. General Exam - General Exam Comments Initial Comments: Constitutional: Awake alert patient is in acute respiratory distress Head: Normocephalic atraumatic Eyes: no conjunctival injection No scleral icterus EOMI Neck: No JVD Supple Heart: Regular rate rhythm normal S1-S2 no murmurs Lungs: Sounds at the bilateral bases with rhonchi and rales, the patient is in severe respiratory distress with tachypnea Abdomen: Soft nondistended nontender Extremities: Non edematous DP pulses intact Radial pulses intact Neuro: A&Ox3 No focal neurologic deficits Psych: Appropriate mood and affect Limitations: no limitations Course Vital Signs 01/26/21 01/26/21 01/26/21 18:22 18:31 18:34 Temperature 98 F Pulse Rate 110 H 100 Respiratory 43 H 43 H 28 H Rate Blood Pressure 230/122 195/122 O2 Sat by Pulse 97 94 L Oximetry 01/26/21 01/26/21 01/26/21 18:51 19:01 19:37 Temperature Pulse Rate 104 H 101 H 110 H Respiratory 28 H 26 H 20 Rate Blood Pressure 173/93 162/88 150/94 O2 Sat by Pulse 98 95 93 L Oximetry 01/26/21 01/26/21 01/26/21 20:00 20:17 21:00 Temperature Pulse Rate 112 H 105 H 101 H Respiratory 24 20 21 Rate Blood Pressure 127/76 141/72 120/63 O2 Sat by Pulse 97 97 Oximetry - Reevaluation(s) Reevaluation #1: EKG showing sinus tachycardia with a rate of 106. There is no abnormal ST segment changes. There is T-wave T-wave inversions in V2 through V6. No ST depressions. QTC is 480. Other intervals normal. No ectopy. 01/26/21 22:07 Medical Decision Making - Medical Decision Making Is an 85-year-old female who presents emergency department for respiratory distress. The patient was placed on BiPAP and a nitro drip initially. Initial EKG was quite concerning for some deep T-wave inversions. However the patient did not have any chest pain throughout her ED stay. She was much improved after her blood pressure was controlled and the BiPAP was continued. She was no for longer and rest her distress. Chest x-ray was mostly unremarkable. CT did not reveal any PE and showed a typical pneumonia type changes. Patient will be started on antibiotics just to cover this however I suspect that her symptoms are likely more due to flash pulmonary edema and heart failure failure. I did speak with Dr. Welch about the patient's EKG and elevated troponin. He stated that at this times patient has no active chest pain he would not recommend emergent cath. They will evaluate the patient the morning. We'll start the patient on heparin. We'll place the patient in ICU for close monitoring. Dr. Palmer and Dr. Gutierrez were updated after. All questions answe red. - Lab Data Result diagrams: 01/26/21 18:30 01/26/21 18:30 Lab Results 01/26/21 01/26/21 01/26/21 Range/Units 18:30 18:30 18:30 WBC 14.7 H (3.8-10.6) k/uL RBC 5.09 (3.80-5.40) m/uL Hgb 14.4 (11.4-16.0) gm/dL Hct 45.2 (34.0-46.0) % MCV 88.9 (80.0-100.0) fL MCH 28.2 (25.0-35.0) pg MCHC 31.7 (31.0-37.0) g/dL RDW 13.7 (11.5-15.5) % Plt Count 455 H (150-450) k/uL MPV 6.9 Neutrophils % 64 % Lymphocytes % 28 % Monocytes % 3 % Eosinophils % 2 % Basophils % 1 % Neutrophils # 9.4 H (1.3-7.7) k/uL Lymphocytes # 4.1 (1.0-4.8) k/uL Monocytes # 0.5 (0-1.0) k/uL Eosinophils # 0.3 (0-0.7) k/uL Basophils # 0.1 (0-0.2) k/uL PT 9.8 (9.0-12.0) sec INR 0.9 (<1.2) APTT 24.5 (22.0-30.0) sec Sample Site ABG pH (7.35-7.45) ABG pCO2 (35-45) mmHg ABG pO2 (83-108) mmHg ABG HCO3 (21-25) mmol/L ABG Total CO2 (19-24) mmol/L ABG O2 Saturation (94-97) % ABG Base Excess mmol/L Monster Test FiO2 % Sodium (137-145) mmol/L Potassium (3.5-5.1) mmol/L Chloride (98-107) mmol/L Carbon Dioxide (22-30) mmol/L Anion Gap mmol/L BUN (7-17) mg/dL Creatinine (0.52-1.04) mg/dL Est GFR (CKD-EPI)AfAm (>60 ml/min/1.73 sqM) Est GFR (CKD-EPI)NonAf (>60 ml/min/1.73 sqM) Glucose (74-99) mg/dL Lactic Ac Sepsis Rflx Plasma Lactic Acid Librado (0.7-2.0) mmol/L Calcium (8.4-10.2) mg/dL Total Bilirubin (0.2-1.3) mg/dL AST (14-36) U/L ALT (4-34) U/L Alkaline Phosphatase (38-126) U/L Troponin I (0.000-0.034) ng/mL NT-Pro-B Natriuret Pep pg/mL Total Protein (6.3-8.2) g/dL Albumin (3.5-5.0) g/dL Urine Color Yellow Urine Appearance Clear (Clear) Urine pH 7.0 (5.0-8.0) Ur Specific [place] 1.014 (1.001-1.035) Urine Protein 2+ H (Negative) Urine Glucose (UA) Negative (Negative) Urine Ketones Negative (Negative) Urine Blood Negative (Negative) Urine Nitrite Negative (Negative) Urine Bilirubin Negative (Negative) Urine Urobilinogen <2.0 (<2.0) mg/dL Ur Leukocyte Esterase Negative (Negative) Urine RBC 1 (0-5) /hpf Urine WBC 4 (0-5) /hpf Urine Bacteria Rare H (None) /hpf Hyaline Casts 7 H (0-2) /lpf Urine Mucus Rare H (None) /hpf 01/26/21 01/26/21 01/26/21 Range/Units 18:30 18:30 18:30 WBC (3.8-10.6) k/uL RBC (3.80-5.40) m/uL Hgb (11.4-16.0) gm/dL Hct (34.0-46.0) % MCV (80.0-100.0) fL MCH (25.0-35.0) pg MCHC (31.0-37.0) g/dL RDW (11.5-15.5) % Plt Count (150-450) k/uL MPV Neutrophils % % Lymphocytes % % Monocytes % % Eosinophils % % Basophils % % Neutrophils # (1.3-7.7) k/uL Lymphocytes # (1.0-4.8) k/uL Monocytes # (0-1.0) k/uL Eosinophils # (0-0.7) k/uL Basophils # (0-0.2) k/uL PT (9.0-12.0) sec INR (<1.2) APTT (22.0-30.0) sec Sample Site ABG pH (7.35-7.45) ABG pCO2 (35-45) mmHg ABG pO2 (83-108) mmHg ABG HCO3 (21-25) mmol/L ABG Total CO2 (19-24) mmol/L ABG O2 Saturation (94-97) % ABG Base Excess mmol/L Monster Test FiO2 % Sodium 124 L (137-145) mmol/L Potassium 5.7 H (3.5-5.1) mmol/L Chloride 88 L (98-107) mmol/L Carbon Dioxide 23 (22-30) mmol/L Anion Gap 13 mmol/L BUN 8 (7-17) mg/dL Creatinine 0.57 (0.52-1.04) mg/dL Est GFR (CKD-EPI)AfAm >90 (>60 ml/min/1.73 sqM) Est GFR (CKD-EPI)NonAf 85 (>60 ml/min/1.73 sqM) Glucose 247 H (74-99) mg/dL Lactic Ac Sepsis Rflx Plasma Lactic Acid [place] 2.9 H* (0.7-2.0) mmol/L Calcium 9.8 (8.4-10.2) mg/dL Total Bilirubin 0.3 (0.2-1.3) mg/dL AST 39 H (14-36) U/L ALT 19 (4-34) U/L Alkaline Phosphatase 99 (38-126) U/L Troponin I (0.000-0.034) ng/mL NT-Pro-B Natriuret Pep 8540 pg/mL Total Protein 7.3 (6.3-8.2) g/dL Albumin 4.5 (3.5-5.0) g/dL Urine Color Urine Appearance (Clear) Urine pH (5.0-8.0) Ur Specific [place] (1.001-1.035) Urine Protein (Negative) Urine Glucose (UA) (Negative) Urine Ketones (Negative) Urine Blood (Negative) Urine Nitrite (Negative) Urine Bilirubin (Negative) Urine Urobilinogen (<2.0) mg/dL Ur Leukocyte Esterase (Negative) Urine RBC (0-5) /hpf Urine WBC (0-5) /hpf Urine Bacteria (None) /hpf Hyaline Casts (0-2) /lpf Urine Mucus (None) /hpf 01/26/21 01/26/21 01/26/21 Range/Units 18:38 18:45 19:30 WBC (3.8-10.6) k/uL RBC (3.80-5.40) m/uL Hgb (11.4-16.0) gm/dL Hct (34.0-46.0) % MCV (80.0-100.0) fL MCH (25.0-35.0) pg MCHC (31.0-37.0) g/dL RDW (11.5-15.5) % Plt Count (150-450) k/uL MPV Neutrophils % % Lymphocytes % % Monocytes % % Eosinophils % % Basophils % % Neutrophils # (1.3-7.7) k/uL Lymphocytes # (1.0-4.8) k/uL Monocytes # (0-1.0) k/uL Eosinophils # (0-0.7) k/uL Basophils # (0-0.2) k/uL PT (9.0-12.0) sec INR (<1.2) APTT (22.0-30.0) sec Sample Site Left Radial ABG pH 7.35 (7.35-7.45) ABG pCO2 49 H (35-45) mmHg ABG pO2 102 (83-108) mmHg ABG HCO3 27 H (21-25) mmol/L ABG Total CO2 29 H (19-24) mmol/L ABG O2 Saturation 97.4 H (94-97) % ABG Base Excess 1.6 mmol/L Monster Test Yes FiO2 60 % Sodium (137-145) mmol/L Potassium (3.5-5.1) mmol/L Chloride (98-107) mmol/L Carbon Dioxide (22-30) mmol/L Anion Gap mmol/L BUN (7-17) mg/dL Creatinine (0.52-1.04) mg/dL Est GFR (CKD-EPI)AfAm (>60 ml/min/1.73 sqM) Est GFR (CKD-EPI)NonAf (>60 ml/min/1.73 sqM) Glucose (74-99) mg/dL Lactic Ac Sepsis Rflx Y Plasma Lactic Acid [place] (0.7-2.0) mmol/L Calcium (8.4-10.2) mg/dL Total Bilirubin (0.2-1.3) mg/dL AST (14-36) U/L ALT (4-34) U/L Alkaline Phosphatase (38-126) U/L Troponin I 0.069 H* (0.000-0.034) ng/mL NT-Pro-B Natriuret Pep pg/mL Total Protein (6.3-8.2) g/dL Albumin (3.5-5.0) g/dL Urine Color Urine Appearance (Clear) Urine pH (5.0-8.0) Ur Specific [place] (1.001-1.035) Urine Protein (Negative) Urine Glucose (UA) (Negative) Urine Ketones (Negative) Urine Blood (Negative) Urine Nitrite (Negative) Urine Bilirubin (Negative) Urine Urobilinogen (<2.0) mg/dL Ur Leukocyte Esterase (Negative) Urine RBC (0-5) /hpf Urine WBC (0-5) /hpf Urine Bacteria (None) /hpf Hyaline Casts (0-2) /lpf Urine Mucus (None) /hpf Critical Care Time Critical Care Time: Yes Total Critical Care Time: 45 Critical Care Time: Critical care time spent examining and getting history from the patient and EMS providers and family. Ordering labs and interpreting labs ordering radiologist studies and interpreting the studies, multiple re-evaluations. IV nitro drip, BiPAP management, speaking to multiple consultants. Disposition Clinical Impression: Respiratory failure, NSTEMI (non-ST elevated myocardial infarction), CHF (congestive heart failure) Disposition: ADMITTED IP TO THIS HOSP Condition: Serious Referrals: Elma Palmer MD [Primary Care Provider] - 1-2 days Decision to Admit Reason: Admit from EC
[2021-01-26 18:48] LABS: Basophils # (A) 0.1 k/uL (0-0.2); Basophils % (A) 1 %; Eosinophils # (A) 0.3 k/uL (0-0.7); Eosinophils % (A) 2 %; HCT 45.2 % (34.0-46.0); HGB 14.4 gm/dL (11.4-16.0); Lymphocytes # (A) 4.1 k/uL (1.0-4.8); Lymphocytes % (A) 28 %; MCH 28.2 pg (25.0-35.0); MCHC 31.7 g/dL (31.0-37.0); MCV 88.9 fL (80.0-100.0); Mean Platelet Volume 6.9; Monocytes # (A) 0.5 k/uL (0-1.0); Monocytes % (A) 3 %; Neutrophils # (A) 9.4 k/uL (1.3-7.7); Neutrophils % (A) 64 %; Platelet Count 455 k/uL (150-450); RBC 5.09 m/uL (3.80-5.40); RDW 13.7 % (11.5-15.5); WBC 14.7 k/uL (3.8-10.6)
[2021-01-26 18:49] LABS: ABG Base Excess 1.6 mmol/L; ABG HCO3 27 mmol/L (21-25); ABG Oxygen Saturation 97.4 % (94-97); ABG PCO2 49 mmHg (35-45); ABG PH 7.35 (7.35-7.45); ABG PO2 102 mmHg (83-108); ABG TCO2 29 mmol/L (19-24); Allen Test Performed? Yes
[2021-01-26 18:56] LABS: ALT 19 U/L (4-34); AST 39 U/L (14-36); African American GFR (CKD) >90 (>60 ml/min/1.73 sqM); Albumin 4.5 g/dL (3.5-5.0); Alkaline Phosphatase 99 U/L (38-126); Anion Gap 13 mmol/L; Blood Urea Nitrogen 8 mg/dL (7-17); Calcium 9.8 mg/dL (8.4-10.2); Carbon Dioxide 23 mmol/L (22-30); Chloride 88 mmol/L (98-107); Glucose 247 mg/dL (74-99); Non-African American GFR(CKD) 85 (>60 ml/min/1.73 sqM); Potassium 5.7 mmol/L (3.5-5.1); Sodium 124 mmol/L (137-145); Total Bilirubin 0.3 mg/dL (0.2-1.3); Total Protein 7.3 g/dL (6.3-8.2)
[2021-01-26 18:58] LABS: INR 0.9 (<1.2); Partial Thromboplastin Time 24.5 sec (22.0-30.0); Prothrombin Time 9.8 sec (9.0-12.0)
[2021-01-26 19:12] LABS: Appearance,Urine Clear (Clear); Bacteria,Urine Rare /hpf; Bilirubin,Urine Negative (Negative); Blood,Urine Negative (Negative); Color,Urine Yellow; Glucose,Urine (UA) Negative (Negative); Hyaline Casts,Urine 7 /lpf (0-2); Ketones,Urine Negative (Negative); Leukocyte Esterase,Urine Negative (Negative); Mucus,Urine Rare /hpf; Nitrite,Urine Negative (Negative); Protein,Urine 2+ (Negative); RBC,Urine 1 /hpf (0-5); Specific Gravity,Urine 1.014 (1.001-1.035); Urobilinogen,Urine <2.0 mg/dL (<2.0); WBC,Urine 4 /hpf (0-5)
--- NOTE | 2021-01-26 19:16 | XR ---
EXAMINATION TYPE: XR chest 1V portable DATE OF EXAM: 01/26/2021 COMPARISON: 08/03/2020. HISTORY: Difficulty breathing. TECHNIQUE: Single frontal view of the chest is obtained. FINDINGS: There is mild right greater than left perihilar and bibasilar hazy opacities. No pleural e ffusion, or pneumothorax seen. The cardiac silhouette size is within normal limits. The osseous st ructures are intact. IMPRESSION: Chronic appearing mild opacities with superimposed acute process not excluded.
[2021-01-26] MEDS ORDERED: LORazepam 2 MG/ML INJ IV STA ×2 (19:32→21:45)
[2021-01-26] MEDS ORDERED: FUROSEMIDE 10 MG/ML 4 ML VIAL IV STA ×2 (20:58→23:47)
--- NOTE | 2021-01-26 21:29 | CT ---
EXAMINATION TYPE: CT angio chest DATE OF EXAM: 01/26/2021 8:18 PM COMPARISON: CT 03/13/2020. Same-day radiographs. HISTORY: Dyspnea. CT DLP: 251.4 mGycm Automated exposure control for dose reduction was used. CONTRAST: CTA scan of the thorax is performed with IV Contrast, patient injected with 59ml mL of Isovue 370, pu lmonary embolism protocol. MIP images are created and reviewed. FINDINGS: LUNGS: There is bilateral diffuse moderate tree-in-bud pattern opacities pronounced in the lower lobe s. Associated scattered nodular opacities. There is additional moderate right middle lobe compressive atelectasis. There is also small right lower lobe consolidation. There is moderate centrilobular emp hysema. No significant pleural effusion or pneumothorax. MEDIASTINUM: There is satisfactory enhancement of the pulmonary artery and its branches, there is no CT evidence for pulmonary embolism. There are no greater than 1 cm hilar or mediastinal lymph nodes. No pericardial effusion is seen. OTHER: Mild S-shaped scoliosis. No additional significant abnormality is seen. IMPRESSION: PROGRESSION OF DIFFUSE MODERATE TREE-IN-BUD PATTERN OPACITIES WITH SMALL CONSOLIDATIONS AND CHRONIC C OMPRESSIVE ATELECTASIS. CONSIDERATIONS INCLUDE ATYPICAL INFECTION. NO ACUTE PE.
[2021-01-26] MEDS ORDERED: HEPARIN SODIUM 1,000 UN/ML (10ML VL) IV PRN (21:45)
[2021-01-26] MEDS ORDERED: HEPARIN SODIUM 1,000 UN/ML (10ML VL) IV ONE (21:45)
[2021-01-26] MEDS ORDERED: NALOXONE 0.4 MG/ML 1 ML VIAL IV PRN (21:49)
[2021-01-26] MEDS ORDERED: AZITHROMYCIN 500 MG in SODIUM CHLORIDE 0.9% 250 ML IVPB STA (21:51)
[2021-01-26] MEDS: HEPARIN SOD,PORK IN 0.45% NACL 25,000 UNIT in 0.45% NACL 1 250ML.BAG IV SCH (22:51)
[2021-01-26 23:47] LABS: Glucose,Whole Blood 166 mg/dL (75-99)
[2021-01-26] MEDS ORDERED: ASPIRIN 81 MG PO STA (23:47)
[2021-01-27] MEDS: ALPRAZolam 0.25 MG TAB PO SCH ×4 (01:40→20:59)
[2021-01-27] MEDS: METOPROLOL TARTRATE 25 MG TAB PO SCH ×4 (01:40→20:58)
[2021-01-27] MEDS: ONDANSETRON ODT 4 MG TAB PO SCH ×3 (02:14→20:28)
[2021-01-27] MEDS: MIRTAZAPINE 15 MG TAB PO SCH ×2 (02:20→20:28)
[2021-01-27] MEDS: ACETAMINOPHEN TAB 325 MG TAB PO PRN ×2 (03:43→20:58)
[2021-01-27 03:52] LABS: Basophils % (A) 0 %; Eosinophils # (A) 0.1 k/uL (0-0.7); Eosinophils % (A) 0 %; HCT 38.9 % (34.0-46.0); HGB 12.7 gm/dL (11.4-16.0); Lymphocytes # (A) 1.1 k/uL (1.0-4.8); Lymphocytes % (A) 5 %; MCH 28.1 pg (25.0-35.0); MCHC 32.5 g/dL (31.0-37.0); MCV 86.4 fL (80.0-100.0); Mean Platelet Volume 6.6; Monocytes # (A) 0.6 k/uL (0-1.0); Monocytes % (A) 3 %; Neutrophils # (A) 20.1 k/uL (1.3-7.7); Neutrophils % (A) 92 %; Platelet Count 383 k/uL (150-450); RBC 4.51 m/uL (3.80-5.40); RDW 13.8 % (11.5-15.5); WBC 21.9 k/uL (3.8-10.6)
[2021-01-27 04:13] LABS: ALT 18 U/L (4-34); AST 41 U/L (14-36); African American GFR (CKD) >90 (>60 ml/min/1.73 sqM); Albumin 3.9 g/dL (3.5-5.0); Alkaline Phosphatase 94 U/L (38-126); Anion Gap 10 mmol/L; Blood Urea Nitrogen 9 mg/dL (7-17); Calcium 9.1 mg/dL (8.4-10.2); Carbon Dioxide 29 mmol/L (22-30); Chloride 85 mmol/L (98-107); Glucose 173 mg/dL (74-99); Non-African American GFR(CKD) 86 (>60 ml/min/1.73 sqM); Potassium 4.2 mmol/L (3.5-5.1); Sodium 124 mmol/L (137-145); Total Bilirubin 0.3 mg/dL (0.2-1.3); Total Protein 6.6 g/dL (6.3-8.2)
[2021-01-27 04:14] LABS: Prothrombin Time 10.7 sec (9.0-12.0)
[2021-01-27] MEDS: PANTOPRAZOLE 40 MG TABLET PO SCH (06:30)
--- NOTE | 2021-01-27 07:25 | XR ---
EXAMINATION TYPE: XR chest 1V portable DATE OF EXAM: 01/27/2021 COMPARISON: 01/26/2021 HISTORY: Congestion TECHNIQUE: Single frontal view of the chest is obtained. FINDINGS: The lungs are hyperinflated with prominence of the interstitium, most compatible with chronic obstruc tive pulmonary disease. There is stable elevation of the left hemidiaphragm. Cardiac silhouette is unchanged in size. There is scoliosis and degenerative changes are noted in the bones. IMPRESSION: No acute process.
[2021-01-27] MEDS: ATORVASTATIN 40 MG TAB PO SCH ×2 (08:56→15:29)
[2021-01-27] MEDS ORDERED: LOSARTAN 50 MG TAB PO SCH (09:00)
[2021-01-27] MEDS ORDERED: DULoxetine HCL 30 MG CAPSULE.DR PO SCH (09:00)
[2021-01-27] MEDS: DULoxetine HCL 60 MG CAPSULE.DR PO SCH (09:10)
--- NOTE | 2021-01-27 09:42 | ECHOF ---
Referral Reason:elevated troponin. LV function MEASUREMENTS -------- HEIGHT: 152.4 cm WEIGHT: 40.8 kg BP: 121/58 IVSd: 1.1 cm (0.6 - 1.1) LVIDd: 3.2 cm (3.9 - 5.3) LVPWd: 1.0 cm (0.6 - 1.1) EDV(Teich): 42 ml IVSs: 1.6 cm LVIDs: 1.9 cm LVPWs: 1.4 cm %IVS Thck: 43 % ESV(Teich): 11 ml EF(Teich): 74 % %FS: 41 % SV(Teich): 31 ml LA Diam: 2.4 cm (2.7 - 3.8) RVIDd: 2.4 cm (< 3.3) LALs A4C: 5.2 cm LAAs A4C: 15.9 cm LAESV A-L A4C: 42 ml LAESV MOD A4C: 40 ml LALs A2C: 5.2 cm LAAs A2C: 12.3 cm LAESV A-L A2C: 25 ml LAESV MOD A2C: 24 ml LAESV(A-L): 32 ml LAESV Index (A-L): 24.22 ml/m Ao Diam: 3.1 cm (2.0 - 3.7) AV Cusp: 1.5 cm (1.5 - 2.6) EPSS: 0.8 cm MV E Tommy: 0.87 m/s MV DecT: 176 ms MV Dec Mcdowell: 5.0 m/s MV A Tommy: 1.16 m/s MV E/A Ratio: 0.76 MV PHT: 51 ms MV Vmax: 1.20 m/s MV Vmean: 0.73 m/s MV maxP.77 mmHg MV meanP.37 mmHg MV VTI: 22.6 cm AV Vmax: 1.37 m/s AV maxP.51 mmHg TR Vmax: 2.62 m/s TR maxP.40 mmHg RAP: 5.00 mmHg RVSP: 32.40 mmHg MV EF SLOPE: 77.79 mm/s (70 - 150) MV EXCURSION: 16.10 mm (> 18.000) FINDINGS -------- Sinus rhythm. This was a technically adequate study. The left ventricular size is normal. There is borderline concentric left ventricular hypertrophy. Overall left ventricular systolic function is normal with, an EF between 65 - 70 %. The right ventricle is normal in size. Normal LA size by volume 22+/-6 ml/m2. The right atrium is normal in size. Interatrial and interventricular septum intact. The aortic valve is trileaflet, and appears structurally normal. No aortic stenosis or regurgitation. The mitral valve leaflets are mildly thickened. Mild mitral annular calcification present. Mild m itral regurgitation is present. Mild tricuspid regurgitation present. Right ventricular systolic pressure is normal at < 35 mmHg. The pulmonic valve was not well visualized. The aortic root size is normal. Normal inferior vena cava with normal inspiratory collapse consistent with estimated right atrial pre ssure of 5 mmHg. There is no pericardial effusion. CONCLUSIONS -------- 1. The left ventricular size is normal. 2. There is borderline concentric left ventricular hypertrophy. 3. Overall left ventricular systolic function is normal with, an EF between 65 - 70 %. 4. The aortic valve is trileaflet, and appears structurally normal. No aortic stenosis or regurgitati on. 5. The mitral valve leaflets are mildly thickened. 6. Mild mitral annular calcification present. 7. Mild mitral regurgitation is present. 8. Mild tricuspid regurgitation present. 9. There is no pericardial effusion. REGISTERED PHLEBOTOMIST PART TIME: Sanjuana Andersen RDCS
--- NOTE | 2021-01-27 10:09 | P.CRDCN ---
History of Present Illness History of present illness: HISTORY OF PRESENTING ILLNESS This is a pleasant 85-year-old female past medical history significant for COPD, hypertension, hyperlipidemia, former nicotine dependence. She has a history of p revious admissions for COPD exacerbation and pneumonia. 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 We have been asked to see in consultation for abnormal EKG, elevated troponin, congestive heart failure. Patient presents emergency department on 01/26/2021 with worsening shortness of breath at home. She states that early in the day she was feeling okay but started to feel short of breath, she started to do with her breathing treatments at home without any relief. She was hypoxic at home with SpO2 80s. EMS was called and patient was brought to the emergency department. On arrival patient was hypertensive blood pressure 200s/100s, tachycardiac HR 110s, she was afebrile. She was placed on a n onrebreather Oxygen saturations greater than 92%, and was later placed on a BiPAP. She was started on IV nitroglycerin, became hypotensive and this was stopped. She also was given IV Lasix 40mg x 2. She denies chest pain, palpitations, lower extremity edema, weakness, lightheadedness, syncope. She denies history of cardiac disease, diabetes, coronary artery disease, heart failure. She is a former smoker, quit about 6 months ago. She denies any recent increase stress/stressful events at home. DIAGNOSTICS EKG reveals sinus tachycadia, HR 104, deep T wave inversions in leads V2-V5, TWI V6, mild ST elevation in leads V1, TWI leads I, aVL, II, aVF. Prior EKG in 02/2020- sinus tachycardia, HR 126, non-specific ST-T wave changes. Most recent echocardiogram 02/2020 revealed EF of 55-60%, mild aortic valve sclerosis, mild mitral regurgitation, mild to moderate tricuspid regurgitation, small generalized pericardial effusion. Telemetry tracings indicate sinus rhythm 70s to 90s. Chest xray lungs are hyperinflated with prominence of interstitial, compatible COPD. CT chest was negative for pulmonary embolism, bilateral diffuse moderate disease, in the lower lobes. Moderate right middle lobe compressive atelectasis. moderate centrilobular emphysema Laboratory reviewed, Troponin trend 0.06-->0.4-->0.4. COVID-19 negative, WBC 21.9, hemoglobin 12.7, platelets 36, sodium 124, potassium 4.2, BUN 9, serum creatinine 0.5. ProBNP 8540. REVIEW OF SYSTEMS At the time of my exam: CONSTITUTIONAL: Denies fever or chills. CARDIOVASCULAR: + shortness of breath, Denies chest pain, orthopnea, PND or palpitations. RESPIRATORY: +cough. GASTROINTESTINAL: Denies abdominal pain, diarrhea, constipation, nausea or vomiting. MUSCULOSKELETAL: Denies myalgias. NEUROLOGIC: Denies numbness, tingling, headacbe or weakness. ENDOCRINE: Denies fatigue, weight change, polydipsia or polyurina. GENITOURINARY: Denies burning, hematuria or urgency with micturation. HEMATOLOGIC: Denies history of anemia or bleeding. PHYSICAL EXAMINATION Blood pressure 110/61 heart rate 86 afebrile and maintaining oxygen saturation 95% on 2 L nasal cannula CONSTITUTIONAL: No apparent distress. Appears short of breath. HEENT: Head is normocephalic. Pupils are equal, round. Sclerae anicteric. Mucous membranes of the mouth are moist. +JVD. No carotid bruit. CHEST EXAMINATION: Lungs are diminished bilaterally . No chest wall tenderness is noted on palpation or with deep breathing. HEART EXAMINATION: Regular rate and rhythm. S1, S2 heard. Systolic murmur noted ABDOMEN: Soft, nontender. Positive bowel sounds. EXTREMITIES: 2+ peripheral pulses, no lower extremity edema and no calf tenderness. SKIN: No rashes or wounds NEUROLOGIC EXAMINATION: Patient is awake, alert and oriented x3. ASSESSMENT Acute Hypoxic respiratory failure- possibly combination of COPD and possible heart failure EKG changes concerning of ischemia vs Takotsubo cardiomyopathy COPD Hypertension Hyperlipidemia Former nicotine dependence PLAN Obtain 2D echocardiogram and doppler study to assess cardiac structure and function. Start aspirin 81mg daily, statin Continue IV heparin Continue metoprolol tartrate 25mg TID Hold patient's Losartan Further recommendations based on clinical course. Nurse Practitioner note has been reviewed, I agree with a documented findings and plan of care. Patient was seen and examined. Past Medical History Past Medical History: COPD, GERD/Reflux, Hyperlipidemia, Hypertension, Osteoarthritis (OA), Pneumonia Additional Past Medical History / Comment(s): arthritis, history of pancreatitis, chronic back and neck pain, pins in right hip History of Any Multi-Drug Resistant Organisms: None Reported Past Surgical History: Hysterectomy Additional Past Surgical History / Comment(s): cataract, to vocal cord cyst removed. Past Anesthesia/Blood Transfusion Reactions: No Reported Reaction Past Psychological History: Anxiety, Depression Smoking Status: Former smoker Past Alcohol Use History: Rare Past Drug Use History: None Reported - Past Family History Father Family Medical History: No Reported History Additional Family Medical History / Comment(s): Father at age 57 from a motor vehicle accident. Brother(s) Additional Family Medical History / Comment(s): The patient has one brother with coronary artery disease. Patient has 2 sisters and one with history of Alzheimer's dementia. One has history of closed head injury. Patient is a total of 6 children. One son from a myocardial infarction with history of seizure, one daughter from pancreatic cancer. Other 4 children have no major medical problems. Mother Family Medical History: Blood Disorder, Cancer, Thyroid Disorder Additional Family Medical History / Comment(s): Mother at age 71 from leukemia. Medications and Allergies Home Medications Medication Instructions Recorded Confirmed Type Losartan Potassium 100 mg PO DAILY 06/10/18 01/26/21 History Mirtazapine [Remeron] 30 mg PO HS 01/13/19 01/26/21 History DULoxetine HCL [Cymbalta] 30 mg PO DAILY 01/14/19 01/26/21 History DULoxetine HCL [Cymbalta] 60 mg PO DAILY 01/14/19 01/26/21 History oxyCODONE HCL [oxyCODONE HCL (IR)] 30 mg PO Q8H #9 tab 03/16/20 01/26/21 Rx ALPRAZolam [Xanax] 0.25 mg PO TID 01/26/21 01/26/21 History Melatonin 10 mg PO HS 01/26/21 01/26/21 History Metoprolol Tartrate [Lopressor] 25 mg PO TID 01/26/21 01/26/21 History Ondansetron Odt [Zofran Odt] 4 mg PO TID 01/26/21 01/26/21 History Pantoprazole [Protonix] 40 mg PO DAILY 01/26/21 01/26/21 History Allergies Allergy/AdvReac Type Severity Reaction Status Date / Time amoxicillin trihydrate Allergy Unknown Verified 01/26/21 18:28 [From Augmentin] cephalexin monohydrate Allergy Swelling Verified 01/26/21 18:28 [From Keflex] meperidine HCl [From Demerol] Allergy Unknown Verified 01/26/21 18:28 potassium clavulanate Allergy Unknown Verified 01/26/21 18:28 [From Augmentin] Sulfa (Sulfonamide Allergy Unknown Verified 01/26/21 18:28 Antibiotics) NSAIDS (Non-Steroidal AdvReac Severe Nausea & Verified 01/26/21 18:28 Anti-Inflamma Vomiting Physical Exam Vitals: Vital Signs Temp Pulse Resp BP Pulse Ox 01/27/21 07:00 86 14 110/61 95 01/27/21 06:30 87 18 100/51 97 01/27/21 06:00 80 13 100/51 98 01/27/21 05:30 75 18 98 01/27/21 05:00 74 20 85/45 97 01/27/21 04:30 71 16 97 01/27/21 04:00 97.8 F 73 22 84/53 96 01/27/21 03:30 73 22 78/51 96 01/27/21 03:00 79 24 125/76 94 L 01/27/21 02:30 91 19 142/97 94 L 01/27/21 02:00 126 H 30 H 160/101 93 L 01/27/21 01:30 133 H 34 H 163/100 93 L 01/27/21 01:00 129 H 30 H 160/100 93 L 01/27/21 00:30 130 H 35 H 145/95 92 L 01/27/21 00:20 100.7 F H 125 H 33 H 145/95 93 L 01/26/21 23:48 94 L 01/26/21 22:49 98.1 F 123 H 28 H 141/90 97 01/26/21 22:00 28 H 149/89 01/26/21 21:00 101 H 21 120/63 97 01/26/21 20:17 105 H 20 141/72 97 01/26/21 20:00 112 H 24 127/76 01/26/21 19:37 110 H 20 150/94 93 L 01/26/21 19:01 101 H 26 H 162/88 95 01/26/21 18:51 104 H 28 H 173/93 98 01/26/21 18:34 100 28 H 195/122 94 L 01/26/21 18:31 43 H 01/26/21 18:22 98 F 110 H 43 H 230/122 97 Intake and Output 01/26/21 01/27/21 01/27/21 22:59 06:59 14:59 Intake Total 503.95 50 Output Total 2009 Balance -1506.05 20 Intake: Intake, IV Titration 353.95 Amount Azithromycin 500 mg In 250 Sodium Chloride 0.9% 250 ml @ 250 mls/hr IVPB ONCE STA Rx#:[id number] Nitroglycerin-D5w Pmx 50 103.95 mg In Dextrose/Water 1 250ml.bag @ 40 MCG/MIN 12 mls/hr IV .[id number] ONE Rx#:[id number] Oral 150 50 Output: Urine 2009 Other: Voiding Method Indwelling Catheter Weight 48.081 kg 46.5 kg Results 01/27/21 03:37 01/27/21 03:37 Cardiac Enzymes 01/26/21 01/26/21 01/26/21 Range/Units 18:30 18:38 21:48 AST 39 H (14-36) U/L Troponin I 0.069 H* 0.453 H* (0.000-0.034) ng/mL 01/27/21 01/27/21 Range/Units 00:23 03:37 AST 41 H (14-36) U/L Troponin I 0.443 H* (0.000-0.034) ng/mL Coagulation 01/26/21 01/27/21 01/27/21 Range/Units 18:30 03:37 03:37 PT 9.8 10.7 (9.0-12.0) sec APTT 24.5 46.6 H (22.0-30.0) sec CBC 01/26/21 01/27/21 Range/Units 18:30 03:37 WBC 14.7 H 21.9 H (3.8-10.6) k/uL RBC 5.09 4.51 (3.80-5.40) m/uL Hgb 14.4 12.7 (11.4-16.0) gm/dL Hct 45.2 38.9 (34.0-46.0) % Plt Count 455 H 383 (150-450) k/uL Comprehensive Metabolic Panel 01/26/21 01/27/21 Range/Units 18:30 03:37 Sodium 124 L 124 L (137-145) mmol/L Potassium 5.7 H 4.2 (3.5-5.1) mmol/L Chloride 88 L 85 L (98-107) mmol/L Carbon Dioxide 23 29 (22-30) mmol/L BUN 8 9 (7-17) mg/dL Creatinine 0.57 0.55 (0.52-1.04) mg/dL Glucose 247 H 173 H (74-99) mg/dL Calcium 9.8 9.1 (8.4-10.2) mg/dL AST 39 H 41 H (14-36) U/L ALT 19 18 (4-34) U/L Alkaline Phosphatase 99 94 (38-126) U/L Total Protein 7.3 6.6 (6.3-8.2) g/dL Albumin 4.5 3.9 (3.5-5.0) g/dL Current Medications Generic Name Dose Route Start Last Admin Trade Name Freq PRN Reason Stop Dose Admin Acetaminophen 650 mg 01/27/21 02:21 01/27/21 03:43 Acetaminophen Tab 325 Mg Tab PO 650 mg Q6HR PRN Administration Fever and/ or Pain Alprazolam 0.25 mg 01/27/21 01:30 01/27/21 01:40 Alprazolam 0.25 Mg Tab PO 0.25 mg TID JENNIFER Administration Duloxetine HCl 30 mg 01/27/21 09:00 Duloxetine Hcl 30 Mg Capsule. PO DAILY [facility] Duloxetine HCl 60 mg 01/27/21 09:00 Duloxetine Hcl 60 Mg Capsule. PO DAILY [facility] Heparin Sodium (Porcine) 0 unit 01/26/21 21:45 Heparin Sodium 1,000 Un/Ml (10ml Vl) IV PER PROTOCOL PRN Low PTT Protocol Nitroglycerin/Dextrose 50 mg/ 250 mls @ 12 mls/hr 01/26/21 18:29 01/27/21 03:22 IV Solution IV 01/27/21 15:18 0 mcg/min .[id number] ONE 0 mls/hr Titration Protocol 40 MCG/MIN Heparin Sodium/Sodium Chloride 250 mls @ 5.77 mls/hr 01/26/21 21:45 01/26/21 22:51 25,000 unit/ Sodium Chloride IV 12 units/kg/hr .Q24H JENNIFER 5.77 mls/hr Administration Protocol 12 UNITS/KG/HR Losartan Potassium 100 mg 01/27/21 09:00 Losartan 50 Mg Tab PO DAILY JENNIFER Melatonin 10 mg 01/27/21 21:00 Melatonin 5 Mg Tablet PO HS JENNIFER Metoprolol Tartrate 25 mg 01/27/21 01:30 01/27/21 01:40 Metoprolol Tartrate 25 Mg Tab PO 25 mg TID JENNIFER Administration Mirtazapine 30 mg 01/27/21 01:00 01/27/21 02:20 Mirtazapine 15 Mg Tab PO 30 mg HS JENNIFER Administration Naloxone HCl 0.2 mg 01/26/21 21:49 Naloxone 0.4 Mg/Ml 1 Ml Vial IV Q2M PRN Opioid Reversal Ondansetron HCl 4 mg 01/27/21 09:00 01/27/21 02:14 Ondansetron Odt 4 Mg Tab PO 4 mg TID JENNIFER Administration Oxycodone HCl 30 mg 01/27/21 01:30 01/27/21 01:40 Oxycodone Hcl 5 Mg Tab PO 30 mg Q8H JENNIFER Administration Pantoprazole Sodium 40 mg 01/27/21 07:30 01/27/21 06:30 Pantoprazole 40 Mg Tablet PO 40 mg [id number] JENNIFER Administration Intake and Output 01/26/21 01/27/21 01/27/21 22:59 06:59 14:59 Intake Total 503.95 50 Output Total 2009 30 Balance -1506.05 20 Intake: Intake, IV Titration 353.95 Amount Azithromycin 500 mg In 250 Sodium Chloride 0.9% 250 ml @ 250 mls/hr IVPB ONCE STA Rx#:[id number] Nitroglycerin-D5w Pmx 50 103.95 mg In Dextrose/Water 1 250ml.bag @ 40 MCG/MIN 12 mls/hr IV .[id number] ONE Rx#:[id number] Oral 150 50 Output: Urine 2009 30 Other: Voiding Method Indwelling Catheter Weight 48.081 kg 46.5 kg 01/27/21 03:37 01/27/21 03:37
[2021-01-27] MEDS ORDERED: SODIUM CHLORIDE 0.9% 1,000 ML IV SCH (10:30)
--- NOTE | 2021-01-27 12:11 | CONS ---
CONSULTATION REASON FOR CONSULT: Hyponatremia. HISTORY OF PRESENT ILLNESS: The patient is an 85-year-old female with a history of hypertension, no previous history of hyponatremia. The patient also has a history of chronic obstructive pulmonary disease. She was admitted to the hospital with complaints of increased weakness. She was also short of breath. The patient denied any numbness, tingling, any muscle weakness. Blood pressure was significantly elevated at the time of admission with systolic around 200 and diastolic at [address] a [address] angiogram done on initial admission, which was negative for PE. She is currently being treated for pneumonia and is maintained on antibiotics. It appears her blood pressure dropped significantly with systolic in the 80s earlier this morning. The patient did not receive any fluid boluses. Her sodium was noted to be 124 mEq/L yesterday and it is the same today. Urine osmolality is not available. The patient denies use of any new medications recently prior to admission. She is not maintained on any thiazide diuretics at home. No history of nausea, vomiting or diarrhea. PAST MEDICAL HISTORY: Hypertension, hyperlipidemia, COPD, gastroesophageal reflux disease, osteoarthritis, history of pancreatitis, chronic back pain. PAST SURGICAL HISTORY: Cataract surgery, cyst removed from vocal cords, right hip surgery for fracture. SOCIAL HISTORY: Patient is a former smoker. No history of drug abuse or alcohol abuse. MEDICATIONS: Medications prior to admission included losartan, Remeron, Cymbalta, Xanax, melatonin, Lopressor, Zofran, Protonix. ALLERGIES: AUGMENTIN, KEFLEX, DEMEROL, SULFA. NSAIDS cause nausea and vomiting. PHYSICAL EXAMINATION: Patient is currently comfortable, awake, not in any acute distress. Alert, oriented x3. Blood pressure was 130/67, heart rate 81 per minute. She is afebrile. Examination of the heart S1, S2. Examination of the lungs, bilateral breath sounds are heard. Abdomen is soft, nontender. Examination of lower extremities shows no significant edema. 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 LAB: Show sodium 124, potassium 4.2, chloride 85, BUN 9, serum creatinine 0.5, hemoglobin 12.7 g/dL. Troponin 0.443. Chest x-ray shows no acute process. UA shows 2+ protein, no blood or cells. ASSESSMENT: 1. Hyponatremia, possibly hypovolemic. Currently, blood pressure is not significantly elevated. Patient has not been on any new medications prior to admission. I will check a urine osmolality and start the patient on saline as a challenge. If her sodium level drops with saline, then we are looking into possible SIADH. Check TSH and cortisol level. The patient is also advised to increase protein intake. 2. Elevated troponin with no significant EKG changes, maintained on IV heparin. Cardiology has been consulted. 3. History of hypertension with elevated blood pressures on initial admission, currently improved. Patient was hypotensive with systolic in the 80s early this morning. She is maintained on Lopressor 25 mg t.i.d. currently. 4. History of chronic obstructive pulmonary disease. 5. Pneumonia. Maintained on antibiotics. PLAN: Start saline 75 mL an hour and repeat sodium in 4 hours. Check urine osmolality. Check TSH levels and increase oral protein intake. Continue antibiotics for pneumonia. Chest CTA shows bilateral infiltrates with consolidation. MMODL / IJN: [id number] /
--- NOTE | 2021-01-27 12:30 | P.CNPUL ---
History of Present Illness Consult date: 01/27/21 Requesting physician: Elma Palmer Reason for consult: dyspnea, COPD, pneumonia Chief complaint: Shortness of breath History of present illness: This is a 85-year-old female with history of COPD, chronic hypoxic respiratory failure, chronic diastolic congestive heart failure, patient presented to the ER with 1 day history of increased shortness of breath, has been using her updraft treatments excessively at home, but was not feeling any better. Patient was brought into the ER, and her O2 saturation was in the low 80s, patient was placed on a nonrebreather initially, then she was transitioned to a BiPAP. She was eventually admitted to the ICU on BiPAP with IPAP of 10 EPAP of 5 FiO2 of 35 %. He shouldn't received bronchodilators, antibiotics, diuretics, and she was noted to have nonspecific areas of pneumonitis on the CT of the chest, and atelectasis. Patient used to smoke however she quit smoking over 2 years ago. During my evaluation, the patient was noted to be on 2 L nasal cannula, improving, breathing a lot easier, and considering her troponin was elevated, patient was placed on heparin, and she was receiving nitroglycerin drip for significantly elevated blood pressure of around 200 systolic at the time of her initial presentation. Overnight her nitroglycerin has been discontinued. Cardiology is to decide whether to perform any further cardiac workup. In the meantime the patient will be transferred out of the ICU to a cardiac floor, and she was seen by nephrology for what seems to be hypovolemic hyponatremia. Sodium at the time of presentation was 124, SIADH is being considered in the differential diagnosis. Antibiotics cooper, patient has been receiving Zithromax, and she also received ceftriaxone. WBC count on admission was 21.9, hemoglobin 12.7. PTT is 46.6. Renal profile is normal troponin was 0.45 and follow-up troponin was 0.44 COVID-19 PCR was not detected. Lactic acid was 1.1. procalcitonin is pending. Review of Systems CONSTITUTIONAL: Denies fever or chills. No weight loss. CARDIOVASCULAR: No chest pain no orthopnea no PND. RESPIRATORY: As noted in HPI mostly shortness of breath, occasional cough. GASTROINTESTINAL: Denies nausea vomiting abdominal pain melena or hematemesis. MUSCULOSKELETAL: Denies any limitation range of motion or deformities. NEUROLOGIC: Denies headache blurred vision dizziness syncope. ENDOCRINE: Denies polyuria polydipsia or heat or cold intolerance. GENITOURINARY: Negative. HEMATOLOGIC: Negative. Skin: Denies any rashes. Psychiatric: Denies any symptoms of active depression. Past Medical History Past Medical History: COPD, GERD/Reflux, Hyperlipidemia, Hypertension, Osteoarthritis (OA), Pneumonia Additional Past Medical History / Comment(s): arthritis, history of pancreatitis, chronic back and neck pain, pins in right hip History of Any Multi-Drug Resistant Organisms: None Reported Past Surgical History: Hysterectomy Additional Past Surgical History / Comment(s): cataract, to vocal cord cyst removed. Past Anesthesia/Blood Transfusion Reactions: No Reported Reaction Past Psychological History: Anxiety, Depression Smoking Status: Former smoker Past Alcohol Use History: Rare Past Drug Use History: None Reported - Past Family History Father Family Medical History: No Reported History Additional Family Medical History / Comment(s): Father at age 57 from a motor vehicle accident. Brother(s) Additional Family Medical History / Comment(s): The patient has one brother with coronary artery disease. Patient has 2 sisters and one with history of Alzheimer's dementia. One has history of closed head injury. Patient is a total of 6 children. One son from a myocardial infarction with history of seizure, one daughter from pancreatic cancer. Other 4 children have no major medical problems. Mother Family Medical History: Blood Disorder, Cancer, Thyroid Disorder Additional Family Medical History / Comment(s): Mother at age 71 from leukemia. Medications and Allergies Home Medications Medication Instructions Recorded Confirmed Type Losartan Potassium 100 mg PO DAILY 06/10/18 01/26/21 History Mirtazapine [Remeron] 30 mg PO HS 01/13/19 01/26/21 History DULoxetine HCL [Cymbalta] 30 mg PO DAILY 01/14/19 01/26/21 History DULoxetine HCL [Cymbalta] 60 mg PO DAILY 01/14/19 01/26/21 History oxyCODONE HCL [oxyCODONE HCL (IR)] 30 mg PO Q8H #9 tab 03/16/20 01/26/21 Rx ALPRAZolam [Xanax] 0.25 mg PO TID 01/26/21 01/26/21 History Melatonin 10 mg PO HS 01/26/21 01/26/21 History Metoprolol Tartrate [Lopressor] 25 mg PO TID 01/26/21 01/26/21 History Ondansetron Odt [Zofran Odt] 4 mg PO TID 01/26/21 01/26/21 History Pantoprazole [Protonix] 40 mg PO DAILY 01/26/21 01/26/21 History Allergies Allergy/AdvReac Type Severity Reaction Status Date / Time amoxicillin trihydrate Allergy Unknown Verified 01/26/21 18:28 [From Augmentin] cephalexin monohydrate Allergy Swelling Verified 01/26/21 18:28 [From Keflex] meperidine HCl [From Demerol] Allergy Unknown Verified 01/26/21 18:28 potassium clavulanate Allergy Unknown Verified 01/26/21 18:28 [From Augmentin] Sulfa (Sulfonamide Allergy Unknown Verified 01/26/21 18:28 Antibiotics) NSAIDS (Non-Steroidal AdvReac Severe Nausea & Verified 01/26/21 18:28 Anti-Inflamma Vomiting Physical Exam Vitals: Vital Signs Temp Pulse Resp BP Pulse Ox 01/27/21 10:30 81 16 130/67 94 L 01/27/21 10:00 97 20 130/67 94 L 01/27/21 09:30 97 25 H 111/58 95 01/27/21 09:00 92 10 L 121/58 96 01/27/21 08:30 95 29 H 101/75 96 01/27/21 08:00 98.7 F 90 12 90/46 96 01/27/21 07:30 88 18 101/63 95 01/27/21 07:00 86 14 110/61 95 01/27/21 06:30 87 18 100/51 97 01/27/21 06:00 80 13 100/51 98 01/27/21 05:30 75 18 98 01/27/21 05:00 74 20 85/45 97 01/27/21 04:30 71 16 97 01/27/21 04:00 97.8 F 73 22 84/53 96 01/27/21 03:30 73 22 78/51 96 01/27/21 03:00 79 24 125/76 94 L 01/27/21 02:30 91 19 142/97 94 L 01/27/21 02:00 126 H 30 H 160/101 93 L 01/27/21 01:30 133 H 34 H 163/100 93 L 01/27/21 01:00 129 H 30 H 160/100 93 L 01/27/21 00:30 130 H 35 H 145/95 92 L 01/27/21 00:20 100.7 F H 125 H 33 H 145/95 93 L 01/26/21 23:48 94 L 01/26/21 22:49 98.1 F 123 H 28 H 141/90 97 01/26/21 22:00 28 H 149/89 01/26/21 21:00 101 H 21 120/63 97 01/26/21 20:17 105 H 20 141/72 97 01/26/21 20:00 112 H 24 127/76 01/26/21 19:37 110 H 20 150/94 93 L 01/26/21 19:01 101 H 26 H 162/88 95 01/26/21 18:51 104 H 28 H 173/93 98 01/26/21 18:34 100 28 H 195/122 94 L 01/26/21 18:31 43 H 01/26/21 18:22 98 F 110 H 43 H 230/122 97 Intake and Output 01/26/21 01/27/21 01/27/21 22:59 06:59 14:59 Intake Total 503.95 50 Output Total 2009 145 Balance -1506.05 -95 Intake: Intake, IV Titration 353.95 Amount Azithromycin 500 mg In 250 Sodium Chloride 0.9% 250 ml @ 250 mls/hr IVPB ONCE STA Rx#:[id number] Nitroglycerin-D5w Pmx 50 103.95 mg In Dextrose/Water 1 250ml.bag @ 40 MCG/MIN 12 mls/hr IV .[id number] ONE Rx#:[id number] Oral 150 50 Output: Urine 2009 145 Other: Voiding Method Indwelling Catheter Indwelling Catheter Weight 48.081 kg 46.5 kg Physical Exam: Revealed a 85-year-old female in no distress. Head: Atraumatic, normocephalic. HEENT:[Neck is supple.] [No neck masses.] [No thyromegaly.] [No JVD.] Chest: [Symmetrical chest expansion diminished breath sounds at the bases no crackles or rhonchi or wheezes. Cardiac Exam: [Normal S1 and S2, no S3 gallop, 2/6 systolic murmur thought the precordium. Abdomen: [Soft, nontender, no megaly, no rebound, no guarding, normal bowel sounds.] Extremities: [No clubbing, no edema, no cyanosis.] Neurological Exam: [No focal neurologic deficit.] Alert and oriented 3. Psychiatric: Normal mood affect and normal mental status examination. Skin: No rashes. Results - Laboratory Findings CBC and BMP: 01/27/21 03:37 01/27/21 03:37 ABG ABG pH 7.35 (7.35-7.45) 01/26/21 18:45 ABG pCO2 49 mmHg (35-45) H 01/26/21 18:45 ABG pO2 102 mmHg (83-108) 01/26/21 18:45 ABG O2 Saturation 97.4 % (94-97) H 01/26/21 18:45 PT/INR, D-dimer PT 10.7 sec (9.0-12.0) 01/27/21 03:37 INR 1.0 (<1.2) 01/27/21 03:37 Abnormal lab findings: Abnormal Labs 01/26/21 01/26/21 01/26/21 18:30 18:30 18:30 WBC 14.7 H Plt Count 455 H Neutrophils # 9.4 H APTT ABG pCO2 ABG HCO3 ABG Total CO2 ABG O2 Saturation Sodium 124 L Potassium 5.7 H Chloride 88 L Glucose 247 H POC Glucose (mg/dL) Plasma Lactic Acid Librado AST 39 H Troponin I Urine Protein 2+ H Urine Bacteria Rare H Hyaline Casts 7 H Urine Mucus Rare H 01/26/21 01/26/21 01/26/21 18:30 18:38 18:45 WBC Plt Count Neutrophils # APTT ABG pCO2 49 H ABG HCO3 27 H ABG Total CO2 29 H ABG O2 Saturation 97.4 H Sodium Potassium Chloride Glucose POC Glucose (mg/dL) Plasma Lactic Acid Librado 2.9 H* AST Troponin I 0.069 H* Urine Protein Urine Bacteria Hyaline Casts Urine Mucus 01/26/21 01/26/21 01/27/21 21:48 23:45 00:23 WBC Plt Count Neutrophils # APTT ABG pCO2 ABG HCO3 ABG Total CO2 ABG O2 Saturation Sodium Potassium Chloride Glucose POC Glucose (mg/dL) 166 H Plasma Lactic Acid Librado AST Troponin I 0.453 H* 0.443 H* Urine Protein Urine Bacteria Hyaline Casts Urine Mucus 01/27/21 01/27/21 01/27/21 03:37 03:37 03:37 WBC 21.9 H Plt Count Neutrophils # 20.1 H APTT 46.6 H ABG pCO2 ABG HCO3 ABG Total CO2 ABG O2 Saturation Sodium 124 L Potassium Chloride 85 L Glucose 173 H POC Glucose (mg/dL) Plasma Lactic Acid Librado AST 41 H Troponin I Urine Protein Urine Bacteria Hyaline Casts Urine Mucus - Diagnostic Findings CT scan - chest: image reviewed (Chest x-ray was reviewed by me, and results as noted in HPI.) Assessment and Plan Assessment: Impression: Acute on chronic hypoxic respiratory failure secondary to acute exacerbation of COPD. Possible community-acquired pneumonia, the findings on the CT of the chest are nonspecific. Acute non-ST elevation myocardial infarction. Possible with elevated troponins on admission. Hypertensive urgency. Former smoker. History of underlying COPD. Dyslipidemia. Hypovolemic hyponatremia. Possible SIADH. Recommendation: Continue present supportive care measures. Continue bronchodilators. Continue antibiotics. Discontinue BiPAP and use as needed. Transfer patient out of the ICU to a monitor bed on selective. Cardiology to address elevated troponins. Nephrology is addressing her hyponatremia. Pro-calcitonin level is pending, ordered today. We'll decide regarding her antibiotics, again the findings on the CT of the chest are nonspecific. We'll continue to follow. Continue GI and DVT prophylaxis. Time with Patient: Greater than 30
[2021-01-27] MEDS ORDERED: IPRATROPIUM-ALBUTEROL 3 ML NEB INHALATION PRN (15:21)
--- NOTE | 2021-01-27 15:27 | P.HPIM ---
History of Present Illness H&P Date: 01/27/21 HISTORY OF PRESENT ILLNESS This is an 85-year-old female patient of Dr. Palmer with past medical history of COPD, hypertension, chronic pain syndrome, tobacco use and dependence generalized anxiety disorder. Patient developed shortness of breath despite use of her nebulizer at home that started early yesterday. Patient denied any chest pain but there is EKG changes and patient was started on heparin drip. Her initial vital signs were heart rate 110, respiratory rate 43, blood pressure 230/122. Patient was started on BiPAP and nitroglycerin drip. Chest x-ray revealed no acute process on 01/26 and 01/27. CTA of the chest revealed progression of diffuse moderate tree-in-bud pattern opacities with small consolidations and chronic compressive atelectasis. Co nsiderations include atypical infection. No acute PE. WBC 14.7, hemoglobin 14.4, but without 455. Sodium 124, potassium 5.7, chloride 88, CO2 23, BUN 18 and creatinine 0.57. Blood sugar 257. Urinalysis was negative for infection. Lactic acid 2.9. ProBNP 8540. AST 39, ALT 19 and alkaline phosphatase 99. Troponin 0.069, 0.453, 0.443. Echocardiogram reveals EF of 65-70% with borderline concentric left hypertrophy, no aortic stenosis or regurgitation. Mild mitral regurgitation, mild tricuspid regurgitation. Patient admitted into the intensive care unit and consult requested with pulmonary medicine, cardiology and nephrology. REVIEW OF SYSTEMS Constitutional: No fever, no chills, no night sweats. No weight change. No weakness, fatigue or lethargy. No daytime sleepiness. EENT: No headache. No blurred vision or double vision, no loss of vision. No loss of Hearing, no ringing in the ears, no dizziness. No nasal drainage or congestion. No epistaxis. No sore throat. Lungs: No shortness of breath, cough, no sputum production. No wheezing. Cardiovascular: No chest pain, no lower extremity edema. No palpitations. No paroxysmal nocturnal dyspnea. No orthopnea. No lightheadedness or dizziness. No syncopal episodes. Abdominal: No abdominal pain. No nausea, vomiting. No diarrhea. No constipation. No bloody or tarry stools.. No loss of appetite. Genitourinary: No dysuria, increased frequency, urgency. No urinary retention. Musculoskeletal: No myalgias. No muscle weakness, no gait dysfunction, no frequent falls. No back pain. No neck pain. Integumentary: No wounds, no lesions. No rash or pruritus. No unusual bruising. No change in hair or nails. Neurologic: No aphasia. No facial droop. No change in mentation. No head injury. No headache. No paralysis. No paresthesia. Psychiatric: No depression. No anxiety. No mood swings. Endocrine: No abnormal blood sugars. No weight change. No excessive sweating or thirst. No cold intolerance. MEDICAL HISTORY COPD Hypertension Hyperlipidemia Chronic pain syndrome History of tobacco use and dependence Generalized anxiety disorder Gastroesophageal reflux disease Pancreatitis SURGICAL HISTORY Cataract removal and intraocular lens implants Vocal Cord cyst removal SOCIAL HISTORY The patient was a smoker half a pack of cigarettes per day for 60 years ago quit 2016. Patient does not have home O2. She does have a nebulizer. No CPAP. She is a walker for ambulation. He has been at [facility] in the past. FAMILY HISTORY Father at age 57 from a motor vehicle accident. Mother at age 71 from leukemia. The patient has one brother with coronary artery disease. Patient has 2 sisters and one with history of Alzheimer's dementia. One has history of closed head injury. Patient is a total of 6 children. One son from a myocardial infarction with history of seizure, one daughter from pancreatic cancer. Other 4 children have no major medical problems. PHYSICAL EXAMINATION Gen: This is an 85-year-old thin female. She is resting in the ICU bed and appears to be comfortable at rest. HEENT: head is atraumatic normocephalic pupils were equal round reactive to light and accommodations extra ocular muscle movements were intact. Neck: supple, no JVP. Chest: decrease breath sounds at the bases with few ronchi, minimal expiratory wheezes, there is egophony at the bases with minimal intercostal retraction. Heart: first heart sound is depressed , second heart sound is normal there is VITO 2/6 located at the laft sternal border. Abdomen: soft non tender non distended positive bowel sounds. Extremities: there is no edema no calf tenderness, DP +1 bilaterally. Neurologic examination: patient is awake , alert and oriented X3 CN II-XII are grossly intact, muscle power 3/5 in bilateral lower extremities and 4/5 in bilateral upper extremities, deep tendon reflexes are depressed. ASSESSMENT AND PLAN 1. Acute hypoxemic respiratory failure due to COPD exacerbation. Consult with pulmonary medicine appreciated. Continue Duoneb 3 times daily and as needed, pulmonary consult. 2. EKG changes and elevated troponin secondary to unstable angina versus non-ST elevated myocardial infarction. Echocardiogram as above, cardiology consult appreciated, metoprolol 25 mg 3 times daily, aspirin 81 mg daily, statin. Patient is continued on IV heparin drip and nitroglycerin drip. 3. Hyponatremia. Consult with nephrology. Patient started on IV fluids 0.9 normal saline at 75 mL per hour and repeat sodium in 4 hours, check urine osmolality, TSH, increased protein intake. 4. Hypertensive urgency. Continue Lopressor 25 mg 3 times daily, nitroglycerin drip. 5. Lactic acidosis secondary acute kidney injury. 6. Hypertension and hypertensive cardiovascular disease. 7. Recurrent depression. Continue Cymbalta 60 mg the morning and 30 mg at bedtime, Remeron 30 mg at bedtime. 8. Generalized anxiety disorder. Continue Xanax 0.25 mg 3 times daily. 9. Chronic pain syndrome due to sever back pain. Continue Oxycodone 30 mg orally tid, has been under pain management for quiet sometimes. 10. DVT prophylaxis. Patient is on heparin drip. 11. GI prophylxis. Continue Protonix 40 mg oral daily. CODE STATUS: Full code. Patient will be admitted to the hospital for a minimum of 2 night stay. DISCHARGE PLAN Home with VNA. Impression and plan of care have been directed as dictated by the signing physician. Zora Ayala nurse practitioner acting as scribe for signing physician. Past Medical History Past Medical History: COPD, GERD/Reflux, Hyperlipidemia, Hypertension, Osteoarthritis (OA), Pneumonia Additional Past Medical History / Comment(s): arthritis, history of pancreatitis, chronic back and neck pain, pins in right hip History of Any Multi-Drug Resistant Organisms: None Reported Past Surgical History: Hysterectomy Additional Past Surgical History / Comment(s): cataract, to vocal cord cyst removed. Past Anesthesia/Blood Transfusion Reactions: No Reported Reaction Past Psychological History: Anxiety, Depression Smoking Status: Former smoker Past Alcohol Use History: Rare Past Drug Use History: None Reported - Past Family History Father Family Medical History: No Reported History Additional Family Medical History / Comment(s): Father at age 57 from a motor vehicle accident. Brother(s) Additional Family Medical History / Comment(s): The patient has one brother with coronary artery disease. Patient has 2 sisters and one with history of Alzheimer's dementia. One has history of closed head injury. Patient is a total of 6 children. One son from a myocardial infarction with history of seizure, one daughter from pancreatic cancer. Other 4 children have no major medical problems. Mother Family Medical History: Blood Disorder, Cancer, Thyroid Disorder Additional Family Medical History / Comment(s): Mother at age 71 from leukemia. Medications and Allergies Home Medications Medication Instructions Recorded Confirmed Type Losartan Potassium 100 mg PO DAILY 06/10/18 01/26/21 History Mirtazapine [Remeron] 30 mg PO HS 01/13/19 01/26/21 History DULoxetine HCL [Cymbalta] 30 mg PO DAILY 01/14/19 01/26/21 History DULoxetine HCL [Cymbalta] 60 mg PO DAILY 01/14/19 01/26/21 History oxyCODONE HCL [oxyCODONE HCL (IR)] 30 mg PO Q8H #9 tab 03/16/20 01/26/21 Rx ALPRAZolam [Xanax] 0.25 mg PO TID 01/26/21 01/26/21 History Melatonin 10 mg PO HS 01/26/21 01/26/21 History Metoprolol Tartrate [Lopressor] 25 mg PO TID 01/26/21 01/26/21 History Ondansetron Odt [Zofran Odt] 4 mg PO TID 01/26/21 01/26/21 History Pantoprazole [Protonix] 40 mg PO DAILY 01/26/21 01/26/21 History Allergies Allergy/AdvReac Type Severity Reaction Status Date / Time amoxicillin trihydrate Allergy Unknown Verified 01/26/21 18:28 [From Augmentin] cephalexin monohydrate Allergy Swelling Verified 01/26/21 18:28 [From Keflex] meperidine HCl [From Demerol] Allergy Unknown Verified 01/26/21 18:28 potassium clavulanate Allergy Unknown Verified 01/26/21 18:28 [From Augmentin] Sulfa (Sulfonamide Allergy Unknown Verified 01/26/21 18:28 Antibiotics) NSAIDS (Non-Steroidal AdvReac Severe Nausea & Verified 01/26/21 18:28 Anti-Inflamma Vomiting Physical Exam Vitals: Vital Signs Temp Pulse Resp BP Pulse Ox 01/27/21 07:00 86 14 110/61 95 01/27/21 06:30 87 18 100/51 97 01/27/21 06:00 80 13 100/51 98 01/27/21 05:30 75 18 98 01/27/21 05:00 74 20 85/45 97 01/27/21 04:30 71 16 97 01/27/21 04:00 97.8 F 73 22 84/53 96 01/27/21 03:30 73 22 78/51 96 01/27/21 03:00 79 24 125/76 94 L 01/27/21 02:30 91 19 142/97 94 L 01/27/21 02:00 126 H 30 H 160/101 93 L 01/27/21 01:30 133 H 34 H 163/100 93 L 01/27/21 01:00 129 H 30 H 160/100 93 L 01/27/21 00:30 130 H 35 H 145/95 92 L 01/27/21 00:20 100.7 F H 125 H 33 H 145/95 93 L 01/26/21 23:48 94 L 01/26/21 22:49 98.1 F 123 H 28 H 141/90 97 01/26/21 22:00 28 H 149/89 01/26/21 21:00 101 H 21 120/63 97 01/26/21 20:17 105 H 20 141/72 97 01/26/21 20:00 112 H 24 127/76 01/26/21 19:37 110 H 20 150/94 93 L 01/26/21 19:01 101 H 26 H 162/88 95 01/26/21 18:51 104 H 28 H 173/93 98 01/26/21 18:34 100 28 H 195/122 94 L 01/26/21 18:31 43 H 01/26/21 18:22 98 F 110 H 43 H 230/122 97 Intake and Output 01/26/21 01/27/21 01/27/21 22:59 06:59 14:59 Intake Total 503.95 50 Output Total 2009 Balance -1506.05 20 Intake: Intake, IV Titration 353.95 Amount Azithromycin 500 mg In 250 Sodium Chloride 0.9% 250 ml @ 250 mls/hr IVPB ONCE STA Rx#:[id number] Nitroglycerin-D5w Pmx 50 103.95 mg In Dextrose/Water 1 250ml.bag @ 40 MCG/MIN 12 mls/hr IV .[id number] ONE Rx#:[id number] Oral 150 50 Output: Urine 2009 Other: Voiding Method Indwelling Catheter Weight 48.081 kg 46.5 kg Results CBC & Chem 7: 01/27/21 03:37 01/27/21 14:09 Labs: Abnormal Lab Results - Last 24 Hours (Table) 01/26/21 01/26/21 01/26/21 Range/Units 18:30 18:30 18:30 WBC 14.7 H (3.8-10.6) k/uL Plt Count 455 H (150-450) k/uL Neutrophils # 9.4 H (1.3-7.7) k/uL APTT (22.0-30.0) sec ABG pCO2 (35-45) mmHg ABG HCO3 (21-25) mmol/L ABG Total CO2 (19-24) mmol/L ABG O2 Saturation (94-97) % Sodium 124 L (137-145) mmol/L Potassium 5.7 H (3.5-5.1) mmol/L Chloride 88 L (98-107) mmol/L Glucose 247 H (74-99) mg/dL POC Glucose (mg/dL) (75-99) mg/dL Plasma Lactic Acid Librado (0.7-2.0) mmol/L AST 39 H (14-36) U/L Troponin I (0.000-0.034) ng/mL Urine Protein 2+ H (Negative) Urine Bacteria Rare H (None) /hpf Hyaline Casts 7 H (0-2) /lpf Urine Mucus Rare H (None) /hpf 01/26/21 01/26/21 01/26/21 Range/Units 18:30 18:38 18:45 WBC (3.8-10.6) k/uL Plt Count (150-450) k/uL Neutrophils # (1.3-7.7) k/uL APTT (22.0-30.0) sec ABG pCO2 49 H (35-45) mmHg ABG HCO3 27 H (21-25) mmol/L ABG Total CO2 29 H (19-24) mmol/L ABG O2 Saturation 97.4 H (94-97) % Sodium (137-145) mmol/L Potassium (3.5-5.1) mmol/L Chloride (98-107) mmol/L Glucose (74-99) mg/dL POC Glucose (mg/dL) (75-99) mg/dL Plasma Lactic Acid Librado 2.9 H* (0.7-2.0) mmol/L AST (14-36) U/L Troponin I 0.069 H* (0.000-0.034) ng/mL Urine Protein (Negative) Urine Bacteria (None) /hpf Hyaline Casts (0-2) /lpf Urine Mucus (None) /hpf 01/26/21 01/26/21 01/27/21 Range/Units 21:48 23:45 00:23 WBC (3.8-10.6) k/uL Plt Count (150-450) k/uL Neutrophils # (1.3-7.7) k/uL APTT (22.0-30.0) sec ABG pCO2 (35-45) mmHg ABG HCO3 (21-25) mmol/L ABG Total CO2 (19-24) mmol/L ABG O2 Saturation (94-97) % Sodium (137-145) mmol/L Potassium (3.5-5.1) mmol/L Chloride (98-107) mmol/L Glucose (74-99) mg/dL POC Glucose (mg/dL) 166 H (75-99) mg/dL Plasma Lactic Acid Librado (0.7-2.0) mmol/L AST (14-36) U/L Troponin I 0.453 H* 0.443 H* (0.000-0.034) ng/mL Urine Protein (Negative) Urine Bacteria (None) /hpf Hyaline Casts (0-2) /lpf Urine Mucus (None) /hpf 01/27/21 01/27/21 01/27/21 Range/Units 03:37 03:37 03:37 WBC 21.9 H (3.8-10.6) k/uL Plt Count (150-450) k/uL Neutrophils # 20.1 H (1.3-7.7) k/uL APTT 46.6 H (22.0-30.0) sec ABG pCO2 (35-45) mmHg ABG HCO3 (21-25) mmol/L ABG Total CO2 (19-24) mmol/L ABG O2 Saturation (94-97) % Sodium 124 L (137-145) mmol/L Potassium (3.5-5.1) mmol/L Chloride 85 L (98-107) mmol/L Glucose 173 H (74-99) mg/dL POC Glucose (mg/dL) (75-99) mg/dL Plasma Lactic Acid Librado (0.7-2.0) mmol/L AST 41 H (14-36) U/L Troponin I (0.000-0.034) ng/mL Urine Protein (Negative) Urine Bacteria (None) /hpf Hyaline Casts (0-2) /lpf Urine Mucus (None) /hpf Thrombosis Risk Factor Assmnt - Choose All That Apply Any of the Below Risk Factors Present?: No Each Risk Factor Represents 3 Points: Age 75 years or older Thrombosis Risk Factor Assessment Total Risk Factor Score: 3 Thrombosis Risk Factor Assessment Level: Moderate Risk
[2021-01-27] MEDS: ASPIRIN 81 MG PO SCH (15:29)
[2021-01-27] MEDS ORDERED: ONDANSETRON 4 MG TAB PO ONE (16:00)
[2021-01-27] MEDS: MELATONIN 5 MG TABLET PO SCH (20:28)
[2021-01-27] MEDS: DULoxetine HCL 30 MG CAPSULE.DR PO SCH (20:28)
[2021-01-27] MEDS: HEPARIN SOD,PORK IN 0.45% NACL 25,000 UNIT in 0.45% NACL 1 250ML.BAG IV SCH (20:28)
[2021-01-27] MEDS ORDERED: SODIUM CHLORIDE TAB 1 GM TAB PO STA (20:39)
[2021-01-27] MEDS: IPRATROPIUM-ALBUTEROL 3 ML NEB INHALATION SCH (20:55)
[2021-01-28] MEDS: PANTOPRAZOLE 40 MG TABLET PO SCH (06:18)
[2021-01-28] MEDS: IPRATROPIUM-ALBUTEROL 3 ML NEB INHALATION SCH ×3 (07:41→20:07)
[2021-01-28 07:42] LABS: HCT 34.6 % (34.0-46.0); HGB 11.9 gm/dL (11.4-16.0); MCHC 34.3 g/dL (31.0-37.0); MCV 87.6 fL (80.0-100.0); Mean Platelet Volume 7.1; Platelet Count 287 k/uL (150-450); RBC 3.95 m/uL (3.80-5.40); RDW 13.4 % (11.5-15.5); WBC 11.1 k/uL (3.8-10.6)
[2021-01-28 07:47] LABS: African American GFR (CKD) >90 (>60 ml/min/1.73 sqM); Anion Gap 4 mmol/L; Blood Urea Nitrogen 11 mg/dL (7-17); Calcium 9.2 mg/dL (8.4-10.2); Carbon Dioxide 33 mmol/L (22-30); Chloride 88 mmol/L (98-107); Glucose 113 mg/dL (74-99); Non-African American GFR(CKD) 80 (>60 ml/min/1.73 sqM); Potassium 4.2 mmol/L (3.5-5.1); Sodium 125 mmol/L (137-145)
[2021-01-28] MEDS: ASPIRIN 81 MG PO SCH (09:01)
[2021-01-28] MEDS: DULoxetine HCL 60 MG CAPSULE.DR PO SCH (09:02)
[2021-01-28] MEDS: ATORVASTATIN 40 MG TAB PO SCH (09:02)
[2021-01-28] MEDS: ALPRAZolam 0.25 MG TAB PO SCH ×3 (09:02→22:48)
[2021-01-28] MEDS: METOPROLOL TARTRATE 25 MG TAB PO SCH ×3 (09:02→20:43)
[2021-01-28] MEDS: ONDANSETRON ODT 4 MG TAB PO SCH ×3 (09:02→20:43)
[2021-01-28] MEDS ORDERED: MAGNESIUM HYDROXIDE 2,400 MG/10 ML CUP PO PRN (11:10)
--- NOTE | 2021-01-28 11:16 | P.PN ---
Subjective Progress Note Date: 01/28/21 HISTORY OF PRESENT ILLNESS This is an 85-year-old female patient of Dr. Palmer with past medical history of COPD, hypertension, chronic pain syndrome, tobacco use and dependence generalized anxiety disorder. Patient developed shortness of breath despite use of her nebulizer at home that started early yesterday. Patient denied any chest pain but there is EKG changes and patient was started on heparin drip. Her initial vital signs were heart rate 110, respiratory rate 43, blood pressure 230/122. Patient was started on BiPAP and nitroglycerin drip. Chest x-ray revealed no acute process on 01/26 and 01/27. CTA of the chest revealed progression of diffuse moderate tree-in-bud pattern opacities with small consolidations and chronic compressive atelectasis. Considerations include atypical infection. No acute PE. WBC 14.7, hemoglobin 14.4, but without 455. Sodium 124, potassium 5.7, chloride 88, CO2 23, BUN 18 and creatinine 0.57. Blood sugar 257. Urinalysis was negative for infection. Lactic acid 2.9. ProBNP 8540. AST 39, ALT 19 and alkaline phosphatase 99. Troponin 0.069, 0.453, 0.443. Echocardiogram reveals EF of 65-70% with borderline concentric left hypertrophy, no aortic stenosis or regurgitation. Mild mitral regurgitation, mild tricuspid regurgitation. Patient admitted into the intensive care unit and consult requested with pulmonary medicine, cardiology and nephrology. 01/28: Patient is seen today on the cardiac stepdown unit. Patient's denies having any chest pain. No shortness of breath and is feeling better. She does complain of abdominal pain and not eating much. She is complaining of nausea and Zofran added. Her last bowel movement was at home prior to admission. Senokot scheduled and milk of magnesia added. Patient has been seen by nephrology and ordered for Samsca one dose today and one dose of sodium chloride tablet last night. Sodium this morning was 125, potassium 4.2, chloride 88, CO2 33, BUN 11 creatinine 0.68. Blood sugar 113. WBC 11.1, hemoglobin 11.9, platelet count 287. Probable stone and was 0.11. TSH 0.861. Urine osmolality 326. Nitroglycerin drip has been discontinued. Patient is currently on heparin drip and cardiology is following. REVIEW OF SYSTEMS Constitutional: No fever, no chills, no night sweats. No weight change. No weakness, fatigue or lethargy. No daytime sleepiness. EENT: No headache. No blurred vision or double vision, no loss of vision. No loss of Hearing, no ringing in the ears, no dizziness. No nasal drainage or congestion. No epistaxis. No sore throat. Lungs: No shortness of breath, cough, no sputum production. No wheezing. Cardiovascular: No chest pain, no lower extremity edema. No palpitations. No paroxysmal nocturnal dyspnea. No orthopnea. No lightheadedness or dizziness. No syncopal episodes. Abdominal: No abdominal pain. No nausea, vomiting. No diarrhea. No constipation. No bloody or tarry stools.. No loss of appetite. Genitourinary: No dysuria, increased frequency, urgency. No urinary retention. Musculoskeletal: No myalgias. No muscle weakness, no gait dysfunction, no frequent falls. No back pain. No neck pain. Integumentary: No wounds, no lesions. No rash or pruritus. No unusual bruising. No change in hair or nails. Neurologic: No aphasia. No facial droop. No change in mentation. No head injury. No headache. No paralysis. No paresthesia. Psychiatric: No depression. No anxiety. No mood swings. Endocrine: No abnormal blood sugars. No weight change. No excessive sweating or thirst. No cold intolerance. PHYSICAL EXAMINATION Gen: This is an 85-year-old thin female. She is resting in bed and appears to be comfortable at rest. HEENT: head is atraumatic normocephalic pupils were equal round reactive to light and accommodations extra ocular muscle movements were intact. Neck: supple, no JVP. Chest: decrease breath sounds at the bases with few ronchi, minimal expiratory wheezes, there is egophony at the bases with minimal intercostal retraction. Heart: first heart sound is depressed , second heart sound is normal there is VITO 2/6 located at the laft sternal border. Abdomen: soft non tender non distended positive bowel sounds. Extremities: there is no edema no calf tenderness, DP +1 bilaterally. Neurologic examination: patient is awake , alert and oriented X3 CN II-XII are grossly intact. ASSESSMENT AND PLAN 1. Acute hypoxemic respiratory failure due to COPD exacerbation. Consult with pulmonary medicine appreciated. Continue Duoneb 3 times daily and as needed, pulmonary consult appreciated. 2. EKG changes and elevated troponin secondary to unstable angina versus non-ST elevated myocardial infarction. Echocardiogram as above, cardiology consult appreciated, metoprolol 25 mg 3 times daily, aspirin 81 mg daily, statin. Patient is continued on IV heparin drip . Nitroglycerin drip has been discontin ued. Lipitor 40 mg daily added. 3. Hyponatremia. Consult with nephrology appreciated. Patient is scheduled for one dose for Samsca 50 mg today, status post 1 dose of sodium chloride tablet last evening. IV fluids have been discontinued, increased protein intake. 4. Hypertensive urgency. Continue Lopressor 25 mg 3 times daily, nitroglycerin drip has been discontinued. 5. Lactic acidosis secondary acute kidney injury. 6. Hypertension and hypertensive cardiovascular disease. 7. Recurrent depression. Continue Cymbalta 60 mg the morning and 30 mg at bedtime, Remeron 30 mg at bedtime. 8. Generalized anxiety disorder. Continue Xanax 0.25 mg 3 times daily. 9. Chronic pain syndrome due to sever back pain. Continue Oxycodone 30 mg orally tid, has been under pain management for quiet sometimes. 10. DVT prophylaxis. Patient is on heparin drip. 11. GI prophylxis. Continue Protonix 40 mg oral daily. CODE STATUS: Full code. DISCHARGE PLAN Home with [facility]. Impression and plan of care have been directed as dictated by the signing physician. Zora Ayala nurse practitioner acting as scribe for signing physician. Objective - Vital Signs Vital signs: Vital Signs Temp 98.2 F 01/28/21 03:54 Pulse 72 01/28/21 03:54 Resp 16 01/28/21 03:54 BP 105/54 01/28/21 03:54 Pulse Ox 98 01/28/21 03:54 Intake & Output 01/27/21 01/28/21 01/28/21 18:59 06:59 18:59 Intake Total 425 364.728 Output Total 310 550 Balance 115 -185.272 Weight 46.5 kg 39.5 kg Intake: IV 375 Sodium Chloride 0.9% 1, 375 000 ml @ 75 mls/hr IV . [id number] [facility] Rx#:[id number] Intake, IV Titration 124.728 Amount Heparin Sod,Pork in 0.45% 124.728 NaCl 25,000 unit In 0.45 % NaCl 1 250ml.bag @ 12 UNITS/KG/HR 5.77 mls/hr IV .Q24H [facility] Rx#: [id number] Oral 50 240 Output: Urine 310 550 Other: Voiding Method Indwelling Catheter Indwelling Catheter - Labs CBC & Chem 7: 01/28/21 07:04 01/28/21 07:04 Labs: Abnormal Lab Results - Last 24 Hours (Table) 01/27/21 01/27/21 01/27/21 Range/Units 03:37 14:09 18:51 WBC (3.8-10.6) k/uL APTT (22.0-30.0) sec Sodium 123 L 121 L (137-145) mmol/L Chloride (98-107) mmol/L Carbon Dioxide (22-30) mmol/L Glucose (74-99) mg/dL Procalcitonin 0.11 H (0.02-0.09) ng/mL 01/27/21 01/28/21 01/28/21 Range/Units 23:28 07:04 07:04 WBC 11.1 H (3.8-10.6) k/uL APTT 45.9 H (22.0-30.0) sec Sodium 121 L (137-145) mmol/L Chloride (98-107) mmol/L Carbon Dioxide (22-30) mmol/L Glucose (74-99) mg/dL Procalcitonin (0.02-0.09) ng/mL 01/28/21 Range/Units 07:04 WBC (3.8-10.6) k/uL APTT (22.0-30.0) sec Sodium 125 L (137-145) mmol/L Chloride 88 L (98-107) mmol/L Carbon Dioxide 33 H (22-30) mmol/L Glucose 113 H (74-99) mg/dL Procalcitonin (0.02-0.09) ng/mL Microbiology - Last 24 Hours (Table) 01/26/21 18:46 Blood Culture - Preliminary Blood No Growth after 24 hours 01/26/21 18:46 Blood Culture - Preliminary Blood No Growth after 24 hours
--- NOTE | 2021-01-28 11:27 | P.PN ---
Subjective Progress Note Date: 01/28/21 This is a 85-year-old female with history of COPD, chronic hypoxic respiratory failure, chronic diastolic congestive heart failure, patient presented to the ER with 1 day history of increased shortness of breath, has been using her updraft treatments excessively at home, but was not feeling any better. Patient was brought into the ER, and her O2 saturation was in the low 80s, patient was placed on a nonrebreather initially, then she was transitioned to a BiPAP. She was eventually admitted to the ICU on BiPAP with IPAP of 10 EPAP of 5 FiO2 of 35%. He shouldn't received bronchodilators, antibiotics, diuretics, and she was noted to have nonspecific areas of pneumonitis on the CT of the chest, and atelectasis. Patient used to smoke however she quit smoking over 2 years ago. During my evaluation, the patient was noted to be on 2 L nasal cannula, improving, breathing a lot easier, and considering her troponin was elevated, patient was placed on heparin, and she was receiving nitroglycerin drip for significantly elevated blood pressure of around 200 systolic at the time of her initial presentation. Overnight her nitroglycerin has been discontinued. Cardiology is to decide whether to perform any further cardiac workup. In the meantime the patient will be transferred out of the ICU to a cardiac floor, and she was seen by nephrology for what seems to be hypovolemic hyponatremia. Sodiu m at the time of presentation was 124, SIADH is being considered in the differential diagnosis. Antibiotics cooper, patient has been receiving Zithromax, and she also received ceftriaxone. WBC count on admission was 21.9, hemoglobin 12.7. PTT is 46.6. Renal profile is normal troponin was 0.45 and follow-up troponin was 0.44 COVID-19 PCR was not detected. Lactic acid was 1.1. procalcitonin is pending. The patient is seen today 01/28/2021 in follow-up on the selective care unit. She is currently up ambulating with assistance. Maintaining O2 saturations in the 90s on room air. No worsening shortness of breath cough or congestion. No chest pain. Pro calcitonin 0.11. Follow-up chest x-ray revealed no acute process. Blood cultures reveal no growth to date. White count 11.1. Hemoglobin 11.9. Sodium 125. Potassium 4.2. Creatinine 0.68. Glucose 113. Pro calcitonin 0.11. She remains on a heparin drip. Echocardiogram reveals preserved left ventricular systolic function with ejection fraction hyperdynamic at 65-70%. Objective - Vital Signs Vital signs: Vital Signs Temp 98.2 F 01/28/21 03:54 Pulse 92 01/28/21 08:00 Resp 16 01/28/21 08:00 BP 150/67 01/28/21 08:00 Pulse Ox 97 01/28/21 08:00 Intake & Output 01/27/21 01/28/21 01/28/21 18:59 06:59 18:59 Intake Total 425 364.728 240 Output Total 310 550 Balance 115 -185.272 240 Weight 46.5 kg 39.5 kg Intake: IV 375 Sodium Chloride 0.9% 1, 375 000 ml @ 75 mls/hr IV . [id number] [facility] Rx#:[id number] Intake, IV Titration 124.728 Amount Heparin Sod,Pork in 0.45% 124.728 NaCl 25,000 unit In 0.45 % NaCl 1 250ml.bag @ 12 UNITS/KG/HR 5.77 mls/hr IV .Q24H [facility] Rx#: [id number] Oral 50 240 240 Output: Urine 310 550 Other: Voiding Method Indwelling Catheter Indwelling Catheter Indwelling Catheter - Exam GENERAL EXAM: Alert, active, very pleasant 85-year-old female patient, on room air, comfortable in no apparent distress. HEAD: Normocephalic. EYES: Normal reaction of pupils, equal size. NOSE: Clear with pink turbinates. THROAT: No erythema or exudates. NECK: No masses, no JVD. CHEST: No chest wall deformity. LUNGS: Equal air entry with no crackles, wheeze, rhonchi or dullness. CVS: S1 and S2 normal with no audible murmur, regular rhythm. ABDOMEN: No hepatosplenomegaly, normal bowel sounds, no guarding or rigidity. SPINE: No scoliosis or deformity SKIN: No rashes CENTRAL NERVOUS SYSTEM: No focal deficits, tone is normal in all 4 extremities. EXTREMITIES: There is no peripheral edema. No clubbing, no cyanosis. Peripheral pulses are intact. - Labs CBC & Chem 7: 01/28/21 07:04 01/28/21 07:04 Labs: Abnormal Lab Results - Last 24 Hours (Table) 01/27/21 01/27/21 01/27/21 Range/Units 03:37 14:09 18:51 WBC (3.8-10.6) k/uL APTT (22.0-30.0) sec Sodium 123 L 121 L (137-145) mmol/L Chloride (98-107) mmol/L Carbon Dioxide (22-30) mmol/L Glucose (74-99) mg/dL Procalcitonin 0.11 H (0.02-0.09) ng/mL 01/27/21 01/28/21 01/28/21 Range/Units 23:28 07:04 07:04 WBC 11.1 H (3.8-10.6) k/uL APTT 45.9 H (22.0-30.0) sec Sodium 121 L (137-145) mmol/L Chloride (98-107) mmol/L Carbon Dioxide (22-30) mmol/L Glucose (74-99) mg/dL Procalcitonin (0.02-0.09) ng/mL 01/28/21 Range/Units 07:04 WBC (3.8-10.6) k/uL APTT (22.0-30.0) sec Sodium 125 L (137-145) mmol/L Chloride 88 L (98-107) mmol/L Carbon Dioxide 33 H (22-30) mmol/L Glucose 113 H (74-99) mg/dL Procalcitonin (0.02-0.09) ng/mL Microbiology - Last 24 Hours (Table) 01/26/21 18:46 Blood Culture - Preliminary Blood No Growth after 24 hours 01/26/21 18:46 Blood Culture - Preliminary Blood No Growth after 24 hours Assessment and Plan Assessment: 1 Acute on chronic hypoxic respiratory failure secondary to acute exacerbation of COPD 2 Acute non-ST segment elevation myocardial infarction 3 Hypertensive urgency 4 Former smoker 5 Underlying COPD 6 Hyperlipidemia 7 Hypovolemic hyponatremia Plan: The patient was seen and evaluated by Dr. Gutierrez She is stable from the pulmonary and critical care standpoint Remains on heparin drip per cardiology We will continue to follow I, the cosigning physician, performed a history & physical examination of the patient. Lungs sounds are clear, diminished. Maintaining good O2 saturations in the 90s on room air. I discussed the assessment and plan of care with my nurse practitioner, Ping Belle. I attest to the above note as dictated by her.
--- NOTE | 2021-01-28 11:34 | P.PN ---
Subjective Progress Note Date: 01/28/21 HISTORY OF PRESENT ILLNESS: This is a pleasant 85-year-old female past medical history significant for COPD, hypertension, hyperlipidemia, former nicotine dependence. She has a history of previous admissions for COPD exacerbation and pneumonia. 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 We have been asked to see in consultation for abnormal EKG, elevated troponin, congestive heart failure. Patient presents emergency department on 01/26/2021 with worsening shortness of breath at home. She states that early in the day she was feeling okay but started to feel short of breath, she started to do with her breathing treatments at home without any relief. She was hypoxic at home with SpO2 80s. EMS was called and patient was brought to the emergency department. On arrival patient was hypertensive blood pressure 200s/100s, tachycardiac HR 110s, she was afebrile. She was placed on a nonrebreather Oxygen saturations greater than 92%, and was later placed on a BiPAP. She was started on IV nitroglycerin, became hypotensive and this was stopped. She also was given IV Lasix 40mg x 2. She denies chest pain, palpitations, lower extremity edema, weakness, lightheadedness, syncope. She denies history of cardiac disease, diabetes, coronary artery disease, heart failure. She is a former smoker, quit about 6 months ago. She denies any recent increase stress/stressful events at home. DIAGNOSTICS EKG reveals sinus tachycadia, HR 104, deep T wave inversions in leads V2-V5, TWI V6, mild ST elevation in leads V1, TWI leads I, aVL, II, aVF. Prior EKG in 02/2020- sinus tachycardia, HR 126, non-specific ST-T wave changes. Most recent echocardiogram 02/2020 revealed EF of 55-60%, mild aortic valve sclerosis, mild mitral regurgitation, mild to moderate tricuspid regurgitation, small generalized pericardial effusion. Telemetry tracings indicate sinus rhythm 70s to 90s. Chest xray lungs are hyperinflated with prominence of interstitial, compatible COPD. CT chest was negative for pulmonary embolism, bilateral diffuse moderate disease, in the lower lobes. Moderate right middle lobe compressive atelectasis. moderate centrilobular emphysema Laboratory reviewed, Troponin trend 0.06-->0.4-->0.4. COVID-19 negative, WBC 21.9, hemoglobin 12.7, platelets 36, sodium 124, potassium 4.2, BUN 9, serum creatinine 0.5. ProBNP 8540. 01/28/2021 Patient examined this morning at the bedside. Patient denies chest pain or pressure. She reports shortness of breath. Patient remains on nasal cannula with oxygen saturation greater than 92%. Patient does report using oxygen at home. Echocardiogram completed revealed ejection fraction 65-70%, mild mitral regurgitation and mild tricuspid regurgitation. Patient remains on IV heparin. Telemetry reveals sinus mechanism. Blood pressure this morning 150/67. It is noted that the patient was hypertensive upon admission to the hospital for blood pressure of 230/122. PHYSICAL EXAM: VITAL SIGNS: Reviewed. GENERAL: Well-developed in no acute distress. NECK: Supple. No JVD or thyromegaly LUNGS: Respirations even and unlabored. Lungs diminished bilaterally. HEART: Regular rate and rhythm. S1 and S2 heard. Systolic murmur noted. EXTREMITIES: Normal range of motion. No clubbing or cyanosis. Peripheral pulses intact. No lower extremity edema ASSESSMENT: Acute on chronic hypoxic respiratory failure, on home o2 Acute exacerbation of COPD Acute EKG changes Hypertensive urgency on the admission, improved Hyperlipidemia Former nicotine dependence PLAN: Continue current cardiac medications Discontinue IV heparin Further recommendations pending patient course Nurse practitioner note has been reviewed by physician. Signing provider agrees with the documented findings, assessment, and plan of care. Objective - Vital Signs Vital signs: Vital Signs Temp 98.2 F 01/28/21 03:54 Pulse 92 01/28/21 08:00 Resp 16 01/28/21 08:00 BP 150/67 01/28/21 08:00 Pulse Ox 97 01/28/21 08:00 Intake & Output 01/27/21 01/28/21 01/28/21 18:59 06:59 18:59 Intake Total 425 364.728 240 Output Total 310 550 Balance 115 -185.272 240 Weight 46.5 kg 39.5 kg Intake: IV 375 Sodium Chloride 0.9% 1, 375 000 ml @ 75 mls/hr IV . [id number] [facility] Rx#:[id number] Intake, IV Titration 124.728 Amount Heparin Sod,Pork in 0.45% 124.728 NaCl 25,000 unit In 0.45 % NaCl 1 250ml.bag @ 12 UNITS/KG/HR 5.77 mls/hr IV .Q24H [facility] Rx#: [id number] Oral 50 240 240 Output: Urine 310 550 Other: Voiding Method Indwelling Catheter Indwelling Catheter - Labs CBC & Chem 7: 01/28/21 07:04 01/28/21 07:04 Labs: Abnormal Lab Results - Last 24 Hours (Table) 01/27/21 01/27/21 01/27/21 Range/Units 03:37 14:09 18:51 WBC (3.8-10.6) k/uL APTT (22.0-30.0) sec Sodium 123 L 121 L (137-145) mmol/L Chloride (98-107) mmol/L Carbon Dioxide (22-30) mmol/L Glucose (74-99) mg/dL Procalcitonin 0.11 H (0.02-0.09) ng/mL 01/27/21 01/28/21 01/28/21 Range/Units 23:28 07:04 07:04 WBC 11.1 H (3.8-10.6) k/uL APTT 45.9 H (22.0-30.0) sec Sodium 121 L (137-145) mmol/L Chloride (98-107) mmol/L Carbon Dioxide (22-30) mmol/L Glucose (74-99) mg/dL Procalcitonin (0.02-0.09) ng/mL 01/28/21 Range/Units 07:04 WBC (3.8-10.6) k/uL APTT (22.0-30.0) sec Sodium 125 L (137-145) mmol/L Chloride 88 L (98-107) mmol/L Carbon Dioxide 33 H (22-30) mmol/L Glucose 113 H (74-99) mg/dL Procalcitonin (0.02-0.09) ng/mL Microbiology - Last 24 Hours (Table) 01/26/21 18:46 Blood Culture - Preliminary Blood No Growth after 24 hours 01/26/21 18:46 Blood Culture - Preliminary Blood No Growth after 24 hours
--- NOTE | 2021-01-28 12:10 | PN ---
PROGRESS NOTE Patient is seen for followup for hyponatremia. She was admitted to the hospital with complaints of weakness. She was also short of breath. Blood pressure was significantly elevated on initial admission around 200 with diastolic of 120-130. Subsequently, her blood pressure dropped significantly. I do see a reading of around 85 mmHg at one time as well. Her sodium was 124 on initial admission. The patient dropped to around 123 and 121 mEq/L. I tried a saline challenge and the patient's serum sodium had decreased after saline infusion down to around 121 mEq/L. Urine osmolality is at 326. Chest x-ray does not show any acute process. This morning her serum sodium is up to 125 and a dose of Samsca is ordered for today. PHYSICAL EXAMINATION: Blood pressure is 150/67, heart rate 92 per minute, she is afebrile. Examination of the heart S1, S2. Examination of the lungs, decreased breath sounds at the bases. Abdomen is soft, nontender. Examination of lower extremities shows no evidence of edema. [employer] WORK[employer] exam grossly intact. LAB: Show sodium 125, potassium 4.2, chloride 88, CO2 is 33, BUN 11, serum creatinine 0.68. ASSESSMENT: 1. Hyponatremia euvolemic with worsening of sodium with saline administration suggesting underlying SIADH. Patient will be given a dose of Samsca today. I will also maintain her on some degree of free water restriction. She is encouraged to increase her oral protein intake. Serum cortisol was not low and TSH was not elevated. 2. Hypertension, currently improved, blood pressure now on the lower side. May continue with current antihypertensive medications. PLAN: Tolvaptan 15 mg p.o. x1 now. Repeat sodium later on this evening. Encourage increased oral intake. MMODL / IJN: [id number] /
[2021-01-28] MEDS: ONDANSETRON 4 MG/2 ML VIAL IVP PRN (12:57)
[2021-01-28] MEDS: SENNOSIDES-DOCUSATE SODIUM 1 EACH TAB PO SCH (12:57)
[2021-01-28] MEDS ORDERED: TOLVAPTAN 15 MG 1/2 TABLET PO ONE (13:15)
[2021-01-28] MEDS: ACETAMINOPHEN TAB 325 MG TAB PO PRN (18:26)
[2021-01-28] MEDS: MIRTAZAPINE 15 MG TAB PO SCH (20:43)
[2021-01-28] MEDS: MELATONIN 5 MG TABLET PO SCH (20:43)
[2021-01-28] MEDS: DULoxetine HCL 30 MG CAPSULE.DR PO SCH (20:43)
[2021-01-29] MEDS: PANTOPRAZOLE 40 MG TABLET PO SCH (06:26)
[2021-01-29] MEDS: IPRATROPIUM-ALBUTEROL 3 ML NEB INHALATION SCH ×3 (07:58→19:30)
[2021-01-29] MEDS ORDERED: IOPAMIDOL CONTRAST (ORAL USE) VIAL PO PRN (08:09)
--- NOTE | 2021-01-29 08:35 | P.PN ---
Subjective Progress Note Date: 01/29/21 HISTORY OF PRESENT ILLNESS This is an 85-year-old female patient of Dr. Palmer with past medical history of COPD, hypertension, chronic pain syndrome, tobacco use and dependence generalized anxiety disorder. Patient developed shortness of breath despite use of her nebulizer at home that started early yesterday. Patient denied any chest pain but there is EKG changes and patient was started on heparin drip. Her initial vital signs were heart rate 110, respiratory rate 43, blood pressure 230/122. Patient was started on BiPAP and nitroglycerin drip. Chest x-ray revealed no acute process on 01/26 and 01/27. CTA of the chest revealed progression of diffuse moderate tree-in-bud pattern opacities with small consolidations and chronic compressive atelectasis. Considerations include atypical infection. No acute PE. WBC 14.7, hemoglobin 14.4, but without 455. Sodium 124, potassium 5.7, chloride 88, CO2 23, BUN 18 and creatinine 0.57. Blood sugar 257. Urinalysis was negative for infection. Lactic acid 2.9. ProBNP 8540. AST 39, ALT 19 and alkaline phosphatase 99. Troponin 0.069, 0.453, 0.443. Echocardiogram reveals EF of 65-70% with borderline concentric left hypertrophy, no aortic stenosis or regurgitation. Mild mitral regurgitation, mild tricuspid regurgitation. Patient admitted into the intensive care unit and consult requested with pulmonary medicine, cardiology and nephrology. 01/28: Patient is seen today on the cardiac stepdown unit. Patient's denies having any chest pain. No shortness of breath and is feeling better. She does complain of abdominal pain and not eating much. She is complaining of nausea and Zofran added. Her last bowel movement was at home prior to admission. Senokot scheduled and milk of magnesia added. Patient has been seen by nephrology and ordered for Samsca one dose today and one dose of sodium chloride tablet last night. Sodium this morning was 125, potassium 4.2, chloride 88, CO2 33, BUN 11 creatinine 0.68. Blood sugar 113. WBC 11.1, hemoglobin 11.9, platelet count 287. Probable stone and was 0.11. TSH 0.861. Urine osmolality 326. Nitroglycerin drip has been discontinued. Patient is currently on heparin drip and cardiology is following. 01/29: Patient states that she still has not had a bowel movement but is feeling the urge. She is complaining of her "pancreas hurting" as she does have history of a pancreatic lesion. We will ask for a CAT scan of the abdomen with contrast ordered today to further evaluate. Her repeat sodium last evening was 125 and she is followed by Dr. Charles. She did receive 1 dose of Samsca and sodium tablets. She is encouraged to increase protein intake. She is on a free water restriction. Discussed discharge planning with the patient and she is open to going to [employer] where her daughter works and case management/licensed clinical social worker following for this. Repeat blood work has been ordered for this morning and anticipate if sodium is improved by tomorrow morning, we will be oh to discharge her to [facility]. Cardiology has ruled out non-ST VT and discontinued heparin drip. REVIEW OF SYSTEMS Constitutional: No fever, no chills, no night sweats. No weight change. No weakness, fatigue or lethargy. No daytime sleepiness. EENT: No headache. No blurred vision or double vision, no loss of vision. No loss of Hearing, no ringing in the ears, no dizziness. No nasal drainage or congestion. No epistaxis. No sore throat. Lungs: No shortness of breath, cough, no sputum production. No wheezing. Cardiovascular: No chest pain, no lower extremity edema. No palpitations. No paroxysmal nocturnal dyspnea. No orthopnea. No lightheadedness or dizziness. No syncopal episodes. Abdominal: Reports abdominal pain. No nausea, vomiting. No diarrhea. Reports constipation. No bloody or tarry stools reports loss of appetite. Genitourinary: No dysuria, increased frequency, urgency. No urinary retention. Musculoskeletal: No myalgias. No muscle weakness, no gait dysfunction, no frequent falls. No back pain. No neck pain. Integumentary: No wounds, no lesions. No rash or pruritus. No unusual bruising. No change in hair or nails. Neurologic: No aphasia. No facial droop. No change in mentation. No head injury. No headache. No paralysis. No paresthesia. Psychiatric: No depression. No anxiety. No mood swings. Endocrine: No abnormal blood sugars. No weight change. PHYSICAL EXAMINATION Gen: This is an 85-year-old thin female. She is resting in bed and appears to be comfortable at rest. HEENT: head is atraumatic normocephalic pupils were equal round reactive to light and accommodations extra ocular muscle movements were intact. Neck: supple, no JVP. Chest: decrease breath sounds at the bases with few ronchi, minimal expiratory wheezes, there is egophony at the bases with minimal intercostal retraction. Heart: first heart sound is depressed , second heart sound is normal there is VITO 2/6 located at the laft sternal border. Abdomen: soft mild abdominal tenderness to the right upper quadrant, non distended positive bowel sounds. Extremities: there is no edema no calf tenderness, DP +1 bilaterally. Neurologic examination: patient is awake , alert and oriented X3 CN II-XII are grossly intact. ASSESSMENT AND PLAN 1. Acute hypoxemic respiratory failure due to COPD exacerbation. Consult with pulmonary medicine appreciated. Continue Duoneb 3 times daily and as needed, pulmonary consult appreciated. 2. EKG changes and elevated troponin secondary to unstable angina, non-ST elevated myocardial infarction has been ruled out by cardiology. Echocardiogram as above, cardiology consult appreciated, continue metoprolol 25 mg 3 times sarah y, aspirin 81 mg daily, Lipitor 40 mg daily added. Heparin drip and Nitroglycerin drip discontinued. 3. Hyponatremia. Consult with nephrology appreciated. Status post 1 dose of Samsca 50 mg and 1 dose of sodium chloride tablet. IV fluids have been discontinued, increased protein intake. Repeat blood work ordered for this morning. 4. Hypertensive urgency. Continue Lopressor 25 mg 3 times daily, nitroglycerin drip has been discontinued. 5. Lactic acidosis secondary acute kidney injury. 6. Hypertension and hypertensive cardiovascular disease. 7. Recurrent depression. Continue Cymbalta 60 mg the morning and 30 mg at bedtime, Remeron 30 mg at bedtime. 8. Generalized anxiety disorder. Continue Xanax 0.25 mg 3 times daily. 9. Chronic pain syndrome due to sever back pain. Continue Oxycodone 30 mg orally tid, has been under pain management for quiet sometimes. 10. DVT prophylaxis. Patient is on heparin drip. 11. GI prophylxis. Continue Protonix 40 mg oral daily. 12. Abdominal pain with history of pancreatic lesion. CAT scan of the abdomen with contrast ordered. CODE STATUS: NO code. DISCHARGE PLAN [facility] of on Monday Impression and plan of care have been directed as dictated by the signing physician. Zora Ayala nurse practitioner acting as scribe for signing physician. Objective - Vital Signs Vital signs: Vital Signs Temp 98.2 F 01/29/21 03:36 Pulse 91 01/29/21 08:09 Resp 16 01/29/21 08:09 BP 136/62 01/29/21 03:36 Pulse Ox 91 L 01/29/21 07:58 Intake & Output 01/28/21 01/29/21 01/29/21 18:59 06:59 18:59 Intake Total 1020 Output Total 1300 1600 Balance -280 -1600 Weight 38 kg Intake: Intake, IV Titration 300 Amount Sodium Chloride 0.9% 1, 300 000 ml @ 75 mls/hr IV . [id number] [facility] Rx#:[id number] Oral 720 Output: Urine 1300 1600 Other: Voiding Method Indwelling Catheter Indwelling Catheter - Labs CBC & Chem 7: 01/28/21 07:04 01/28/21 17:40 Labs: Abnormal Lab Results - Last 24 Hours (Table) 01/28/21 Range/Units 17:40 Sodium 125 L (137-145) mmol/L Microbiology - Last 24 Hours (Table) 01/26/21 18:46 Blood Culture - Preliminary Blood No Growth after 48 hours 01/26/21 18:46 Blood Culture - Preliminary Blood No Growth after 48 hours
[2021-01-29] MEDS: SENNOSIDES-DOCUSATE SODIUM 1 EACH TAB PO SCH (09:16)
[2021-01-29] MEDS: ASPIRIN 81 MG PO SCH (09:16)
[2021-01-29] MEDS: ALPRAZolam 0.25 MG TAB PO SCH ×3 (09:16→22:15)
[2021-01-29] MEDS: METOPROLOL TARTRATE 25 MG TAB PO SCH ×3 (09:17→22:15)
[2021-01-29] MEDS: ATORVASTATIN 40 MG TAB PO SCH (09:17)
[2021-01-29] MEDS: DULoxetine HCL 60 MG CAPSULE.DR PO SCH (09:17)
[2021-01-29] MEDS: ONDANSETRON ODT 4 MG TAB PO SCH ×3 (09:17→22:15)
[2021-01-29 09:22] LABS: HCT 40.8 % (34.0-46.0); HGB 13.6 gm/dL (11.4-16.0); MCH 29.3 pg (25.0-35.0); MCHC 33.3 g/dL (31.0-37.0); MCV 88.2 fL (80.0-100.0); Mean Platelet Volume 6.9; Platelet Count 359 k/uL (150-450); RBC 4.63 m/uL (3.80-5.40); RDW 13.4 % (11.5-15.5)
[2021-01-29 09:28] LABS: African American GFR (CKD) >90 (>60 ml/min/1.73 sqM); Anion Gap 6 mmol/L; Blood Urea Nitrogen 8 mg/dL (7-17); Calcium 10.1 mg/dL (8.4-10.2); Carbon Dioxide 31 mmol/L (22-30); Chloride 98 mmol/L (98-107); Glucose 149 mg/dL (74-99); Non-African American GFR(CKD) 86 (>60 ml/min/1.73 sqM); Potassium 4.5 mmol/L (3.5-5.1); Sodium 135 mmol/L (137-145)
--- NOTE | 2021-01-29 10:23 | PN ---
PROGRESS NOTE Patient is seen for followup for hyponatremia. She did get a dose of tolvaptan yesterday and her sodium has increased to 135 today. Overall, patient states she is feeling fairly well. She is complaining of some abdominal pain. Patient denies any significant vomiting. Has had some nausea. No diarrhea noted. She is scheduled for a CT scan of the abdomen today. PHYSICAL EXAMINATION: Blood pressure is 136/62, heart rate 69 per minute, she is afebrile. Examination of the heart S1, S2. Examination of the lungs, bilateral breath sounds are heard. Abdomen is soft, nontender. Examination of lower extremities shows no significant edema. TIRE CARE MANAGER exam grossly intact. LAB: Show sodium 135, potassium 4.5, serum creatinine 0.54. ASSESSMENT: 1. 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 I will maintain patient off sodium chloride tabs. Sodium has increased by about 10 points. We will continue to monitor for now. Hold off on fluid restriction at this point, given the increase in the sodium level. 2. Hypertension currently improved. 3. Abdominal pain, scheduled for CT scan today. PLAN: Repeat sodium level this evening. Encourage increased oral intake and avoid sodium chloride tabs for now. MMODL / IJN: [id number] /
--- NOTE | 2021-01-29 10:29 | CT ---
EXAMINATION TYPE: CT abdomen w con DATE OF EXAM: 01/29/2021 COMPARISON: 01/26/2021, 08/06/2019 HISTORY: pancreatic lesion CT DLP: 516.3 mGycm Automated exposure control for dose reduction was used. TECHNIQUE: Helical acquisition of images was performed from the lung bases through the top of iliac crest to include entire abdomen. CONTRAST: Performed without Oral Contrast and with IV Contrast, patient injected with 100 mL of Isovue 300. FINDINGS: LUNG BASES: Subpleural nodule seen measuring 5 mm in bilateral lower lobes. Findings nonspecific. Are as of subsegmental consolidation are seen at both lung bases. Coronary artery dense calcification not ed in the heart size is prominent. LIVER/GB: Mild intrahepatic biliary ductal dilation. Multiple small subcentimeter hypodensities likel y related to cysts. No gallstones. PANCREAS: There is no definite pancreatic mass although there remains prominence the pancreatic duct. SPLEEN: No significant abnormality is seen. ADRENALS: No significant abnormality is seen. KIDNEYS: Right kidney is somewhat low in position with no evidence of hydronephrosis or nephrolithias is. Simple right renal cyst noted. BOWEL: Stomach is fluid-filled and distended and there is a small hiatal hernia. Bowel gas pattern a s visualized nonspecific. LYMPH NODES: No significant abnormality is seen. OSSEOUS STRUCTURES: Hypertrophic and degenerative changes spine. Grade 1 anterolisthesis at multiple levels within the lumbar spine with multilevel facet arthropathy. OTHER: Aorta of normal caliber with atherosclerotic changes. There is a small 1 cm intermediate densi ty seen in the left abdomen which could represent a small splenule. Soft tissue nodule or adenopathy not excluded best noted on axial image 81. Soft tissue calcification in the posterior right flank not ed. IMPRESSION: 1. There is persistent prominence of the pancreatic duct. A discrete pancreatic mass is not seen. Thi s could be correlated with MRI. Additionally there is a soft tissue nodule in the left upper quadrant on axial image 81 of indeterminate etiology and not seen with certainty on the prior exam. MRI of th e abdomen recommended. 2. There is a subpleural nodules measuring 5 mm bilaterally within the lower lobes which are too smal l to characterize.
[2021-01-29 13:13] VITALS: BMI 16.3
--- NOTE | 2021-01-29 14:04 | P.PN ---
Subjective Progress Note Date: 01/29/21 This is a 85-year-old female with history of COPD, chronic hypoxic respiratory failure, chronic diastolic congestive heart failure, patient presented to the ER with 1 day history of increased shortness of breath, has been using her updraft treatments excessively at home, but was not feeling any better. Patient was brought into the ER, and her O2 saturation was in the low 80s, patient was placed on a nonrebreather initially, then she was transitioned to a BiPAP. She was eventually admitted to the ICU on BiPAP with IPAP of 10 EPAP of 5 FiO2 of 35%. He shouldn't received bronchodilators, antibiotics, diuretics, and she was noted to have nonspecific areas of pneumonitis on the CT of the chest, and atelectasis. Patient used to smoke however she quit smoking over 2 years ago. During my evaluation, the patient was noted to be on 2 L nasal cannula, improving, breathing a lot easier, and considering her troponin was elevated, patient was placed on heparin, and she was receiving nitroglycerin drip for significantly elevated blood pressure of around 200 systolic at the time of her initial presentation. Overnight her nitroglycerin has been discontinued. Cardiology is to decide whether to perform any further cardiac workup. In the meantime the patient will be transferred out of the ICU to a cardiac floor, and she was seen by nephrology for what seems to be hypovolemic hyponatremia. Sodiu m at the time of presentation was 124, SIADH is being considered in the differential diagnosis. Antibiotics cooper, patient has been receiving Zithromax, and she also received ceftriaxone. WBC count on admission was 21.9, hemoglobin 12.7. PTT is 46.6. Renal profile is normal troponin was 0.45 and follow-up troponin was 0.44 COVID-19 PCR was not detected. Lactic acid was 1.1. procalcitonin is pending. The patient is seen today 01/28/2021 in follow-up on the selective care unit. She is currently up ambulating with assistance. Maintaining O2 saturations in the 90s on room air. No worsening shortness of breath cough or congestion. No chest pain. Pro calcitonin 0.11. Follow-up chest x-ray revealed no acute process. Blood cultures reveal no growth to date. White count 11.1. Hemoglobin 11.9. Sodium 125. Potassium 4.2. Creatinine 0.68. Glucose 113. Pro calcitonin 0.11. She remains on a heparin drip. Echocardiogram reveals preserved left ventricular systolic function with ejection fraction hyperdynamic at 65-70%. The patient is seen today 01/29/2021 in follow-up on the selective care unit. She is currently sitting up in a chair at the bedside. Awake and alert in no acute distress. She is maintaining good O2 saturations in the 90s on 2 L/m per nasal cannula. She is breathing bit easier today compared to yesterday. She continues with some crackles in the posterior bases. Ejection fraction 65-70%. She remains on bronchodilators. Blood cultures reveal no growth. White count 13.0. Hemoglobin 13.6. Sodium 135. Potassium 4.5. Creatinine 0.54. Objective - Vital Signs Vital signs: Vital Signs Temp 97.4 F L 01/29/21 08:00 Pulse 55 L 01/29/21 12:00 Resp 16 01/29/21 11:45 BP 117/53 01/29/21 12:00 Pulse Ox 93 L 01/29/21 12:00 Intake & Output 01/28/21 01/29/21 01/29/21 18:59 06:59 18:59 Intake Total 1020 440 Output Total 1300 1600 700 Balance -280 -1600 -260 Weight 38 kg 38 kg Intake: Intake, IV Titration 300 Amount Sodium Chloride 0.9% 1, 300 000 ml @ 75 mls/hr IV . [id number] [facility] Rx#:[id number] Oral 720 440 Output: Urine 1300 1600 700 Other: Voiding Method Indwelling Catheter Indwelling Catheter Indwelling Catheter - Exam GENERAL EXAM: Alert, active, very pleasant 85-year-old female patient, on 2 L nasal cannula, comfortable in no apparent distress. HEAD: Normocephalic. EYES: Normal reaction of pupils, equal size. NOSE: Clear with pink turbinates. THROAT: No erythema or exudates. NECK: No masses, no JVD. CHEST: No chest wall deformity. LUNGS: Equal air entry with crackles in the posterior bases. CVS: S1 and S2 normal with no audible murmur, regular rhythm. ABDOMEN: No hepatosplenomegaly, normal bowel sounds, no guarding or rigidity. SPINE: No scoliosis or deformity SKIN: No rashes CENTRAL NERVOUS SYSTEM: No focal deficits, tone is normal in all 4 extremities. EXTREMITIES: There is no peripheral edema. No clubbing, no cyanosis. Periphe ral pulses are intact. - Labs CBC & Chem 7: 01/29/21 08:49 01/29/21 08:49 Labs: Abnormal Lab Results - Last 24 Hours (Table) 01/28/21 01/29/21 01/29/21 Range/Units 17:40 08:49 08:49 WBC 13.0 H (3.8-10.6) k/uL Sodium 125 L 135 L (137-145) mmol/L Carbon Dioxide 31 H (22-30) mmol/L Glucose 149 H (74-99) mg/dL Microbiology - Last 24 Hours (Table) 01/26/21 18:46 Blood Culture - Preliminary Blood No Growth after 48 hours 01/26/21 18:46 Blood Culture - Preliminary Blood No Growth after 48 hours Assessment and Plan Assessment: 1 Acute on chronic hypoxic respiratory failure secondary to acute exacerbation of COPD 2 Acute non-ST segment elevation myocardial infarction 3 Hypertensive urgency 4 Former smoker 5 Underlying COPD 6 Hyperlipidemia 7 Hypovolemic hyponatremia, improved current sodium 135 8 Prominence of the pancreatic duct. Plan: The patient was seen and evaluated by Dr. Gutierrez She is stable from the pulmonary standpoint Continue the current treatment plan Home once cleared by medicine We will continue to follow I, the cosigning physician, performed a history & physical examination of the patient. Lungs sounds with crackles in the posterior bases. Maintaining good O2 saturations in the 90s on 2 L/m per nasal cannula. I discussed the assessment and plan of care with my nurse practitioner, Ping Belle. I attest to the above note as dictated by her.
--- NOTE | 2021-01-29 14:42 | P.PN ---
Subjective Progress Note Date: 01/29/21 HISTORY OF PRESENT ILLNESS: This is a pleasant 85-year-old female past medical history significant for COPD, hypertension, hyperlipidemia, former nicotine dependence. She has a history of previous admissions for COPD exacerbation and pneumonia. 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 We have been asked to see in consultation for abnormal EKG, elevated troponin, congestive heart failure. Patient presents emergency department on 01/26/2021 with worsening shortness of breath at home. She states that early in the day she was feeling okay but started to feel short of breath, she started to do with her breathing treatments at home without any relief. She was hypoxic at home with SpO2 80s. EMS was called and patient was brought to the emergency department. On arrival patient was hypertensive blood pressure 200s/100s, tachycardiac HR 110s, she was afebrile. She was placed on a nonrebreather Oxygen saturations greater than 92%, and was later placed on a BiPAP. She was started on IV nitroglycerin, became hypotensive and this was stopped. She also was given IV Lasix 40mg x 2. She denies chest pain, palpitations, lower extremity edema, weakness, lightheadedness, syncope. She denies history of cardiac disease, diabetes, coronary artery disease, heart failure. She is a former smoker, quit about 6 months ago. She denies any recent increase stress/stressful events at home. DIAGNOSTICS EKG reveals sinus tachycadia, HR 104, deep T wave inversions in leads V2-V5, TWI V6, mild ST elevation in leads V1, TWI leads I, aVL, II, aVF. Prior EKG in 02/2020- sinus tachycardia, HR 126, non-specific ST-T wave changes. Most recent echocardiogram 02/2020 revealed EF of 55-60%, mild aortic valve sclerosis, mild mitral regurgitation, mild to moderate tricuspid regurgitation, small generalized pericardial effusion. Telemetry tracings indicate sinus rhythm 70s to 90s. Chest xray lungs are hyperinflated with prominence of interstitial, compatible COPD. CT chest was negative for pulmonary embolism, bilateral diffuse moderate disease, in the lower lobes. Moderate right middle lobe compressive atelectasis. moderate centrilobular emphysema Laboratory reviewed, Troponin trend 0.06-->0.4-->0.4. COVID-19 negative, WBC 21.9, hemoglobin 12.7, platelets 36, sodium 124, potassium 4.2, BUN 9, serum creatinine 0.5. ProBNP 8540. 01/28/2021 Patient examined this morning at the bedside. Patient denies chest pain or pressure. She reports shortness of breath. Patient remains on nasal cannula with oxygen saturation greater than 92%. Patient does report using oxygen at home. Echocardiogram completed revealed ejection fraction 65-70%, mild mitral regurgitation and mild tricuspid regurgitation. Patient remains on IV heparin. Telemetry reveals sinus mechanism. Blood pressure this morning 150/67. It is noted that the patient was hypertensive upon admission to the hospital for blood pressure of 230/122. 01/29/2021 Patient examined this morning at the bedside. She denies chest pain or pressure. She denies shortness of breath. Vital signs have been stable. PHYSICAL EXAM: VITAL SIGNS: Reviewed. GENERAL: Well-developed in no acute distress. NECK: Supple. No JVD or thyromegaly LUNGS: Respirations even and unlabored. Lungs diminished bilaterally. HEART: Regular rate and rhythm. S1 and S2 heard. Systolic murmur noted. EXTREMITIES: Normal range of motion. No clubbing or cyanosis. Peripheral pulses intact. No lower extremity edema ASSESSMENT: Acute on chronic hypoxic respiratory failure, on home o2 Acute exacerbation of COPD Acute EKG changes Hypertensive urgency on the admission, improved Hyperlipidemia Former nicotine dependence PLAN: Continue current cardiac medications No further inpatient recommendations from a cardiac standpoint Patient to be discharged from a cardiac perspective. We will sign off. Please reconsult if needed. Nurse practitioner note has been reviewed by physician. Signing provider agrees with the documented findings, assessment, and plan of care. Objective - Vital Signs Vital signs: Vital Signs Temp 97.4 F L 01/29/21 08:00 Pulse 55 L 01/29/21 12:00 Resp 16 01/29/21 11:45 BP 117/53 01/29/21 12:00 Pulse Ox 93 L 01/29/21 12:00 Intake & Output 01/28/21 01/29/21 01/29/21 18:59 06:59 18:59 Intake Total 1020 440 Output Total 1300 1600 700 Balance -280 -1600 -260 Weight 38 kg 38 kg Intake: Intake, IV Titration 300 Amount Sodium Chloride 0.9% 1, 300 000 ml @ 75 mls/hr IV . [id number] [facility] Rx#:[id number] Oral 720 440 Output: Urine 1300 1600 700 Other: Voiding Method Indwelling Catheter Indwelling Catheter Indwelling Catheter - Labs CBC & Chem 7: 01/29/21 08:49 01/29/21 08:49 Labs: Abnormal Lab Results - Last 24 Hours (Table) 01/28/21 01/29/21 01/29/21 Range/Units 17:40 08:49 08:49 WBC 13.0 H (3.8-10.6) k/uL Sodium 125 L 135 L (137-145) mmol/L Carbon Dioxide 31 H (22-30) mmol/L Glucose 149 H (74-99) mg/dL Microbiology - Last 24 Hours (Table) 01/26/21 18:46 Blood Culture - Preliminary Blood No Growth after 48 hours 01/26/21 18:46 Blood Culture - Preliminary Blood No Growth after 48 hours
--- NOTE | 2021-01-29 15:05 | P.DS ---
Providers Date of admission: 01/26/21 21:49 Expected date of discharge: 01/30/21 Attending physician: Elma Palmer Consults: 01/26/21 21:49 Consult Physician Stat Consulting Provider: Rosina Gutierrez Consult Reason/Comments: ICU care Do you want consulting provider notified?: Already Contacted 01/26/21 23:04 Consult Physician Routine Consulting Provider: Shanda Charles Consult Reason/Comments: Hyponatremia Do you want consulting provider notified?: Yes Primary care physician: Elma Palmer Hospital Course: HISTORY OF PRESENT ILLNESS This is an 85-year-old female patient of Dr. Palmer with past medical history of COPD, hypertension, chronic pain syndrome, tobacco use and dependence generalized anxiety disorder. Patient developed shortness of breath despite use of her nebulizer at home that started early yesterday. Patient denied any chest pain but there is EKG changes and patient was started on heparin drip. Her initial vital signs were heart rate 110, respiratory rate 43, blood pressure 230/122. Patient was started on BiPAP and nitroglycerin drip. Chest x-ray revealed no acute process on 01/26 and 01/27. CTA of the chest revealed progression of diffuse moderate tree-in-bud pattern opacities with small consolidations and chronic compressive atelectasis. Considerations include atypical infection. No acute PE. WBC 14.7, hemoglobin 14.4, but without 455. Sodium 124, potassium 5.7, chloride 88, CO2 23, BUN 18 and creatinine 0.57. Blood sugar 257. Urinalysis was negative for infection. Lactic acid 2.9. ProBNP 8540. AST 39, ALT 19 and alkaline phosphatase 99. Troponin 0.069, 0.453, 0.443. Echocardiogram reveals EF of 65-70% with borderline concentric left hypertrophy, no aortic stenosis or regurgitation. Mild mitral regurgitation, mild tricuspid regurgitation. Patient admitted into the intensive care unit and consult requested with pulmonary medicine, cardiology and nephrology. 01/28: Patient is seen today on the cardiac stepdown unit. Patient's denies having any chest pain. No shortness of breath and is feeling better. She does complain of abdominal pain and not eating much. She is complaining of nausea and Zofran added. Her last bowel movement was at home prior to admission. Senokot scheduled and milk of magnesia added. Patient has been seen by nephrology and ordered for Samsca one dose today and one dose of sodium chloride tablet last night. Sodium this morning was 125, potassium 4.2, chloride 88, CO2 33, BUN 11 creatinine 0.68. Blood sugar 113. WBC 11.1, hemoglobin 11.9, platelet count 287. Probable stone and was 0.11. TSH 0.861. Urine osmolality 326. Nitroglycerin drip has been discontinued. Patient is currently on heparin drip and cardiology is following. 01/29: Patient states that she still has not had a bowel movement but is feeling the urge. She is complaining of her "pancreas hurting" as she does have history of a pancreatic lesion. We will ask for a CAT scan of the abdomen with contrast ordered today to further evaluate. Her repeat sodium last evening was 125 and she is followed by Dr. Charles. She did receive 1 dose of Samsca and sodium tablets. She is encouraged to increase protein intake. She is on a free water restriction. Discussed discharge planning with the patient and she is open to going to [facility] where her daughter works and case management/social psychologist following for this. Repeat blood work has been ordered for this morning and anticipate if sodium is improved by tomorrow morning, we will be oh to discharge her to [facility]. Cardiology has ruled out non-ST OR and discontinued heparin drip. CT of the abdomen and pelvis with contrast revealed persistent prominence of the pancreatic duct. A discrete pancreatic mass is not seen. This could be correlated with MRI. Additionally there is soft tissue nodule in the left upper quadrant of indeterminate etiology and not seen with certainty on the prior exam. MRI of the abdomen is recommended. There is a subpleural nodule measuring 5 mm bilaterally within the lower lobes which are too small to characterize. 01/30: Patient underwent modified barium swallow yesterday afternoon and recommendations for mechanical soft diet with nectar thick liquids, no straws, upright positioning and all by mouth intake with small bites and sips, free water or ice chips between meals as tolerated. Patient remains afebrile, heart rate 87, blood pressure 120/70, pulse ox 98% on 3 L nasal cannula. Repeat blood work reveals normal CBC with white count of 9.4. Sodium 132, potassium 4.6, chloride 95, CO2 33, creatinine 0.6. Patient will be discharged to [facility] today in stable condition. ASSESSMENT AND PLAN 1. Acute hypoxemic respiratory failure due to COPD exacerbation. 2. EKG changes and elevated troponin secondary to unstable angina, non-ST elevated myocardial infarction has been ruled out by cardiology. 3. Hyponatremia. 4. Hypertensive urgency. 5. Lactic acidosis secondary acute kidney injury. 6. Hypertension and hypertensive cardiovascular disease. 7. Recurrent depression. 8. Generalized anxiety disorder. 9. Chronic pain syndrome due to sever back pain. 10. Abdominal pain with history of pancreatic lesion. CAT scan of the abdomen with contrast ordered. DISCHARGE PLAN [facility] on Monday Impression and plan of care have been directed as dictated by the signing physician. Zora Ayala nurse practitioner acting as scribe for signing physician. Patient Condition at Discharge: Stable Plan - Discharge Summary New Discharge Prescriptions: New Atorvastatin [Lipitor] 40 mg PO DAILY tab oxyCODONE HCL [OxyIR] 30 mg PO Q8H #9 tab Sennosides-Docusate Sodium [Senokot-S] 2 each PO DAILY tab Aspirin 81 mg PO DAILY chew Ipratropium-Albuterol Nebulize [Duoneb 0.5 mg-3 mg/3 ml Soln] 3 ml INHALATION RT-TID ml Magnesium Hydroxide [Milk of Magnesia Concentrate] 2,400 mg PO DAILY PRN ml PRN Reason: Constipation polyethylene glycoL 3350 [Miralax] 17 gm PO BID #60 packet Continue Mirtazapine [Remeron] 30 mg PO HS DULoxetine HCL [Cymbalta] 30 mg PO DAILY DULoxetine HCL [Cymbalta] 60 mg PO DAILY Melatonin 10 mg PO HS Ondansetron Odt [Zofran ODT] 4 mg PO TID ALPRAZolam [Xanax] 0.25 mg PO TID #9 tab Metoprolol Tartrate [Lopressor] 25 mg PO TID Pantoprazole [Protonix] 40 mg PO DAILY Discontinued Losartan Potassium 100 mg PO DAILY oxyCODONE HCL [oxyCODONE HCL (IR)] 30 mg PO Q8H #9 tab Discharge Medication List Mirtazapine [Remeron] 30 mg PO HS 01/13/19 [History] DULoxetine HCL [Cymbalta] 30 mg PO DAILY 01/14/19 [History] DULoxetine HCL [Cymbalta] 60 mg PO DAILY 01/14/19 [History] Melatonin 10 mg PO HS 01/26/21 [History] Metoprolol Tartrate [Lopressor] 25 mg PO TID 01/26/21 [History] Ondansetron Odt [Zofran ODT] 4 mg PO TID 01/26/21 [History] Pantoprazole [Protonix] 40 mg PO DAILY 01/26/21 [History] ALPRAZolam [Xanax] 0.25 mg PO TID #9 tab 01/29/21 [Rx] Aspirin 81 mg PO DAILY chew 01/29/21 [Rx] Atorvastatin [Lipitor] 40 mg PO DAILY tab 01/29/21 [Rx] Ipratropium-Albuterol Nebulize [Duoneb 0.5 mg-3 mg/3 ml Soln] 3 ml INHALATION RT-TID ml 01/29/21 [Rx] Magnesium Hydroxide [Milk of Magnesia Concentrate] 2,400 mg PO DAILY PRN ml 01/29/21 [Rx] Sennosides-Docusate Sodium [Senokot-S] 2 each PO DAILY tab 01/29/21 [Rx] oxyCODONE HCL [OxyIR] 30 mg PO Q8H #9 tab 01/29/21 [Rx] polyethylene glycoL 3350 [Miralax] 17 gm PO BID #60 packet 01/30/21 [Rx] Follow up Appointment(s)/Referral(s): Elma Palmer MD [Primary Care Provider] - 1-2 days Wayne Gama MD [STAFF PHYSICIAN] - 2 Weeks [facility] Nurse, [NON-STAFF] - 1-2 Days Discharge Disposition: TRANSFER TO SNF/ECF
[2021-01-29] MEDS: MIRTAZAPINE 15 MG TAB PO SCH (20:15)
[2021-01-29] MEDS: MELATONIN 5 MG TABLET PO SCH (20:15)
[2021-01-29] MEDS: DULoxetine HCL 30 MG CAPSULE.DR PO SCH (20:16)
[2021-01-29 21:36] VITALS: RESP 17
[2021-01-29] MEDS: ACETAMINOPHEN TAB 325 MG TAB PO PRN (22:19)
[2021-01-30 05:51] LABS: African American GFR (CKD) >90 (>60 ml/min/1.73 sqM); Anion Gap 4 mmol/L; Blood Urea Nitrogen 11 mg/dL (7-17); Calcium 9.6 mg/dL (8.4-10.2); Carbon Dioxide 33 mmol/L (22-30); Chloride 95 mmol/L (98-107); Glucose 105 mg/dL (74-99); Non-African American GFR(CKD) 84 (>60 ml/min/1.73 sqM); Potassium 4.6 mmol/L (3.5-5.1); Sodium 132 mmol/L (137-145)
[2021-01-30 05:54] LABS: HCT 35.2 % (34.0-46.0); MCH 30.4 pg (25.0-35.0); MCHC 34.1 g/dL (31.0-37.0); MCV 89.3 fL (80.0-100.0); Platelet Count 294 k/uL (150-450); RBC 3.94 m/uL (3.80-5.40); RDW 13.4 % (11.5-15.5); WBC 9.4 k/uL (3.8-10.6)
[2021-01-30] MEDS: IPRATROPIUM-ALBUTEROL 3 ML NEB INHALATION SCH ×2 (07:14→11:45)
[2021-01-30 07:34] VITALS: BP 120/70; TEMP 98.4
[2021-01-30] MEDS ORDERED: FUROSEMIDE 40 MG TAB PO STA (07:47)
[2021-01-30] MEDS: METOPROLOL TARTRATE 25 MG TAB PO SCH (08:17)
[2021-01-30] MEDS: ATORVASTATIN 40 MG TAB PO SCH (08:17)
[2021-01-30] MEDS: DULoxetine HCL 60 MG CAPSULE.DR PO SCH (08:17)
[2021-01-30] MEDS: SENNOSIDES-DOCUSATE SODIUM 1 EACH TAB PO SCH (08:17)
[2021-01-30] MEDS: PANTOPRAZOLE 40 MG TABLET PO SCH (08:17)
[2021-01-30] MEDS: ALPRAZolam 0.25 MG TAB PO SCH (08:17)
[2021-01-30] MEDS: ONDANSETRON ODT 4 MG TAB PO SCH (08:17)
[2021-01-30] MEDS: ASPIRIN 81 MG PO SCH (08:17)
--- NOTE | 2021-01-30 10:03 | PN ---
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 Sodium level has been slowly trending down again. 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 PHYSICAL EXAMINATION: Patient is comfortable. She states she has some discomfort in her abdomen. Blood pressure is 120/70, heart rate 87 per minute, she is afebrile. Examination of the heart S1, S2. Examination of the lungs, decreased breath sounds at bases. Abdomen is soft. No significant tenderness noted. [employer] exam grossly intact. LAB: Show sodium 132 today, potassium 4.6, serum creatinine 0.6. ASSESSMENT: 1. 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 Sodium level slightly on the lower side today. I will give her a dose of p.o. Lasix. The patient can resume some degree of fluid restriction post discharge. 2. Hypertension. 3. Abdominal pain status post abdominal CT which showed some prominence in the pancreatic duct. No other acute changes. PLAN: Oral Lasix x1. Maintain some degree of free water restriction post discharge. Monitor sodium levels closely as outpatient. MMODL / IJN: [id number] /
[2021-01-30] MEDS: ACETAMINOPHEN TAB 325 MG TAB PO PRN (10:30)
[2021-01-30] MEDS: ONDANSETRON 4 MG/2 ML VIAL IVP PRN (10:39)
[2021-01-30 11:56] VITALS: PULSE 72
--- NOTE | 2021-02-01 14:52 | FL ---
EXAMINATION TYPE: FL barium swallow w video DATE OF EXAM: 01/29/2021 MODIFIED SWALLOW / DEGLUTITION STUDY CLINICAL HISTORY: Dysphagia. TECHNIQUE: Deglutition study is performed utilizing thin liquid barium, honey and nectar thick liqui d barium, barium thick puree. COMPARISON: None. FINDINGS: There is delayed swallow initiation and vallecular pooling throughout the examination. Deep penetration was noted with all consistencies without willy aspiration. IMPRESSION: There is delayed swallow initiation and vallecular pooling throughout the examination. Deep penetrati on was noted with all consistencies without willy aspiration. For full details please see the speech pathologist note.
== END 2021-01-30 12:50 | DRG 190 ==
LOC: EC 18:20 → 2SICU 21:49 → 3SCARD 01-27 16:40 → 4SSUR 01-30 00:39
PROVIDERS: ADMIT Internal Medicine; ATTEND Internal Medicine
DX: J44.1 Chronic obstructive pulmonary disease with (acute) exacerbation (principal); J96.21 Acute and chronic respiratory failure with hypoxia; I20.0 Unstable angina; N17.9 Acute kidney failure, unspecified; E87.2 Acidosis; I50.32 Chronic diastolic (congestive) heart failure; F33.9 Major depressive disorder, recurrent, unspecified; E22.2 Syndrome of inappropriate secretion of antidiuretic hormone; Z20.822 Contact with and (suspected) exposure to COVID-19; Z99.81 Dependence on supplemental oxygen; F41.1 Generalized anxiety disorder; K21.9 Gastro-esophageal reflux disease without esophagitis; E78.5 Hyperlipidemia, unspecified; G89.4 Chronic pain syndrome; M19.90 Unspecified osteoarthritis, unspecified site; M54.9 Dorsalgia, unspecified; M54.2 Cervicalgia; I11.0 Hypertensive heart disease with heart failure; E86.1 Hypovolemia; I16.0 Hypertensive urgency; Z96.1 Presence of intraocular lens; Z79.899 Other long term (current) drug therapy; Z88.6 Allergy status to analgesic agent; Z88.1 Allergy status to other antibiotic agents; Z90.710 Acquired absence of both cervix and uterus; Z87.891 Personal history of nicotine dependence; Z79.82 Long term (current) use of aspirin; Z87.01 Personal history of pneumonia (recurrent); Z82.49 Family history of ischemic heart disease and other diseases of the circulatory system
CPT/HCPCS: 36415; 71045; 71275; 74160; 74230; 80048; 80053; 81001; 82805; 83605; 83880; 83935; 84145; 84295; 84443; 84484; 85025; 85027; 85610; 85730; 87040; 87635; 93005; 93306; 94640; 94660; 94760; 96374; 96375; 99291